=== PATIENT | female | born 1945 | race Caucasian/White ===

== ENCOUNTER 2018-06-15 09:07 | Emergency (ER) | payer MEDICARE, OTHER ==
[~2018-06-15] VITALS: Ht 167.6 cm; Wt 90.7 kg
[~2018-06-15 09:07] MED LIST: ALENDRONATE SOD70 MG PO; ASPIR 8181 MG PO; BACTRIM DS TAB1 EACH PO; CEFTIN500 MG PO; CELEBREX200 MG; CITALOPRAM HBR40 MG PO; CRANBERRY PO; DEXILANT60 MG PO; DITROPAN XL5 MG PO; KETOPROFEN50 MG PO; LIDOCAINE 5% PATCH TD; LISINOPRIL40 MG PO; MELOXICAM7.5 MG PO; MULTIVITAMINS1 EAC7 PO; NORCO 10MG-325MG1 EA PO; OMEGA 3 KRILL OIL PO; OMEPRAZOLE20 MG PO; OXYBUTYNIN CHLO15 MG PO; OXYBUTYNIN CHLOR5 MG PO; PANTOPRAZOLE SO40 MG; PRAVASTATIN SOD40 MG; PRAVASTATIN SOD40 MG PO; PYRIDIUM200 MG PO; RANITIDINE HCL150 MG PO; SILVADENE20 GM TP; SULFAMETHOXAZO1 EAC1 PO; TYLENOL WITH C1 EAC1 PO; TYLENOL WITH C1 EACH PO; TYLENOL325 MG PO; ULTRAM50 MG; ZESTRIL40 MG PO; [UNRECOGNIZED DRUG - OTHER] PO
--- OUTSIDE RECORDS SUMMARY | 2018-06-15 09:12 | XMS REPORT | Summary of Care ---
Author Organization Unknown Address Unknown Phone Unavailable Encounter HQ [facility]) [phone] Date(s): 02/12/14 - 02/12/14 [facility] Outpatient Imaging - [address] [address]- [place] Discharge Disposition: Home Physician Attendin -MARY TSAI Reason for Visit 627.2 - SYMPT FEM CLIMA Problem List No data available for this section Allergies, Adverse Reactions, Alerts No data available for this section Medications No data available for this section Medications Administered During Your Visit No data available for this section Immunizations No data available for this section
--- OUTSIDE RECORDS SUMMARY | 2018-06-15 09:12 | XMS REPORT | Continuity of Care Document ---
Author Author [facility] Interface Address Unknown Phone Unavailable Problems Problem Status Onset Date Classification Date Reported Comments Source UROSEPSIS Active 10/21/2016 [facility] ACUTE L IMPACTED [facility] HIP FX Active 04/02/2016 [facility] FALL Active 04/02/2016 [facility] L HIP FX Active 04/02/2016 [facility] 715.96/721.3 Active 02/02/2015 [facility] Otitis externa<sup>9</sup> Active 01/16/2015 Problem 10/27/2016 Data migrated from [employer] on 02/11/15. [facility] CHEST PAIN NOS Active 01/16/2015 Condition 01/20/[facility] OTITIS EXTERNA Active 01/16/2015 Condition 01/20/2015 [facility] Low back pain<sup>4</sup> Active 07/01/2014 Problem 10/27/2016 Data migrated from [employer] on 12/09/14. [facility] [place] BACK PAIN, LUMBAR Active 07/01/2014 Condition 01/20/2015 [facility] Mitral valve regurgitation<sup>6</sup> Active 02/13/2014 Problem 10/27/2016 Data migrated from [employer] on 12/09/14. [facility] [place] Osteoporosis<sup>8</sup> Active 02/13/2014 Problem 10/27/2016 Data migrated from [employer] on 12/09/14. [facility] [place] MITRAL REGURGITATION, MILD Active 02/13/2014 Condition 01/20/2015 [facility] OSTEOPOROSIS Active 02/13/2014 Condition 01/20/2015 [facility] Electrocardiogram abnormal<sup>1</sup> Active 02/05/2014 Problem 10/27/2016 Data migrated from [employer] on 12/09/14. [facility] [place] Gastroesophageal reflux disease<sup>2</sup> Active 02/05/2014 Problem 10/27/2016 Data migrated from [employer] on 12/09/14. [facility] [place] Hyperlipidemia<sup>3</sup> Active 02/05/2014 Problem 10/27/2016 Data migrated from [employer] on 12/09/14. [facility] [place] Menopause present<sup>5</sup> Active 02/05/2014 Problem 10/27/2016 Data migrated from [employer] on 12/09/14. [facility] [place] Osteoarthritis<sup>7</sup> Active 02/05/2014 Problem 10/27/2016 Data migrated from [employer] on 12/09/14. [facility] [place] Urge incontinence of urine<sup>9</sup> Active 02/05/2014 Problem 02/05/2015 Data migrated from [employer] on 12/09/14. [facility] Urge incontinence of urine<sup>10</sup> Active 02/05/2014 Problem 10/27/2016 Data migrated from [employer] on 12/09/14[facility] 02/05/2014 Condition 01/20/2015 [facility] HYPERLIPIDEMIA Active 02/05/2014 Condition 01/20/2015 [facility] GASTROESOPHAGEAL REFLUX DISEASE Active 02/05/2014 Condition 01/20/2015 [facility] OSTEOARTHRITIS Active 02/05/2014 Condition 01/20/2015 [facility] INCONTINENCE, URGE Active 02/05/2014 Condition 01/20/2015 [facility] ABNORMAL ELECTROCARDIOGRAM Active 02/05/2014 Condition 01/20/2015 [facility] MENOPAUSE Active 02/05/2014 Condition 01/20/2015 [facility] 338 - PAIN NEC Active 04/11/2013 [facility] [place] Final: Stiffness of unspecified joint, not elsewhere classified 06/20/2016 [facility] [place] Final: Difficulty in walking, not elsewhere classified 06/20/2016 [facility] [place] Arthritis Resolved Problem 10/27/2016 [facility] Hip fracture Active Problem 10/27/2016 [facility] Acid reflux Resolved Problem 10/27/2016 [facility]RISTNIE Waterman,[facility] Hiatal hernia Resolved Problem 10/27/2016 [facility] Final: Unspecified fracture of unspecified femur, initial encounter for closed fracture 04/09/2016 [facility] UNSP FRACTURE OF UNSP FEMUR, INIT ENCNTR Active [facility] OSTEOARTHROS NOS-L/LEG Active [facility] LUMBOSACRAL SPONDYLOSIS Active [facility] OTHER INJURY OF UNSPECIFIED BODY REGION Active [facility] HIP FRACTURE Active [facility] [place] SEPSIS, UNSPECIFIED ORGANISM Active [facility] PRESENCE OF LEFT ARTIFICIAL HIP JOINT Active [facility] [place] PAIN IN UNSPECIFIED HIP Active [facility] [place] MUSCLE WEAKNESS (GENERALIZED) Active [facility] [place] STIFFNESS OF UNSPECIFIED JOINT, NOT ELSE Active [facility] [place] DIFFICULTY IN WALKING, NOT ELSEWHERE CLA Active [facility] [place] Medications Medication Details Route Status Patient Instructions Ordering Provider Order Date Source Citalopram 40 mg, 4 tab, Route: PO, Drug form: TAB, Daily, Dosing Weight 88.003, kg, Start date: 10/24/16 13:00:00 CDT, Duration: 30 day, Stop date: 11/23/16 9:00:00 CDT Inactive 10/24/2016 [facility] calcitriol 0.5 mcg oral capsule 0.5 microgram=1 cap, PO, Daily, # 30 cap, 0 Refill(s) Active 10/24/2016 [facility] Cefuroxime 250 MG Oral Tablet [Ceftin] 250 mg=1 tab, PO, BID, X 10 day, # 20 tab, 0 Refill(s) Active 10/24/2016 [facility] metroNIDAZOLE 250 mg oral tablet 250 mg=1 tab, PO, ABXQ8H, X 7 day, # 21 tab, 0 Refill(s) Active 10/24/2016 [facility] Atropine Sulfate 0.025 MG / Diphenoxylate Hydrochloride 2.5 MG Oral Tablet [Lomotil] 1 tab, PO, QID, PRN Loose Stools, X 3 day, # 12 tab, 0 Refill(s) Active 10/24/2016 [facility] Flagyl 250 mg, 1 tab, Route: PO, Drug form: TAB, ABXQ8H, Dosing Weight 88.003, kg, Start date: 10/24/16 10:00:00 CDT, Duration: 30 day, Stop date: 11/23/16 2:00:00 CDTNotes: (Same as: Flagyl) Take with food/ avoid alcohol Inactive 10/24/2016 [facility] Atropine Sulfate 0.025 MG / Diphenoxylate Hydrochloride 2.5 MG Oral Tablet [Lomotil] 1 tab, Route: PO, Drug Form: TAB, Dosing Weight 88.003, kg, QID, PRN Loose Stools, Start date: 10/24/16 9:28:00 CDT, Duration: 30 day, Stop date: 11/23/16 9:27:00 CDTNotes: (Same As: Lomotil) MAX Adult dose=8 tabs/day Inactive 10/24/2016 [facility] Potassium Chloride 1.33 MEQ/ML Oral Solution 40 mEq, 30 mL, Route: PO, Drug form: LIQ, ONCE, Dosing Weight 88.003, kg, Start date: 10/23/16 14:40:00 CDT, Stop date: 10/23/16 14:40:00 CDTNotes: (Same as: Potassium Chloride) Inactive 10/23/2016 [facility] ibuprofen 200 mg oral tablet 200 mg, 1 tab, Route: PO, Drug form: TAB, Q6H, Dosing Weight 88.636, kg, PRN Other -See Comment, Start date: 10/22/16 16:29:00 CDT, Duration: 30 day, Stop date: 11/21/16 16:28:00 CDT, feverNotes: (Same as: Advil) Give with food. No Longer Active 10/22/2016 [facility] meropenem 500 mg, Route: IVPB, ABXQ6H, Dosing Weight 88.636, kg, CrCL=26 -49 ml/min, Extended infusion, infuse over 3 hours, Start date: 10/22/16 11:00:00 CDT, Duration: 30 day, Stop date: 11/21/16 7:00:00 CDTNotes: Same as Merrem MEDICATION WASTE Product Size: 500 mg Product Wasted: ___ mg No Longer Active 10/22/2016 [facility] pantoprazole 40 mg, 1 tab, Route: PO, Drug form: ECTAB, Daily, Dosing Weight 88.636, kg, Start date: 10/22/16 9:00:00 CDT, Duration: 30 day, Stop date: 11/20/16 9:00:00 CDTNotes: Tablet should not be chewed or cr ushed. (Same as: Protonix) No Longer Active 10/22/2016 [facility] Streptococcus pneumoniae serotype 1 capsular antigen diphtheria [id number] protein conjugate vaccine / Streptococcus pneumoniae serotype 14 capsular antigen diphtheria [id number] protein conjugate vaccine / Streptococcus pneumoniae serotype 18C capsular antigen d 0.5 mL, Route: IM, Drug Form: INJ, Daily, Start date: 10/22/16 8:19:00 CDT, Duration: 1 doses or times, Stop date: 10/22/16 8:19:00 CDTNotes: Lightly roll vial (DO NOT SHAKE) before administration. (Same as: Prevnar 13) Inactive 10/22/2016 [facility] Morphine 2 mg, 1 mL, Route: IVP, Drug form: INJ, ONCE, Dosing Weight 88.636, kg, Start date: 10/22/16 4:03:00 CDT, Stop date: 10/22/16 4:03:00 CDTNotes: (Same as:MORPhine Sulfate) Inactive 10/22/2016 [facility] Merrem 500 mg, Route: IVPB, Q12H, Dosing Weight 88.636, kg, CrCL >=50ml/min, Extended infusion, infuse over 3 hours, Start date: 10/21/16 21:00:00 CDT, Duration: 30 day, Stop date: 11/20/16 9:00:00 CDTNotes: Same as Merrem MEDICATION WASTE Product Size: 500 mg Product Wasted: ___ mg Inactive 10/22/2016 [facility] Acetaminophen 325 MG / Hydrocodone Bitartrate 5 MG Oral Tablet [[place] 5/325] 1 tab, Route: PO, Drug Form: TAB, Dosing Weight 88.636, kg, Q6H, PRN Pain Score 1-3, Start date: 10/21/16 19:54:00 CDT, Duration: 30 day, Stop date: 11/20/16 19:53:00 CDTNotes: (Same as: [place] 325/5) Do not exceed 4gm/day of acetaminophen. No Longer Active 10/22/2016 [facility] Docusate 100 mg, 1 cap, Route: PO, Drug form: CAP, BID, Dosing Weight 81.818, kg, Start date: 10/21/16 17:00:00 CDT, Duration: 30 day, Stop date: 11/20/16 9:00:00 CDTNotes: (Same as: Colace) (Do Not Crush) No Longer Active 10/21/2016 [facility] Ceftriaxone 1 gm, Route: IVPB, Drug form: PDR/INJ, [id number], Dosing Weight 81.818, kg, Start date: 10/21/16 16:00:00 CDT, Duration: 30 day, Stop date: 11/19/16 16:00:00 CDT Inactive 10/21/2016 [facility] Acetaminophen 650 mg, 2 tab, Route: PO, Drug form: TAB, Q4H, Dosing Weight 81.818, kg, PRN Pain 1-3/Temp > 100.4 F, Start date: 10/21/16 15:54:00 CDT, Duration: 30 day, Stop date: 11/20/16 15:53:00 CDTNotes: Do not exceed 4 gm/day. (Same as: Tylenol) No Longer Active 10/21/2016 [facility] Ondansetron 4 mg, 2 mL, Route: IVP, Drug form: INJ, Q6H, Dosing Weight 81.818, kg, PRN Nausea & Vomiting, Start date: 10/21/16 15:54:00 CDT, Duration: 30 day, Stop date: 11/20/16 15:53:00 CDTNotes: (Same as: Mary) MEDICATION WASTE Product Size: 4 mg Product Wasted: ___ mg No Longer Active 10/21/2016 [facility] Sodium Chloride 0.154 MEQ/ML Injectable Solution 1,000 mL, Rate: 75 ml/hr, Infuse over: 13.3 hr, Route: IV, Dosing Weight 81.818 kg, Total Volume: 1,000, Start date: 10/21/16 15:54:00 CDT, Duration: 30 day, Stop date: 11/20/16 15:53:00 CDT No Longer Active 10/21/2016 [facility] Saline Flush 0.9% 10 ml, Route: IVP, Drug Form: INJ, Dosing Weight 81.818, kg, PRN, PRN Line Flush, Start date: 10/21/16 15:54:00 CDT, Duration: 30 day, Stop date: 11/20/16 15:53:00 CDTNotes: (Same as: BD Posiflush) No Longer Active 10/21/2016 [facility] Physical Therapy See Instructions, MISC, ONCALL, Evaluate and Treat 2-3 times per week for 4-6 weeks, # 1 ea, 0 Refill(s) Active 04/15/2016 [facility] Acetaminophen 300 MG / Codeine Phosphate 30 MG Oral Tablet 1 tab, PO, Q4H, PRN Pain Score 7-10, X 3 day, # 18 tab, 0 Refill(s) Active 04/15/2016 [facility] Acetaminophen 325 MG Oral Capsule [Tylenol] =2 tab, PO, QID, PRN Pain Score 1-5, Do not take more than 3000 mg of combined Acetaminophen per day (which includes the Tylenol #3), # 100 tab, 0 Refill(s), Pharmacy: [facility]/pharmacy #[id number] Active 04/15/2016 [facility] Ergocalciferol [id number] UNT Oral Capsule 50,000 IntlUnit=1 cap, PO, qWeek, # 5 cap, 0 Refill(s), Pharmacy: [facility]/pharmacy #[id number] Active 04/15/2016 [facility] Cefuroxime 500 MG Oral Tablet 500 mg, 2 tab, Route: PO, Drug form: TAB, [id number], Dosing Weight 81.818, kg, Start date: 04/08/16 21:00:00 CDT, Duration: 7 day, Stop date: 04/15/16 9:00:00 CDTNotes: (Do Not Crush) With food. (Same As: Ceftin) No Longer Active 04/09/2016 [facility] Dulcolax Laxative 10 mg, 2 tab, Route: PO, Drug form: ECTAB, Daily, Dosing Weight 81.818, kg, PRN Constipation, Start date: 04/08/16 15:43:00 CDT, Duration: 30 day, Stop date: 05/08/16 15:42:00 CDTNotes: (Same As: Dulcolax, Correctol) (Do Not Crush) "Do Not Crush" No Longer Active 04/08/2016 [facility] cefTRIAXone + sodium chloride 0.9% INJ 100 mL 1 gm, Route: IV, [id number], Start date: 04/08/16 6:00:00 CDT, Duration: 30 day, Stop date: 05/07/16 6:00:00 CDTNotes: (Same As: Rocephin). Use with 100 mL NS and infuse over 30 min MEDICATION WASTE Product Size: 1000 mg Product Wasted: ___ mg Inactive 04/08/2016 [facility] Vitamin D2 50,000 IntlUnit, 1 cap, Route: PO, Drug form: CAP, qWeek, Dosing Weight 81.818, kg, Start date: 04/07/16 17:00:00 CDT, Duration: 5 doses or times, Stop date: 05/05/16 9:00:00 CDTNotes: (Same as: Thea min D) "Do Not Crush" No Longer Active 04/07/2016 [facility] Aspirin 81 mg, 1 tab, Route: PO, Drug form: ECTAB, Daily, Dosing Weight 81.818, kg, Start date: 04/07/16 12:00:00 CDT, Duration: 30 day, Stop date: 05/07/16 9:00:00 CDTNotes: Do not crush or chew. (Same As: Ecotrin) No Longer Active 04/07/2016 [facility] Tums 500 mg, 1 tab, Route: CHEW, Drug form: CHEWTAB, QID, PRN Indigestion, Start date: 04/07/16 11:35:00 CDT, Duration: 30 day, Stop date: 05/07/16 11:34:00 CDTNotes: (Same As: Tums) Calcium Carbonate 500 kr=952 mg elemental calcium Dose= mg calcium carbonate ( mg elemental calcium) No Longer Active 04/07/2016 [facility] Rolaids Reformulated Feb 2006 1 tab, Route: PO, Drug Form: TAB, Dosing Weight 81.818, kg, QID, PRN Indigestion, Start date: 04/07/16 11:29:00 CDT, Duration: 30 day, Stop date: 05/07/16 11:28:00 CDT Inactive 04/07/2016 [facility] Ditropan XL 15 mg, 3 tab, Route: PO, Drug form: ERTAB, Daily, Dosing Weight 81.818, kg, Start date: 04/07/16 9:00:00 CDT, Duration: 30 day, Stop date: 05/06/16 9:00:00 CDTNotes: (Same as: Ditropan XL) "Do Not C wang" No Longer Active 04/07/2016 [facility] CeleXA 40 mg, 4 tab, Route: PO, Drug form: TAB, Daily, Dosing Weight 81.818, kg, Start date: 04/07/16 9:00:00 CDT, Duration: 30 day, Stop date: 05/06/16 9:00:00 CDT No Longer Active 04/07/2016 [facility] Rocephin + sodium chloride 0.9% INJ 100 mL 1 gm, Route: IVPB, [id number], Dosing Weight 81.818, kg, Start date: 04/07/16 8:00:00 CDT, Duration: 30 day, Stop date: 05/06/16 8:00:00 CDTNotes: (Same As: Rocephin). Use with 100 mL NS and infuse over 30 min MEDICATION WASTE Product Size: 1000 mg Product Wasted: ___ mg Inactive 04/07/2016 [facility] Protonix 40 mg, 1 tab, Route: PO, Drug form: ECTAB, Before Breakfast, Start date: 04/07/16 7:30:00 CDT, Duration: 30 day, Stop date: 05/06/16 7:30:00 CDTNotes: Tablet should not be chewed or crushed. (Same as: Protonix) No Longer Active 04/07/2016 [facility] Lovenox 40 mg, 0.4 mL, Route: SUB-Q, Drug form: INJ, [id number], Dosing Weight 81.818, kg, Start date: 04/07/16 6:00:00 CDT, Duration: 30 day, Stop date: 05/06/16 6:00:00 CDTNotes: (Same as: Lovenox) No Longer Active 04/07/2016 [facility] remove patch 1 patch, Route: TOP, Bedtime, Drug form: ERFILM, Start date: 04/06/16 21:00:00 CDT, Duration: 30 day, Stop date: 05/05/16 21:00:00 CDTNotes: Remove patch 12 hours after application each day. No Longer Active 04/07/2016 [facility] docusate sodium 100 mg oral capsule 100 mg, 1 cap, Route: PO, Drug form: CAP, BID, Dosing Weight 81.818, kg, Start date: 04/06/16 17:00:00 CDT, Duration: 30 day, Stop date: 05/06/16 9:00:00 CDTNotes: (Same as: Colace) (Do Not Crush) No Longer Active 04/06/2016 [facility] lidocaine topical patch (5% film) 1 patch, Route: TOP, Daily, Drug form: FILM, PRN Pain Score 1-5, Start date: 04/06/16 13:56:00 CDT, Duration: 30 day, Stop date: 05/06/16 13:55:00 CDTNotes: Apply only once for up to 12 hours in a 24-hour period (12 hours on and 12 hours off). (Same as: Lidoderm) "Remove old patch before application of new patch" No Longer Active 04/06/2016 [facility] acetaminophen-codeine 300 mg-60 mg oral tablet 1 tab, Route: PO, Drug Form: TAB, Dosing Weight 81.818, kg, Q4H, PRN Pain Score 6-10, Start date: 04/06/16 13:56:00 CDT, Duration: 30 day, Stop date: 05/06/16 13:55:00 CDTNotes: Do not exceed 4gm/day of acetaminophen. (Same as: Tylenol with Codeine # 4) No Longer Active 04/06/2016 [facility] acetaminophen-codeine 300 mg-30 mg oral tablet 1 tab, Route: PO, Drug Form: TAB, Dosing Weight 81.818, kg, Q4H, PRN Pain Score 4-6, Start date: 04/06/16 13:53:00 CDT, Duration: 30 day, Stop date: 05/06/16 13:52:00 CDTNotes: Do not exceed 4gm/day of acetaminophen. (Same as: Tylenol with Codeine # 3) No Longer Active 04/06/2016 [facility] Trazodone 50 mg, 1 tab, Route: PO, Drug form: TAB, Bedtime, Dosing Weight 81.818, kg, PRN Insomnia, Start date: 04/06/16 12:58:00 CDT, Duration: 30 day, Stop date: 05/06/16 12:57:00 CDTNotes: (Same As: Jasminel) No Longer Active 04/06/2016 [facility] pantoprazole 40 mg oral enteric coated tablet 40 mg=1 tab, PO, Before Breakfast, 0 Refill(s) On Hold 04/06/2016 [facility] Enoxaparin 40 mg=0.4 mL, SUB-Q, Daily, 0 Refill(s) On Hold 04/06/2016 [facility] Docusate Sodium 100 MG Oral Capsule 100 mg=1 cap, PO, BID, 0 Refill(s) On Hold 04/06/2016 [facility] Acetaminophen 300 MG / Codeine Phosphate 30 MG Oral Tablet 1 tab, Route: PO, Drug Form: TAB, Dosing Weight 81.818, kg, Q4H, PRN Pain Score 4-6, Start date: 04/04/16 13:35:00 CDT, Duration: 30 day, Stop date: 05/04/16 13:34:00 CDTNotes: Do not exceed 4gm/day of acetaminophen. (Same as: Tylenol with Codeine # 3) No Longer Active 04/04/2016 [facility] Acetaminophen 300 MG / Codeine Phosphate 60 MG Oral Tablet [Tylenol with Codeine #4] 1 tab, Route: PO, Drug Form: TAB, Dosing Weight 81.818, kg, Q4H, PRN Pain Score 6-10, Start date: 04/04/16 13:35:00 CDT, Duration: 30 day, Stop date: 05/04/16 13:34:00 CDTNotes: Do not exceed 4gm/day of acetaminophen. (Same as: Tylenol with Codeine # 4) No Longer Active 04/04/2016 [facility] pneumococcal 13-valent vaccine 0.5 mL, Route: IM, Drug Form: INJ, Daily, Start date: 04/04/16 9:00:00 CDT, Duration: 1 doses or times, Stop date: 04/04/16 9:00:00 CDTNotes: Lightly roll vial (DO NOT SHAKE) before administration. (Same as: Prevnar 13) Inactive 04/04/2016 [facility] influenza virus vaccine, inactivated 0.5 mL, Route: IM, Drug Form: SUSP, Daily, Start date: 04/04/16 9:00:00 CDT, Duration: 1 doses or times, Stop date: 04/04/16 9:00:00 CDTNotes: (Same as: Fluzone Quadrivalent, Fluarix Quadrivalent) For 3 years of age and older (0.5 mL IM) Shake well before use Inactive 04/04/2016 [facility] Rocephin 1 gm, Route: IVPB, [id number], Dosing Weight 81.818, kg, Start date: 04/04/16 8:00:00 CDT, Duration: 30 day, Stop date: 05/03/16 8:00:00 CDTNotes: (Same As: Rocephin). Use with 100 mL NS and infuse over 30 min MEDICATION WASTE Product Size: 1000 mg Product Wasted: ___ mg No Longer Active 04/04/2016 [facility] Vancomycin 6.67 MG/ML Injectable Solution 1,000 mg, Route: IVPB, Q12H, Dosing Weight 81.818, kg, Time Critical Medication, Start date: 04/03/16 21:00:00 CDT, Duration: 2 doses or times, Stop date: 04/04/16 9:00:00 CDT, Pharmacy to adjust dose for renal functionNotes: TIME CRITICAL MEDICATION (Same As: Vancocin) Infusion rate 2001 mg: infuse over 2.5 hours MEDICATION WASTE Product Size: 1000 mg Product Wasted: ___ mg No Longer Active 04/04/2016 [facility] ceFAZolin (SCIP) 2 gm, 100 mL, Route: IVPB, Drug form: INJ, [id number], Dosing Weight 81.818, kg, Start date: 04/03/16 19:15:00 CDT, Duration: 3 doses or times, Stop date: 04/04/16 7:15:00 CDTNotes: Same as: Ancef No Longer Active 04/04/2016 [facility] Docusate 100 mg, 1 cap, Route: PO, Drug form: CAP, BID, Dosing Weight 81.818, kg, Start date: 04/03/16 17:00:00 CDT, Duration: 30 day, Stop date: 05/03/16 9:00:00 CDTNotes: (Same as: Colace) (Do Not Crush) No Longer Active 04/03/2016 [facility] Acetaminophen 325 MG / Hydrocodone Bitartrate 10 MG Oral Tablet [[place] 10/325] 2 tab, Route: PO, Drug Form: TAB, Dosing Weight 81.818, kg, QID, Start date: 04/03/16 17:00:00 CDT, Duration: 1 day, Stop date: 04/04/16 13:00:00 CDTNotes: Do not exceed 4gm/day of acetaminophen. (Same as: [place] 325/10) No Longer Active 04/03/2016 [facility] glycopyrrolate (ANES) Route: IV, Drug form: INJ, ONCE, Stop date: 04/03/16 16:00:00 CDT Inactive 04/03/2016 [facility] neostigmine (ANES) Route: IV, Drug form: INJ, ONCE, Stop date: 04/03/16 16:00:00 CDT Inactive 04/03/2016 [facility] Hydromorphone 0.3 mg, 0.3 mL, Route: IVP, Drug form: INJ, Q4H, Dosing Weight 81.818, kg, PRN Pain Score 7-10, Start date: 04/03/16 15:31:00 CDT, Duration: 30 day, Stop date: 05/03/16 15:30:00 CDT No Longer Active 04/03/2016 [facility] Acetaminophen 325 MG / Hydrocodone Bitartrate 10 MG Oral Tablet [[place] 10/325] 2 tab, Route: PO, Drug Form: TAB, Dosing Weight 81.818, kg, Q4H, PRN Pain Score 4-6, Start date: 04/03/16 15:31:00 CDT, Duration: 30 day, Stop date: 05/03/16 15:30:00 CDTNotes: Do not exceed 4gm/day of acetaminophen. (Same as: [place] 325/10) No Longer Active 04/03/2016 [facility] Ondansetron 4 mg, 2 mL, Route: IVP, Drug form: INJ, Q8H, Dosing Weight 81.818, kg, PRN Nausea & Vomiting, Start date: 04/03/16 15:31:00 CDT, Duration: 30 day, Stop date: 05/03/16 15:30:00 CDTNotes: (Same as: Zofran) MEDICATION WASTE Product Size: 4 mg Product Wasted: ___ mg No Longer Active 04/03/2016 [facility] sodium chloride 0.45% 1000 ml INJ 1,000 mL 1,000 mL, Rate: 75 ml/hr, Infuse over: 13.3 hr, Route: IV, Dosing Weight 81.818 kg, Total Volume: 1,000, Start date: 04/03/16 15:31:00 CDT, Duration: 30 day, Stop date: 05/03/16 15:30:00 CDT No Longer Active 04/03/2016 [facility] acetaminophen (ANES) Route: IV, Drug form: INJ, ONCE, Stop date: 04/03/16 15:01:00 CDT Inactive 04/03/2016 [facility] dexamethasone (ANES) Route: IV, Drug form: INJ, ONCE, Stop date: 04/03/16 14:56:00 CDT Inactive 04/03/2016 [facility] ondansetron (ANES) Route: IV, Drug form: INJ, ONCE, Stop date: 04/03/16 14:56:00 CDT Inactive 04/03/2016 [facility] ketOROLAC (ANES) IV, ONCE Inactive 04/03/2016 [facility] Cleocin Phosphate (ANES) Route: IV, Drug form: INJ, ONCE, Stop date: 04/03/16 14:51:00 CDT Inactive 04/03/2016 [facility] ceFAZolin (ANES) Route: IV, Drug form: INJ, ONCE, Stop date: 04/03/16 14:51:00 CDT Inactive 04/03/2016 [facility] rocuronium (ANES) Route: IV, Drug form: INJ, ONCE, Stop date: 04/03/16 14:46:00 CDT Inactive 04/03/2016 [facility] fentaNYL (ANES) Route: IV, Drug form: INJ, ONCE, Stop date: 04/03/16 14:46:00 CDT Inactive 04/03/2016 [facility] propofol (ANES) Route: IV, Drug form: INJ, ONCE, Stop date: 04/03/16 14:46:00 CDT Inactive 04/03/2016 [facility] lidocaine (ANES) Route: IV, Drug form: INJ, ONCE, Stop date: 04/03/16 14:46:00 CDT Inactive 04/03/2016 [facility] midazolam (ANES) Route: IV, Drug form: SOLN, ONCE, Stop date: 04/03/16 14:36:00 CDT Inactive 04/03/2016 [facility] ePHEDrine (ANES) Route: IV, Drug form: INJ, ONCE, Stop date: 04/03/16 14:16:00 CDT Inactive 04/03/2016 [facility] LR 1000 mL INJ (ANES) Route: IV, Total Volume: 1,000, Start date: 04/03/16 13:26:00 CDT, Stop date: 04/03/16 14:26:00 CDT Inactive 04/03/2016 [facility] Streptococcus pneumoniae serotype 1 capsular antigen diphtheria [id number] protein conjugate vaccine / Streptococcus pneumoniae serotype 14 capsular antigen diphtheria [id number] protein conjugate vaccine / Streptococcus pneumoniae serotype 18C capsular antigen d 0.5 mL, Route: IM, Drug Form: INJ, Daily, Start date: 04/03/16 9:00:00 CDT, Stop date: 04/03/16 12:00:00 CDTNotes: Lightly roll vial (DO NOT SHAKE) before administration. (Same as: Prevnar 13) Inactive 04/03/2016 [facility] influenza virus vaccine, inactivated 0.5 mL, Route: IM, Drug Form: SUSP, Daily, Start date: 04/03/16 9:00:00 CDT, Stop date: 04/03/16 12:00:00 CDTNotes: (Same as: Fluzone Quadrivalent, Fluarix Quadrivalent) For 3 years of age and older (0.5 mL IM) Shake well before use Inactive 04/03/2016 [facility] Omeprazole 40 mg, Route: PO, Drug form: DRC, Daily, Dosing Weight 81.818, kg, Start date: 04/03/16 9:00:00 CDT, Duration: 30 day, Stop date: 05/02/16 9:00:00 CDT No Longer Active 04/03/2016 [facility] oxybutynin 15 mg, 3 tab, Route: PO, Drug form: ERTAB, Daily, Dosing Weight 81.818, kg, Start date: 04/03/16 9:00:00 CDT, Duration: 30 day, Stop date: 05/02/16 9:00:00 CDTNotes: (Same as: Ditropan XL) "Do Not Crush" No Longer Active 04/03/2016 [facility] Citalopram 40 mg, 4 tab, Route: PO, Drug form: TAB, Daily, Dosing Weight 81.818, kg, Start date: 04/03/16 9:00:00 CDT, Duration: 30 day, Stop date: 05/02/16 9:00:00 CDT No Longer Active 04/03/2016 [facility] Sulfamethoxazole 800 MG / Trimethoprim 160 MG Oral Tablet 1 tab, PO, Daily, 0 Refill(s) On Hold 04/03/2016 [facility] Protonix 40 mg, 1 tab, Route: PO, Drug form: ECTAB, Before Breakfast, Start date: 04/03/16 7:30:00 CDT, Duration: 30 day, Stop date: 05/02/16 7:30:00 CDTNotes: Tablet should not be chewed or crushed. (Same as: Protonix) No Longer Active 04/03/2016 [facility] Enoxaparin 40 mg, 0.4 mL, Route: SUB-Q, Drug form: INJ, Daily, Dosing Weight 81.818, kg, Start date: 04/03/16 7:07:00 CDT, Duration: 30 day, Stop date: 05/03/16 6:00:00 CDTNotes: (Same as: Lovenox) No Longer Active 04/03/2016 [facility] remove patch Route: MISC, Bedtime, Drug form: ERFILM, Start date: 04/02/16 21:00:00 CDT, Duration: 30 day, Stop date: 05/01/16 21:00:00 CDTNotes: Remove patch 12 hours after application each day. No Longer Active 04/03/2016 [facility] Aspirin 81 mg, 1 tab, Route: PO, Drug form: ECTAB, Daily, Dosing Weight 81.818, kg, Start date: 04/02/16 20:30:00 CDT, Duration: 30 day, Stop date: 05/02/16 9:00:00 CDTNotes: Do not crush or chew. (Same As: Ecotrin) No Longer Active 04/03/2016 [facility] celecoxib 400 mg, 2 cap, Route: PO, Drug form: CAP, ONCALL, Dosing Weight 81.818, kg, (for CrCl > 90 mL/min), Start date: 04/02/16 20:00:00 CDT, Duration: 30 day, Stop date: 05/02/16 19:59:00 CDTNotes: NSAID. Please check indication. Not for seizure. (Same As: CeleBREX) Inactive 04/03/2016 [facility] Cefazolin 2 gm, 100 mL, Route: IVPB, Drug form: INJ, ONCALL, Dosing Weight 81.818, kg, (Patients weighing Notes: Same as: Ancef Inactive 04/03/2016 [facility] Lidocaine Hydrochloride 0.05 MG/MG Transdermal Patch [Lidoderm] 1 patch, Route: TOP, Daily, Drug form: FILM, PRN Pain Score 1-5, Start date: 04/02/16 19:48:00 CDT, Duration: 30 day, Stop date: 05/02/16 19:47:00 CDTNotes: Apply only once for up to 12 hours in a 24-hour period (12 hours on and 12 hours off). (Same as: Lidoderm) "Remove old patch before application of new patch" No Longer Active 04/03/2016 [facility] Acetaminophen 300 MG / Codeine Phosphate 60 MG Oral Tablet 1 tab, Route: PO, Drug Form: TAB, Dosing Weight 81.818, kg, Q4H, PRN Pain Score 7-10, Start date: 04/02/16 19:47:00 CDT, Duration: 30 day, Stop date: 05/02/16 19:46:00 CDTNotes: Do not exceed 4gm/day of acetaminophen. (Same as: Tylenol with Codeine # 4) No Longer Active 04/03/2016 [facility] Rocephin 1 gm, Route: IVPB, Drug form: PDR/INJ, [id number], Dosing Weight 81.818, kg, Priority: STAT, Start date: 04/02/16 19:42:00 CDT, Duration: 1 day, Stop date: 04/02/16 19:42:00 CDT Inactive 04/03/2016 [facility] MegaKrill 500 mg=, PO, Daily, "MegaRed", 0 Refill(s) On Hold 04/02/2016 [facility] Centrum Women's oral tablet 1 tab, PO, Daily, 0 Refill(s) On Hold 04/02/2016 [facility] Aspirin 81 mg, PO, Daily, 0 Refill(s) On Hold 04/02/2016 [facility] Sulfamethoxazole 40 MG/ML / Trimethoprim 8 MG/ML Oral Suspension PO, Daily, DOSE UNKNOWN, 0 Refill(s) No Longer Active 04/02/2016 [facility] Tylenol 650 mg, PO, 0 Refill(s) On Hold 04/02/2016 [facility] acetaminophen 325 mg oral tablet 650 mg, 2 tab, Route: PO, ONCE, Dosing Weight 81.818, kg, Start date: 04/02/16 15:57:00 CDT, Stop date: 04/02/16 15:57:00 CDT Inactive 04/02/2016 [facility] Sodium Chloride 0.154 MEQ/ML Injectable Solution 1,000 mL, Rate: 125 ml/hr, Infuse over: 8 hr, Route: IV, Dosing Weight 81.818 kg, Total Volume: 1,000, Start date: 04/02/16 15:28:00 CDT, Duration: 30 day, Stop date: 05/02/16 15:27:00 CDT No Longer Active 04/02/2016 [facility] Morphine 4 mg, 2 mL, Route: IVP, Drug form: INJ, Q4H, Dosing Weight 81.818, kg, PRN Pain Score 7-10, Start date: 04/02/16 15:28:00 CDT, Duration: 30 day, Stop date: 05/02/16 15:27:00 CDTNotes: (Same as:MORPhine Sulfate) No Longer Active 04/02/2016 [facility] Ondansetron 4 mg, 2 mL, Route: IVP, Drug form: INJ, Q6H, Dosing Weight 81.818, kg, PRN Nausea & Vomiting, Start date: 04/02/16 15:28:00 CDT, Duration: 30 day, Stop date: 05/02/16 15:27:00 CDTNotes: (Same as: Zofran) MEDICATION WASTE Product Size: 4 mg Product Wasted: ___ mg No Longer Active 04/02/2016 [facility] Saline Flush 0.9% 10 ml, Route: IVP, Drug Form: INJ, Dosing Weight 81.818, kg, PRN, PRN Line Flush, Start date: 04/02/16 15:28:00 CDT, Duration: 30 day, Stop date: 05/02/16 15:27:00 CDTNotes: (Same as: BD Posiflush) No Longer Active 04/02/2016 [facility] Lidocaine Hydrochloride 0.05 MG/MG Transdermal Patch [Lidoderm] 1 patch, TOP, Daily, PRN Pain Score 1-5, 0 Refill(s) On Hold 04/02/2016 [facility] Acetaminophen 300 MG / Codeine Phosphate 60 MG Oral Tablet 1 tab, PO, Q4H, PRN Pain Score 7-10, TAKE 1 TABLET BY MOUTH EVERY 4-6 HOUIRS NEEDED FOR SEVERE PAIN On Hold 04/02/2016 [facility] citalopram 40 mg oral tablet 40 mg=1 tab, PO, Daily, 0 Refill(s) On Hold 04/02/2016 [facility] omeprazole 40 mg oral delayed release capsule 40 mg=1 cap, PO, Daily, 0 Refill(s) On Hold 04/02/2016 [facility] oxybutynin 15 mg oral tablet, extended release 15 mg=1 tab, PO, Daily, 0 Refill(s) On Hold 04/02/2016 [facility] Alendronic acid 70 MG Oral Tablet 70 mg=1 tab, PO, Q7D, 0 Refill(s) On Hold 04/02/2016 [facility] Ceftriaxone 1 gm, Route: IVPB, Drug form: PDR/INJ, ONCE, Dosing Weight 81.818, kg, Priority: STAT, Start date: 04/02/16 14:56:00 CDT, Stop date: 04/02/16 14:56:00 CDT Inactive 04/02/2016 [facility] Morphine 4 mg, 2 mL, Route: IVP, Drug form: INJ, ONCE, Dosing Weight 87.27, kg, Start date: 04/02/16 13:32:00 CDT, Stop date: 04/02/16 13:32:00 CDTNotes: (Same as:MORPhine Sulfate) Inactive 04/02/2016 [facility] OMEPRAZOLE 20 MG CPDR one capsule daily Active [facility] FOSAMAX 70 MG TABS 1 tablet weekly with 8 oz water Active 01/16/[facility] CIPRODEX 0.3-0.1 % SUSP 4 drops into affected ear twice daily for 7 days Active 01/16/[facility] OXYBUTYNIN CHLORIDE ER 15 MG [id number] One po daily Active 07/01/2014 [facility] NITROFURANTOIN MACROCRYSTAL 100 MG CAPS 1 capsule po daily No Longer Active 07/01/2014 [facility] ASPIRIN 81 MG TBEC 2 po daily Active 07/01/2014 [facility] LANSOPRAZOLE 30 MG CPDR one capsule daily Active 07/01/2014 [facility] LIDODERM 5 % PTCH as directed Active 07/01/2014 [facility] MOBIC 7.5 MG/5ML SUSP one tablet daily for pain Active 07/01/2014 [facility] ACETAMINOPHEN-CODEINE #3 300-30 MG TABS one tablet every 8 hours as needed for pain Active 07/01/2014 [facility] TYLENOL EXTRA STRENGTH TABS 2 po daily Inactive 07/01/2014 [facility] ADVANCED AM/PM MISC 2 tablets AM/PM No Longer Active 07/01/2014 [facility] OXYBUTYNIN CHLORIDE ER 15 MG [id number] One po daily Active 07/01/2014 [facility] NITROFURANTOIN MACROCRYSTAL 100 MG CAPS 1 capsule po daily Active 07/01/2014 [facility] LIDODERM 5 % PTCH as directed Active 07/01/2014 [facility] ACETAMINOPHEN-CODEINE #3 300-30 MG TABS one tablet every 8 hours as needed for pain Active 07/01/2014 [facility] FOSAMAX 70 MG TAB 1 tablet weekly as directed Active 02/13/2014 [facility] FOSAMAX 70 MG TAB 1 tablet weekly as directed No Longer Active 02/13/2014 [facility] LISINOPRIL 5 MG TABS 1 tablet daily Active 02/05/2014 [facility] OXYBUTYNIN CHLORIDE ER 15 MG [id number] ONE TAB DAILY No Longer Active 02/05/2014 [facility] PRAVASTATIN SODIUM 40 MG TABS ONE TAB DAILY No Longer Active 02/05/2014 [facility] OMEPRAZOLE 20 MG TBEC ONE TAB DAILY No Longer Active 02/05/2014 [facility] ADULT ASPIRIN LOW STRENGTH 81 MG TBDP ONE TAB DAILY No Longer Active 02/05/2014 [facility] CRANBERRY PLUS VITAMIN C 4200-20-3 MG-MG-UNIT CAPS TWO CAPS ONCE A DAY Active 02/05/2014 [facility] EQ ARTHRITIS PAIN 650 MG CR-TABS TWO TABS ONCE A DAY No Longer Active 02/05/2014 [facility] HYDROCODONE-ACETAMINOPHEN 7.5-325 MG TABS 1 tablet daily as needed for severe pain Active 02/05/2014 [facility] ADVANCED AM/PM MISC 2 orally morning and evening as directed No Longer Active 02/05/2014 [facility] LISINOPRIL 5 MG TABS 1 tablet daily No Longer Active 02/05/2014 [facility] OXYBUTYNIN CHLORIDE ER 15 MG [id number] ONE TAB DAILY No Longer Active 02/05/2014 [facility] HYDROCODONE-ACETAMINOPHEN 7.5-325 MG TABS 1 tablet daily as needed for severe pain No Longer Active 02/05/2014 [facility] LISINOPRIL 5 MG TABS 1 tablet daily No Longer Active 02/05/2014 [facility] Allergies, Adverse Reactions, Alerts Substance Category Reaction Severity Reaction type Status Date Reported Comments Source Immunizations Immunization Date Given Site Status Last Updated Comments Source pneumococcal 13-valent vaccine 10/22/2016 Not Given [facility] influenza virus vaccine, inactivated 04/04/2016 Left Deltoid completed [facility] pneumococcal 13-valent vaccine 04/04/2016 Right Deltoid completed [facility] Results Order Name Results Value Reference Range Date Interpretation Comments Source ELECTROLYTES AGAP 12.3 meq/L 10.0 - 20.0 10/23/2016 [facility] ELECTROLYTES eGFR 96 mL/min/1.73m2 10/23/2016 Result Comment: The eGFR is calculated using the CKD-EPI formula. In most young, healthy individuals the eGFR will be >90 mL/min/1.73m2. The eGFR declines with age. An eGFR of 60-89 may be normal in some populations, particularly the elderly, for whom the CKD-EPI formula has not been extensively validated. Use of the eGFR is not recommended in the following populations: Individuals with unstable creatinine concentrations, including patients and those with serious co-morbid conditions. Patients with extremes in muscle mass or diet. The data above are obtained from the National Kidney Disease Education Program (NKDEP) which additionally recommends that when the eGFR is used in patients with extremes of body mass index for purposes of drug dosing, the eGFR should be multiplied by the estimated BMI. [facility] ELECTROLYTES Sodium Lvl 141 meq/L 135 - 145 10/23/2016 [facility] ELECTROLYTES Potassium Lvl 3.3 meq/L 3.5 - 5.1 10/23/2016 [facility] ELECTROLYTES Creatinine Lvl 0.55 mg/dL 0.50 - 1.40 10/23/2016 [facility] ELECTROLYTES Glucose Lvl 91 mg/dL 70 - 99 10/23/2016 [facility] ELECTROLYTES BUN 8 mg/dL 7 - 22 10/23/2016 [facility] ELECTROLYTES Calcium Lvl 8.1 mg/dL 8.5 - 10.5 10/23/2016 [facility] ELECTROLYTES CO2 25 meq/L 24 - 32 10/23/2016 [facility] ELECTROLYTES Chloride Lvl 107 meq/L 95 - 109 10/23/2016 [facility] HEMATOLOGY MPV 7.5 fL 7.4 - 10.4 10/23/2016 [facility] Platelet 130 K/CMM 133 - 450 10/23/2016 [facility] RDW 14.8 % 11.5 - 14.5 10/23/2016 [facility] MCH 29.2 pg 27.0 - 31.0 10/23/2016 [facility] Hct 35.3 % 36.0 - 48.0 10/23/2016 [facility] MCHC 33.5 g/dL 32.0 - 36.0 10/23/2016 [facility] WBC 5.8 K/CMM 3.7 - 10.4 10/23/2016 [facility] MCV 87.1 fL 80.0 - 98.0 10/23/2016 [facility] RBC 4.06 M/CMM 4.20 - 5.40 10/23/2016 [facility] Hgb 11.8 g/dL 12.0 - 16.0 10/23/2016 [facility] RBC 4.11 M/CMM 4.20 - 5.40 10/22/2016 [facility] WBC 9.3 K/CMM 3.7 - 10.4 10/22/2016 [facility] Hct 35.9 % 36.0 - 48.0 10/22/2016 [facility] Hgb 11.9 g/dL 12.0 - 16.0 10/22/2016 [facility] MCV 87.3 fL 80.0 - 98.0 10/22/2016 [facility] MCHC 33.3 g/dL 32.0 - 36.0 10/22/2016 [facility] MCH 29.0 pg 27.0 - 31.0 10/22/2016 [facility] MPV 7.4 fL 7.4 - 10.4 10/22/2016 [facility] RDW 14.6 % 11.5 - 14.5 10/22/2016 [facility] Platelet 170 K/CMM 133 - 450 10/22/2016 [facility] Retroperitoneal Complete US Retroperitoneal Complete US Patient Name: LUCRECIA QUEZADA : 1945; Age: 71 years y/o Female MR: [id number] Study: Retroperitoneal Complete US Clinical Indication: Urinary tract infection - evaluate mass and compare to CT and evaluate ureteral jets.; Comparison: CT abdomen 10/22/2016. TECHNIQUE: Multiple longitudinal and transverse real time sonographic images of the kidneys and urinary bladder are obtained. FINDINGS: KIDNEY: The right kidney measures 13 x 4.8 x 5.2cm. 1.7 cm simple cyst right renal upper pole. The left kidney measures 12.4 x 6.5 x 5 cm. 3 cm simple cyst left renal upper pole. No pelvocaliectasis, nephrolithiasis or solid renal mass lesion identified bilaterally. BLADDER: Bladder is sonographically unremarkable. Bilateral ureteral jets were demonstrated. IMPRESSION: 1. No hydronephrosis or urinary tract obstruction appreciated. 2. Bilateral renal cysts. No solid mass seen. SL: JOHN-ETELVINA 10/22/2016 - - Read by: Leobardo Brandon MD Dictated Date/time: 10/22/16 17:40 Electronically Signed by: Leobardo Brandon MD 10/22/16 17:44 FINAL REPORT [facility] Abdomen/Pelvis wo IV contrast CT Abdomen/Pelvis wo IV contrast CT Patient Name: LUCRECIA QUEZADA : 1945; Age: 71 years Female MR: [id number] Study: Abdomen/Pelvis wo IV contrast CT 10/21/2016 5:43 PM CDT CLINICAL INDICATION: Fever; Stone protocol. Left InterStim in place. - dlp: 1107.67; [facility] COMPARISON: None TECHNIQUE: Multidetector CT imaging of the abdomen and pelvis was performed from the diaphragm through the symphysis with multiplanar reformations WITHOUT IV contrast. Coronal and sagittal reconstructions were generated and reviewed. FINDINGS: Lower thorax: Trace bilateral pleural effusions and bibasilar atelectasis. Small hiatal hernia. Hepatobiliary: No focal hepatic lesion. No biliary ductal dilatation. Pancreas: No focal mass or ductal dilatation. Spleen: No splenomegaly. Adrenals: No nodules. Kidneys: Mild left hydronephrosis. Few nonobstructive calculi within the inferior left kidney. Mild left perinephric stranding. Exophytic 3.3 cm left renal cyst. Unremarkable right kidney. Pelvic organs: Very limited evaluation of the pelvis due to extensive streak artifact from the bilateral hip arthroplasties. Peritoneum/Retroperitoneum: Trace free pelvic fluid. Lymph nodes: No lymphadenopathy. Vessels: Unremarkable. GI: Sigmoid and descending colon diverticulosis. No significant bowel wall thickening or obstruction. Postoperative changes of the stomach. Bones and soft tissues: Degenerative changes of the spine. The bones are demineralized. Sacral stimulator device noted within the left flank. Bilateral hip arthroplasties. IMPRESSION: Mild left hydronephrosis. Very limited evaluation of the pelvis due to extensive streak artifact from the bilateral hip arthroplasties. This streak artifact completely obscures the ureterovesicular junction where a small stone may result in the hydronephrosis. Few nonobstructive calculi within the inferior left kidney. Sigmoid and descending colon diverticulosis. SL: [id number] 10/22/2016 - - Read by: Rosemarie Estrada MD Dictated Date/time: 10/22/16 18:32 Electronically Signed by: Rosemarie Estrada MD 10/22/16 18:40 FINAL REPORT [facility] URINE AND STOOL UA Urobilinogen <=1.0 mg/dL 0.1 - 1.0 10/22/2016 [facility] URINE AND STOOL UA Color Ltyellow 10/22/2016 [facility] URINE AND STOOL UA Glucose Negative mg/dL Negative mg/dL 10/22/2016 [facility] URINE AND STOOL UA Nitrite Negative (10/22/16 5:15 AM) Negative 10/22/2016 [facility] URINE AND STOOL UA Blood Small *ABN* (10/22/16 5:15 AM) Negative 10/22/2016 [facility] URINE AND STOOL UA Leuk Est Large *ABN* (10/22/16 5:15 AM) Negative 10/22/2016 [facility] URINE AND STOOL UA WBC 12 /HPF 0 - 5 10/22/2016 [facility] URINE AND STOOL UA Bacteria Occasional /HPF None Seen /HPF 10/22/2016 [facility] URINE AND STOOL UA Bili Negative *NA* (10/22/16 5:15 AM) Negative 10/22/2016 [facility] URINE AND STOOL UA Ketones Negative mg/dL Negative mg/dL 10/22/2016 [facility] URINE AND STOOL UA Sq Epi None Seen 10/22/2016 [facility] URINE AND STOOL UA RBC 1 /HPF 0 - 2 10/22/2016 [facility] URINE AND STOOL UA pH 7.0 5.0 - 8.0 10/22/2016 [facility] URINE AND STOOL UA Protein Negative mg/dL Negative mg/dL 10/22/2016 [facility] URINE AND STOOL UA Turbidity Clear (10/22/16 5:15 AM) Clear 10/22/2016 [facility] URINE AND STOOL UA Spec Grav 1.006 <=1.030 10/22/2016 [facility] CHEM PANEL Lactic Acid Lvl 1.0 mMol/L 0.5 - 2.2 10/22/2016 [facility] CHEM PANEL Phosphorus 3.4 mg/dL 2.5 - 4.5 10/21/2016 [facility] CHEM PANEL Magnesium Lvl 2.0 mg/dL 1.8 - 2.4 10/21/2016 [facility] ELECTROLYTES AGAP 12.0 meq/L 10.0 - 20.0 10/21/2016 [facility] ELECTROLYTES Globulin 3.8 g/dL 2.7 - 4.2 10/21/2016 [facility] ELECTROLYTES B/C Ratio 16 6 - 25 10/21/2016 [facility] ELECTROLYTES A/G Ratio 0.8 0.7 - 1.6 10/21/2016 [facility] ELECTROLYTES eGFR 67 mL/min/1.73m2 10/21/2016 Result Comment: The eGFR is calculated using the CKD-EPI formula. In most young, healthy individuals the eGFR will be >90 mL/min/1.73m2. The eGFR declines with age. An eGFR of 60-89 may be normal in some populations, particularly the elderly, for whom the CKD-EPI formula has not been extensively validated. Use of the eGFR is not recommended in the following populations: Individuals with unstable creatinine concentrations, including patients and those with serious co-morbid conditions. Patients with extremes in muscle mass or diet. The data above are obtained from the National Kidney Disease Education Program (NKDEP) which additionally recommends that when the eGFR is used in patients with extremes of body mass index for purposes of drug dosing, the eGFR should be multiplied by the estimated BMI. [facility] ELECTROLYTES Creatinine Lvl 0.88 mg/dL 0.50 - 1.40 10/21/2016 [facility] ELECTROLYTES Sodium Lvl 139 meq/L 135 - 145 10/21/2016 [facility] ELECTROLYTES Glucose Lvl 91 mg/dL 70 - 99 10/21/2016 [facility] ELECTROLYTES BUN 14 mg/dL 7 - 22 10/21/2016 [facility] ELECTROLYTES Potassium Lvl 4.0 meq/L 3.5 - 5.1 10/21/2016 [facility] ELECTROLYTES Chloride Lvl 103 meq/L 95 - 109 10/21/2016 [facility] ELECTROLYTES CO2 28 meq/L 24 - 32 10/21/2016 [facility] ELECTROLYTES Calcium Lvl 10.1 mg/dL 8.5 - 10.5 10/21/2016 [facility] ELECTROLYTES Total Protein 7.0 g/dL 6.4 - 8.4 10/21/2016 [facility] ELECTROLYTES Albumin Lvl 3.2 g/dL 3.5 - 5.0 10/21/2016 [facility] ELECTROLYTES ALT 12 unit/L 0 - 65 10/21/2016 [facility] ELECTROLYTES AST 13 unit/L 0 - 37 10/21/2016 [facility] ELECTROLYTES Alk Phos 64 unit/L 39 - 136 10/21/2016 [facility] ELECTROLYTES Bili Total 0.9 mg/dL 0.2 - 1.3 10/21/2016 [facility] HEMATOLOGY Monocytes # 1.0 K/CMM 0.0 - 0.8 10/21/2016 [facility] HEMATOLOGY Segs 84.2 % 45.0 - 75.0 10/21/2016 [facility] HEMATOLOGY Eosinophils 0.4 % 0.0 - 4.0 10/21/2016 [facility] HEMATOLOGY Basophils 0.5 % 0.0 - 1.0 10/21/2016 [facility] HEMATOLOGY Segs-Bands # 14.4 K/CMM 1.5 - 8.1 10/21/2016 [facility] HEMATOLOGY Lymphocytes # 1.5 K/CMM 1.0 - 5.5 10/21/2016 [facility] HEMATOLOGY Monocytes 6.1 % 2.0 - 12.0 10/21/2016 [facility] HEMATOLOGY Basophils # 0.1 K/CMM 0.0 - 0.2 10/21/2016 [facility] HEMATOLOGY Eosinophils # 0.1 K/CMM 0.0 - 0.5 10/21/2016 [facility] HEMATOLOGY Lymphocytes 8.8 % 20.0 - 40.0 10/21/2016 [facility] MPV 7.3 fL 7.4 - 10.4 10/21/2016 [facility] RBC 4.39 M/CMM 4.20 - 5.40 10/21/2016 [facility] WBC 17.1 K/CMM 3.7 - 10.4 10/21/2016 [facility] MCHC 33.5 g/dL 32.0 - 36.0 10/21/2016 [facility] Hgb 12.9 g/dL 12.0 - 16.0 10/21/2016 [facility] MCV 87.6 fL 80.0 - 98.0 10/21/2016 [facility] MCH 29.3 pg 27.0 - 31.0 10/21/2016 [facility] Platelet 226 K/CMM 133 - 450 10/21/2016 [facility] RDW 14.7 % 11.5 - 14.5 10/21/2016 [facility] Hct 38.5 % 36.0 - 48.0 10/21/2016 [facility] CHEM PANEL Vitamin D, 25-OH, Total 16 ng/mL 30 - 100 04/07/2016 [facility] CHEM PANEL eGFR 97 mL/min/1.73m2 04/07/2016 Result Comment: The eGFR is calculated using the CKD-EPI formula. In most young, healthy individuals the eGFR will be >90 mL/min/1.73m2. The eGFR declines with age. An eGFR of 60-89 may be normal in some populations, particularly the elderly, for whom the CKD-EPI formula has not been extensively validated. Use of the eGFR is not recommended in the following populations: Individuals with unstable creatinine concentrations, including patients and those with serious co-morbid conditions. Patients with extremes in muscle mass or diet. The data above are obtained from the National Kidney Disease Education Program (NKDEP) which additionally recommends that when the eGFR is used in patients with extremes of body mass index for purposes of drug dosing, the eGFR should be multiplied by the estimated BMI. [facility] CHEM PANEL Calcium Lvl 8.5 mg/dL 8.5 - 10.5 04/07/2016 [facility] CHEM PANEL Chloride Lvl 104 meq/L 95 - 109 04/07/2016 [facility] CHEM PANEL CO2 30 meq/L 24 - 32 04/07/2016 [facility] CHEM PANEL Sodium Lvl 139 meq/L 135 - 145 04/07/2016 [facility] CHEM PANEL Potassium Lvl 3.5 meq/L 3.5 - 5.1 04/07/2016 [facility] CHEM PANEL Creatinine Lvl 0.54 mg/dL 0.50 - 1.40 04/07/2016 [facility] CHEM PANEL BUN 5 mg/dL 7 - 22 04/07/2016 [facility] CHEM PANEL Glucose Lvl 101 mg/dL 70 - 99 04/07/2016 [facility] CHEM PANEL AGAP 8.5 meq/L 10.0 - 20.0 04/07/2016 [facility] CHEM PANEL Albumin Lvl 2.6 g/dL 3.5 - 5.0 04/07/2016 [facility] CHEM PANEL Phosphorus 4.1 mg/dL 2.5 - 4.5 04/07/2016 [facility] CHEM PANEL Magnesium Lvl 2.1 mg/dL 1.8 - 2.4 04/07/2016 [facility] HEMATOLOGY Monocytes # 0.7 K/CMM 0.0 - 0.8 04/07/2016 [facility] HEMATOLOGY Lymphocytes # 1.6 K/CMM 1.0 - 5.5 04/07/2016 [facility] HEMATOLOGY Segs-Bands # 4.0 K/CMM 1.5 - 8.1 04/07/2016 [facility] HEMATOLOGY Monocytes 10.0 % 2.0 - 12.0 04/07/2016 [facility] HEMATOLOGY Eosinophils 6.5 % 0.0 - 4.0 04/07/2016 [facility] HEMATOLOGY Basophils 0.6 % 0.0 - 1.0 04/07/2016 [facility] HEMATOLOGY Segs 58.5 % 45.0 - 75.0 04/07/2016 [facility] HEMATOLOGY Lymphocytes 24.4 % 20.0 - 40.0 04/07/2016 [facility] HEMATOLOGY Eosinophils # 0.4 K/CMM 0.0 - 0.5 04/07/2016 [facility] HEMATOLOGY PT 13.5 s 12.0 - 14.7 04/07/2016 [facility] HEMATOLOGY PTT 31.3 s 22.9 - 35.8 04/07/2016 [facility] HEMATOLOGY INR 1.01 0.85 - 1.17 04/07/2016 [facility] HEMATOLOGY MPV 7.1 fL 7.4 - 10.4 04/07/2016 [facility] HEMATOLOGY MCHC 33.9 g/dL 32.0 - 36.0 04/07/2016 [facility] HEMATOLOGY Platelet 244 K/CMM 133 - 450 04/07/2016 [facility] HEMATOLOGY RDW 13.8 % 11.5 - 14.5 04/07/2016 [facility] HEMATOLOGY Hct 30.1 % 36.0 - 48.0 04/07/2016 [facility] HEMATOLOGY Hgb 10.2 g/dL 12.0 - 16.0 04/07/2016 [facility] HEMATOLOGY MCH 30.3 pg 27.0 - 31.0 04/07/2016 [facility] HEMATOLOGY MCV 89.3 fL 80.0 - 98.0 04/07/2016 [facility] HEMATOLOGY RBC 3.37 M/CMM 4.20 - 5.40 04/07/2016 [facility] HEMATOLOGY WBC 6.7 K/CMM 3.7 - 10.4 04/07/2016 [facility] IMMUNOLOGY Prealbumin 11.1 mg/dL 18.0 - 45.0 04/07/2016 [facility] HEMATOLOGY Segs-Bands # 5.6 K/CMM 1.5 - 8.1 04/05/2016 [facility] HEMATOLOGY Basophils 0.6 % 0.0 - 1.0 04/05/2016 [facility] HEMATOLOGY Eosinophils 5.2 % 0.0 - 4.0 04/05/2016 [facility] HEMATOLOGY Eosinophils # 0.4 K/CMM 0.0 - 0.5 04/05/2016 [facility] HEMATOLOGY Lymphocytes # 1.3 K/CMM 1.0 - 5.5 04/05/2016 [facility] HEMATOLOGY Monocytes # 0.6 K/CMM 0.0 - 0.8 04/05/2016 [facility] HEMATOLOGY Segs 70.4 % 45.0 - 75.0 04/05/2016 [facility] HEMATOLOGY Monocytes 7.3 % 2.0 - 12.0 04/05/2016 [facility] HEMATOLOGY Lymphocytes 16.5 % 20.0 - 40.0 04/05/2016 [facility] HEMATOLOGY MCHC 33.5 g/dL 32.0 - 36.0 04/05/2016 [facility] HEMATOLOGY MCH 30.0 pg 27.0 - 31.0 04/05/2016 [facility] HEMATOLOGY RDW 13.6 % 11.5 - 14.5 04/05/2016 [facility] HEMATOLOGY MCV 89.5 fL 80.0 - 98.0 04/05/2016 [facility] HEMATOLOGY Hct 30.1 % 36.0 - 48.0 04/05/2016 [facility] HEMATOLOGY Hgb 10.1 g/dL 12.0 - 16.0 04/05/2016 [facility] HEMATOLOGY Platelet 172 K/CMM 133 - 450 04/05/2016 [facility] HEMATOLOGY MPV 7.6 fL 7.4 - 10.4 04/05/2016 [facility] HEMATOLOGY RBC 3.37 M/CMM 4.20 - 5.40 04/05/2016 [facility] HEMATOLOGY WBC 8.0 K/CMM 3.7 - 10.4 04/05/2016 [facility] CHEM PANEL BUN 6 mg/dL 7 - 22 04/04/2016 [facility] CHEM PANEL Glucose Lvl 116 mg/dL 70 - 99 04/04/2016 [facility] CHEM PANEL Sodium Lvl 136 meq/L 135 - 145 04/04/2016 [facility] CHEM PANEL Chloride Lvl 104 meq/L 95 - 109 04/04/2016 [facility] CHEM PANEL Creatinine Lvl 0.58 mg/dL 0.50 - 1.40 04/04/2016 [facility] CHEM PANEL Potassium Lvl 4.1 meq/L 3.5 - 5.1 04/04/2016 [facility] CHEM PANEL CO2 25 meq/L 24 - 32 04/04/2016 [facility] CHEM PANEL Calcium Lvl 7.9 mg/dL 8.5 - 10.5 04/04/2016 [facility] CHEM PANEL eGFR 94 mL/min/1.73m2 04/04/2016 Result Comment: The eGFR is calculated using the CKD-EPI formula. In most young, healthy individuals the eGFR will be >90 mL/min/1.73m2. The eGFR declines with age. An eGFR of 60-89 may be normal in some populations, particularly the elderly, for whom the CKD-EPI formula has not been extensively validated. Use of the eGFR is not recommended in the following populations: Individuals with unstable creatinine concentrations, including patients and those with serious co-morbid conditions. Patients with extremes in muscle mass or diet. The data above are obtained from the National Kidney Disease Education Program (NKDEP) which additionally recommends that when the eGFR is used in patients with extremes of body mass index for purposes of drug dosing, the eGFR should be multiplied by the estimated BMI. [facility] CHEM PANEL AGAP 11.1 meq/L 10.0 - 20.0 04/04/2016 [facility] HEMATOLOGY MCHC 34.0 g/dL 32.0 - 36.0 04/04/2016 [facility] HEMATOLOGY MPV 7.4 fL 7.4 - 10.4 04/04/2016 [facility] HEMATOLOGY Platelet 159 K/CMM 133 - 450 04/04/2016 [facility] HEMATOLOGY RDW 13.4 % 11.5 - 14.5 04/04/2016 [facility] MCH 30.4 pg 27.0 - 31.0 04/04/2016 [facility] HEMATOLOGY MCV 89.2 fL 80.0 - 98.0 04/04/2016 [facility] Hct 30.0 % 36.0 - 48.0 04/04/2016 [facility] Hgb 10.2 g/dL 12.0 - 16.0 04/04/2016 [facility] RBC 3.36 M/CMM 4.20 - 5.40 04/04/2016 [facility] HEMATOLOGY WBC 10.2 K/CMM 3.7 - 10.4 04/04/2016 [facility] HEMATOLOGY Segs 87.8 % 45.0 - 75.0 04/04/2016 [facility] HEMATOLOGY Monocytes # 0.5 K/CMM 0.0 - 0.8 04/04/2016 [facility] Lymphocytes # 0.7 K/CMM 1.0 - 5.5 04/04/2016 [facility] Monocytes 5.0 % 2.0 - 12.0 04/04/2016 [facility] Lymphocytes 6.8 % 20.0 - 40.0 04/04/2016 [facility] HEMATOLOGY Eosinophils 0.2 % 0.0 - 4.0 04/04/2016 [facility] HEMATOLOGY Basophils 0.2 % 0.0 - 1.0 04/04/2016 [facility] Segs-Bands # 8.9 K/CMM 1.5 - 8.1 04/04/2016 [facility] Pelvis AP DX Pelvis AP DX Pelvis AP DX CLINICAL HISTORY: Fracture FINDINGS/IMPRESSION: Single AP view of the pelvis is submitted for review. Postoperative changes related to left hip arthroplasty are evident. No gross evidence for te-[place] bone fractures. Solid state device with sacral lead is stable in position. SL: [id number] 04/03/2016 - - Read by: Kris Delgado MD Dictated Date/time: 04/03/16 16:18 Electronically Signed by: Kris Delgado MD 04/03/16 16:19 FINAL REPORT [facility] CHEM PANEL Calcium Lvl 8.4 mg/dL 8.5 - 10.5 04/03/2016 [facility] CHEM PANEL CO2 28 meq/L 24 - 32 04/03/2016 [facility] CHEM PANEL eGFR 89 mL/min/1.73m2 04/03/2016 Result Comment: The eGFR is calculated using the CKD-EPI formula. In most young, healthy individuals the eGFR will be >90 mL/min/1.73m2. The eGFR declines with age. An eGFR of 60-89 may be normal in some populations, particularly the elderly, for whom the CKD-EPI formula has not been extensively validated. Use of the eGFR is not recommended in the following populations: Individuals with unstable creatinine concentrations, including patients and those with serious co-morbid conditions. Patients with extremes in muscle mass or diet. The data above are obtained from the National Kidney Disease Education Program (NKDEP) which additionally recommends that when the eGFR is used in patients with extremes of body mass index for purposes of drug dosing, the eGFR should be multiplied by the estimated BMI. [facility] CHEM PANEL AGAP 11.2 meq/L 10.0 - 20.0 04/03/2016 [facility] CHEM PANEL Chloride Lvl 107 meq/L 95 - 109 04/03/2016 [facility] CHEM PANEL Creatinine Lvl 0.70 mg/dL 0.50 - 1.40 04/03/2016 [facility] CHEM PANEL Glucose Lvl 96 mg/dL 70 - 99 04/03/2016 [facility] CHEM PANEL Sodium Lvl 142 meq/L 135 - 145 04/03/2016 [facility] CHEM PANEL BUN 10 mg/dL 7 - 22 04/03/2016 [facility] CHEM PANEL Potassium Lvl 4.2 meq/L 3.5 - 5.1 04/03/2016 [facility] CHEM PANEL eGFR 91 mL/min/1.73m2 04/03/2016 Result Comment: The eGFR is calculated using the CKD-EPI formula. In most young, healthy individuals the eGFR will be >90 mL/min/1.73m2. The eGFR declines with age. An eGFR of 60-89 may be normal in some populations, particularly the elderly, for whom the CKD-EPI formula has not been extensively validated. Use of the eGFR is not recommended in the following populations: Individuals with unstable creatinine concentrations, including patients and those with serious co-morbid conditions. Patients with extremes in muscle mass or diet. The data above are obtained from the National Kidney Disease Education Program (NKDEP) which additionally recommends that when the eGFR is used in patients with extremes of body mass index for purposes of drug dosing, the eGFR should be multiplied by the estimated BMI. [facility] CHEM PANEL Creatinine Lvl 0.65 mg/dL 0.50 - 1.40 04/03/2016 [facility] HEMATOLOGY MPV 7.1 fL 7.4 - 10.4 04/03/2016 [facility] HEMATOLOGY Platelet 176 K/CMM 133 - 450 04/03/2016 [facility] HEMATOLOGY RBC 3.89 M/CMM 4.20 - 5.40 04/03/2016 [facility] HEMATOLOGY WBC 5.6 K/CMM 3.7 - 10.4 04/03/2016 [facility] HEMATOLOGY RDW 13.6 % 11.5 - 14.5 04/03/2016 [facility] MCH 29.9 pg 27.0 - 31.0 04/03/2016 [facility] MCHC 33.4 g/dL 32.0 - 36.0 04/03/2016 [facility] MCV 89.8 fL 80.0 - 98.0 04/03/2016 [facility] Hct 34.9 % 36.0 - 48.0 04/03/2016 [facility] Hgb 11.6 g/dL 12.0 - 16.0 04/03/2016 [facility] HEMATOLOGY Eosinophils # 0.3 K/CMM 0.0 - 0.5 04/03/2016 [facility] HEMATOLOGY Segs 64.4 % 45.0 - 75.0 04/03/2016 [facility] HEMATOLOGY Monocytes # 0.4 K/CMM 0.0 - 0.8 04/03/2016 [facility] Lymphocytes # 1.3 K/CMM 1.0 - 5.5 04/03/2016 [facility] Segs-Bands # 3.6 K/CMM 1.5 - 8.1 04/03/2016 [facility] HEMATOLOGY Basophils 0.5 % 0.0 - 1.0 04/03/2016 [facility] HEMATOLOGY Eosinophils 4.8 % 0.0 - 4.0 04/03/2016 [facility] HEMATOLOGY Monocytes 7.1 % 2.0 - 12.0 04/03/2016 [facility] HEMATOLOGY Lymphocytes 23.2 % 20.0 - 40.0 04/03/2016 [facility] HEMATOLOGY Platelet 173 K/CMM 133 - 450 04/03/2016 [facility] PTT 30.0 s 22.9 - 35.8 04/03/2016 [facility] HEMATOLOGY PT 13.9 s 12.0 - 14.7 04/03/2016 [facility] HEMATOLOGY INR 1.04 0.85 - 1.17 04/03/2016 [facility] URINE AND STOOL UA Sq Epi Occasional /LPF Few /LPF 04/02/2016 [facility] URINE AND STOOL UA WBC 100 /HPF 0 - 5 04/02/2016 [facility] URINE AND STOOL UA Bacteria Many /HPF None Seen /HPF 04/02/2016 [facility] URINE AND STOOL UA Bili Negative *NA* (04/02/16 3:30 PM) Negative 04/02/2016 [facility] URINE AND STOOL UA Blood Negative (04/02/16 3:30 PM) Negative 04/02/2016 [facility] URINE AND STOOL UA Nitrite Negative (04/02/16 3:30 PM) Negative 04/02/2016 [facility] URINE AND STOOL UA Leuk Est Large *ABN* (04/02/16 3:30 PM) Negative 04/02/2016 [facility] URINE AND STOOL UA Urobilinogen <=1.0 mg/dL 0.1 - 1.0 04/02/2016 [facility] URINE AND STOOL UA Protein Negative mg/dL Negative mg/dL 04/02/2016 [facility] URINE AND STOOL UA Glucose Negative mg/dL Negative mg/dL 04/02/2016 [facility] URINE AND STOOL UA Ketones Negative mg/dL Negative mg/dL 04/02/2016 [facility] URINE AND STOOL UA Color Yellow *NA* (04/02/16 3:30 PM) Yellow 04/02/2016 [facility] URINE AND STOOL UA Turbidity Clear (04/02/16 3:30 PM) Clear 04/02/2016 [facility] URINE AND STOOL UA Spec Grav 1.013 <=1.030 04/02/2016 [facility] URINE AND STOOL UA pH 7.0 5.0 - 8.0 04/02/2016 [facility] CARDIAC ENZYMES Troponin-I null 0.00 - 0.40 04/02/2016 [facility] ELECTROLYTES AGAP 12.7 meq/L 10.0 - 20.0 04/02/2016 [facility] ELECTROLYTES Glucose Lvl 114 mg/dL 70 - 99 04/02/2016 [facility] ELECTROLYTES BUN 9 mg/dL 7 - 22 04/02/2016 [facility] ELECTROLYTES Chloride Lvl 105 meq/L 95 - 109 04/02/2016 [facility] ELECTROLYTES Calcium Lvl 8.9 mg/dL 8.5 - 10.5 04/02/2016 [facility] ELECTROLYTES Potassium Lvl 3.7 meq/L 3.5 - 5.1 04/02/2016 [facility] ELECTROLYTES CO2 26 meq/L 24 - 32 04/02/2016 [facility] ELECTROLYTES Sodium Lvl 140 meq/L 135 - 145 04/02/2016 [facility] HEMATOLOGY INR 0.98 0.85 - 1.17 04/02/2016 [facility] HEMATOLOGY PTT 28.6 s 22.9 - 35.8 04/02/2016 [facility] HEMATOLOGY PT 13.3 s 12.0 - 14.7 04/02/2016 [facility] HEMATOLOGY Basophils # 0.1 K/CMM 0.0 - 0.2 04/02/2016 [facility] HEMATOLOGY Eosinophils # 0.2 K/CMM 0.0 - 0.5 04/02/2016 [facility] Chest 1view DX Chest 1view DX Clinical Indication:71 years Female with Pain Post Trauma Comparison: None FINDINGS: Lines: None. The single frontal chest radiograph shows normal lung volumes. No interstitial or airspace opacities. Incidental azygos lobe is noted. No pleural effusion. No pneumothorax. Cardiac silhouette is normal. Pulmonary vasculature is normal. The trachea is midline. No acute osseous abnormalities. Degenerative changes of the shoulders. Osseous demineralization. IMPRESSION: No chest radiographic evidence of acute cardiopulmonary disease. 04/02/2016 - - Read by: Rafael Melara MD Dictated Date/time: 04/02/16 15:33 Electronically Signed by: Rafael Melara MD 04/02/16 15:34 FINAL REPORT [facility] Hip 2/3 views uni DX Hip 2/3 views uni DX EXAM: Left Hip 2/3 views uni DX DATE: 04/02/2016 1:27 PM CDT INDICATION: Pain Post Trauma COMPARISON: None. IMPRESSION: Diffuse osteopenia. Acute impacted subcapital fracture of the left femoral neck. Left gluteal battery pack with sacral lead. SL: [id number] 04/02/2016 - - Read by: Arturo Rodriguez MD Dictated Date/time: 04/02/16 14:05 Electronically Signed by: Arturo Rodriguez MD 04/02/16 14:06 FINAL REPORT [facility] Pelvis AP DX Pelvis AP DX EXAM: Pelvis AP DX DATE: 04/02/2016 1:27 PM CDT INDICATION: Pain Post Trauma COMPARISON: None. IMPRESSION: Diffuse osteopenia. Acute impacted subcapital fracture of the left femoral neck. Pubic rami is grossly intact. New left gluteal battery pack with sacral lead. SL: [id number] 04/02/2016 - - Read by: Arturo Rodriguez MD Dictated Date/time: 04/02/16 14:04 Electronically Signed by: Arturo Rodriguez MD 04/02/16 14:05 FINAL REPORT [facility] Spine lumbar series DX Spine lumbar series DX HISTORY: Back pain. Lumbar spine 5 views. Comparison 04/12/2013. Advanced multilevel degenerative spondylosis with disc space narrowing and bulky osteophytes. Rotatory scoliosis of the lumbar spine convex to the right centered at L3. Prominent facet degenerative changes at L4-L5 and L5-S1 more prominent on the right. IMPRESSION: Advanced lumbar spondylosis. The appearance is similar to 04/12/2013. SL:13 02/02/2015 - - Read by: Leobardo Brandon MD Dictated Date/time: 02/02/15 15:34 Electronically Signed by: Leobardo Brandon MD 02/02/15 15:36 FINAL REPORT [facility] Knee 3 Views Bilateral DX Knee 3 Views Bilateral DX Examination: Bilateral knees, 6 views History: 715.96 Osteoarthrosis, Unspecified Whether Generalized or Localized, Involving Lower Leg Comparison: None. Findings: Right knee: Severe lateral femorotibial and patellofemoral compartment osteoarthrosis is seen with severe joint space narrowing and prominent marginal osteophyte formation. Mild medial femorotibial compartment osteoarthrosis is seen. Large joint effusion is noted. Bones are demineralized. Left knee: Moderate to severe tricompartmental osteoarthrosis is seen with joint space narrowing and marginal osseous spurring, most notably affecting the lateral femorotibial and patellofemoral compartments. Small joint effusion is seen. Bones are demineralized. IMPRESSION: 1. Severe lateral femorotibial and patellofemoral compartment osteoarthrosis of the right knee. 2. Moderate to severe tricompartmental osteoarthrosis of the left knee. SL: 16 02/02/2015 - - Read by: Zhang Jimenez MD Dictated Date/time: 02/02/15 15:26 Electronically Signed by: Zhang Jimenez MD 02/02/15 15:28 FINAL REPORT [facility] Chemistry HGBA1C 5.1 % - 5.6 01/20/2015 [facility] Chemistry CHOLESTEROL 199 mg/dl - 199 01/20/2015 [facility] Chemistry TRIGLYCERIDE 138 mg/dl - 149 01/20/2015 [facility] Chemistry HDL 68 mg/dl >=61 01/20/2015 [facility] Chemistry LDL 103 mg/dl - 99 01/20/2015 [facility] Chemistry SODIUM 145 MEQ/L mmol/L 135 - 145 01/20/2015 [facility] Chemistry POTASSIUM 4.7 MEQ/L mmol/L 3.5 - 5.1 01/20/2015 [facility] Chemistry CREATININE 0.6 mg/dL 0.5 - 1.4 01/20/2015 [facility] Chemistry BUN 9 mg/dL 7 - 22 01/20/2015 [facility] Chemistry BUN/CREAT 15 6 - 25 01/20/2015 [facility] Chemistry ALBUMIN 3.5 g/dL 3.5 - 5.0 01/20/2015 [facility] Chemistry CALCIUM 9.2 mg/dL 8.5 - 10.5 01/20/2015 [facility] Chemistry SGPT (ALT) 17 U/L 0 - 65 01/20/2015 [facility] Chemistry SGOT (AST) 14 U/L 0 - 37 01/20/2015 [facility] Chemistry ALK PHOS 66 U/L 39 - 136 01/20/2015 [facility] Chemistry T4, FREE 0.89 ng/dl 0.76 - 1.46 01/20/2015 [facility] Chemistry TSH 2.540 uIU/mL 0.360 - 3.740 01/20/2015 [facility] Hematology HGB 12.3 g/dL 12.0 - 16.0 01/20/2015 [facility] Hematology HCT 38.3 % 36.0 - 48.0 01/20/2015 [facility] Hematology PLATELETS 249 K/CMM /mm3 133 - 450 01/20/2015 [facility] Bone Density-Dual Energy Absorptionmetry Bone Density-Dual Energy Absorptionmetry - Bone Density-Dual Energy Absorptionmetry BONE DENSITY EVALUATION: 02/12/2014 CLINICAL DATA: Post menopausal. FINDINGS: Bone density evaluation was performed 02/12/2014 on the AP L1-L4 region of spine using [employer] Dual Energy X-Ray Absorptiometry. The BMD average for the exam is 1.264 g/cm2. The T-score is 0.70 and the Z-score is 1.50. These values indicate 117.0% for age-matched controls. This matches the World Health Organization's criteria for normal bone density and places the patient within normal limits of fracture risk. An additional bone density evaluation was performed 02/12/2014 on the right femur neck using [employer] Dual Energy X-Ray Absorptiometry. The BMD average for the exam is 0.682 g/cm2. The T-score is -2.60 and the Z-score is -1.50. These values indicate 76.0% for age-matched controls. This matches the World Health Organization's criteria for osteoporosis and places the patient at a high risk for fracture. An additional bone density evaluation was performed 02/12/2014 on the right hip using [employer] Energy X-Ray Absorptiometry. The BMD average for the exam is 0.730 g/cm2. The T-score is -2.20 and the Z-score is -1.50. These values indicate 80.0% for age-matched controls. This matches the World Health Organization's criteria for osteopenia and places the patient at a medium risk for fracture. An additional bone density evaluation was performed 02/12/2014 on the left femur neck using [employer] Energy X-Ray Absorptiometry. The BMD average for the exam is 0.732 g/cm2. The T-score is -2.20 and the Z-score is -1.20. These values indicate 82.0% for age-matched controls. This matches the World Health Organization's criteria for osteopenia and places the patient at a medium risk for fracture. An additional bone density evaluation was performed 02/12/2014 on the left hip using [employer] X-Ray Absorptiometry. The BMD average for the exam is 0.782 g/cm2. The T-score is -1.80 and the Z-score is -1.10. These values indicate 85.0% for age-matched controls. This matches the World Health Organization's criteria for osteopenia and places the patient at a medium risk for fracture. IMPRESSION: OSTEOPOROSIS Patient is at high risk for fracture. Dr. Raf walker/petra:02/12/2014 11:03:39 [employer]: Lianna Interiano [facility] 02/12/2014 - - Read by: Raf Urbina MD Dictated Date/time: 02/12/14 11:03 Electronically Signed by: Raf Urbina MD 02/12/14 11:03 FINAL REPORT [facility] Chemistry HGBA1C 4.9 % - 5.6 02/05/2014 [facility] CHOLESTEROL 209 mg/dl - 199 02/05/2014 [facility] TRIGLYCERIDE 147 mg/dl - 149 02/05/2014 [facility] HGBA1C 4.9 % - 5.6 02/05/2014 [facility] CHOLESTEROL 209 mg/dl - 199 02/05/2014 [facility] TRIGLYCERIDE 147 mg/dl - 149 02/05/2014 [facility] HDL 78 mg/dl >=61 02/05/2014 [facility] LDL 102 mg/dl - 99 02/05/2014 [facility] SODIUM 143 MEQ/L mmol/L 135 - 145 02/05/2014 [facility] POTASSIUM 4.5 MEQ/L mmol/L 3.5 - 5.1 02/05/2014 [facility] CREATININE 1.0 mg/dL 0.5 - 1.4 02/05/2014 [facility] BUN 9 mg/dL 7 - 22 02/05/2014 [facility] BUN/CREAT 9 6 - 25 02/05/2014 [facility] ALBUMIN 4.2 g/dL 3.5 - 5.0 02/05/2014 [facility] CALCIUM 9.6 mg/dL 8.5 - 10.5 02/05/2014 [facility] SGPT (ALT) 18 U/L 0 - 65 02/05/2014 [facility] Chemistry SGOT (AST) 17 U/L 0 - 37 02/05/2014 [facility] ALK PHOS 68 U/L 39 - 136 02/05/2014 [facility] TSH 2.370 uIU/mL 0.360 - 3.740 02/05/2014 [facility] Hematology HGB 12.5 g/dL 12.0 - 16.0 02/05/2014 [facility] Hematology HCT 37.8 % 36.0 - 48.0 02/05/2014 [facility] Hematology PLATELETS 264 K/CMM /mm3 133 - 450 02/05/2014 [facility] Urinalysis UA COLOR Light Yellow 02/05/2014 [facility] Urinalysis UA COLOR Light Yellow 02/05/2014 [facility] Spine Lumbar Comp w/Bend views Spine Lumbar Comp w/Bend views EXAMINATION: Lumbar spine series, including lateral flexion/extension views COMPARISON: June 29, 2010 DISCUSSION: Slight dextroscoliotic curvature of the lumbar spine noted. No fractures or dislocations are seen. The pedicles and transverse processes are intact. Extensive multilevel disc narrowing, osteophytes and facet hypertrophic changes. There is limited flexion and extension. IMPRESSION: Slight curvature of the lumbar spine with the convexity towards the right. Extensive multilevel degenerative changes. No acute osseous finding. 04/12/2013 - - Read by: Maxwell Longoria Dictated Date/time: 04/12/13 14:32 Electronically Signed by: Maxwell Longoria MD 04/12/13 14:33 FINAL REPORT [facility] Vital Signs Vital Sign Value Date Comments Source Temperature Oral (F) 98.0 F 10/24/2016 [facility] Systolic (mm Hg) 129 10/24/2016 [facility] Diastolic (mm Hg) 64 10/24/2016 [facility] Heart Rate 61 10/24/2016 [facility] Respitory Rate 18 10/24/2016 [facility] Temperature Oral (F) 98.0 F 10/24/2016 [facility] Respitory Rate 18 10/24/2016 [facility] Heart Rate 65 10/24/2016 [facility] Systolic (mm Hg) 117 10/24/2016 [facility] Diastolic (mm Hg) 69 10/24/2016 [facility] Temperature Oral (F) 98.8 F 10/24/2016 [facility] Systolic (mm Hg) 145 10/24/2016 [facility] Diastolic (mm Hg) 80 10/24/2016 [facility] Heart Rate 65 10/24/2016 [facility] Respitory Rate 18 10/24/2016 [facility] Weight 88.003 10/22/2016 [facility] Height 167.64 cm 10/21/2016 [facility] Weight 88.636 10/21/2016 [facility] BMI Calculated 31.54 10/21/2016 [facility] Temperature Oral (F) 97.8 F 04/15/2016 [facility] Heart Rate 71 04/15/2016 [facility] Diastolic (mm Hg) 74 04/15/2016 [facility] Respitory Rate 18 04/15/2016 [facility] Systolic (mm Hg) 124 04/15/2016 [facility] Systolic (mm Hg) 113 04/15/2016 [facility] Diastolic (mm Hg) 73 04/15/2016 [facility] Temperature Oral (F) 98.6 F 04/15/2016 [facility] Heart Rate 75 04/15/2016 [facility] Respitory Rate 16 04/15/2016 [facility] Systolic (mm Hg) 135 04/14/2016 [facility] Diastolic (mm Hg) 68 04/14/2016 [facility] Respitory Rate 16 04/14/2016 [facility] Temperature Oral (F) 98.1 F 04/14/2016 [facility] Heart Rate 71 04/14/2016 [facility] Height 167.64 cm 04/07/2016 [facility] Weight 81.818 04/07/2016 [facility] BMI Calculated 29.11 04/07/2016 [facility] Height 167.6 cm 04/06/2016 [facility] Weight 81.8 04/06/2016 [facility] BMI Calculated 29.12 04/06/2016 [facility] Systolic (mm Hg) 116 04/06/2016 [facility] Diastolic (mm Hg) 68 04/06/2016 [facility] Heart Rate 69 04/06/2016 [facility] Respitory Rate 16 04/06/2016 [facility] Temperature Oral (F) 98.9 F 04/06/2016 [facility] Respitory Rate 16 04/06/2016 [facility] Heart Rate 72 04/06/2016 [facility] Temperature Oral (F) 98.6 F 04/06/2016 [facility] Systolic (mm Hg) 117 04/06/2016 [facility] Diastolic (mm Hg) 72 04/06/2016 [facility] Heart Rate 77 04/06/2016 [facility] Temperature Oral (F) 98.7 F 04/06/2016 [facility] Systolic (mm Hg) 123 04/06/2016 [facility] Diastolic (mm Hg) 74 04/06/2016 [facility] Respitory Rate 18 04/06/2016 [facility] Height 167.64 cm 04/02/2016 [facility] Weight 81.818 04/02/2016 [facility] BMI Calculated 29.11 04/02/2016 [facility] Weight 81.818 04/02/2016 [facility] BMI Calculated 29.11 04/02/2016 [facility] Height 167.64 cm 04/02/2016 [facility] Height 67 [facility]/16/[facility] Weight 184 01/16/[facility] Temperature Oral (F) 97.6 F 01/16/2015 [facility] Heart Rate 61 01/16/2015 [facility] Systolic (mm Hg) 143 01/16/2015 [facility] Diastolic (mm Hg) 79 01/16/2015 [facility] Height 67 07/01/2014 [facility] Systolic (mm Hg) 127 07/01/2014 [facility] Diastolic (mm Hg) 58 07/01/2014 [facility] Heart Rate 70 07/01/2014 [facility] Temperature Oral (F) 97.7 F 07/01/2014 [facility] Weight 192 07/01/2014 [facility] Weight 196 02/13/2014 [facility] Temperature Oral (F) 97.8 F 02/13/2014 [facility] Heart Rate 63 02/13/2014 [facility] Systolic (mm Hg) 98 02/13/2014 [facility] Diastolic (mm Hg) 63 02/13/2014 [facility] Weight 195 02/05/2014 [facility] Height 67 02/05/2014 [facility] Temperature Oral (F) 97.8 F 02/05/2014 [facility] Heart Rate 66 02/05/2014 [facility] Systolic (mm Hg) 94 02/05/2014 [facility] Diastolic (mm Hg) 52 02/05/2014 [facility] Encounters Location Location Details Encounter Type Encounter Number Reason For Visit Attending Provider ADM Date DC Date Status Source OD [id number] 338 - PAIN NEC ABBY ALEXANDRE 04/12/2013 04/12/2013 Active [facility] Lab Report [id number] Mary Jones, CONVEYOR MAN 02/11/2014 02/11/2014 [facility] - Gene Outpt Diag Services [id number] MARY JONES 02/12/2014 02/13/2014 [facility] [place] Office Visit [id number] Mary Jones, CONVEYOR MAN 02/13/2014 02/13/2014 [facility] Office Visit [id number] Mary Jones, CONVEYOR MAN 07/01/2014 07/01/2014 [facility] [place] Office Visit [id number] Vanessa Huston MD 01/16/2015 01/16/2015 [facility] [place] Lab Report [id number] Vanessa Huston MD 01/20/2015 01/20/2015 [facility] Outpatient [id number] Kody Zachariahid 02/02/2015 02/03/2015 [facility] Inpatient [id number] Charity Pichardobharati 04/02/2016 04/06/2016 [facility]patient Rehab [id number] Raciel Green Jr 04/06/2016 04/15/2016 [facility] [place] OP Therapy Patients [id number] Raciel Green Jr 04/19/2016 05/19/2016 [facility] [place] OP Therapy Patients [id number] Akiko Galdamezes-Nikita 05/19/2016 06/18/2016 [facility] [place] OP Therapy Patients [id number] Akiko Galdamezes[place] 06/22/2016 07/09/2016 [facility] Inpatient [id number] 10/21/2016 10/24/2016 [facility] Procedures Procedure Code Date Perfomer Comments Source Hip replacement [id number] 03/25/2016 [facility] smoking/tobacco cessation, patient education and counseling 14 01/16/2015 [facility] smoking/tobacco cessation, patient education and counseling 14 07/01/2014 [facility] smoking/tobacco cessation, patient education and counseling 14 02/13/2014 [facility] bone density 4002.65 02/12/2014 Completed at [facility] smoking/tobacco cessation, patient education and counseling 14 02/05/2014 [facility] Appendectomy [id number] [facility] Gastric bypass [id number] [facility] Implantation of electronic stimulator into bladder [id number] [facility] [place] Appendectomy [id number] [facility] Gastric bypass [id number] [facility] Implantation of electronic stimulator into bladder [id number] [facility]
--- OUTSIDE RECORDS SUMMARY | 2018-06-15 09:12 | XMS REPORT | Summary of Care ---
Author Author [facility] Organization [facility] Address Unknown Phone Unavailable Encounter HQ Gerald(EDDI) [id number] Date(s): 04/02/16 - 04/06/16 [facility] [address] [place] [address]- Final: Unspecified fracture of unspecified femur, initial encounter for closed f racture Discharge Disposition: Acute Care Attending Physician: Charity Lee MD Admitting Physician: Charity Lee MD Vital Signs 1 2 3 Most recent to oldest [Reference Range]: 167.64 cm (04/02/16 5:26 PM) 167.64 cm (04/02/16 1:38 PM) Height 98.9 DegF (04/06/16 8:00 AM) 98.6 DegF (04/06/16 3:45 AM) 98.7 DegF (04/05/16 11:51 PM) Temperature Oral [96.4-99.1 DegF] 116/68 mmHg (04/06/16 8:00 AM) 117/72 mmHg (04/06/16 3:45 AM) 123/74 mmHg (04/05/16 11:51 PM) Blood Pressure [90-140/60-90 mmHg] 16 BRMIN (04/06/16 8:00 AM) 16 BRMIN (04/06/16 3:45 AM) 18 BRMIN (04/05/16 11:51 PM) Respiratory Rate [14-20 BRMIN] 69 bpm (04/06/16 8:00 AM) 72 bpm (04/06/16 3:45 AM) 77 bpm (04/05/16 11:51 PM) Peripheral Pulse Rate [60-100 bpm] 81.818 kg (04/02/16 5:26 PM) 81.818 kg (04/02/16 1:38 PM) Weight 29.11 m2 (04/02/16 5:26 PM) 29.11 m2 (04/02/16 1:38 PM) Body Mass Index Problem List Condition Effective Dates Status Health Status Informant Arthritis(Confirmed) Resolved Electrocardiogram 02/05/14 Active abnormal1 Hip Active fracture(Confirmed) Gastroesophageal 02/05/14 Active reflux disease2 Acid Resolved reflux(Confirmed) Hiatal Resolved hernia(Confirmed) Hyperlipidemia3 02/05/14 Active Low back pain4 07/01/14 Active Menopause present5 02/05/14 Active Mitral valve 02/13/14 Active regurgitation6 Osteoarthritis7 02/05/14 Active Osteoporosis8 02/13/14 Active Otitis externa9 01/16/15 Active Urge incontinence of 02/05/14 Active urine10 1Data migrated from [employer] on 12/09/14. 2Data migrated from [employer] on 12/09/14. 3Data migrated from [employer] on 12/09/14. 4Data migrated from [employer] on 12/09/14. 5Data migrated from [employer] on 12/09/14. 6Data migrated from [employer] on 12/09/14. 7Data migrated from [employer] on 12/09/14. 8Data migrated from [employer] on 12/09/14. 9Data migrated from [employer] on 02/11/15. 10Data migrated from [employer] on 12/09/14. Allergies, Adverse Reactions, Alerts Substance Reaction Severity Status NKDA1, 2 Active 1Data migrated from [employer] on 09/29/15. Originally documented as NKA. 2Data migrated from [employer] on 09/01/15. Originally documented as NKA. Medications acetaminophen (ANES) Route: IV, Drug form: INJ, ONCE, Stop date: 04/03/16 15:01:00 CDT Start Date: 04/03/16 Stop Date: 04/03/16 Status: Completed acetaminophen 325 mg oral tablet 650 mg, 2 tab, Route: PO, ONCE, Dosing Weight 81.818, kg, Start date: 04/02/16 1 5:57:00 CDT, Stop date: 04/02/16 15:57:00 CDT Start Date: 04/02/16 Stop Date: 04/02/16 Status: Completed acetaminophen-codeine 300 mg-30 mg oral tablet 1 tab, Route: PO, Drug Form: TAB, Dosing Weight 81.818, kg, Q4H, PRN Pain Score 4-6, Start date: 04/04/16 13:35:00 CDT, Duration: 30 day, Stop date: 05/04/16 13 :34:00 CDT Notes: Do not exceed 4gm/day of acetaminophen. (Same as: Tylenol with Codeine # 3) Start Date: 04/04/16 Stop Date: 04/06/16 Status: Discontinued acetaminophen-codeine 300 mg-60 mg oral tablet 1 tab, PO, Q4H, PRN Pain Score 7-10, TAKE 1 TABLET BY MOUTH EVERY 4-6 HOUIRS NEEDED FOR SEVERE PAIN Start Date: 04/02/16 Status: Suspended acetaminophen-codeine 300 mg-60 mg oral tablet 1 tab, Route: PO, Drug Form: TAB, Dosing Weight 81.818, kg, Q4H, PRN Pain Score 7-10, Start date: 04/02/16 19:47:00 CDT, Duration: 30 day, Stop date: 05/02/16 1 9:46:00 CDT Notes: Do not exceed 4gm/day of acetaminophen. (Same as: Tylenol with Codeine # 4) Start Date: 04/02/16 Stop Date: 04/03/16 Status: Discontinued alendronate 70 mg oral tablet 70 mg=1 tab, PO, Q7D, 0 Refill(s) Start Date: 04/02/16 Status: Suspended aspirin 81 mg, PO, Daily, 0 Refill(s) Start Date: 04/02/16 Status: Suspended aspirin 81 mg, 1 tab, Route: PO, Drug form: ECTAB, Daily, Dosing Weight 81.818, kg, Star t date: 04/02/16 20:30:00 CDT, Duration: 30 day, Stop date: 05/02/16 9:00:00 CDT Notes: Do not crush or chew.(Same As: Ecotrin) Start Date: 04/02/16 Stop Date: 04/03/16 Status: Discontinued ceFAZolin 2 gm, 100 mL, Route: IVPB, Drug form: INJ, ONCALL, Dosing Weight 81.818, kg, (Wilian cleveland weighing < 120 kg), Start date: 04/02/16 20:00:00 CDT, Duration: 30 day, Stop date: 05/02/16 19:59:00 CDT Notes: Same as: Ancef Start Date: 04/02/16 Stop Date: 04/02/16 Status: Completed ceFAZolin (ANES) Route: IV, Drug form: INJ, ONCE, Stop date: 04/03/16 14:51:00 CDT Start Date: 04/03/16 Stop Date: 04/03/16 Status: Completed ceFAZolin (SCIP) 2 gm, 100 mL, Route: IVPB, Drug form: INJ, ABXQ6H, Dosing Weight 81.818, kg, Sta rt date: 04/03/16 19:15:00 CDT, Duration: 3 doses or times, Stop date: 04/04/16 7:15:00 CDT Notes: Same as: Ancef Start Date: 04/03/16 Stop Date: 04/04/16 Status: Completed cefTRIAXone 1 gm, Route: IVPB, Drug form: PDR/INJ, ONCE, Dosing Weight 81.818, kg, Priority: STAT, Start date: 04/02/16 14:56:00 CDT, Stop date: 04/02/16 14:56:00 CDT Start Date: 04/02/16 Stop Date: 04/02/16 Status: Completed celecoxib 400 mg, 2 cap, Route: PO, Drug form: CAP, ONCALL, Dosing Weight 81.818, kg, (for CrCl > 90 mL/min), Start date: 04/02/16 20:00:00 CDT, Duration: 30 day, Stop date: 05/02/16 19:59:00 CDT Notes: NSAID. Please check indication. Not for seizure. (Same As: CeleBREX) Start Date: 04/02/16 Stop Date: 04/02/16 Status: Completed Centrum Women's oral tablet 1 tab, PO, Daily, 0 Refill(s) Start Date: 04/02/16 Status: Suspended citalopram 40 mg, 4 tab, Route: PO, Drug form: TAB, Daily, Dosing Weight 81.818, kg, Start date: 04/03/16 9:00:00 CDT, Duration: 30 day, Stop date: 05/02/16 9:00:00 CDT Start Date: 04/03/16 Stop Date: 04/06/16 Status: Discontinued citalopram 40 mg oral tablet 40 mg=1 tab, PO, Daily, 0 Refill(s) Start Date: 04/02/16 Status: Suspended Cleocin Phosphate (ANES) Route: IV, Drug form: INJ, ONCE, Stop date: 04/03/16 14:51:00 CDT Start Date: 04/03/16 Stop Date: 04/03/16 Status: Completed dexamethasone (ANES) Route: IV, Drug form: INJ, ONCE, Stop date: 04/03/16 14:56:00 CDT Start Date: 04/03/16 Stop Date: 04/03/16 Status: Completed docusate 100 mg, 1 cap, Route: PO, Drug form: CAP, BID, Dosing Weight 81.818, kg, Start d ate: 04/03/16 17:00:00 CDT, Duration: 30 day, Stop date: 05/03/16 9:00:00 CDT Notes: (Same as: Colace) (Do Not Crush) Start Date: 04/03/16 Stop Date: 04/06/16 Status: Discontinued docusate sodium 100 mg oral capsule 100 mg=1 cap, PO, BID, 0 Refill(s) Start Date: 04/06/16 Status: Suspended enoxaparin 40 mg=0.4 mL, SUB-Q, Daily, 0 Refill(s) Start Date: 04/06/16 Status: Suspended enoxaparin 40 mg, 0.4 mL, Route: SUB-Q, Drug form: INJ, Daily, Dosing Weight 81.818, kg, St art date: 04/03/16 7:07:00 CDT, Duration: 30 day, Stop date: 05/03/16 6:00:00 CD T Notes: (Same as: Lovenox) Start Date: 04/03/16 Stop Date: 04/06/16 Status: Discontinued ePHEDrine (ANES) Route: IV, Drug form: INJ, ONCE, Stop date: 04/03/16 14:16:00 CDT Start Date: 04/03/16 Stop Date: 04/03/16 Status: Completed fentaNYL (ANES) Route: IV, Drug form: INJ, ONCE, Stop date: 04/03/16 14:46:00 CDT Start Date: 04/03/16 Stop Date: 04/03/16 Status: Completed glycopyrrolate (ANES) Route: IV, Drug form: INJ, ONCE, Stop date: 04/03/16 16:00:00 CDT Start Date: 04/03/16 Stop Date: 04/03/16 Status: Completed hydromorphone 0.3 mg, 0.3 mL, Route: IVP, Drug form: INJ, Q4H, Dosing Weight 81.818, kg, PRN P ain Score 7-10, Start date: 04/03/16 15:31:00 CDT, Duration: 30 day, Stop date: 05/03/16 15:30:00 CDT Start Date: 04/03/16 Stop Date: 04/06/16 Status: Discontinued influenza virus vaccine, inactivated 0.5 mL, Route: IM, Drug Form: SUSP, Daily, Start date: 04/04/16 9:00:00 CDT, Dur ation: 1 doses or times, Stop date: 04/04/16 9:00:00 CDT Notes: (Same as: Fluzone Quadrivalent, Fluarix Quadrivalent)For 3 years of age a nd older (0.5 mL IM)Shake well before use Start Date: 04/04/16 Stop Date: 04/04/16 Status: Completed influenza virus vaccine, inactivated 0.5 mL, Route: IM, Drug Form: SUSP, Daily, Start date: 04/03/16 9:00:00 CDT, Sto p date: 04/03/16 12:00:00 CDT Notes: (Same as: Fluzone Quadrivalent, Fluarix Quadrivalent)For 3 years of age a nd older (0.5 mL IM)Shake well before use Start Date: 04/03/16 Stop Date: 04/03/16 Status: Deleted ketOROLAC (ANES) IV, ONCE Start Date: 04/03/16 Stop Date: 04/03/16 Status: Completed lidocaine (ANES) Route: IV, Drug form: INJ, ONCE, Stop date: 04/03/16 14:46:00 CDT Start Date: 04/03/16 Stop Date: 04/03/16 Status: Completed Lidoderm 5% topical film (patch) 1 patch, TOP, Daily, PRN Pain Score 1-5, 0 Refill(s) Start Date: 04/02/16 Status: Suspended Lidoderm 5% topical film (patch) 1 patch, Route: TOP, Daily, Drug form: FILM, PRN Pain Score 1-5, Start date: 19:48:00 CDT, Duration: 30 day, Stop date: 05/02/16 19:47:00 CDT Notes: Apply only once for up to 12 hours in [id number] period (12 hours on and 12 hours off).(Same as: Lidoderm)"Remove old patch before application of new patch" Start Date: 04/02/16 Stop Date: 04/06/16 Status: Discontinued LR 1000 mL INJ (ANES) Route: IV, Total Volume: 1,000, Start date: 04/03/16 13:26:00 CDT, Stop date: 14:26:00 CDT Start Date: 04/03/16 Stop Date: 04/03/16 Status: Completed MegaKrill 500 mg=, PO, Daily, "MegaRed", 0 Refill(s) Start Date: 04/02/16 Status: Suspended midazolam (ANES) Route: IV, Drug form: SOLN, ONCE, Stop date: 04/03/16 14:36:00 CDT Start Date: 04/03/16 Stop Date: 04/03/16 Status: Completed morphine Sulfate 4 mg, 2 mL, Route: IVP, Drug form: INJ, ONCE, Dosing Weight 87.27, kg, Start jessi e: 04/02/16 13:32:00 CDT, Stop date: 04/02/16 13:32:00 CDT Notes: (Same as:MORPhine Sulfate) Start Date: 04/02/16 Stop Date: 04/02/16 Status: Completed morphine Sulfate 4 mg, 2 mL, Route: IVP, Drug form: INJ, Q4H, Dosing Weight 81.818, kg, PRN Pain Score 7-10, Start date: 04/02/16 15:28:00 CDT, Duration: 30 day, Stop date: 04/10 10/23 15:27:00 CDT Notes: (Same as:MORPhine Sulfate) Start Date: 04/02/16 Stop Date: 04/03/16 Status: Discontinued neostigmine (ANES) Route: IV, Drug form: INJ, ONCE, Stop date: 04/03/16 16:00:00 CDT Start Date: 04/03/16 Stop Date: 04/03/16 Status: Completed Bush 10/325 oral tablet 2 tab, Route: PO, Drug Form: TAB, Dosing Weight 81.818, kg, QID, Start date: 17:00:00 CDT, Duration: 1 day, Stop date: 04/04/16 13:00:00 CDT Notes: Do not exceed 4gm/day of acetaminophen. (Same as: Bush 325/10) Start Date: 04/03/16 Stop Date: 04/04/16 Status: Completed Bush 10/325 oral tablet 2 tab, Route: PO, Drug Form: TAB, Dosing Weight 81.818, kg, Q4H, PRN Pain Score 4-6, Start date: 04/03/16 15:31:00 CDT, Duration: 30 day, Stop date: 05/03/16 15 :30:00 CDT Notes: Do not exceed 4gm/day of acetaminophen. (Same as: Bush 325/10) Start Date: 04/03/16 Stop Date: 04/04/16 Status: Discontinued omeprazole 40 mg, Route: PO, Drug form: DRC, Daily, Dosing Weight 81.818, kg, Start date: 0 04/03/16 9:00:00 CDT, Duration: 30 day, Stop date: 05/02/16 9:00:00 CDT Start Date: 04/03/16 Stop Date: 04/02/16 Status: Deleted omeprazole 40 mg oral delayed release capsule 40 mg=1 cap, PO, Daily, 0 Refill(s) Start Date: 04/02/16 Status: Suspended ondansetron 4 mg, 2 mL, Route: IVP, Drug form: INJ, Q8H, Dosing Weight 81.818, kg, PRN Nause a & Vomiting, Start date: 04/03/16 15:31:00 CDT, Duration: 30 day, Stop date: 05/03/16 15:30:00 CDT Notes: (Same as: Mary) MEDICATION WASTE Product Size: 4 mgProduct Was rebecca: ___ mg Start Date: 04/03/16 Stop Date: 04/06/16 Status: Discontinued ondansetron 4 mg, 2 mL, Route: IVP, Drug form: INJ, Q6H, Dosing Weight 81.818, kg, PRN Nause a & Vomiting, Start date: 04/02/16 15:28:00 CDT, Duration: 30 day, Stop date: 05/02/16 15:27:00 CDT Notes: (Same as: Mary) MEDICATION WASTE Product Size: 4 mgProduct Was rebecca: ___ mg Start Date: 04/02/16 Stop Date: 04/03/16 Status: Voided With Results ondansetron (ANES) Route: IV, Drug form: INJ, ONCE, Stop date: 04/03/16 14:56:00 CDT Start Date: 04/03/16 Stop Date: 04/03/16 Status: Completed oxybutynin 15 mg, 3 tab, Route: PO, Drug form: ERTAB, Daily, Dosing Weight 81.818, kg, Star t date: 04/03/16 9:00:00 CDT, Duration: 30 day, Stop date: 05/02/16 9:00:00 CDT Notes: (Same as: Ditropan XL) "Do Not Crush" Start Date: 04/03/16 Stop Date: 04/06/16 Status: Discontinued oxybutynin 15 mg oral tablet, extended release 15 mg=1 tab, PO, Daily, 0 Refill(s) Start Date: 04/02/16 Status: Suspended pantoprazole 40 mg oral enteric coated tablet 40 mg=1 tab, PO, Before Breakfast, 0 Refill(s) Start Date: 04/06/16 Status: Suspended pneumococcal 13-valent vaccine 0.5 mL, Route: IM, Drug Form: INJ, Daily, Start date: 04/03/16 9:00:00 CDT, Stop date: 04/03/16 12:00:00 CDT Notes: Lightly roll vial (DO NOT SHAKE) before administration. (Same as: Prevna r 13) Start Date: 04/03/16 Stop Date: 04/03/16 Status: Deleted pneumococcal 13-valent vaccine 0.5 mL, Route: IM, Drug Form: INJ, Daily, Start date: 04/04/16 9:00:00 CDT, Dura tion: 1 doses or times, Stop date: 04/04/16 9:00:00 CDT Notes: Lightly roll vial (DO NOT SHAKE) before administration. (Same as: Prevna r 13) Start Date: 04/04/16 Stop Date: 04/04/16 Status: Completed propofol (ANES) Route: IV, Drug form: INJ, ONCE, Stop date: 04/03/16 14:46:00 CDT Start Date: 04/03/16 Stop Date: 04/03/16 Status: Completed Protonix 40 mg, 1 tab, Route: PO, Drug form: ECTAB, Before Breakfast, Start date: 6 7:30:00 CDT, Duration: 30 day, Stop date: 05/02/16 7:30:00 CDT Notes: Tablet should not be chewed or crushed.(Same as: Protonix) Start Date: 04/03/16 Stop Date: 04/06/16 Status: Discontinued remove patch Route: MISC, Bedtime, Drug form: ERFILM, Start date: 04/02/16 21:00:00 CDT, Dura tion: 30 day, Stop date: 05/01/16 21:00:00 CDT Notes: Remove patch 12 hours after application each day. Start Date: 04/02/16 Stop Date: 04/06/16 Status: Discontinued Rocephin 1 gm, Route: IVPB, Drug form: PDR/INJ, [id number], Dosing Weight 81.818, kg, Priori ty: STAT, Start date: 04/02/16 19:42:00 CDT, Duration: 1 day, Stop date: 6 19:42:00 CDT Start Date: 04/02/16 Stop Date: 04/02/16 Status: Deleted Rocephin + sodium chloride 0.9% INJ 100 mL 1 gm, Route: IVPB, [id number], Dosing Weight 81.818, kg, Start date: 04/04/16 8:00: 00 CDT, Duration: 30 day, Stop date: 05/03/16 8:00:00 CDT Notes: (Same As: Rocephin).Use with 100 mL NS and infuse over 30 min MEDICA TION WASTE Product Size: 1000 mgProduct Wasted: ___ mg Start Date: 04/04/16 Stop Date: 04/06/16 Status: Discontinued rocuronium (ANES) Route: IV, Drug form: INJ, ONCE, Stop date: 04/03/16 14:46:00 CDT Start Date: 04/03/16 Stop Date: 04/03/16 Status: Completed Saline Flush 0.9% 10 ml, Route: IVP, Drug Form: INJ, Dosing Weight 81.818, kg, PRN, PRN Line Flush , Start date: 04/02/16 15:28:00 CDT, Duration: 30 day, Stop date: 05/02/16 15:27 :00 CDT Notes: (Same as: BD Posiflush) Start Date: 04/02/16 Stop Date: 04/06/16 Status: Discontinued sodium chloride 0.45% 1000 ml INJ 1,000 mL 1,000 mL, Rate: 75 ml/hr, Infuse over: 13.3 hr, Route: IV, Dosing Weight 81.818 kg, Total Volume: 1,000, Start date: 04/03/16 15:31:00 CDT, Duration: 30 day, St op date: 05/03/16 15:30:00 CDT Start Date: 04/03/16 Stop Date: 04/06/16 Status: Discontinued sodium chloride 0.9% 1000 ml INJ 1,000 mL 1,000 mL, Rate: 125 ml/hr, Infuse over: 8 hr, Route: IV, Dosing Weight 81.818 kg , Total Volume: 1,000, Start date: 04/02/16 15:28:00 CDT, Duration: 30 day, Stop date: 05/02/16 15:27:00 CDT Start Date: 04/02/16 Stop Date: 04/03/16 Status: Discontinued sulfamethoxazole-trimethoprim 200 mg-40 mg/5 mL oral suspension PO, Daily, DOSE UNKNOWN, 0 Refill(s) Start Date: 04/02/16 Stop Date: 04/03/16 Status: Discontinued sulfamethoxazole-trimethoprim DS 800 mg-160 mg oral tablet 1 tab, PO, Daily, 0 Refill(s) Start Date: 04/03/16 Status: Suspended Tylenol 650 mg, PO, 0 Refill(s) Start Date: 04/02/16 Status: Suspended Tylenol with Codeine #4 oral tablet 1 tab, Route: PO, Drug Form: TAB, Dosing Weight 81.818, kg, Q4H, PRN Pain Score 6-10, Start date: 04/04/16 13:35:00 CDT, Duration: 30 day, Stop date: 05/04/16 1 3:34:00 CDT Notes: Do not exceed 4gm/day of acetaminophen. (Same as: Tylenol with Codeine # 4) Start Date: 04/04/16 Stop Date: 04/06/16 Status: Discontinued vancomycin (SCIP) + sodium chloride 0.9% INJ 250 mL 1,000 mg, Route: IVPB, Q12H, Dosing Weight 81.818, kg, Time Critical Medication, Start date: 04/03/16 21:00:00 CDT, Duration: 2 doses or times, Stop date: 04/04 9:00:00 CDT, Pharmacy to adjust dose for renal function Notes: TIME CRITICAL MEDICATION(Same As: Vancocin)Infusion rate< 1000 mg: infuse over 1 [id number] - 1500 mg: infuse over 1.5 [id number] - 2000 mg: infuse over 2 hours> 2001 mg: infuse over 2.5 hours MEDICATION WASTE Product Size: 1000 mgProduct Wasted: ___ mg Start Date: 04/03/16 Stop Date: 04/04/16 Status: Completed Results ELECTROLYTES Most recent to 1 2 3 4 oldest [Reference Range]: Sodium Lvl [135-145 136 mEq/L 142 mEq/L 140 mEq/L mEq/L] (04/04/16 7:05 AM) (04/03/16 6:03 AM) (04/02/16 1:55 PM) Potassium Lvl 4.1 mEq/L 4.2 mEq/L 3.7 mEq/L [3.5-5.1 mEq/L] (04/04/16 7:05 AM) (04/03/16 6:03 AM) (04/02/16 1:55 PM) Chloride Lvl [95-109 104 mEq/L 107 mEq/L 105 mEq/L mEq/L] (04/04/16 7:05 AM) (04/03/16 6:03 AM) (04/02/16 1:55 PM) CO2 [24-32 mEq/L] 25 mEq/L 28 mEq/L 26 mEq/L (04/04/16 7:05 AM) (04/03/16 6:03 AM) (04/02/16 1:55 PM) AGAP [10.0-20.0 11.1 mEq/L 11.2 mEq/L 12.7 mEq/L mEq/L] (04/04/16 7:05 AM) (04/03/16 6:03 AM) (04/02/16 1:55 PM) CHEM PANEL Most recent to 1 2 3 4 oldest [Reference Range]: Creatinine Lvl 0.58 mg/dL 0.70 mg/dL 0.65 mg/dL [0.50-1.40 mg/dL] (04/04/16 7:05 AM) (04/03/16 6:03 AM) (04/03/16 6:03 AM) eGFR 94 mL/min/1.73m2 1 89 mL/min/1.73m2 2 91 mL/min/1.73m2 3 *NA* *NA* *NA* (04/04/16 7:05 AM) (04/03/16 6:03 AM) (04/03/16 6:03 AM) BUN [7-22 mg/dL] 6 mg/dL 10 mg/dL 9 mg/dL *LOW* (04/03/16 6:03 AM) (04/02/16 1:55 PM) (04/04/16 7:05 AM) Glucose Lvl [70-99 116 mg/dL 96 mg/dL 114 mg/dL mg/dL] *HI* (04/03/16 6:03 AM) *HI* (04/04/16 7:05 AM) (04/02/16 1:55 PM) Calcium Lvl 7.9 mg/dL 8.4 mg/dL 8.9 mg/dL [8.5-10.5 mg/dL] *LOW* *LOW* (04/02/16 1:55 PM) (04/04/16 7:05 AM) (04/03/16 6:03 AM) 1Result Comment: The eGFR is calculated using the [...] from the National Kid[employer] Disease Education Program ( NKDEP) which additionally recommends that when the eGFR is used in patients with extremes of body mass index for purposes of drug dosing, the eGFR should be mul tiplied by the estimated BMI. 2Result Comment: The eGFR is calculated using the [...] from the National Kid[employer] Disease Education Program ( NKDEP) which additionally recommends that when the eGFR is used in patients with extremes of body mass index for purposes of drug dosing, the eGFR should be mul tiplied by the estimated BMI. 3Result Comment: The eGFR is calculated using the [...] from the National Kid[employer] Disease Education Program ( NKDEP) which additionally recommends that when the eGFR is used in patients with extremes of body mass index for purposes of drug dosing, the eGFR should be mul tiplied by the estimated BMI. CARDIAC ENZYMES Most recent to 1 3 4 oldest [Reference Range]: Troponin-I <0.02 ng/mL [0.00-0.40 ng/mL] (04/02/16 1:55 PM) URINE AND STOOL Most recent to 1 3 4 oldest [Reference Range]: UA Turbidity [Clear] Clear (04/02/16 3:30 PM) UA Color [Yellow] Yellow *NA* (04/02/16 3:30 PM) UA pH [5.0-8.0] 7.0 (04/02/16 3:30 PM) UA Spec Grav 1.013 [<=1.030] (04/02/16 3:30 PM) UA Glucose [Negative Negative mg/dL mg/dL] *NA* (04/02/16 3:30 PM) UA Blood [Negative] Negative (04/02/16 3:30 PM) UA Ketones [Negative Negative mg/dL mg/dL] *NA* (04/02/16 3:30 PM) UA Protein [Negative Negative mg/dL mg/dL] (04/02/16 3:30 PM) UA Urobilinogen <=1.0 mg/dL [0.1-1.0 mg/dL] *NA* (04/02/16 3:30 PM) UA Bili [Negative] Negative *NA* (04/02/16 3:30 PM) UA Leuk Est Large [Negative] *ABN* (04/02/16 3:30 PM) UA Nitrite Negative [Negative] (04/02/16 3:30 PM) UA WBC [0-5 /HPF] 100 /HPF *HI* (04/02/16 3:30 PM) UA Bacteria [None Many /HPF Seen /HPF] *ABN* (04/02/16 3:30 PM) UA Sq Epi [Few /LPF] Occasional /LPF *NA* (04/02/16 3:30 PM) HEMATOLOGY Most recent to 1 2 3 4 oldest [Reference Range]: WBC [3.7-10.4 K/CMM] 8.0 K/CMM 10.2 K/CMM 5.6 K/CMM (04/05/16 6:07 AM) (04/04/16 7:05 AM) (04/03/16 6:03 AM) RBC [4.20-5.40 3.37 M/CMM 3.36 M/CMM 3.89 M/CMM M/CMM] *LOW* *LOW* *LOW* (04/05/16 6:07 AM) (04/04/16 7:05 AM) (04/03/16 6:03 AM) Hgb [12.0-16.0 g/dL] 10.1 g/dL 10.2 g/dL 11.6 g/dL *LOW* *LOW* *LOW* (04/05/16 6:07 AM) (04/04/16 7:05 AM) (04/03/16 6:03 AM) Hct [36.0-48.0 %] 30.1 % 30.0 % 34.9 % *LOW* *LOW* *LOW* (04/05/16 6:07 AM) (04/04/16 7:05 AM) (04/03/16 6:03 AM) MCV [80.0-98.0 fL] 89.5 fL 89.2 fL 89.8 fL (04/05/16 6:07 AM) (04/04/16 7:05 AM) (04/03/16 6:03 AM) MCH [27.0-31.0 pg] 30.0 pg 30.4 pg 29.9 pg (04/05/16 6:07 AM) (04/04/16 7:05 AM) (04/03/16 6:03 AM) MCHC [32.0-36.0 33.5 g/dL 34.0 g/dL 33.4 g/dL g/dL] (04/05/16 6:07 AM) (04/04/16 7:05 AM) (04/03/16 6:03 AM) RDW [11.5-14.5 %] 13.6 % 13.4 % 13.6 % (04/05/16 6:07 AM) (04/04/16 7:05 AM) (04/03/16 6:03 AM) Platelet [133-450 172 K/CMM 159 K/CMM 176 K/CMM 173 K/CMM K/CMM] (04/05/16 6:07 AM) (04/04/16 7:05 AM) (04/03/16 6:03 AM) (04/03/16 6:03 AM) MPV [7.4-10.4 fL] 7.6 fL 7.4 fL 7.1 fL (04/05/16 6:07 AM) (04/04/16 7:05 AM) *LOW* (04/03/16 6:03 AM) Segs [45.0-75.0 %] 70.4 % 87.8 % 64.4 % (04/05/16 6:07 AM) *HI* (04/03/16 6:03 AM) (04/04/16 7:05 AM) Lymphocytes 16.5 % 6.8 % 23.2 % [20.0-40.0 %] *LOW* *LOW* (04/03/16 6:03 AM) (04/05/16 6:07 AM) (04/04/16 7:05 AM) Monocytes [2.0-12.0 7.3 % 5.0 % 7.1 % %] (04/05/16 6:07 AM) (04/04/16 7:05 AM) (04/03/16 6:03 AM) Eosinophils [0.0-4.0 5.2 % 0.2 % 4.8 % %] *HI* (04/04/16 7:05 AM) *HI* (04/05/16 6:07 AM) (04/03/16 6:03 AM) Basophils [0.0-1.0 0.6 % 0.2 % 0.5 % %] (04/05/16 6:07 AM) (04/04/16 7:05 AM) (04/03/16 6:03 AM) Segs-Bands # 5.6 K/CMM 8.9 K/CMM 3.6 K/CMM [1.5-8.1 K/CMM] (04/05/16 6:07 AM) *HI* (04/03/16 6:03 AM) (04/04/16 7:05 AM) Lymphocytes # 1.3 K/CMM 0.7 K/CMM 1.3 K/CMM [1.0-5.5 K/CMM] (04/05/16 6:07 AM) *LOW* (04/03/16 6:03 AM) (04/04/16 7:05 AM) Monocytes # [0.0-0.8 0.6 K/CMM 0.5 K/CMM 0.4 K/CMM K/CMM] (04/05/16 6:07 AM) (04/04/16 7:05 AM) (04/03/16 6:03 AM) Eosinophils # 0.4 K/CMM 0.3 K/CMM 0.2 K/CMM [0.0-0.5 K/CMM] (04/05/16 6:07 AM) (04/03/16 6:03 AM) (04/02/16 1:55 PM) Basophils # [0.0-0.2 0.1 K/CMM K/CMM] (04/02/16 1:55 PM) PT [12.0-14.7 13.9 seconds 13.3 seconds seconds] (04/03/16 6:03 AM) (04/02/16 1:55 PM) INR [0.85-1.17] 1.04 0.98 (04/03/16 6:03 AM) (04/02/16 1:55 PM) PTT [22.9-35.8 30.0 seconds 28.6 seconds seconds] (04/03/16 6:03 AM) (04/02/16 1:55 PM) Immunizations Given and Recorded Vaccine Date Status Refusal Reason influenza virus vaccine, inactivated 04/04/16 Given pneumococcal 13-valent vaccine 04/04/16 Given Procedures Procedure Date Related Diagnosis Body Site Appendectomy Gastric bypass Implantation of electronic stimulator into bladder Social History Social History Type Response Smoking Status Never smoker; Ready to change: No; Concerns about tobacco use in household: No; Exposure to Tobacco Smoke None; Cigarette Smoking Last 365 Days No; Reg Smoking Cessation Counseling No Assessment and Plan Extracted from: Title: Clinical Document Author: Christopher Johnston NP, RN Date: 04/06/16 Progress Daily [facility] Completed: Mar, 07:21 by Christopher Johnston NP, RN RM: [address] - [address], [address] [id number], [id number] (: 1945) F Attending: Charity Lee MDPhone: Service: Internal Medicine Reason for Admission: ACUTE L IMPACTED [facility] H[employer] FX Working DRG: Ungroupable Code status: Full Code [Ordered]Current diet: Isolation: None Documented Allergies: NKDA SUBJECTIVE POD#3 Pt sitting in a chair eating breakfast; states pain is ok OBJECTIVE Labs (Last four charted values) WBC 8.0(APR 05)10.2(APR 04)5.6(APR 03)H 10.5(APR 02) Hgb L 10.1(APR 05)L 10.2(APR 04)L 11.6(APR 03)12.6(APR 02) Hct L 30.1(APR 05)L 30.0(APR 04)L 34.9(APR 03)38.4(APR 02) Plt 172(APR 05)159(APR 04)173(APR 03)176(APR 03) Na 136(APR 04)142(APR 03)140(APR 02) K 4.1(APR 04)4.2(APR 03)3.7(APR 02) CO2 25(APR 04)28(APR 03)26(APR 02) Cl 104(APR 04)107(APR 03)105(APR 02) Cr 0.58(APR 04)0.70(APR 03)0.65(APR 03)0.94(APR 02) BUN L 6(APR 04)10(APR 03)9(APR 02) Glucose Random H 116(APR 04)96(APR 03)H 114(APR 02) Ca L 7.9(APR 04)L 8.4(APR 03)8.9(APR 02) PT 13.9(APR 03)13.3(APR 02) INR 1.04(APR 03)0.98(APR 02) PTT 30.0(APR 03)28.6(APR 02) Troponin <0.02(APR 02) ASSESSMENT & EXAM Left Hip Provena clean, dry and intact; +DF, +PF, +EHL; 2+DP pulse PLAN & TREATMENT PT/OT ok to transfer to rehab when accepted DIAGNOSES & PROBLEMS s/p left MELISSA Ready for Discharge (Yes/No)? Quick still necessary (Yes/No): Line still necessary (Yes/No): (no lab data in past 24 hours) VitalsTmp(F)[id number] 04/06 03:[id number]--- 04/05 23:5198.099003/925001--- 04/05 20:[id number]--- 04/05 16:[id number]/[id number] 21% 04/05 11:59582.603846/361203 21% 24 Hr Tmax: 100.3F (37.94c) at 04/05 11:56Vital Signs are the last 5 in the past 48 hours. DateWt(kg)Wt(lb)Ht(cm)Ht(in)Method 04/02 (initial) 81.82 180.79432.64 66.00Measured I&ORecordInOutBal 4hr Tot 1690 0 1690 4hr Tot 450 [id number] Medications (14) Active Scheduled Meds (7): 04/04/16 cefTRIAXone + sodium chloride 0.9% INJ 100 mL (Rocephin + sodium chloride 0.9% INJ 100 mL) 1 gm IVPB [id number] 200 ml/hr 04/03/16 citalopram 40 mg PO Daily 04/03/16 docusate 100 mg PO BID 04/03/16 enoxaparin 40 mg SUB-Q Daily 04/03/16 oxybutynin 15 mg PO Daily 04/03/16 pantoprazole (Protonix) 40 mg PO Before Breakfast 04/02/16 remove patch MISC Bedtime Unscheduled Meds: None PRN Meds (6): 04/04/16 acetaminophen-codeine (Tylenol with Codeine #4 oral tablet) 1 tab PO Q4H 04/04/16 acetaminophen-codeine (acetaminophen-codeine 300 mg-30 mg oral tablet) 1 tab PO Q4H 04/03/16 hydromorphone 0.3 mg IVP Q4H 04/02/16 lidocaine topical (Lidoderm 5% topical film (patch)) 1 patch TOP Daily 04/03/16 ondansetron 4 mg IVP Q8H 04/02/16 sodium chloride (Saline Flush 0.9%) 10 ml IVP PRN One Time Meds: None Continuous Infusions (1): 04/03/16 sodium chloride 0.45% 1000 ml INJ 1,000 mL 1,000 mL 75 ml/hr Extracted from: Title: Clinical Document Author: Akiko Parrish MD Date: 04/03/16 OPERATIVE REPORT PATIENT NAME: Lucrecia Quezada DATE OF OPERATION/PROCEDURE: 04/03/2016 PREOPERATIVE DIAGNOSIS: Left femoral neck fracture. POSTOPERATIVE DIAGNOSIS: Left femoral neck fracture. Early Primary left hip osteoarthritis. PROCEDURE: 1. Left total hip arthroplasty. SURGEON: Dr. Akiko Parrsih. SIZE WORKER: Christopher Johnston NP. Please note that it was medically necessary to have a knowledgeable practice assistant present for the case. Christopher was present for the entire case and assisted with retracting and positioning the limb and protecting the sciatic nerve, dislocation and relocation of the hip, and attempts with implantation. Christopher was present for the entire case and also assisted with closure and dressing. ANESTHESIA: General. FLUIDS: 1500 cc. ESTIMATED BLOOD LOSS: 800 cc. DRAINS: None. COMPLICATIONS: None. CONDITION: To the recovery room in stable condition. INDICATIONS FOR PROCEDURE: The patient is a 71-year-old female with left femoral neck fracture. The patient understands all the risks and benefits of the procedure and wishes to proceed. The patient has multiple medical issues that could delay healing of the fracture and therefore, arthroplasty was decided upon. PROCEDURE IN DETAIL: The patient was brought to the operating room and transferred over to the hospital operating room table without any complications. The patient was given general anesthesia and successfully intubated. The patient was positioned in the lateral position with the lelft side up and all bony prominences well- padded, and had an axillary roll placed. The patient had REBECCA hose and SCDs on the right leg. The patient was given 2 grams Ancef and had the left leg prepped and draped in standard sterile fashion. A standard posterior approach was taken to the hip. Dissection down to the fascia shana was performed maintaining hemostasis with electrocautery. Fascia shana was then incised and the greater trochanteric bursa was excised. Immediately of note, the patient has a tear of her gluteal muscles off the trochanter area. The area had no muscles attached. The piriformis was identified, tagged and elevated off the posterior aspect of the greater trochanter, short external rotators and posterior capsule was identified and elevated off the greater trochanter. The hip was dislocated and the femoral neck fracture was visualized. The fractured femoral head was removed and the acetabulum was evaluated. It was noted to have a few areas of grade 3 chondromalacia. Due to the patient's age and state of her future acetabulum, it was decided to perform the total hip arthroplasty. At that point, a capsulotomy of the superior and anterior aspect was performed in order to mobilize the hip due to the retraction of the capsule. The hip was able to be mobilized anteriorly, slightly, and the acetabulum was now visualized. Once visualization of the acetabulum was obtained, the reaming began at a size 44 and proceeded up to a size 49. The 50 mm cup was trialed and had excellent fit and stability. At that point, the Main tritanium size 50 mm cup was placed with two 6.5 screws which had an excellent bite. The 0-degree liner was placed and the femur was prepared. Once visualization of the femur was obtained, a cookie cutter was used to remove the proximal aspect of the intramedullary area followed by the canal finder. Broaching began with a 0 and proceeded up to a size 8. Calcar reamer was used to ream down the excess bone and a size 8 with 132 degree neck and a -5/36 mm head was placed and the hip was reduced, had good length, extension and had good stability. At that point, the trials were removed and the wound was copiously irrigated with normal saline and bacitracin. The femoral neck was removed and it was mobilized out of the way. The liner was placed which was an 36/D 0-degree liner and a size 8 Accolade II femoral stem with 132 degree neck and a -5/36 ceramic head. The hip was reduced and had excellent length and stability. At that point, the wound was copiously irrigated with normal saline and bacitracin. The short external rotator piriformis and posterior capsule were all reattached to the posterior aspect of the greater trochanter through a bony bridge. One gram of transaminic acid was placed in the wound with periarticular injection placed around all tissues for pain relief. The fascia shana was closed with a #1 Vicryl, 0 Vicryl for the Roxanna Monocryl for the subcutaneous layer and martin for the skin. Provena dressing was applied. The patient was repositioned in the supine position. The patient was awoken from general anesthesia, successfully extubated and taken to recovery room in stable condition. All the needle, lap and sponge counts were correct at the end of the case. IMPLANTS: Tamworth Tritanium cup size 50 with two 6.5 mm screws. Main size 8 Accolade II 132 degree neck. Tamworth size -5/36 mm ceramic head. Main 0-degree X3 liner. Akiko Parrish MD
--- OUTSIDE RECORDS SUMMARY | 2018-06-15 09:12 | XMS REPORT | Summary of Care ---
Author Author [facility] Address Unknown Phone Unavailable Encounter HQ Gerald(EDDI) [id number] Date(s): 04/06/16 - 04/15/16 [facility] [address] [place] [phone] Discharge Disposition: Home or Self Care Attending Physician: Raciel Blankenship MD Admitting Physician: Raciel Blankenship MD Vital Signs 1 2 3 Most recent to oldest [Reference Range]: 167.64 cm (04/07/16 9:00 AM) 167.6 cm (04/06/16 12:59 PM) Height 97.8 DegF (04/15/16 8:10 AM) 98.6 DegF (04/14/16 7:13 PM) 98.1 DegF (04/14/16 3:22 PM) Temperature Oral [96.4-99.1 DegF] 113/73 mmHg (04/14/16 7:13 PM) 135/68 mmHg (04/14/16 3:22 PM) Blood Pressure [90-140/60-90 mmHg] 124 mmHg (04/15/16 8:10 AM) Systolic Blood Pressure [90-140 mmHg] 74 mmHg (04/15/16 8:10 AM) Diastolic Blood Pressure [60-90 mmHg] 18 BRMIN (04/15/16 8:10 AM) 16 BRMIN (04/14/16 7:13 PM) 16 BRMIN (04/14/16 3:22 PM) Respiratory Rate [14-20 BRMIN] 71 bpm (04/15/16 8:10 AM) 75 bpm (04/14/16 7:13 PM) 71 bpm (04/14/16 3:22 PM) Peripheral Pulse Rate [60-100 bpm] 81.818 kg (04/07/16 9:00 AM) 81.8 kg (04/06/16 12:59 PM) Weight 29.11 m2 (04/07/16 9:00 AM) 29.12 m2 (04/06/16 12:59 PM) Body Mass Index Problem List Condition [...] on 09/01/15. Originally documented as NKA. Medications acetaminophen-codeine 300 mg-30 mg oral tablet 1 tab, PO, Q4H, PRN Pain Score 7-10, X 3 day, # 18 tab, 0 Refill(s) Start Date: 04/15/16 Stop Date: 04/18/16 Status: Ordered acetaminophen-codeine 300 mg-30 mg oral tablet 1 tab, Route: PO, Drug Form: TAB, Dosing Weight 81.818, kg, Q4H, PRN Pain Score 4-6, Start date: 04/06/16 13:53:00 CDT, Duration: 30 day, Stop date: 05/06/16 13 :52:00 CDT Notes: Do not exceed 4gm/day of acetaminophen. (Same as: Tylenol with Codeine # 3) Start Date: 04/06/16 Stop Date: 04/15/16 Status: Discontinued acetaminophen-codeine 300 mg-60 mg oral tablet 1 tab, Route: PO, Drug Form: TAB, Dosing Weight 81.818, kg, Q4H, PRN Pain Score 6-10, Start date: 04/06/16 13:56:00 CDT, Duration: 30 day, Stop date: 05/06/16 1 3:55:00 CDT Notes: Do not exceed 4gm/day of acetaminophen. (Same as: Tylenol with Codeine # 4) Start Date: 04/06/16 Stop Date: 04/15/16 Status: Discontinued aspirin 81 mg, 1 tab, Route: PO, Drug form: ECTAB, Daily, Dosing Weight 81.818, kg, Star t date: 04/07/16 12:00:00 CDT, Duration: 30 day, Stop date: 05/07/16 9:00:00 CDT Notes: Do not crush or chew.(Same As: Ecotrin) Start Date: 04/07/16 Stop Date: 04/15/16 Status: Discontinued cefTRIAXone + sodium chloride 0.9% INJ 100 mL 1 gm, Route: IV, [id number], Start date: 04/08/16 6:00:00 CDT, Duration: 30 day, St op date: 05/07/16 6:00:00 CDT Notes: (Same As: Rocephin).Use with 100 mL NS and infuse over 30 min MEDICA TION WASTE Product Size: 1000 mgProduct Wasted: ___ mg Start Date: 04/08/16 Stop Date: 04/08/16 Status: Discontinued cefuroxime 500 mg, 2 tab, Route: PO, Drug form: TAB, [id number], Dosing Weight 81.818, kg, Sta rt date: 04/08/16 21:00:00 CDT, Duration: 7 day, Stop date: 04/15/16 9:00:00 CDT Notes: (Do Not Crush) With food. (Same As: Ceftin) Start Date: 04/08/16 Stop Date: 04/13/16 Status: Discontinued CeleXA 40 mg, 4 tab, Route: PO, Drug form: TAB, Daily, Dosing Weight 81.818, kg, Start date: 04/07/16 9:00:00 CDT, Duration: 30 day, Stop date: 05/06/16 9:00:00 CDT Start Date: 04/07/16 Stop Date: 04/15/16 Status: Discontinued Ditropan XL 15 mg, 3 tab, Route: PO, Drug form: ERTAB, Daily, Dosing Weight 81.818, kg, Star t date: 04/07/16 9:00:00 CDT, Duration: 30 day, Stop date: 05/06/16 9:00:00 CDT Notes: (Same as: Ditropan XL) "Do Not Crush" Start Date: 04/07/16 Stop Date: 04/15/16 Status: Discontinued docusate sodium 100 mg oral capsule 100 mg, 1 cap, Route: PO, Drug form: CAP, BID, Dosing Weight 81.818, kg, Start d ate: 04/06/16 17:00:00 CDT, Duration: 30 day, Stop date: 05/06/16 9:00:00 CDT Notes: (Same as: Colace) (Do Not Crush) Start Date: 04/06/16 Stop Date: 04/15/16 Status: Discontinued Dulcolax Laxative 10 mg, 2 tab, Route: PO, Drug form: ECTAB, Daily, Dosing Weight 81.818, kg, PRN Constipation, Start date: 04/08/16 15:43:00 CDT, Duration: 30 day, Stop date: 15:42:00 CDT Notes: (Same As: Dulcolax, Correctol) (Do Not Crush) "Do Not Crush" Start Date: 04/08/16 Stop Date: 04/15/16 Status: Discontinued ergocalciferol 50,000 intl units oral capsule 50,000 IntlUnit=1 cap, PO, qWeek, # 5 cap, 0 Refill(s), Pharmacy: [facility]/pharmacy # [id number] Start Date: 04/15/16 Stop Date: 05/15/16 Status: Ordered lidocaine topical patch (5% film) 1 patch, Route: TOP, Daily, Drug form: FILM, PRN Pain Score 1-5, Start date: 13:56:00 CDT, Duration: 30 day, Stop date: 05/06/16 13:55:00 CDT Notes: Apply only once for up to 12 hours in q78-xair period (12 hours on and 12 hours off).(Same as: Lidoderm)"Remove old patch before application of new patch" Start Date: 04/06/16 Stop Date: 04/15/16 Status: Discontinued Lovenox 40 mg, 0.4 mL, Route: SUB-Q, Drug form: INJ, [id number], Dosing Weight 81.818, kg, Start date: 04/07/16 6:00:00 CDT, Duration: 30 day, Stop date: 05/06/16 6:00:00 CDT Notes: (Same as: Lovenox) Start Date: 04/07/16 Stop Date: 04/15/16 Status: Discontinued Physical Therapy See Instructions, MISC, ONCALL, Evaluate and Treat 2-3 times per week for 4-6 we eks, # 1 ea, 0 Refill(s) Start Date: 04/15/16 Status: Ordered Protonix 40 mg, 1 tab, Route: PO, Drug form: ECTAB, Before Breakfast, Start date: 6 7:30:00 CDT, Duration: 30 day, Stop date: 05/06/16 7:30:00 CDT Notes: Tablet should not be chewed or crushed.(Same as: Protonix) Start Date: 04/07/16 Stop Date: 04/15/16 Status: Discontinued remove patch 1 patch, Route: TOP, Bedtime, Drug form: ERFILM, Start date: 04/06/16 21:00:00 C DT, Duration: 30 day, Stop date: 05/05/16 21:00:00 CDT Notes: Remove patch 12 hours after application each day. Start Date: 04/06/16 Stop Date: 04/15/16 Status: Discontinued Rocephin + sodium chloride 0.9% INJ 100 mL 1 gm, Route: IVPB, [id number], Dosing Weight 81.818, kg, Start date: 04/07/16 8:00: 00 CDT, Duration: 30 day, Stop date: 05/06/16 8:00:00 CDT Notes: (Same As: Rocephin).Use with 100 mL NS and infuse over 30 min MEDICA TION WASTE Product Size: 1000 mgProduct Wasted: ___ mg Start Date: 04/07/16 Stop Date: 04/07/16 Status: Discontinued Rolaids 1 tab, Route: PO, Drug Form: TAB, Dosing Weight 81.818, kg, QID, PRN Indigestion , Start date: 04/07/16 11:29:00 CDT, Duration: 30 day, Stop date: 05/07/16 11:28 :00 CDT Start Date: 04/07/16 Stop Date: 04/07/16 Status: Deleted trazodone 50 mg, 1 tab, Route: PO, Drug form: TAB, Bedtime, Dosing Weight 81.818, kg, PRN Insomnia, Start date: 04/06/16 12:58:00 CDT, Duration: 30 day, Stop date: 12:57:00 CDT Notes: (Same As: Giuseppe) Start Date: 04/06/16 Stop Date: 04/15/16 Status: Discontinued Tums 500 mg, 1 tab, Route: CHEW, Drug form: CHEWTAB, QID, PRN Indigestion, Start date : 04/07/16 11:35:00 CDT, Duration: 30 day, Stop date: 05/07/16 11:34:00 CDT Notes: (Same As: Tums)Calcium Carbonate 500 ah=669 mg elemental calcium Dose=_ mg calcium carbonate ( mg elemental calcium) Start Date: 04/07/16 Stop Date: 04/15/16 Status: Discontinued Tylenol 325 mg oral capsule =2 tab, PO, QID, PRN Pain Score 1-5, Do not take more than 3000 mg of combined A cetaminophen per day (which includes the Tylenol #3), # 100 tab, 0 Refill(s), Ph armacy: [facility]/pharmacy #[id number] Start Date: 04/15/16 Status: Ordered Vitamin D2 50,000 IntlUnit, 1 cap, Route: PO, Drug form: CAP, qWeek, Dosing Weight 81.818, kg, Start date: 04/07/16 17:00:00 CDT, Duration: 5 doses or times, Stop date: 9:00:00 CDT Notes: (Same as: Vitamin D) "Do Not Crush" Start Date: 04/07/16 Stop Date: 04/15/16 Status: Discontinued Results ELECTROLYTES Most recent to 1 oldest [Reference Range]: Sodium Lvl [135-145 139 mEq/L mEq/L] (04/07/16 5:54 AM) Potassium Lvl 3.5 mEq/L [3.5-5.1 mEq/L] (04/07/16 5:54 AM) Chloride Lvl [95-109 104 mEq/L mEq/L] (04/07/16 5:54 AM) CO2 [24-32 mEq/L] 30 mEq/L (04/07/16 5:54 AM) AGAP [10.0-20.0 8.5 mEq/L mEq/L] *LOW* (04/07/16 5:54 AM) CHEM PANEL Most recent to 1 oldest [Reference Range]: Creatinine Lvl 0.54 mg/dL [0.50-1.40 mg/dL] (04/07/16 5:54 AM) eGFR 97 mL/min/1.73m2 1 *NA* (04/07/16 5:54 AM) BUN [7-22 mg/dL] 5 mg/dL *LOW* (04/07/16 5:54 AM) Glucose Lvl [70-99 101 mg/dL mg/dL] *HI* (04/07/16 5:54 AM) Albumin Lvl [3.5-5.0 2.6 g/dL g/dL] *LOW* (04/07/16 5:54 AM) Calcium Lvl 8.5 mg/dL [8.5-10.5 mg/dL] (04/07/16 5:54 AM) Phosphorus [2.5-4.5 4.1 mg/dL mg/dL] (04/07/16 5:54 AM) Magnesium Lvl 2.1 mg/dL [1.8-2.4 mg/dL] (04/07/16 5:54 AM) Vitamin D, 25-OH, 16 ng/mL Total [30-100 ng/mL] *LOW* (04/07/16 5:54 AM) 1Result Comment: The eGFR is calculated [...] be mul tiplied by the estimated BMI. IMMUNOLOGY Most recent to 1 oldest [Reference Range]: Prealbumin 11.1 mg/dL [18.0-45.0 mg/dL] *LOW* (04/07/16 5:54 AM) HEMATOLOGY Most recent to 1 oldest [Reference Range]: WBC [3.7-10.4 K/CMM] 6.7 K/CMM (04/07/16 5:54 AM) RBC [4.20-5.40 3.37 M/CMM M/CMM] *LOW* (04/07/16 5:54 AM) Hgb [12.0-16.0 g/dL] 10.2 g/dL *LOW* (04/07/16 5:54 AM) Hct [36.0-48.0 %] 30.1 % *LOW* (04/07/16 5:54 AM) MCV [80.0-98.0 fL] 89.3 fL (04/07/16 5:54 AM) MCH [27.0-31.0 pg] 30.3 pg (04/07/16 5:54 AM) MCHC [32.0-36.0 33.9 g/dL g/dL] (04/07/16 5:54 AM) RDW [11.5-14.5 %] 13.8 % (04/07/16 5:54 AM) Platelet [133-450 244 K/CMM K/CMM] (04/07/16 5:54 AM) MPV [7.4-10.4 fL] 7.1 fL *LOW* (04/07/16 5:54 AM) Segs [45.0-75.0 %] 58.5 % (04/07/16 5:54 AM) Lymphocytes 24.4 % [20.0-40.0 %] (04/07/16 5:54 AM) Monocytes [2.0-12.0 10.0 % %] (04/07/16 5:54 AM) Eosinophils [0.0-4.0 6.5 % %] *HI* (04/07/16 5:54 AM) Basophils [0.0-1.0 0.6 % %] (04/07/16 5:54 AM) Segs-Bands # 4.0 K/CMM [1.5-8.1 K/CMM] (04/07/16 5:54 AM) Lymphocytes # 1.6 K/CMM [1.0-5.5 K/CMM] (04/07/16 5:54 AM) Monocytes # [0.0-0.8 0.7 K/CMM K/CMM] (04/07/16 5:54 AM) Eosinophils # 0.4 K/CMM [0.0-0.5 K/CMM] (04/07/16 5:54 AM) PT [12.0-14.7 13.5 seconds seconds] (04/07/16 5:54 AM) INR [0.85-1.17] 1.01 (04/07/16 5:54 AM) PTT [22.9-35.8 31.3 seconds seconds] (04/07/16 5:54 AM) Immunizations Given and Recorded Vaccine Date Status [...] Plan Extracted from: Title: Clinical Document Author: Raciel Blankenship MD Date: 04/14/16 PHYSICAL MEDICINE REHABILITATION FOLLOW UP CHIEF COMPLAINT AND IDENTIFICATION: A 71-year-old lady being seen for ongoing acute traumatic left femoral neck fracture status post left total hip arthroplasty. INTERVAL EVENTS AND SUBJECTIVE: All interval events reviewed. No new fevers, chills, nausea, vomiting, chest pain, palpitations, headaches, or dizziness. No other focal strength or sensation changes. Pain improving. Tolerating therapy well. Mood is good. Team meeting held and discussed with her. PHYSICAL EXAMINATION: Vitals and Temp: VitalsTmp(F)[id number] 04/14 07:[id number]--- 04/13 20:[id number]/921995--- 04/13 15:52----78274/[id number]--- 04/13 08:2998.675003/626165--- 04/12 20:[id number]/[id number]--- 24 Hr Tmax: 98.0F (36.67c) at 04/14 07:47Vital Signs are the last 5 in the past 48 hours. GENERAL: Heavy-set, seen in room mobilizing with [facility]. no apparent distress. PSYCH: Alert, pleasant, oriented, cooperative. HEENT: Pupils are round, reactive to light. Extraocular muscles intact. Moist mucous membranes. CARDIOVASCULAR: 2+ bilateral upper extremity pulses, regular rate and rhythm all extremities, warm, well-perfused. PULMONARY: Respirations unlabored without dyspnea at the paragraph level. ABDOMEN: Doughy, nontender, nondistended. : No Quick. SKIN: No new breakdown hip incision clean, dry and intact. NEUROMUSCULOSKELETAL: Cranial nerves II-XII are intact. Strength unbreakable in the bilateral upper extremities and right lower extremity. Left hip flexion 3/5, knee extension 4/5, ankle dorsiflexion, great toe extension 4/5 without hypertonicity or clonus. Labs (Last four charted values) WBC 6.7(APR 07) Hgb L 10.2(APR 07)10.2(APR 04) Hct L 30.1(APR 07) Plt 244(APR 07) Na 139(APR 07) K 3.5(APR 07) CO2 30(APR 07) Cl 104(APR 07) Cr 0.54(APR 07) BUN L 5(APR 07) Glucose Random H 101(APR 07) Mg 2.1(APR 07) Phos 4.1(APR 07) Ca 8.5(APR 07) PT 13.5(APR 07) INR 1.01(APR 07) PTT 31.3(APR 07) IMAGING DIAGNOSTIC STUDIES: No new imaging. ASSESSMENT AND PLAN: This is a 71-year-old lady with: 1. Acute traumatic left femoral neck fracture status post left total hip arthroplasty: Dr. Rivera was the operating surgeon. Weightbearing as tolerated. Hip precautions in place. Continue postoperative medical risk reduction. Continue the rehabilitation therapies as below. Continue Lovenox for DVT prophylaxis. 2. Acute postoperative left hip pain: Well controlled. Continue ice, positioning, range of motion, stretching. Continue Tylenol #3 for less severe pain and Tylenol #4 for more severe pain. Continue working on motile these. 3. Acute postoperative blood loss anemia. Hemoglobin and hematocrit is stable. Hemodynamically stable. Continue nutrition and fluid intake. 4. E. coli urinary tract infection: -Resolved. -Monitor of ABX. -continue urinary hygeine. 5. Rehabilitation for deficits in mobility, ADLs, IADLs, weakness, incoordination and imbalance secondary to the above issues: -All interval therapy notes reviewed. Weekly Interdisciplinary Team rounds done with multi-disciplinary involvement including PT, OT, METAL POLISHER, nutrition, nursing, social work, and rehab MD. I led the meeting. The patient continues to demonstrate measurable improvement, and continues to benefit from intensive inpatient rehabilitation. Pharmacy rounds held to discuss therapeutic appropriateness and duplication, appropriate dose, frequency, and route of administration, potential drug/drug and drug/food interactions, and adverse effects from medications with pharmacy services. Nursing: Continent of bowel and bladder. Walking in the hebert with supervision. METAL POLISHER: No acute needs. OT: Meeting all STG. Met 11/14 LTG with goals towards mod indep. Setup to supervision for LBD, min assist for shower transfer, goal to get to mod indep. PT: Mod indep in all domains. Walking 450 feet. Doing steps and stairs. Eqpt: FWW, 3 in 1 commode. F/U: O[facility]patient PT. Says she can't get there. If need Home health only will approve 2 sessions for home safety. SOFÍAOS: 04/15 to home with family.
--- OUTSIDE RECORDS SUMMARY | 2018-06-15 09:12 | XMS REPORT | Summary of Care ---
Author Author [facility] Organization [facility] Address Unknown Phone Unavailable Encounter HQ Estefanir_chandana(FIN) [id number] Date(s): 02/02/15 - 02/02/15 [facility] [address] [place] [address]- Discharge Disposition: Home Attending Physician: Gallo Emmanuel MD Admitting Physician: Gallo Emmanuel MD Vital Signs No data available for this section Problem List Condition Effective Dates Status Health Status Informant Electrocardiogram 02/05/14 Active abnormal1 Gastroesophageal 02/05/14 Active reflux disease2 Hyperlipidemia3 02/05/14 Active Low back pain4 07/01/14 Active Menopause present5 02/05/14 Active Mitral valve 02/13/14 Active regurgitation6 Osteoarthritis7 02/05/14 Active Osteoporosis8 02/13/14 Active Urge incontinence of 02/05/14 Active urine9 1Data migrated from [employer] on 12/09/14. 2Data migrated from [employer] on 12/09/14. 3Data migrated from [employer] on 12/09/14. 4Data migrated from [employer] on 12/09/14. 5Data migrated from [employer] on 12/09/14. 6Data migrated from [employer] on 12/09/14. 7Data migrated from [employer] on 12/09/14. 8Data migrated from [employer] on 12/09/14. 9Data migrated from [employer] on 12/09/14. Allergies, Adverse Reactions, Alerts No data available for this section Medications No data available for this section Results No data available for this section Immunizations No data available for this section Procedures No data available for this section Social History No data available for this section Assessment and Plan No data available for this section
--- OUTSIDE RECORDS SUMMARY | 2018-06-15 09:13 | XMS REPORT | Summary of Care ---
Author Author [facility] Address Unknown Phone Unavailable Encounter HQ Gerald(FIN) [id number] Date(s): 06/22/16 - 07/09/16 [facility] Discharge Disposition: Home or Self Care Attending Physician: Aikko Parrish MD Vital Signs No data available for [...] on 09/01/15. Originally documented as NKA. Medications No data available for this section Results No data available for this section Immunizations Given and Recorded Vaccine Date Status [...] Smoking Cessation Counseling No Assessment and Plan No data available for this section
--- OUTSIDE RECORDS SUMMARY | 2018-06-15 09:13 | XMS REPORT | Summary of Care ---
Author Author [facility] Address Unknown Phone Unavailable Encounter HQ Gerald(FIN) [phone] Date(s): 04/19/16 - 05/18/16 Formerly [facility], later [facility] Discharge Disposition: Home or Self Care Attending Physician: Raciel Blankenship MD Vital Signs No data available for [...]
--- OUTSIDE RECORDS SUMMARY | 2018-06-15 09:13 | XMS REPORT | Continuity of Care Document ---
Author Author [facility] Organization [facility] Address Unknown Phone Unavailable Care Team Providers Care Flight Purser Name Role Phone DAISY Jones Catherine PP Unavailable Insurance Providers Payer name Policy type / Coverage type Policy ID Covered alliance party ID Policy [id number] [employer] AETNA - TRS CARE (PPO) AETNA - TRS CARE (PPO) Encounters Encounter Performer Location Date Lab Report Hollie Jones APRN [facility] [place] Feb 11, 2014 Problems Problem Effective Dates Problem Status HYPERTENSION Feb 05, 2014 Active HYPERLIPIDEMIA Feb 05, 2014 Active GASTROESOPHAGEAL REFLUX DISEASE Feb 05, 2014 Active OSTEOARTHRITIS Feb 05, 2014 Active INCONTINENCE, URGE Feb 05, 2014 Active ABNORMAL ELECTROCARDIOGRAM Feb 05, 2014 Active MENOPAUSE Feb 05, 2014 Active Procedures Date Description Comments Feb 05, 2014 smoking status Former smoker Feb 05, 2014 smoking/tobacco cessation, patient education and counseling no Medications Medication Instructions Start Date Status LISINOPRIL 5 MG TABS 1 tablet daily Feb 05, 2014 Active OXYBUTYNIN CHLORIDE ER 15 MG [id number] ONE TAB DAILY Feb 05, 2014 Active PRAVASTATIN SODIUM 40 MG TABS ONE TAB DAILY Feb 05, 2014 Active OMEPRAZOLE 20 MG TBEC ONE TAB DAILY Feb 05, 2014 Active ADULT ASPIRIN LOW STRENGTH 81 MG TBDP ONE TAB DAILY Feb 05, 2014 Active CRANBERRY PLUS VITAMIN C 4200-20-3 MG-MG-UNIT CAPS TWO CAPS ONCE A DAY Feb 05, 2014 Active EQ ARTHRITIS PAIN 650 MG CR-TABS TWO TABS ONCE A DAY Feb 05, 2014 Active HYDROCODONE-ACETAMINOPHEN 7.5-325 MG TABS 1 tablet daily as needed for severe pain Feb 05, 2014 Active ADVANCED AM/PM MISC 2 orally morning and evening as directed Feb 05, 2014 Active Vital Signs Date Description Test Result Feb 05, 2014 weight E&M WEIGHT 195 lb Feb 05, 2014 height E&M HEIGHT 67 in Feb 05, 2014 temperature E&M TEMPERATURE 97.8 deg f Feb 05, 2014 pulse rate E&M PULSE RATE 66 /min Feb 05, 2014 blood pressure, systolic BP SYSTOLIC 94 mm Hg Feb 05, 2014 blood pressure, diastolic BP DIASTOLIC 52 mm Hg Results Date Description Test Name Value Reference Interpretation Status Feb 05, 2014 hemoglobin, blood HGB 12.5 g/dL 12.0-16.0 Feb 05, 2014 hematocrit, blood HCT 37.8 % 36.0-48.0 Feb 05, 2014 platelet count PLATELETS 264 K/CMM /mm3 133-450 Feb 05, 2014 urine color UA COLOR Light Yellow null Yellow Feb 05, 2014 hemoglobin A1C, blood, as % of total hemoglobin HGBA1C 4.9 % <=5.6 Feb 05, 2014 cholesterol, serum CHOLESTEROL 209 mg/dl <=199 High Feb 05, 2014 triglyceride, serum, fasting TRIGLYCERIDE 147 mg/dl <=149 Feb 05, 2014 HDL cholesterol, serum HDL 78 mg/dl >=61 Feb 05, 2014 LDL cholesterol, serum LDL 102 mg/dl <=99 High Feb 05, 2014 sodium, serum SODIUM 143 MEQ/L mmol/L 135-145 Feb 05, 2014 potassium, serum POTASSIUM 4.5 MEQ/L mmol/L 3.5-5.1 Feb 05, 2014 creatinine, serum CREATININE 1.0 mg/dL 0.5-1.4 Feb 05, 2014 urea nitrogen, blood BUN 9 mg/dL 7-22 Feb 05, 2014 urea nitrogen/creatinine ratio, serum BUN/CREAT 9 null 6-25 Feb 05, 2014 albumin, serum ALBUMIN 4.2 g/dL 3.5-5.0 Feb 05, 2014 calcium, serum CALCIUM 9.6 mg/dL 8.5-10.5 Feb 05, 2014 alanine aminotransferase (SGPT), serum SGPT (ALT) 18 U/L 0-65 Feb 05, 2014 aspartate aminotransferase (SGOT), serum SGOT (AST) 17 U/L 0-37 Feb 05, 2014 alkaline phosphatase, serum ALK PHOS 68 U/L 39-136 Feb 05, 2014 thyroid stimulating hormone, serum TSH 2.370 uIU/mL 0.360-3.740
--- OUTSIDE RECORDS SUMMARY | 2018-06-15 09:13 | XMS REPORT | Continuity of Care Document ---
Author Author [facility] Organization [facility] Address Unknown Phone Unavailable Care Team Providers Care Line Painting Machine Operator Name Role Phone MD Robel, Vanessa RUELAS Unavailable Insurance Providers Payer name Policy type / Coverage type Policy ID Covered alliance party ID Policy [place] [employer] AETNA - TRS CARE (PPO) AETNA - TRS CARE (PPO) Encounters Encounter Performer Location Date Lab Report Vanessa Huston MD [facility] Jan 20, 2015 Problems Problem Effective Dates Problem Status HYPERTENSION Feb 05, 2014 Inactive HYPERLIPIDEMIA Feb 05, 2014 Active GASTROESOPHAGEAL REFLUX DISEASE Feb 05, 2014 Active OSTEOARTHRITIS Feb 05, 2014 Active INCONTINENCE, URGE Feb 05, 2014 Active ABNORMAL ELECTROCARDIOGRAM Feb 05, 2014 Active MENOPAUSE Feb 05, 2014 Active MITRAL REGURGITATION, MILD Feb 13, 2014 Active OSTEOPOROSIS Feb 13, 2014 Active BACK PAIN, LUMBAR Jul 01, 2014 Active CHEST PAIN NOS Jan 16, 2015 Active OTITIS EXTERNA Jan 16, 2015 Active Procedures Date Description Comments Feb 05, 2014 smoking status Former smoker Feb 05, 2014 smoking/tobacco cessation, patient education and counseling no Feb 12, 2014 bone density Completed at [facility] Feb 13, 2014 smoking status Former smoker Feb 13, 2014 smoking/tobacco cessation, patient education and counseling no Jul 01, 2014 smoking status Former smoker Jul 01, 2014 smoking/tobacco cessation, patient education and counseling no Jan 16, 2015 smoking status Former smoker Jan 16, 2015 smoking/tobacco cessation, patient education and counseling no Medications Medication Instructions Start Date Status LISINOPRIL 5 MG TABS 1 tablet daily Feb 05, 2014 Inactive OXYBUTYNIN CHLORIDE ER 15 MG [id number] ONE TAB DAILY Feb 05, 2014 Inactive OMEPRAZOLE 20 MG TBEC ONE TAB DAILY Feb 05, 2014 Inactive ADULT ASPIRIN LOW STRENGTH 81 MG TBDP ONE TAB DAILY Feb 05, 2014 Inactive CRANBERRY PLUS VITAMIN C 4200-20-3 MG-MG-UNIT CAPS TWO CAPS ONCE A DAY Feb 05, 2014 Active EQ ARTHRITIS PAIN 650 MG CR-TABS TWO TABS ONCE A DAY Feb 05, 2014 Inactive HYDROCODONE-ACETAMINOPHEN 7.5-325 MG TABS 1 tablet daily as needed for severe pain Feb 05, 2014 Inactive ADVANCED AM/PM MISC 2 orally morning and evening as directed Feb 05, 2014 Inactive PRAVASTATIN SODIUM 40 MG TABS ONE TAB DAILY Feb 05, 2014 Inactive OXYBUTYNIN CHLORIDE ER 15 MG [id number] One po daily Jul 01, 2014 Active NITROFURANTOIN MACROCRYSTAL 100 MG CAPS 1 capsule po daily Jul 01, 2014 Inactive ASPIRIN 81 MG TBEC 2 po daily Jul 01, 2014 Active LANSOPRAZOLE 30 MG CPDR one capsule daily Jul 01, 2014 Active LIDODERM 5 % PTCH as directed Jul 01, 2014 Active MOBIC 7.5 MG/5ML SUSP one tablet daily for pain Jul 01, 2014 Active ACETAMINOPHEN-CODEINE #3 300-30 MG TABS one tablet every 8 hours as needed for pain Jul 01, 2014 Active TYLENOL EXTRA STRENGTH TABS 2 po daily Jul 01, 2014 Inactive FOSAMAX 70 MG TAB 1 tablet weekly as directed Feb 13, 2014 Inactive ADVANCED AM/PM MISC 2 tablets AM/PM Jul 01, 2014 Inactive OMEPRAZOLE 20 MG CPDR one capsule daily Jan 16, 2015 Active FOSAMAX 70 MG TABS 1 tablet weekly with 8 oz water Jan 16, 2015 Active CIPRODEX 0.3-0.1 % SUSP 4 drops into affected ear twice daily for 7 days Jan 16, 2015 Active Vital Signs Date Description Test Result Feb 05, 2014 weight E&M - 3141-9 WEIGHT 195 lb Feb 05, 2014 height E&M - 8302-2 HEIGHT 67 in Feb 05, 2014 temperature E&M TEMPERATURE 97.8 deg f Feb 05, 2014 pulse rate E&M - 8867-4 PULSE RATE 66 /min Feb 05, 2014 blood pressure, systolic - 8480-6 BP SYSTOLIC 94 mm Hg Feb 05, 2014 blood pressure, diastolic - 8462-4 BP DIASTOLIC 52 mm Hg Feb 13, 2014 weight E&M - 3141-9 WEIGHT 196 lb Feb 13, 2014 temperature E&M TEMPERATURE 97.8 deg f Feb 13, 2014 pulse rate E&M - 8867-4 PULSE RATE 63 /min Feb 13, 2014 blood pressure, systolic - 8480-6 BP SYSTOLIC 98 mm Hg Feb 13, 2014 blood pressure, diastolic - 8462-4 BP DIASTOLIC 63 mm Hg Jul 01, 2014 height E&M - 8302-2 HEIGHT 67 in Jul 01, 2014 blood pressure, systolic - 8480-6 BP SYSTOLIC 127 mm Hg Jul 01, 2014 blood pressure, diastolic - 8462-4 BP DIASTOLIC 58 mm Hg Jul 01, 2014 pulse rate E&M - 8867-4 PULSE RATE 70 /min Jul 01, 2014 temperature E&M TEMPERATURE 97.7 deg f Jul 01, 2014 weight E&M - 3141-9 WEIGHT 192 lb Jan 16, 2015 height E&M - 8302-2 HEIGHT 67 in Jan 16, 2015 weight E&M - 3141-9 WEIGHT 184 lb Jan 16, 2015 temperature E&M TEMPERATURE 97.6 deg f Jan 16, 2015 pulse rate E&M - 8867-4 PULSE RATE 61 /min Jan 16, 2015 blood pressure, systolic - 8480-6 BP SYSTOLIC 143 mm Hg Jan 16, 2015 blood pressure, diastolic - 8462-4 BP DIASTOLIC 79 mm Hg Results Date Description Test Name Value Reference Interpretation Status Feb 05, 2014 hemoglobin, blood HGB 12.5 g/dL 12.0-16.0 Feb 05, 2014 hematocrit, blood HCT 37.8 % 36.0-48.0 Feb 05, 2014 platelet count PLATELETS 264 K/CMM /mm3 133-450 Jan 20, 2015 hemoglobin, blood HGB 12.3 g/dL 12.0-16.0 Jan 20, 2015 hematocrit, blood HCT 38.3 % 36.0-48.0 Jan 20, 2015 platelet count PLATELETS 249 K/CMM /mm3 133-450 Feb 05, 2014 urine [...] 2014 urea nitrogen, blood BUN 9 mg/dL 7-Feb 05, 2014 urea nitrogen/creatinine ratio, serum BUN/CREAT [...] stimulating hormone, serum TSH 2.370 uIU/mL 0.360-3.740 Jan 20, 2015 hemoglobin A1C, blood, as % of total hemoglobin HGBA1C 5.1 % <=5.6 Jan 20, 2015 cholesterol, serum CHOLESTEROL 199 mg/dl <=199 Jan 20, 2015 triglyceride, serum, fasting TRIGLYCERIDE 138 mg/dl <=149 Jan 20, 2015 HDL cholesterol, serum HDL 68 mg/dl >=61 Jan 20, 2015 LDL cholesterol, serum LDL 103 mg/dl <=99 High Jan 20, 2015 sodium, serum SODIUM 145 MEQ/L mmol/L 135-145 Jan 20, 2015 potassium, serum POTASSIUM 4.7 MEQ/L mmol/L 3.5-5.1 Jan 20, 2015 creatinine, serum CREATININE 0.6 mg/dL 0.5-1.4 Jan 20, 2015 urea nitrogen, blood BUN 9 mg/dL 7-22 Jan 20, 2015 urea nitrogen/creatinine ratio, serum BUN/CREAT 15 null 6-25 Jan 20, 2015 albumin, serum ALBUMIN 3.5 g/dL 3.5-5.0 Jan 20, 2015 calcium, serum CALCIUM 9.2 mg/dL 8.5-10.5 Jan 20, 2015 alanine aminotransferase (SGPT), serum SGPT (ALT) 17 U/L 0-65 Jan 20, 2015 aspartate aminotransferase (SGOT), serum SGOT (AST) 14 U/L 0-37 Jan 20, 2015 alkaline phosphatase, serum ALK PHOS 66 U/L 39-136 Jan 20, 2015 thyroxine, serum, free T4, FREE 0.89 ng/dl 0.76-1.46 Jan 20, 2015 thyroid stimulating hormone, serum TSH 2.540 uIU/mL 0.360-3.740
--- OUTSIDE RECORDS SUMMARY | 2018-06-15 09:13 | XMS REPORT | Summary of Care ---
Author Author [facility] Organization [facility] Address Unknown Phone Unavailable Encounter HQ Gerald(FIN) [phone] Date(s): 10/21/16 - 10/24/16 [facility] [address] [place] [address]- Discharge Disposition: Home or Self Care Vital Signs 1 2 3 Most recent to oldest [Reference Range]: 167.64 cm (10/21/16 5:05 PM) Height 98.0 DegF (10/24/16 11:51 AM) 98.0 DegF (10/24/16 8:00 AM) 98.8 DegF (10/24/16 4:00 AM) Temperature Oral [96.4-99.1 DegF] 129/64 mmHg (10/24/16 11:51 AM) 117/69 mmHg (10/24/16 8:00 AM) 145/80 mmHg *HI* (10/24/16 4:00 AM) Blood Pressure [90-140/60-90 mmHg] 18 BRMIN (10/24/16 11:51 AM) 18 BRMIN (10/24/16 8:00 AM) 18 BRMIN (10/24/16 4:00 AM) Respiratory Rate [14-20 BRMIN] 61 bpm (10/24/16 11:51 AM) 65 bpm (10/24/16 8:00 AM) 65 bpm (10/24/16 4:00 AM) Peripheral Pulse Rate [60-100 bpm] 88.003 kg (10/22/16 12:15 PM) 88.636 kg (10/21/16 5:05 PM) Weight 31.54 m2 (10/21/16 5:05 PM) Body Mass Index Problem List Condition [...] 09/01/15. Originally documented as NKA. Medications acetaminophen 650 mg, 2 tab, Route: PO, Drug form: TAB, Q4H, Dosing Weight 81.818, kg, PRN Ana n 1-3/Temp > 100.4 F, Start date: 10/21/16 15:54:00 CDT, Duration: 30 day, Stop date: 11/20/16 15:53:00 CDT Notes: Do not exceed 4 gm/day. (Same as: Tylenol) Start Date: 10/21/16 Stop Date: 10/24/16 Status: Discontinued calcitriol 0.5 mcg oral capsule 0.5 microgram=1 cap, PO, Daily, # 30 cap, 0 Refill(s) Start Date: 10/24/16 Status: Ordered Ceftin 250 mg oral tablet 250 mg=1 tab, PO, BID, X 10 day, # 20 tab, 0 Refill(s) Start Date: 10/24/16 Stop Date: 11/03/16 Status: Ordered cefTRIAXone 1 gm, Route: IVPB, Drug form: PDR/INJ, [id number], Dosing Weight 81.818, kg, Start date: 10/21/16 16:00:00 CDT, Duration: 30 day, Stop date: 11/19/16 16:00:00 CDT Start Date: 10/21/16 Stop Date: 10/21/16 Status: Discontinued citalopram 40 mg, 4 tab, Route: PO, Drug form: TAB, Daily, Dosing Weight 88.003, kg, Start date: 10/24/16 13:00:00 CDT, Duration: 30 day, Stop date: 11/23/16 9:00:00 CDT Start Date: 10/24/16 Stop Date: 10/24/16 Status: Discontinued docusate 100 mg, 1 cap, Route: PO, Drug form: CAP, BID, Dosing Weight 81.818, kg, Start d ate: 10/21/16 17:00:00 CDT, Duration: 30 day, Stop date: 11/20/16 9:00:00 CDT Notes: (Same as: Colace) (Do Not Crush) Start Date: 10/21/16 Stop Date: 10/24/16 Status: Discontinued Flagyl 250 mg, 1 tab, Route: PO, Drug form: TAB, ABXQ8H, Dosing Weight 88.003, kg, Star t date: 10/24/16 10:00:00 CDT, Duration: 30 day, Stop date: 11/23/16 2:00:00 CDT Notes: (Same as: Flagyl) Take with food/ avoid alcohol Start Date: 10/24/16 Stop Date: 10/24/16 Status: Discontinued ibuprofen 200 mg oral tablet 200 mg, 1 tab, Route: PO, Drug form: TAB, Q6H, Dosing Weight 88.636, kg, PRN Oth er -See Comment, Start date: 10/22/16 16:29:00 CDT, Duration: 30 day, Stop date: 11/21/16 16:28:00 CDT, fever Notes: (Same as: Advil) Give with food. Start Date: 10/22/16 Stop Date: 10/24/16 Status: Discontinued Lomotil oral tablet 1 tab, Route: PO, Drug Form: TAB, Dosing Weight 88.003, kg, QID, PRN Loose Stool s, Start date: 10/24/16 9:28:00 CDT, Duration: 30 day, Stop date: 11/23/16 9:27: 00 CDT Notes: (Same As: Lomotil) MAX Adult dose=8 tabs/day Start Date: 10/24/16 Stop Date: 10/24/16 Status: Discontinued Lomotil oral tablet 1 tab, PO, QID, PRN Loose Stools, X 3 day, # 12 tab, 0 Refill(s) Start Date: 10/24/16 Stop Date: 10/27/16 Status: Ordered meropenem + sodium chloride 0.9% INJ 100 mL 500 mg, Route: IVPB, ABXQ6H, Dosing Weight 88.636, kg, CrCL=26 -49 ml/min, Exten ded infusion, infuse over 3 hours, Start date: 10/22/16 11:00:00 CDT, Duration: 30 day, Stop date: 11/21/16 7:00:00 CDT Notes: Same as Merrem MEDICATION WASTE Product Size: 500 mgProduct Wast ed: ___ mg Start Date: 10/22/16 Stop Date: 10/24/16 Status: Discontinued Merrem + sodium chloride 0.9% INJ 100 mL 500 mg, Route: IVPB, Q12H, Dosing Weight 88.636, kg, CrCL >=50ml/min, Extended infusion, infuse over 3 hours, Start date: 10/21/16 21:00:00 CDT, Duration: 30 day, Stop date: 11/20/16 9:00:00 CDT Notes: Same as Merrem MEDICATION WASTE Product Size: 500 mgProduct Wast ed: ___ mg Start Date: 10/21/16 Stop Date: 10/21/16 Status: Canceled metroNIDAZOLE 250 mg oral tablet 250 mg=1 tab, PO, ABXQ8H, X 7 day, # 21 tab, 0 Refill(s) Start Date: 10/24/16 Stop Date: 10/31/16 Status: Ordered morphine Sulfate 2 mg, 1 mL, Route: IVP, Drug form: INJ, ONCE, Dosing Weight 88.636, kg, Start da te: 10/22/16 4:03:00 CDT, Stop date: 10/22/16 4:03:00 CDT Notes: (Same as:MORPhine Sulfate) Start Date: 10/22/16 Stop Date: 10/22/16 Status: Completed [place] 5/325 oral tablet 1 tab, Route: PO, Drug Form: TAB, Dosing Weight 88.636, kg, Q6H, PRN Pain Score 1-3, Start date: 10/21/16 19:54:00 CDT, Duration: 30 day, Stop date: 11/20/16 19 :53:00 CDT Notes: (Same as: [place] 325/5) Do not exceed 4gm/day of acetaminophen. Start Date: 10/21/16 Stop Date: 10/24/16 Status: Discontinued ondansetron 4 mg, 2 mL, Route: IVP, Drug form: INJ, Q6H, Dosing Weight 81.818, kg, PRN Nause a & Vomiting, Start date: 10/21/16 15:54:00 CDT, Duration: 30 day, Stop date: 11/20/16 15:53:00 CDT Notes: (Same as: Mary) MEDICATION WASTE Product Size: 4 mgProduct Was guero: ___ mg Start Date: 10/21/16 Stop Date: 10/24/16 Status: Discontinued pantoprazole 40 mg, 1 tab, Route: PO, Drug form: ECTAB, Daily, Dosing Weight 88.636, kg, Star t date: 10/22/16 9:00:00 CDT, Duration: 30 day, Stop date: 11/20/16 9:00:00 CDT Notes: Tablet should not be chewed or crushed.(Same as: Protonix) Start Date: 10/22/16 Stop Date: 10/24/16 Status: Discontinued pneumococcal 13-valent vaccine 0.5 mL, Route: IM, Drug Form: INJ, Daily, Start date: 10/22/16 8:19:00 CDT, Dura tion: 1 doses or times, Stop date: 10/22/16 8:19:00 CDT Notes: Lightly roll vial (DO NOT SHAKE) before administration. (Same as: Prevna r 13) Start Date: 10/22/16 Stop Date: 10/22/16 Status: Completed potassium chloride 20 mEq/15 mL oral liquid 40 mEq, 30 mL, Route: PO, Drug form: LIQ, ONCE, Dosing Weight 88.003, kg, Start date: 10/23/16 14:40:00 CDT, Stop date: 10/23/16 14:40:00 CDT Notes: (Same as: Potassium Chloride) Start Date: 10/23/16 Stop Date: 10/23/16 Status: Completed Saline Flush 0.9% 10 ml, Route: IVP, Drug Form: INJ, Dosing Weight 81.818, kg, PRN, PRN Line Flush , Start date: 10/21/16 15:54:00 CDT, Duration: 30 day, Stop date: 11/20/16 15:53 :00 CDT Notes: (Same as: BD Posiflush) Start Date: 10/21/16 Stop Date: 10/24/16 Status: Discontinued sodium chloride 0.9% 1000 ml INJ 1,000 mL 1,000 mL, Rate: 75 ml/hr, Infuse over: 13.3 hr, Route: IV, Dosing Weight 81.818 kg, Total Volume: 1,000, Start date: 10/21/16 15:54:00 CDT, Duration: 30 day, St op date: 11/20/16 15:53:00 CDT Start Date: 10/21/16 Stop Date: 10/24/16 Status: Discontinued Results ELECTROLYTES 1 2 3 Most recent to oldest [Reference Range]: 141 mEq/L (10/23/16 6:57 AM) 139 mEq/L (10/21/16 4:35 PM) Sodium Lvl [135-145 mEq/L] 3.3 mEq/L *LOW* (10/23/16 6:57 AM) 4.0 mEq/L (10/21/16 4:35 PM) Potassium Lvl [3.5-5.1 mEq/L] 107 mEq/L (10/23/16 6:57 AM) 103 mEq/L (10/21/16 4:35 PM) Chloride Lvl [95-109 mEq/L] 25 mEq/L (10/23/16 6:57 AM) 28 mEq/L (10/21/16 4:35 PM) CO2 [24-32 mEq/L] 12.3 mEq/L (10/23/16 6:57 AM) 12.0 mEq/L (10/21/16 4:35 PM) AGAP [10.0-20.0 mEq/L] CHEM PANEL 1 2 3 Most recent to oldest [Reference Range]: 0.55 mg/dL (10/23/16 6:57 AM) 0.88 mg/dL (10/21/16 4:35 PM) Creatinine Lvl [0.50-1.40 mg/dL] 96 mL/min/1.73m2 1 *NA* (10/23/16 6:57 AM) 67 mL/min/1.73m2 2 *NA* (10/21/16 4:35 PM) eGFR 8 mg/dL (10/23/16 6:57 AM) 14 mg/dL (10/21/16 4:35 PM) BUN [7-22 mg/dL] 16 (10/21/16 4:35 PM) B/C Ratio [6-25] 91 mg/dL (10/23/16 6:57 AM) 91 mg/dL (10/21/16 4:35 PM) Glucose Lvl [70-99 mg/dL] 7.0 g/dL (10/21/16 4:35 PM) Total Protein [6.4-8.4 g/dL] 3.2 g/dL *LOW* (10/21/16 4:35 PM) Albumin Lvl [3.5-5.0 g/dL] 3.8 g/dL (10/21/16 4:35 PM) Globulin [2.7-4.2 g/dL] 0.8 (10/21/16 4:35 PM) A/G Ratio [0.7-1.6] 8.1 mg/dL *LOW* (10/23/16 6:57 AM) 10.1 mg/dL (10/21/16 4:35 PM) Calcium Lvl [8.5-10.5 mg/dL] 3.4 mg/dL (10/21/16 4:35 PM) Phosphorus [2.5-4.5 mg/dL] 2.0 mg/dL (10/21/16 4:35 PM) Magnesium Lvl [1.8-2.4 mg/dL] 12 unit/L (10/21/16 4:35 PM) ALT [0-65 unit/L] 13 unit/L (10/21/16 4:35 PM) AST [0-37 unit/L] 64 unit/L (10/21/16 4:35 PM) Alk Phos [39-136 unit/L] 0.9 mg/dL (10/21/16 4:35 PM) Bili Total [0.2-1.3 mg/dL] 1.0 mMol/L (10/21/16 7:03 PM) Lactic Acid Lvl [0.5-2.2 mMol/L] 1Result Comment: The eGFR is calculated using [...] be mul tiplied by the estimated BMI. URINE AND STOOL 1 2 3 Most recent to oldest [Reference Range]: Clear (10/22/16 5:15 AM) UA Turbidity [Clear] Ltyellow *NA* (10/22/16 5:15 AM) UA Color 7.0 (10/22/16 5:15 AM) UA pH [5.0-8.0] 1.006 (10/22/16 5:15 AM) UA Spec Grav [<=1.030] Negative mg/dL *NA* (10/22/16 5:15 AM) UA Glucose [Negative mg/dL] Small *ABN* (10/22/16 5:15 AM) UA Blood [Negative] Negative mg/dL *NA* (10/22/16 5:15 AM) UA Ketones [Negative mg/dL] Negative mg/dL (10/22/16 5:15 AM) UA Protein [Negative mg/dL] <=1.0 mg/dL *NA* (10/22/16 5:15 AM) UA Urobilinogen [0.1-1.0 mg/dL] Negative *NA* (10/22/16 5:15 AM) UA Bili [Negative] Large *ABN* (10/22/16 5:15 AM) UA Leuk Est [Negative] Negative (10/22/16 5:15 AM) UA Nitrite [Negative] 12 /HPF *HI* (10/22/16 5:15 AM) UA WBC [0-5 /HPF] 1 /HPF (10/22/16 5:15 AM) UA RBC [0-2 /HPF] Occasional /HPF *NA* (10/22/16 5:15 AM) UA Bacteria [None Seen /HPF] None Seen *NA* (10/22/16 5:15 AM) UA Sq Epi HEMATOLOGY 1 2 3 Most recent to oldest [Reference Range]: 5.8 K/CMM (10/23/16 6:57 AM) 9.3 K/CMM (10/22/16 3:02 PM) 17.1 K/CMM *HI* (10/21/16 4:35 PM) WBC [3.7-10.4 K/CMM] 4.06 M/CMM *LOW* (10/23/16 6:57 AM) 4.11 M/CMM *LOW* (10/22/16 3:02 PM) 4.39 M/CMM (10/21/16 4:35 PM) RBC [4.20-5.40 M/CMM] 11.8 g/dL *LOW* (10/23/16 6:57 AM) 11.9 g/dL *LOW* (10/22/16 3:02 PM) 12.9 g/dL (10/21/16 4:35 PM) Hgb [12.0-16.0 g/dL] 35.3 % *LOW* (10/23/16 6:57 AM) 35.9 % *LOW* (10/22/16 3:02 PM) 38.5 % (10/21/16 4:35 PM) Hct [36.0-48.0 %] 87.1 fL (10/23/16 6:57 AM) 87.3 fL (10/22/16 3:02 PM) 87.6 fL (10/21/16 4:35 PM) MCV [80.0-98.0 fL] 29.2 pg (10/23/16 6:57 AM) 29.0 pg (10/22/16 3:02 PM) 29.3 pg (10/21/16 4:35 PM) MCH [27.0-31.0 pg] 33.5 g/dL (10/23/16 6:57 AM) 33.3 g/dL (10/22/16 3:02 PM) 33.5 g/dL (10/21/16 4:35 PM) MCHC [32.0-36.0 g/dL] 14.8 % *HI* (10/23/16 6:57 AM) 14.6 % *HI* (10/22/16 3:02 PM) 14.7 % *HI* (10/21/16 4:35 PM) RDW [11.5-14.5 %] 130 K/CMM *LOW* (10/23/16 6:57 AM) 170 K/CMM (10/22/16 3:02 PM) 226 K/CMM (10/21/16 4:35 PM) Platelet [133-450 K/CMM] 7.5 fL (10/23/16 6:57 AM) 7.4 fL (10/22/16 3:02 PM) 7.3 fL *LOW* (10/21/16 4:35 PM) MPV [7.4-10.4 fL] 84.2 % *HI* (10/21/16 4:35 PM) Segs [45.0-75.0 %] 8.8 % *LOW* (10/21/16 4:35 PM) Lymphocytes [20.0-40.0 %] 6.1 % (10/21/16 4:35 PM) Monocytes [2.0-12.0 %] 0.4 % (10/21/16 4:35 PM) Eosinophils [0.0-4.0 %] 0.5 % (10/21/16 4:35 PM) Basophils [0.0-1.0 %] 14.4 K/CMM *HI* (10/21/16 4:35 PM) Segs-Bands # [1.5-8.1 K/CMM] 1.5 K/CMM (10/21/16 4:35 PM) Lymphocytes # [1.0-5.5 K/CMM] 1.0 K/CMM *HI* (10/21/16 4:35 PM) Monocytes # [0.0-0.8 K/CMM] 0.1 K/CMM (10/21/16 4:35 PM) Eosinophils # [0.0-0.5 K/CMM] 0.1 K/CMM (10/21/16 4:35 PM) Basophils # [0.0-0.2 K/CMM] Immunizations Given and Recorded Vaccine Date Status Refusal Reason influenza virus vaccine, inactivated 04/04/16 Given pneumococcal 13-valent vaccine 04/04/16 Given Not Given Vaccine Date Status Refusal Reason pneumococcal 13-valent vaccine 10/22/16 Not Given Patient Refuses Procedures Procedure Date Related Diagnosis Body Site Hip replacement 03/25/16 Appendectomy Gastric bypass Implantation of electronic stimulator into bladder Social History Social History Type Response Smoking Status Never smoker; Ready to change: No; Concerns about tobacco use in household: No; Exposure to Tobacco Smoke None; Cigarette Smoking Last 365 Days No; Reg Smoking Cessation Counseling No Assessment and Plan Extracted from: Title: Clinical Document Author: Amanda Esposito MD Date: 10/24/16 Progress Note - Daily [facility] Completed: Monday, OCT 24, 2016, 14:48 by Amanda Esposito MD RM: 159 - 1P, SE [id number], [id number] (: 1945) F Attending: Rissa [place]: Service: Internal Medicine Reason for Admission: UROSEPSIS Working DRG: Septicemia or severe sepsis w/o MV 96+ hours w/o [facility] Code status: None Specified=FULL CODECurrent diet: Isolation: None Documented Allergies: NKDA SUBJECTIVE g/u f/u note OBJECTIVE sepsis uti urge incontinence lt renal stone renal cysts miled hydro (no lab data in past 24 hours) Quick still necessary (Yes/No): Line still necessary (Yes/No): VitalsTmp(F)[id number] 10/24 11:5198.023877/845588--- 10/24 08:0098.994595/497414--- 10/24 04:0098.134304/132897--- 10/24 00:0098.434851/344062--- 10/23 20:0098.362575/767886--- 24 Hr Tmax: 99.7F (37.61c) at 10/23 16:08Vital Signs are the last 5 in the past 48 hours. DateWt(kg)Wt(lb)Ht(cm)Ht(in)Method 10/22 88.00 193.61Measured 10/21 (initial) 88.64 195.81020.64 66.00Estimated I&ORecordInOutBal 4hr Tot [phone] 0 [phone] 1624hr Tot [phone] Medications (1) Active Scheduled Meds: None Unscheduled Meds: None PRN Meds: None One Time Meds (1): 10/23/16 (Completed) potassium chloride (potassium chloride 20 mEq/15 mL oral liquid) 40 mEq PO ONCE Continuous Infusions: None ASSESSMENT & EXAM Hematuria- cleared FEVER- RESOLVED UTI RENAL CYSTS NENHROLITHIASIS HYDRO- MILED PLAN & TREATMENT WILL FOLLOW OUTPATIENT ANTIBIOTIC PER CULTURE DIAGNOSES & PROBLEMS Ready for Discharge (Yes/No)? TEACHING ATTESTATION Extracted from: Title: General Admission H&P * Author: Rissa Mendes MD Date: 10/21/16 Impression and Plan Acute Metabolic Encephalopathy Severe Sepsis 2/2 to UTI Hx of Gastric Bypass PLAN Admit to general medical floor Start abx CT scan abd and pelvis to rule out abscess versus pyelonephritis Follow cultures from outlying ER facility if cultures here are negative Blood cultures and lactic acid obtained DVT prophylaxis per protocol Disposition aiming to discharge within the next 2-3 midnights hopefully home
--- OUTSIDE RECORDS SUMMARY | 2018-06-15 09:13 | XMS REPORT | Summary of Care ---
Author Author [facility] Address Unknown Phone Unavailable Encounter HQ Gerald(FIN) [phone] Date(s): 05/19/16 - 06/17/16 [facility] Final: Stiffness of unspecified joint, not elsewhere classified Final: Difficulty in walking, not elsewhere classified Discharge Disposition: Home or Self Care Attending Physician: Akiko Parrish MD Vital Signs No data available [...] Originally documented as NKA. 2Data migrated from [employer] on 09/01/15. Originally documented as NKA. Medications [...]
--- OUTSIDE RECORDS SUMMARY | 2018-06-15 09:13 | XMS REPORT | Continuity of Care Document ---
Author Author [facility] Organization [facility] Address Unknown Phone Unavailable Care Team Providers Care As[employer] Roofer Name Role Phone DAISY Jones Catherine PP Unavailable Insurance Providers Payer name Policy type / Coverage type Policy ID Covered republican ID Policy [place] [employer] AETNA - TRS CARE (PPO) AETNA - TRS CARE (PPO) Encounters Encounter Performer Location Date Office Visit Hollie Jones APRN [facility] Jul 01, 2014 Problems Problem Effective Dates Problem Status [...] BACK PAIN, LUMBAR Jul 01, 2014 Active Procedures Date Description Comments Feb 05, 2014 smoking status Former smoker Feb 05, 2014 smoking/tobacco cessation, patient education and counseling no Feb 12, 2014 bone density Completed at [facility] Feb 13, 2014 smoking status Former smoker Feb 13, 2014 smoking/tobacco cessation, patient education and counseling no Jul 01, 2014 smoking status Former smoker Jul 01, 2014 smoking/tobacco cessation, patient education and counseling no Medications Medication Instructions Start Date Status LISINOPRIL 5 MG TABS 1 tablet daily Feb 05, 2014 Inactive OXYBUTYNIN CHLORIDE ER 15 MG [id number] ONE TAB DAILY Feb 05, 2014 Inactive [...] 2014 Inactive OXYBUTYNIN CHLORIDE ER 15 MG [id number] One po daily Jul 01, 2014 Active NITROFURANTOIN MACROCRYSTAL 100 MG CAPS 1 capsule po daily Jul 01, 2014 Active ASPIRIN 81 MG TBEC 2 po daily Jul 01, 2014 Active LANSOPRAZOLE 30 MG CPDR one capsule daily Jul 01, 2014 Active LIDODERM 5 % PTCH as directed Jul 01, 2014 Active FOSAMAX 70 MG TAB 1 tablet weekly as directed Feb 13, 2014 Active MOBIC 7.5 MG/5ML SUSP one tablet daily for pain Jul 01, 2014 Active ACETAMINOPHEN-CODEINE #3 300-30 MG TABS one tablet every 8 hours as needed for pain Jul 01, 2014 Active ADVANCED AM/PM MISC 2 tablets AM/PM Jul 01, 2014 Active TYLENOL EXTRA STRENGTH TABS 2 po daily Jul 01, 2014 Inactive Vital Signs Date Description Test Result Feb [...] weight E&M - 3141-9 WEIGHT 192 lb Results Date Description Test Name Value Reference [...]
--- OUTSIDE RECORDS SUMMARY | 2018-06-15 09:13 | XMS REPORT | Continuity of Care Document ---
Author Author [facility] Organization [facility] Address Unknown Phone Unavailable Care Team Providers Care Aircraft Maintenance Instructor Name Role Phone MD Robel, Vanessa RUELAS Unavailable Insurance Providers Payer name Policy type / Coverage type Policy ID Covered constitution party ID Policy [place] AETNA - TRS CARE (PPO) AETNA - TRS CARE (PPO) Encounters Encounter Performer Location Date Office Visit Vanessa Huston MD [facility] Jan 16, 2015 Problems Problem Effective Dates Problem Status [...] Feb 12, 2014 bone density Completed at [facility] Feb 13, 2014 smoking status Former [...] 2014 Inactive OXYBUTYNIN CHLORIDE ER 15 MG [id number] ONE TAB DAILY Feb 05, 2014 Inactive [...] 2014 Inactive OXYBUTYNIN CHLORIDE ER 15 MG [id number] One po daily Jul 01, 2014 Active [...]
--- OUTSIDE RECORDS SUMMARY | 2018-06-15 09:13 | XMS REPORT | Continuity of Care Document ---
Author Author [facility] Organization [facility] Address Unknown Phone Unavailable Care Team Providers Care Manager Environmental Health And Safety Name Role Phone DAISY Jones Catherine PP Unavailable Insurance Providers Payer name Policy type / Coverage type Policy ID Covered libertarian ID Policy [place] AETNA - TRS CARE (PPO) AETNA - TRS CARE (PPO) Encounters Encounter Performer Location Date Office Visit Hollie Jones APRN [facility] Feb 13, 2014 Problems Problem Effective Dates Problem Status HYPERTENSION Feb 05, 2014 Active HYPERLIPIDEMIA Feb 05, 2014 Active GASTROESOPHAGEAL REFLUX DISEASE Feb 05, 2014 Active OSTEOARTHRITIS Feb 05, 2014 Active INCONTINENCE, URGE Feb 05, 2014 Active ABNORMAL ELECTROCARDIOGRAM Feb 05, 2014 Active MENOPAUSE Feb 05, 2014 Active MITRAL REGURGITATION, MILD Feb 13, 2014 Active OSTEOPOROSIS Feb 13, 2014 Active Procedures Date Description Comments Feb 05, 2014 smoking status Former smoker Feb 05, 2014 smoking/tobacco cessation, patient education and counseling no Feb 12, 2014 bone density Completed at [facility] Feb 13, 2014 smoking status Former smoker Feb 13, 2014 smoking/tobacco cessation, patient education and counseling no Medications Medication Instructions Start Date Status LISINOPRIL 5 MG TABS 1 tablet daily Feb 05, 2014 Active OXYBUTYNIN CHLORIDE ER 15 MG [id number] ONE TAB DAILY Feb 05, 2014 Active [...] evening as directed Feb 05, 2014 Active FOSAMAX 70 MG TAB 1 tablet weekly as directed Feb 13, 2014 Active Vital Signs Date Description Test [...] pressure, diastolic BP DIASTOLIC 52 mm Hg Feb 13, 2014 weight E&M WEIGHT 196 lb Feb 13, 2014 temperature E&M TEMPERATURE 97.8 deg f Feb 13, 2014 pulse rate E&M PULSE RATE 63 /min Feb 13, 2014 blood pressure, systolic BP SYSTOLIC 98 mm Hg Feb 13, 2014 blood pressure, diastolic BP DIASTOLIC 63 mm Hg Results Date Description Test Name [...]
[2018-06-15] MEDS ORDERED: DEXAMETHASONE SOD PHOS 10 MG/1 ML VIAL IM ONE (09:45)
[2018-06-15] MEDS ORDERED: KETOROLAC TROMETHAMINE 60 MG/2 ML VIAL IM ONE (09:45)
--- NOTE | 2018-06-15 11:23 | Diagnostic Imaging Report ---
Exam: Hips bilateral 4 views with AP radiograph of the pelvis, sacrum radiographs 2 views, lumbar spine radiographs 3 views History: Fall, pain Comparison: <None.> Findings: Pelvis and bilateral hips: Status post bilateral total hip arthroplasties with intact hardware in unremarkable alignment. No evidence of periprosthetic lucency. No evidence of displaced fracture. Stimulator device is seen with lead overlying the sacrum. Sacrum: Bowel gas partially obscures visualization of the sacrum. No evidence of displaced sacral fracture. Mild degenerative changes of the bilateral sacroiliac joints and pubic symphysis. Lumbar spine: Dextroconvex scoliosis of the lumbar spine. Vertebral body heights are preserved. Severe degenerative disc changes of the lumbar spine. Severe facet degenerative changes, most pronounced at L5-S1. Surgical clips project over the upper abdomen. Impression: No evidence of acute fracture in the lumbar spine, pelvis, and sacrum. Status post bilateral total hip arthroplasties with intact hardware and unremarkable alignment. Severe degenerative disc and facet degenerative changes of the lumbar spine. Signed by: Dr. Aida Nieto MD on 06/15/2018 11:20 AM
[2018-06-15 11:55] VITALS: BP 139/62
== END 2018-06-15 12:10 | disposition home or self-care (01) ==
LOC: ER 09:07
DX: M54.5 Low back pain (principal); M47.897 Other spondylosis, lumbosacral region; M46.1 Sacroiliitis, not elsewhere classified; M41.9 Scoliosis, unspecified; M25.552 Pain in left hip; M25.551 Pain in right hip; W01.0XXA Fall on same level from slipping, tripping and stumbling without subsequent striking against object, initial encounter; Y92.009 Unspecified place in unspecified non-institutional (private) residence as the place of occurrence of the external cause; I10 Essential (primary) hypertension; E78.5 Hyperlipidemia, unspecified; Z96.643 Presence of artificial hip joint, bilateral; Z79.82 Long term (current) use of aspirin
CPT/HCPCS: 72100; 72220; 73522; 99283; J1100; J1885

== ENCOUNTER 2018-06-18 19:53 | Emergency (ER) | payer MEDICARE, OTHER ==
[~2018-06-18] VITALS: Ht 167.6 cm; Wt 90.7 kg
--- OUTSIDE RECORDS SUMMARY | 2018-06-18 19:58 | XMS REPORT | Continuity of Care Document ---
Author Author [facility] Interface Address Unknown Phone Unavailable Problems Problem Status Onset Date Classification Date Reported Comments Source UROSEPSIS Active 10/21/2016 [facility] ACUTE L [facility] HIP FX Active 04/02/2016 [facility] FALL Active 04/02/2016 [facility] L HIP FX Active 04/02/2016 [facility] Lip abscess Active 02/16/2015 Problem 06/15/2018 [facility] 715.96/721.3 Active 02/02/2015 [facility] Otitis externa<sup>9</sup> Active 01/16/2015 Problem 10/27/2016 Data migrated from [employer] on 02/11/15. [facility] CHEST PAIN NOS Active 01/16/2015 Condition 01/20/[facility] OTITIS EXTERNA Active 01/16/2015 Condition 01/20/2015 [facility] Low back pain<sup>4</sup> Active 07/01/2014 Problem 10/27/2016 Data migrated from [employer] on 12/09/14. [facility]IN, LUMBAR Active 07/01/2014 Condition 01/20/2015 [facility] Mitral valve regurgitation<sup>6</sup> Active 02/13/2014 Problem 10/27/2016 Data migrated from [employer] on 12/09/14. [facility] Osteoporosis<sup>8</sup> Active 02/13/2014 Problem 10/27/2016 Data migrated from [employer] on 12/09/14. [facility] MITRAL REGURGITATION, MILD Active 02/13/2014 Condition 01/20/2015 [facility] OSTEOPOROSIS Active 02/13/2014 Condition 01/20/2015 [facility] Electrocardiogram abnormal<sup>1</sup> Active 02/05/2014 Problem 10/27/2016 Data migrated from [employer] on 12/09/14. [facility] Gastroesophageal reflux disease<sup>2</sup> Active 02/05/2014 Problem 10/27/2016 Data migrated from [employer] on 12/09/14. [facility] Hyperlipidemia<sup>3</sup> Active 02/05/2014 Problem 10/27/2016 Data migrated from [employer] on 12/09/14. [facility] Menopause present<sup>5</sup> Active 02/05/2014 Problem 10/27/2016 Data migrated from [employer] on 12/09/14. [facility] Osteoarthritis<sup>7</sup> Active 02/05/2014 Problem 10/27/2016 Data migrated from [employer] on 12/09/14. [facility] Urge incontinence of urine<sup>9</sup> Active 02/05/2014 Problem 02/05/2015 Data migrated from [employer] on 12/09/14. [facility] Urge incontinence of urine<sup>10</sup> Active 02/05/2014 Problem 10/27/2016 Data migrated from [employer] on 12/09/14. [facility] HYP[facility]ION Inactive 02/05/2014 Condition 01/20/2015 [facility] HYPERLIPIDEMIA Active 02/05/2014 Condition 01/20/2015 [facility] GASTROESOPHAGEAL REFLUX DISEASE Active 02/05/2014 Condition 01/20/2015 [facility] OSTEOARTHRITIS Active 02/05/2014 Condition 01/20/2015 [facility] INCONTINENCE, URGE Active 02/05/2014 Condition 01/20/2015 [facility] ABNORMAL ELECTROCARDIOGRAM Active 02/05/2014 Condition 01/20/2015 [facility] MENOPAUSE Active 02/05/2014 Condition 01/20/2015 [facility] 338 - PAIN NEC Active 04/11/2013 [facility] Final: Stiffness of unspecified joint, not elsewhere classified 06/20/2016 [facility] Final: Difficulty in walking, not elsewhere classified 06/20/2016 [facility] Arthritis Resolved Problem 10/27/2016 [facility] Hip fracture Active Problem 10/27/2016 [facility] Acid reflux Resolved Problem 10/27/2016 [facility] Hiatal hernia Resolved Problem 10/27/2016 [facility] Final: Unspecified fracture of unspecified femur, initial encounter for closed fracture 04/09/2016 [facility] Hip fracture, right Active Problem 06/15/2018 [facility] UNSP FRACTURE OF UNSP FEMUR, INIT ENCNTR Active [facility] OSTEOARTHROS NOS-L/LEG Active [facility] LUMBOSACRAL SPONDYLOSIS Active [facility] OTHER INJURY OF UNSPECIFIED BODY REGION Active [facility] HIP FRACTURE Active [facility] SEPSIS, UNSPECIFIED ORGANISM Active [facility] PRESENCE OF LEFT ARTIFICIAL HIP JOINT Active [facility] PAIN IN UNSPECIFIED HIP Active [facility] MUSCLE WEAKNESS (GENERALIZED) Active [facility] STIFFNESS OF UNSPECIFIED JOINT, NOT ELSE Active [facility] DIFFICULTY IN WALKING, NOT ELSEWHERE CLA Active [facility] Medications Medication Details Route Status Patient Instructions Ordering Provider Order Date Source Sulfamethoxazole/Trimethoprim (Bactrim Ds Tablet) 1 Each Tablet, 1 Tab Oral Daily Active 06/24/2017 [facility] Acetaminophen (Tylenol*) 325 Mg Tablet, 650 Mg Oral As Needed Active 11/29/2016 [facility] Ranitidine Hcl 150 Mg Tablet, 150 Mg Oral Daily Active 11/29/2016 [facility] Silver Sulfadiazine (Silvadene) 20 Gm Cream..g., 1 % Topical Three Times A Day Active 11/29/2016 [facility] Citalopram 40 mg, 4 tab, Route: PO, Drug form: TAB, Daily, Dosing Weight 88.003, kg, Start date: 10/24/16 13:00:00 CDT, Duration: 30 day, Stop date: 11/23/16 9:00:00 CDT Inactive 10/24/2016 [facility] calcitriol 0.5 mcg oral capsule 0.5 microgram=1 cap, PO, Daily, # 30 cap, 0 Refill(s) Active 10/24/2016 [facility] Cefuroxime 250 MG Oral Tablet [Ceftin] 250 mg=1 tab, PO, BID, X 10 day, # 20 tab, 0 Refill(s) Active 10/24/2016 [facility] metroNIDAZOLE 250 mg oral tablet 250 mg=1 tab, PO, ABXQ8H, X 7 day, # 21 tab, 0 Refill(s) Active 10/24/2016 [facility] Atropine Sulfate 0.025 MG / Diphenoxylate Hydrochloride 2.5 MG Oral Tablet [Lomotil] 1 tab, PO, QID, PRN Loose Stools, X 3 day, # 12 tab, 0 Refill(s) Active 10/24/2016 [facility] Flagyl 250 mg, 1 tab, Route: PO, Drug form: TAB, ABXQ8H, Dosing Weight 88.003, kg, Start date: 10/24/16 10:00:00 CDT, Duration: 30 day, Stop date: 11/23/16 2:00:00 CDTNotes: (Same as: Flagyl) Take with food/ avoid alcohol Inactive 10/24/2016 [facility] Atropine Sulfate 0.025 MG / Diphenoxylate Hydrochloride 2.5 MG Oral Tablet [Lomotil] 1 tab, Route: PO, Drug Form: TAB, Dosing Weight 88.003, kg, QID, PRN Loose Stools, Start date: 10/24/16 9:28:00 CDT, Duration: 30 day, Stop date: 11/23/16 9:27:00 CDTNotes: (Same As: Lomotil) MAX Adult dose=8 tabs/day Inactive 10/24/2016 [facility] Potassium Chloride 1.33 MEQ/ML Oral Solution 40 mEq, 30 mL, Route: PO, Drug form: LIQ, ONCE, Dosing Weight 88.003, kg, Start date: 10/23/16 14:40:00 CDT, Stop date: 10/23/16 14:40:00 CDTNotes: (Same as: Potassium Chloride) Inactive 10/23/2016 [facility] ibuprofen 200 mg oral tablet 200 mg, 1 tab, Route: PO, Drug form: TAB, Q6H, Dosing Weight 88.636, kg, PRN Other -See Comment, Start date: 10/22/16 16:29:00 CDT, Duration: 30 day, Stop date: 11/21/16 16:28:00 CDT, feverNotes: (Same as: Advil) Give with food. No Longer Active 10/22/2016 [facility] meropenem 500 mg, Route: IVPB, ABXQ6H, Dosing Weight 88.636, kg, CrCL=26 -49 ml/min, Extended infusion, infuse over 3 hours, Start date: 10/22/16 11:00:00 CDT, Duration: 30 day, Stop date: 11/21/16 7:00:00 CDTNotes: Same as Merrem MEDICATION WASTE Product Size: 500 mg Product Wasted: ___ mg No Longer Active 10/22/2016 [facility] pantoprazole 40 mg, 1 tab, Route: PO, Drug form: ECTAB, Daily, Dosing Weight 88.636, kg, Start date: 10/22/16 9:00:00 CDT, Duration: 30 day, Stop date: 11/20/16 9:00:00 CDTNotes: Tablet should not be chewed or cr ushed. (Same as: Protonix) No Longer Active 10/22/2016 [facility] Streptococcus pneumoniae serotype 1 capsular antigen diphtheria [id number] protein conjugate vaccine / Streptococcus pneumoniae serotype 14 capsular antigen diphtheria [id number] protein conjugate vaccine / Streptococcus pneumoniae serotype 18C capsular antigen d 0.5 mL, Route: IM, Drug Form: INJ, Daily, Start date: 10/22/16 8:19:00 CDT, Duration: 1 doses or times, Stop date: 10/22/16 8:19:00 CDTNotes: Lightly roll vial (DO NOT SHAKE) before administration. (Same as: Prevnar 13) Inactive 10/22/2016 [facility] Morphine 2 mg, 1 mL, Route: IVP, Drug form: INJ, ONCE, Dosing Weight 88.636, kg, Start date: 10/22/16 4:03:00 CDT, Stop date: 10/22/16 4:03:00 CDTNotes: (Same as:MORPhine Sulfate) Inactive 10/22/2016 [facility] Merrem 500 mg, Route: IVPB, Q12H, Dosing Weight 88.636, kg, CrCL >=50ml/min, Extended infusion, infuse over 3 hours, Start date: 10/21/16 21:00:00 CDT, Duration: 30 day, Stop date: 11/20/16 9:00:00 CDTNotes: Same as Merrem MEDICATION WASTE Product Size: 500 mg Product Wasted: ___ mg Inactive 10/22/2016 [facility] Acetaminophen 325 MG / Hydrocodone Bitartrate 5 MG Oral Tablet [[place] 5/325] 1 tab, Route: PO, Drug Form: TAB, Dosing Weight 88.636, kg, Q6H, PRN Pain Score 1-3, Start date: 10/21/16 19:54:00 CDT, Duration: 30 day, Stop date: 11/20/16 19:53:00 CDTNotes: (Same as: [place] 325/5) Do not exceed 4gm/day of acetaminophen. No Longer Active 10/22/2016 [facility] Docusate 100 mg, 1 cap, Route: PO, Drug form: CAP, BID, Dosing Weight 81.818, kg, Start date: 10/21/16 17:00:00 CDT, Duration: 30 day, Stop date: 11/20/16 9:00:00 CDTNotes: (Same as: Colace) (Do Not Crush) No Longer Active 10/21/2016 [facility] Ceftriaxone 1 gm, Route: IVPB, Drug form: PDR/INJ, [id number], Dosing Weight 81.818, kg, Start date: 10/21/16 16:00:00 CDT, Duration: 30 day, Stop date: 11/19/16 16:00:00 CDT Inactive 10/21/2016 [facility] Acetaminophen 650 mg, 2 tab, Route: PO, Drug form: TAB, Q4H, Dosing Weight 81.818, kg, PRN Pain 1-3/Temp > 100.4 F, Start date: 10/21/16 15:54:00 CDT, Duration: 30 day, Stop date: 11/20/16 15:53:00 CDTNotes: Do not exceed 4 gm/day. (Same as: Tylenol) No Longer Active 10/21/2016 [facility] Ondansetron 4 mg, 2 mL, Route: IVP, Drug form: INJ, Q6H, Dosing Weight 81.818, kg, PRN Nausea & Vomiting, Start date: 10/21/16 15:54:00 CDT, Duration: 30 day, Stop date: 11/20/16 15:53:00 CDTNotes: (Same as: Zofran) MEDICATION WASTE Product Size: 4 mg Product Wasted: ___ mg No Longer Active 10/21/2016 [facility] Sodium Chloride 0.154 MEQ/ML Injectable Solution 1,000 mL, Rate: 75 ml/hr, Infuse over: 13.3 hr, Route: IV, Dosing Weight 81.818 kg, Total Volume: 1,000, Start date: 10/21/16 15:54:00 CDT, Duration: 30 day, Stop date: 11/20/16 15:53:00 CDT No Longer Active 10/21/2016 [facility] Saline Flush 0.9% 10 ml, Route: IVP, Drug Form: INJ, Dosing Weight 81.818, kg, PRN, PRN Line Flush, Start date: 10/21/16 15:54:00 CDT, Duration: 30 day, Stop date: 11/20/16 15:53:00 CDTNotes: (Same as: BD Posiflush) No Longer Active 10/21/2016 [facility] Acetaminophen With Codeine (Tylenol With Codeine #3 Tablet) 1 Each Tablet, 300 Mg Oral As Needed Active 06/23/2016 [facility] Meloxicam 7.5 Mg Tablet, 7.5 Mg Oral Daily Active 05/27/2016 [facility] Omeprazole 20 Mg Capsule.dr, 20 Mg Oral Daily Active 05/26/2016 [facility] Physical Therapy See Instructions, MISC, ONCALL, Evaluate and Treat 2-3 times per week for 4-6 weeks, # 1 ea, 0 Refill(s) Active 04/15/2016 [facility] Acetaminophen 300 MG / Codeine Phosphate 30 MG Oral Tablet 1 tab, PO, Q4H, PRN Pain Score 7-10, X 3 day, # 18 tab, 0 Refill(s) Active 04/15/2016 [facility] Acetaminophen 325 MG Oral Capsule [Tylenol] =2 tab, PO, QID, PRN Pain Score 1-5, Do not take more than 3000 mg of combined Acetaminophen per day (which includes the Tylenol #3), # 100 tab, 0 Refill(s), Pharmacy: [facility]/pharmacy #[id number] Active 04/15/2016 [facility] Ergocalciferol 62198 UNT Oral Capsule 50,000 IntlUnit=1 cap, PO, qWeek, # 5 cap, 0 Refill(s), Pharmacy: [facility]/pharmacy #[id number] Active 04/15/2016 [facility] Cefuroxime 500 MG Oral Tablet 500 mg, 2 tab, Route: PO, Drug form: TAB, [id number], Dosing Weight 81.818, kg, Start date: 04/08/16 21:00:00 CDT, Duration: 7 day, Stop date: 04/15/16 9:00:00 CDTNotes: (Do Not Crush) With food. (Same As: Ceftin) No Longer Active 04/09/2016 [facility] Dulcolax Laxative 10 mg, 2 tab, Route: PO, Drug form: ECTAB, Daily, Dosing Weight 81.818, kg, PRN Constipation, Start date: 04/08/16 15:43:00 CDT, Duration: 30 day, Stop date: 05/08/16 15:42:00 CDTNotes: (Same As: Dulcolax, Correctol) (Do Not Crush) "Do Not Crush" No Longer Active 04/08/2016 [facility] cefTRIAXone + sodium chloride 0.9% INJ 100 mL 1 gm, Route: IV, [id number], Start date: 04/08/16 6:00:00 CDT, Duration: 30 day, Stop date: 05/07/16 6:00:00 CDTNotes: (Same As: Rocephin). Use with 100 mL NS and infuse over 30 min MEDICATION WASTE Product Size: 1000 mg Product Wasted: ___ mg Inactive 04/08/2016 [facility] Vitamin D2 50,000 IntlUnit, 1 cap, Route: PO, Drug form: CAP, qWeek, Dosing Weight 81.818, kg, Start date: 04/07/16 17:00:00 CDT, Duration: 5 doses or times, Stop date: 05/05/16 9:00:00 CDTNotes: (Same as: Thea min D) "Do Not Crush" No Longer Active 04/07/2016 [facility] Aspirin 81 mg, 1 tab, Route: PO, Drug form: ECTAB, Daily, Dosing Weight 81.818, kg, Start date: 04/07/16 12:00:00 CDT, Duration: 30 day, Stop date: 05/07/16 9:00:00 CDTNotes: Do not crush or chew. (Same As: Ecotrin) No Longer Active 04/07/2016 [facility] Tums 500 mg, 1 tab, Route: CHEW, Drug form: CHEWTAB, QID, PRN Indigestion, Start date: 04/07/16 11:35:00 CDT, Duration: 30 day, Stop date: 05/07/16 11:34:00 CDTNotes: (Same As: Tums) Calcium Carbonate 500 bu=684 mg elemental calcium Dose= mg calcium carbonate ( mg elemental calcium) No Longer Active 04/07/2016 [facility] Rolaids Reformulated Feb 2006 1 tab, Route: PO, Drug Form: TAB, Dosing Weight 81.818, kg, QID, PRN Indigestion, Start date: 04/07/16 11:29:00 CDT, Duration: 30 day, Stop date: 05/07/16 11:28:00 CDT Inactive 04/07/2016 [facility] Ditropan XL 15 mg, 3 tab, Route: PO, Drug form: ERTAB, Daily, Dosing Weight 81.818, kg, Start date: 04/07/16 9:00:00 CDT, Duration: 30 day, Stop date: 05/06/16 9:00:00 CDTNotes: (Same as: Ditropan XL) "Do Not C wang" No Longer Active 04/07/2016 [facility] CeleXA 40 mg, 4 tab, Route: PO, Drug form: TAB, Daily, Dosing Weight 81.818, kg, Start date: 04/07/16 9:00:00 CDT, Duration: 30 day, Stop date: 05/06/16 9:00:00 CDT No Longer Active 04/07/2016 [facility] Rocephin + sodium chloride 0.9% INJ 100 mL 1 gm, Route: IVPB, [id number], Dosing Weight 81.818, kg, Start date: 04/07/16 8:00:00 CDT, Duration: 30 day, Stop date: 05/06/16 8:00:00 CDTNotes: (Same As: Rocephin). Use with 100 mL NS and infuse over 30 min MEDICATION WASTE Product Size: 1000 mg Product Wasted: ___ mg Inactive 04/07/2016 [facility] Protonix 40 mg, 1 tab, Route: PO, Drug form: ECTAB, Before Breakfast, Start date: 04/07/16 7:30:00 CDT, Duration: 30 day, Stop date: 05/06/16 7:30:00 CDTNotes: Tablet should not be chewed or crushed. (Same as: Protonix) No Longer Active 04/07/2016 [facility] Lovenox 40 mg, 0.4 mL, Route: SUB-Q, Drug form: INJ, [id number], Dosing Weight 81.818, kg, Start date: 04/07/16 6:00:00 CDT, Duration: 30 day, Stop date: 05/06/16 6:00:00 CDTNotes: (Same as: Lovenox) No Longer Active 04/07/2016 [facility] remove patch 1 patch, Route: TOP, Bedtime, Drug form: ERFILM, Start date: 04/06/16 21:00:00 CDT, Duration: 30 day, Stop date: 05/05/16 21:00:00 CDTNotes: Remove patch 12 hours after application each day. No Longer Active 04/07/2016 [facility] docusate sodium 100 mg oral capsule 100 mg, 1 cap, Route: PO, Drug form: CAP, BID, Dosing Weight 81.818, kg, Start date: 04/06/16 17:00:00 CDT, Duration: 30 day, Stop date: 05/06/16 9:00:00 CDTNotes: (Same as: Colace) (Do Not Crush) No Longer Active 04/06/2016 [facility] lidocaine topical patch (5% film) 1 patch, [...] of new patch" No Longer Active 04/06/2016 [facility] acetaminophen-codeine 300 mg-60 mg oral tablet 1 tab, Route: PO, Drug Form: TAB, Dosing Weight 81.818, kg, Q4H, PRN Pain Score 6-10, Start date: 04/06/16 13:56:00 CDT, Duration: 30 day, Stop date: 05/06/16 13:55:00 CDTNotes: Do not exceed 4gm/day of acetaminophen. (Same as: Tylenol with Codeine # 4) No Longer Active 04/06/2016 [facility] acetaminophen-codeine 300 mg-30 mg oral tablet 1 tab, Route: PO, Drug Form: TAB, Dosing Weight 81.818, kg, Q4H, PRN Pain Score 4-6, Start date: 04/06/16 13:53:00 CDT, Duration: 30 day, Stop date: 05/06/16 13:52:00 CDTNotes: Do not exceed 4gm/day of acetaminophen. (Same as: Tylenol with Codeine # 3) No Longer Active 04/06/2016 [facility] Trazodone 50 mg, 1 tab, Route: PO, Drug form: TAB, Bedtime, Dosing Weight 81.818, kg, PRN Insomnia, Start date: 04/06/16 12:58:00 CDT, Duration: 30 day, Stop date: 05/06/16 12:57:00 CDTNotes: (Same As: Giuseppe) No Longer Active 04/06/2016 [facility] pantoprazole 40 mg oral enteric coated tablet 40 mg=1 tab, PO, Before Breakfast, 0 Refill(s) On Hold 04/06/2016 [facility] Enoxaparin 40 mg=0.4 mL, SUB-Q, Daily, 0 Refill(s) On Hold 04/06/2016 [facility] Docusate Sodium 100 MG Oral Capsule 100 mg=1 cap, PO, BID, 0 Refill(s) On Hold 04/06/2016 [facility] Acetaminophen 300 MG / Codeine Phosphate 30 MG Oral Tablet 1 tab, Route: PO, Drug Form: TAB, Dosing Weight 81.818, kg, Q4H, PRN Pain Score 4-6, Start date: 04/04/16 13:35:00 CDT, Duration: 30 day, Stop date: 05/04/16 13:34:00 CDTNotes: Do not exceed 4gm/day of acetaminophen. (Same as: Tylenol with Codeine # 3) No Longer Active 04/04/2016 [facility] Acetaminophen 300 MG / Codeine Phosphate 60 MG Oral Tablet [Tylenol with Codeine #4] 1 tab, Route: PO, Drug Form: TAB, Dosing Weight 81.818, kg, Q4H, PRN Pain Score 6-10, Start date: 04/04/16 13:35:00 CDT, Duration: 30 day, Stop date: 05/04/16 13:34:00 CDTNotes: Do not exceed 4gm/day of acetaminophen. (Same as: Tylenol with Codeine # 4) No Longer Active 04/04/2016 [facility] pneumococcal 13-valent vaccine 0.5 mL, Route: IM, Drug Form: INJ, Daily, Start date: 04/04/16 9:00:00 CDT, Duration: 1 doses or times, Stop date: 04/04/16 9:00:00 CDTNotes: Lightly roll vial (DO NOT SHAKE) before administration. (Same as: Prevnar 13) Inactive 04/04/2016 [facility] influenza virus vaccine, inactivated 0.5 mL, Route: IM, Drug Form: SUSP, Daily, Start date: 04/04/16 9:00:00 CDT, Duration: 1 doses or times, Stop date: 04/04/16 9:00:00 CDTNotes: (Same as: Fluzone Quadrivalent, Fluarix Quadrivalent) For 3 years of age and older (0.5 mL IM) Shake well before use Inactive 04/04/2016 [facility] Rocephin 1 gm, Route: IVPB, [id number], Dosing Weight 81.818, kg, Start date: 04/04/16 8:00:00 CDT, Duration: 30 day, Stop date: 05/03/16 8:00:00 CDTNotes: (Same As: Rocephin). Use with 100 mL NS and infuse over 30 min MEDICATION WASTE Product Size: 1000 mg Product Wasted: ___ mg No Longer Active 04/04/2016 [facility] Vancomycin 6.67 MG/ML Injectable Solution 1,000 mg, [...] Wasted: ___ mg No Longer Active 04/04/2016 [facility] ceFAZolin (SCIP) 2 gm, 100 mL, Route: IVPB, Drug form: INJ, [id number], Dosing Weight 81.818, kg, Start date: 04/03/16 19:15:00 CDT, Duration: 3 doses or times, Stop date: 04/04/16 7:15:00 CDTNotes: Same as: Ancef No Longer Active 04/04/2016 [facility] Docusate 100 mg, 1 cap, Route: PO, Drug form: CAP, BID, Dosing Weight 81.818, kg, Start date: 04/03/16 17:00:00 CDT, Duration: 30 day, Stop date: 05/03/16 9:00:00 CDTNotes: (Same as: Colace) (Do Not Crush) No Longer Active 04/03/2016 [facility] Acetaminophen 325 MG / Hydrocodone Bitartrate 10 MG Oral Tablet [[place] 10/325] 2 tab, Route: PO, Drug Form: TAB, Dosing Weight 81.818, kg, QID, Start date: 04/03/16 17:00:00 CDT, Duration: 1 day, Stop date: 04/04/16 13:00:00 CDTNotes: Do not exceed 4gm/day of acetaminophen. (Same as: [place] 325/10) No Longer Active 04/03/2016 [facility] glycopyrrolate (ANES) Route: IV, Drug form: INJ, ONCE, Stop date: 04/03/16 16:00:00 CDT Inactive 04/03/2016 [facility] neostigmine (ANES) Route: IV, Drug form: INJ, ONCE, Stop date: 04/03/16 16:00:00 CDT Inactive 04/03/2016 [facility] Hydromorphone 0.3 mg, 0.3 mL, Route: IVP, Drug form: INJ, Q4H, Dosing Weight 81.818, kg, PRN Pain Score 7-10, Start date: 04/03/16 15:31:00 CDT, Duration: 30 day, Stop date: 05/03/16 15:30:00 CDT No Longer Active 04/03/2016 [facility] Acetaminophen 325 MG / Hydrocodone Bitartrate 10 MG Oral Tablet [[place] 10/325] 2 tab, Route: PO, Drug Form: TAB, Dosing Weight 81.818, kg, Q4H, PRN Pain Score 4-6, Start date: 04/03/16 15:31:00 CDT, Duration: 30 day, Stop date: 05/03/16 15:30:00 CDTNotes: Do not exceed 4gm/day of acetaminophen. (Same as: [place] 325/10) No Longer Active 04/03/2016 [facility] Ondansetron 4 mg, 2 mL, Route: IVP, Drug form: INJ, Q8H, Dosing Weight 81.818, kg, PRN Nausea & Vomiting, Start date: 04/03/16 15:31:00 CDT, Duration: 30 day, Stop date: 05/03/16 15:30:00 CDTNotes: (Same as: Mary) MEDICATION WASTE Product Size: 4 mg Product Wasted: ___ mg No Longer Active 04/03/2016 [facility] sodium chloride 0.45% 1000 ml INJ 1,000 mL 1,000 mL, Rate: 75 ml/hr, Infuse over: 13.3 hr, Route: IV, Dosing Weight 81.818 kg, Total Volume: 1,000, Start date: 04/03/16 15:31:00 CDT, Duration: 30 day, Stop date: 05/03/16 15:30:00 CDT No Longer Active 04/03/2016 [facility] acetaminophen (ANES) Route: IV, Drug form: INJ, ONCE, Stop date: 04/03/16 15:01:00 CDT Inactive 04/03/2016 [facility] dexamethasone (ANES) Route: IV, Drug form: INJ, ONCE, Stop date: 04/03/16 14:56:00 CDT Inactive 04/03/2016 [facility] ondansetron (ANES) Route: IV, Drug form: INJ, ONCE, Stop date: 04/03/16 14:56:00 CDT Inactive 04/03/2016 [facility] ketOROLAC (ANES) IV, ONCE Inactive 04/03/2016 [facility] Cleocin Phosphate (ANES) Route: IV, Drug form: INJ, ONCE, Stop date: 04/03/16 14:51:00 CDT Inactive 04/03/2016 [facility] ceFAZolin (ANES) Route: IV, Drug form: INJ, ONCE, Stop date: 04/03/16 14:51:00 CDT Inactive 04/03/2016 [facility] rocuronium (ANES) Route: IV, Drug form: INJ, ONCE, Stop date: 04/03/16 14:46:00 CDT Inactive 04/03/2016 [facility] fentaNYL (ANES) Route: IV, Drug form: INJ, ONCE, Stop date: 04/03/16 14:46:00 CDT Inactive 04/03/2016 [facility] propofol (ANES) Route: IV, Drug form: INJ, ONCE, Stop date: 04/03/16 14:46:00 CDT Inactive 04/03/2016 [facility] lidocaine (ANES) Route: IV, Drug form: INJ, ONCE, Stop date: 04/03/16 14:46:00 CDT Inactive 04/03/2016 [facility] midazolam (ANES) Route: IV, Drug form: SOLN, ONCE, Stop date: 04/03/16 14:36:00 CDT Inactive 04/03/2016 [facility] ePHEDrine (ANES) Route: IV, Drug form: INJ, ONCE, Stop date: 04/03/16 14:16:00 CDT Inactive 04/03/2016 [facility] LR 1000 mL INJ (ANES) Route: IV, Total Volume: 1,000, Start date: 04/03/16 13:26:00 CDT, Stop date: 04/03/16 14:26:00 CDT Inactive 04/03/2016 [facility] Streptococcus pneumoniae serotype 1 capsular antigen diphtheria [id number] protein conjugate vaccine / Streptococcus pneumoniae serotype 14 capsular antigen diphtheria [id number] protein conjugate vaccine / Streptococcus pneumoniae serotype 18C capsular antigen d 0.5 mL, Route: IM, Drug Form: INJ, Daily, Start date: 04/03/16 9:00:00 CDT, Stop date: 04/03/16 12:00:00 CDTNotes: Lightly roll vial (DO NOT SHAKE) before administration. (Same as: Prevnar 13) Inactive 04/03/2016 [facility] influenza virus vaccine, inactivated 0.5 mL, Route: IM, Drug Form: SUSP, Daily, Start date: 04/03/16 9:00:00 CDT, Stop date: 04/03/16 12:00:00 CDTNotes: (Same as: Fluzone Quadrivalent, Fluarix Quadrivalent) For 3 years of age and older (0.5 mL IM) Shake well before use Inactive 04/03/2016 [facility] Omeprazole 40 mg, Route: PO, Drug form: DRC, Daily, Dosing Weight 81.818, kg, Start date: 04/03/16 9:00:00 CDT, Duration: 30 day, Stop date: 05/02/16 9:00:00 CDT No Longer Active 04/03/2016 [facility] oxybutynin 15 mg, 3 tab, Route: PO, Drug form: ERTAB, Daily, Dosing Weight 81.818, kg, Start date: 04/03/16 9:00:00 CDT, Duration: 30 day, Stop date: 05/02/16 9:00:00 CDTNotes: (Same as: Ditropan XL) "Do Not Crush" No Longer Active 04/03/2016 [facility] Citalopram 40 mg, 4 tab, Route: PO, Drug form: TAB, Daily, Dosing Weight 81.818, kg, Start date: 04/03/16 9:00:00 CDT, Duration: 30 day, Stop date: 05/02/16 9:00:00 CDT No Longer Active 04/03/2016 [facility] Sulfamethoxazole 800 MG / Trimethoprim 160 MG Oral Tablet 1 tab, PO, Daily, 0 Refill(s) On Hold 04/03/2016 [facility] Protonix 40 mg, 1 tab, Route: PO, Drug form: ECTAB, Before Breakfast, Start date: 04/03/16 7:30:00 CDT, Duration: 30 day, Stop date: 05/02/16 7:30:00 CDTNotes: Tablet should not be chewed or crushed. (Same as: Protonix) No Longer Active 04/03/2016 [facility] Enoxaparin 40 mg, 0.4 mL, Route: SUB-Q, Drug form: INJ, Daily, Dosing Weight 81.818, kg, Start date: 04/03/16 7:07:00 CDT, Duration: 30 day, Stop date: 05/03/16 6:00:00 CDTNotes: (Same as: Lovenox) No Longer Active 04/03/2016 [facility] remove patch Route: MISC, Bedtime, Drug form: ERFILM, Start date: 04/02/16 21:00:00 CDT, Duration: 30 day, Stop date: 05/01/16 21:00:00 CDTNotes: Remove patch 12 hours after application each day. No Longer Active 04/03/2016 [facility] Aspirin 81 mg, 1 tab, Route: PO, Drug form: ECTAB, Daily, Dosing Weight 81.818, kg, Start date: 04/02/16 20:30:00 CDT, Duration: 30 day, Stop date: 05/02/16 9:00:00 CDTNotes: Do not crush or chew. (Same As: Ecotrin) No Longer Active 04/03/2016 [facility] celecoxib 400 mg, 2 cap, Route: PO, Drug form: CAP, ONCALL, Dosing Weight 81.818, kg, (for CrCl > 90 mL/min), Start date: 04/02/16 20:00:00 CDT, Duration: 30 day, Stop date: 05/02/16 19:59:00 CDTNotes: NSAID. Please check indication. Not for seizure. (Same As: CeleBREX) Inactive 04/03/2016 [facility] Cefazolin 2 gm, 100 mL, Route: IVPB, Drug form: INJ, ONCALL, Dosing Weight 81.818, kg, (Patients weighing Notes: Same as: Ancef Inactive 04/03/2016 [facility] Lidocaine Hydrochloride 0.05 MG/MG Transdermal Patch [Lidoderm] [...] of new patch" No Longer Active 04/03/2016 [facility] Acetaminophen 300 MG / Codeine Phosphate 60 MG Oral Tablet 1 tab, Route: PO, Drug Form: TAB, Dosing Weight 81.818, kg, Q4H, PRN Pain Score 7-10, Start date: 04/02/16 19:47:00 CDT, Duration: 30 day, Stop date: 05/02/16 19:46:00 CDTNotes: Do not exceed 4gm/day of acetaminophen. (Same as: Tylenol with Codeine # 4) No Longer Active 04/03/2016 [facility] Rocephin 1 gm, Route: IVPB, Drug form: PDR/INJ, [id number], Dosing Weight 81.818, kg, Priority: STAT, Start date: 04/02/16 19:42:00 CDT, Duration: 1 day, Stop date: 04/02/16 19:42:00 CDT Inactive 04/03/2016 [facility] MegaKrill 500 mg=, PO, Daily, "MegaRed", 0 Refill(s) On Hold 04/02/2016 [facility] Centrum Women's oral tablet 1 tab, PO, Daily, 0 Refill(s) On Hold 04/02/2016 [facility] Aspirin 81 mg, PO, Daily, 0 Refill(s) On Hold 04/02/2016 [facility] Sulfamethoxazole 40 MG/ML / Trimethoprim 8 MG/ML Oral Suspension PO, Daily, DOSE UNKNOWN, 0 Refill(s) No Longer Active 04/02/2016 [facility] Tylenol 650 mg, PO, 0 Refill(s) On Hold 04/02/2016 [facility] acetaminophen 325 mg oral tablet 650 mg, 2 tab, Route: PO, ONCE, Dosing Weight 81.818, kg, Start date: 04/02/16 15:57:00 CDT, Stop date: 04/02/16 15:57:00 CDT Inactive 04/02/2016 [facility] Sodium Chloride 0.154 MEQ/ML Injectable Solution 1,000 mL, Rate: 125 ml/hr, Infuse over: 8 hr, Route: IV, Dosing Weight 81.818 kg, Total Volume: 1,000, Start date: 04/02/16 15:28:00 CDT, Duration: 30 day, Stop date: 05/02/16 15:27:00 CDT No Longer Active 04/02/2016 [facility] Morphine 4 mg, 2 mL, Route: IVP, Drug form: INJ, Q4H, Dosing Weight 81.818, kg, PRN Pain Score 7-10, Start date: 04/02/16 15:28:00 CDT, Duration: 30 day, Stop date: 05/02/16 15:27:00 CDTNotes: (Same as:MORPhine Sulfate) No Longer Active 04/02/2016 [facility] Ondansetron 4 mg, 2 mL, Route: IVP, Drug form: INJ, Q6H, Dosing Weight 81.818, kg, PRN Nausea & Vomiting, Start date: 04/02/16 15:28:00 CDT, Duration: 30 day, Stop date: 05/02/16 15:27:00 CDTNotes: (Same as: Mary) MEDICATION WASTE Product Size: 4 mg Product Wasted: ___ mg No Longer Active 04/02/2016 [facility] Saline Flush 0.9% 10 ml, Route: IVP, Drug Form: INJ, Dosing Weight 81.818, kg, PRN, PRN Line Flush, Start date: 04/02/16 15:28:00 CDT, Duration: 30 day, Stop date: 05/02/16 15:27:00 CDTNotes: (Same as: BD Posiflush) No Longer Active 04/02/2016 [facility] Lidocaine Hydrochloride 0.05 MG/MG Transdermal Patch [Lidoderm] 1 patch, TOP, Daily, PRN Pain Score 1-5, 0 Refill(s) On Hold 04/02/2016 [facility] Acetaminophen 300 MG / Codeine Phosphate 60 MG Oral Tablet 1 tab, PO, Q4H, PRN Pain Score 7-10, TAKE 1 TABLET BY MOUTH EVERY 4-6 HOUIRS NEEDED FOR SEVERE PAIN On Hold 04/02/2016 [facility] citalopram 40 mg oral tablet 40 mg=1 tab, PO, Daily, 0 Refill(s) On Hold 04/02/2016 [facility] omeprazole 40 mg oral delayed release capsule 40 mg=1 cap, PO, Daily, 0 Refill(s) On Hold 04/02/2016 [facility] oxybutynin 15 mg oral tablet, extended release 15 mg=1 tab, PO, Daily, 0 Refill(s) On Hold 04/02/2016 [facility] Alendronic acid 70 MG Oral Tablet 70 mg=1 tab, PO, Q7D, 0 Refill(s) On Hold 04/02/2016 [facility] Ceftriaxone 1 gm, Route: IVPB, Drug form: PDR/INJ, ONCE, Dosing Weight 81.818, kg, Priority: STAT, Start date: 04/02/16 14:56:00 CDT, Stop date: 04/02/16 14:56:00 CDT Inactive 04/02/2016 [facility] Morphine 4 mg, 2 mL, Route: IVP, Drug form: INJ, ONCE, Dosing Weight 87.27, kg, Start date: 04/02/16 13:32:00 CDT, Stop date: 04/02/16 13:32:00 CDTNotes: (Same as:MORPhine Sulfate) Inactive 04/02/2016 [facility] Ketoprofen 50 Mg Capsule, 50 Mg Oral Twice A Day Active 04/28/2015 [facility] Omeprazole 20 Mg Capsule.dr, 20 Mg Oral Daily Active 04/28/2015 [facility] Oxybutynin Chloride (Oxybutynin Chloride Er) 15 Mg Tab.er.24, 15 Mg Oral Daily Active 04/28/2015 [facility] Pravastatin Sodium 40 Mg Tablet, 40 Mg Oral Daily Active 04/28/2015 [facility] OMEPRAZOLE 20 MG CPDR one capsule daily Active 01/16/2015 [facility] FOSAMAX 70 MG TABS 1 tablet weekly with 8 oz water Active 01/16/2015 [facility] CIPRODEX 0.3-0.1 % SUSP 4 drops into affected ear twice daily for 7 days Active 01/16/2015 [facility] OXYBUTYNIN CHLORIDE ER 15 MG [id number] One po daily Active 07/01/[facility] NITROFURANTOIN MACROCRYSTAL 100 MG CAPS 1 capsule po daily No Longer Active 07/01/2014 [facility] ASPIRIN 81 MG TBEC 2 po daily Active 07/01/2014 [facility] LANSOPRAZOLE 30 MG CPDR one [...] [facility] OXYBUTYNIN CHLORIDE ER 15 MG [id number] One po daily Active 07/01/2014 [facility] [...] [facility] OXYBUTYNIN CHLORIDE ER 15 MG [id number] ONE TAB DAILY No Longer Active 02/05/2014 [facility] PRAVASTATIN SODIUM 40 MG TABS ONE TAB DAILY No Longer Active 02/05/2014 [facility] OMEPRAZOLE 20 MG TBEC ONE TAB DAILY No Longer Active 02/05/2014 [facility] ADULT ASPIRIN LOW STRENGTH 81 MG TBDP ONE TAB DAILY No Longer Active 02/05/2014 [facility] CRANBERRY PLUS VITAMIN C 4200-20-3 MG-MG-UNIT CAPS TWO CAPS ONCE A DAY Active 02/05/2014 [facility] EQ ARTHRITIS PAIN 650 MG CR-TABS TWO TABS ONCE A DAY No Longer Active 02/05/2014 [facility] HYDROCODONE-ACETAMINOPHEN 7.5-325 MG TABS 1 tablet daily as needed for severe pain Active 02/05/2014 [facility] ADVANCED AM/PM MISC 2 orally morning and evening as directed No Longer Active 02/05/2014 [facility] LISINOPRIL 5 MG TABS 1 tablet daily No Longer Active 02/05/2014 [facility] OXYBUTYNIN CHLORIDE ER 15 MG [id number] ONE TAB DAILY No Longer Active 02/05/2014 [facility] HYDROCODONE-ACETAMINOPHEN 7.5-325 MG TABS 1 tablet daily as needed for severe pain No Longer Active 02/05/2014 [facility] LISINOPRIL 5 MG TABS 1 tablet daily No Longer Active 02/05/2014 [facility] Lisinopril 40 Mg Tablet, 40 Mg Oral Daily Active 11/01/2013 [facility] Oxybutynin Chloride 5 Mg Tablet, 5 Mg Oral Daily Active 06/16/2012 [facility] Acetaminophen With Codeine (Tylenol With Codeine #4 Tablet) 1 Each Tablet Every 6 Hours as needed for Pain Active [facility] Alendronate Sodium 70 Mg Tablet Weekly [facility] Aspirin (Aspir 81) 81 Mg Tablet. Daily Active [facility] Citalopram Hydrobromide (Citalopram Hbr) 40 Mg Tablet Daily Active [facility] Cranberry Daily [facility] Dexlansoprazole (Dexilant) 60 Mg Cap. Daily Active THERAPEUTIC INTERCHANGE WITH PROTONIX PER [facility] Lidocaine 5% Patch As Needed [facility] Multivitamin (Multivitamins) [address] Capsule Daily [facility] [place] [address] [facility] Oxybutynin Chloride (Oxybutynin Chloride Er) [address]er.[address] [facility] Allergies, Adverse Reactions, Alerts Substance Category Reaction Severity Reaction type Status Date Reported Comments Source No Known Drug Allergies Mild Allergy to Substance Active 05/26/2016 [facility] Immunizations Immunization Date Given Site Status Last Updated Comments Source pneumococcal 13-valent vaccine 10/22/2016 Not Given [facility] influenza virus vaccine, inactivated 04/04/2016 Left Deltoid completed [facility] pneumococcal 13-valent vaccine 04/04/2016 Right Deltoid completed [facility] Results Order Name Results Value Reference Range Date Interpretation Comments Source ELECTROLYTES AGAP 12.3 meq/L 10.0 - 20.0 10/23/2016 [facility] ELECTROLYTES eGFR 96 mL/min/1.73m2 10/23/2016 Result Comment: [...] should be multiplied by the estimated BMI. [facility] ELECTROLYTES Sodium Lvl 141 meq/L 135 - 145 10/23/2016 [facility] ELECTROLYTES Potassium Lvl 3.3 meq/L 3.5 - 5.1 10/23/2016 [facility] ELECTROLYTES Creatinine Lvl 0.55 mg/dL 0.50 - 1.40 10/23/2016 [facility] ELECTROLYTES Glucose Lvl 91 mg/dL 70 - 99 10/23/2016 [facility] ELECTROLYTES BUN 8 mg/dL 7 - 22 10/23/2016 [facility] ELECTROLYTES Calcium Lvl 8.1 mg/dL 8.5 - 10.5 10/23/2016 [facility] ELECTROLYTES CO2 25 meq/L 24 - 32 10/23/2016 [facility] ELECTROLYTES Chloride Lvl 107 meq/L 95 - 109 10/23/2016 [facility] MPV 7.5 fL 7.4 - 10.4 10/23/2016 [facility] Platelet 130 K/CMM 133 - 450 10/23/2016 [facility] RDW 14.8 % 11.5 - 14.5 10/23/2016 [facility] MCH 29.2 pg 27.0 - 31.0 10/23/2016 [facility] Hct 35.3 % 36.0 - 48.0 10/23/2016 [facility] MCHC 33.5 g/dL 32.0 - 36.0 10/23/2016 [facility] WBC 5.8 K/CMM 3.7 - 10.4 10/23/2016 [facility] MCV 87.1 fL 80.0 - 98.0 10/23/2016 [facility] RBC 4.06 M/CMM 4.20 - 5.40 10/23/2016 [facility] Hgb 11.8 g/dL 12.0 - 16.0 10/23/2016 [facility] RBC 4.11 M/CMM 4.20 - 5.40 10/22/2016 [facility] WBC 9.3 K/CMM 3.7 - 10.4 10/22/2016 [facility] Hct 35.9 % 36.0 - 48.0 10/22/2016 [facility] Hgb 11.9 g/dL 12.0 - 16.0 10/22/2016 [facility] MCV 87.3 fL 80.0 - 98.0 10/22/2016 [facility] MCHC 33.3 g/dL 32.0 - 36.0 10/22/2016 [facility] MCH 29.0 pg 27.0 - 31.0 10/22/2016 [facility] MPV 7.4 fL 7.4 - 10.4 10/22/2016 [facility] RDW 14.6 % 11.5 - 14.5 10/22/2016 [facility] Platelet 170 K/CMM 133 - 450 10/22/2016 [facility] Retroperitoneal Complete US Retroperitoneal Complete US Patient Name: LUCRECIA QUEZADA : 1945; Age: 71 years y/o Female MR: [id number] Study: Retroperitoneal Complete US Clinical Indication: Urinary [...] renal cysts. No solid mass seen. SL: [id number] 10/22/2016 - - Read by: Leobardo Brandon MD Dictated Date/time: 10/22/16 17:40 Electronically Signed by: Leobardo Brandon MD 10/22/16 17:44 FINAL REPORT [facility] Abdomen/Pelvis wo IV contrast CT Abdomen/Pelvis wo IV contrast CT Patient Name: LUCRECIA QUEZADA : 1945; Age: 71 years Female MR: [id number] Study: Abdomen/Pelvis wo IV contrast CT 10/21/2016 [...] kidney. Sigmoid and descending colon diverticulosis. SL: [id number] 10/22/2016 - - Read by: Rosemarie Estrada MD Dictated Date/time: 10/22/16 18:32 Electronically Signed by: Rosemarie Estrada MD 10/22/16 18:40 FINAL REPORT [facility] URINE AND STOOL UA Urobilinogen <=1.0 mg/dL 0.1 - 1.0 10/22/2016 [facility] URINE AND STOOL UA Color Ltyellow 10/22/2016 [facility] URINE AND STOOL UA Glucose Negative mg/dL Negative mg/dL 10/22/2016 [facility] URINE AND STOOL UA Nitrite Negative (10/22/16 5:15 AM) Negative 10/22/2016 [facility] URINE AND STOOL UA Blood Small *ABN* (10/22/16 5:15 AM) Negative 10/22/2016 [facility] URINE AND STOOL UA Leuk Est Large *ABN* (10/22/16 5:15 AM) Negative 10/22/2016 [facility] URINE AND STOOL UA WBC 12 /HPF 0 - 5 10/22/2016 [facility] URINE AND STOOL UA Bacteria Occasional /HPF None Seen /HPF 10/22/2016 [facility] URINE AND STOOL UA Bili Negative *NA* (10/22/16 5:15 AM) Negative 10/22/2016 [facility] URINE AND STOOL UA Ketones Negative mg/dL Negative mg/dL 10/22/2016 [facility] URINE AND STOOL UA Sq Epi None Seen 10/22/2016 [facility] URINE AND STOOL UA RBC 1 /HPF 0 - 2 10/22/2016 [facility] URINE AND STOOL UA pH 7.0 5.0 - 8.0 10/22/2016 [facility] URINE AND STOOL UA Protein Negative mg/dL Negative mg/dL 10/22/2016 [facility] URINE AND STOOL UA Turbidity Clear (10/22/16 5:15 AM) Clear 10/22/2016 [facility] URINE AND STOOL UA Spec Grav 1.006 <=1.030 10/22/2016 [facility] CHEM PANEL Lactic Acid Lvl 1.0 mMol/L 0.5 - 2.2 10/22/2016 [facility] CHEM PANEL Phosphorus 3.4 mg/dL 2.5 - 4.5 10/21/2016 [facility] CHEM PANEL Magnesium Lvl 2.0 mg/dL 1.8 - 2.4 10/21/2016 [facility] ELECTROLYTES AGAP 12.0 meq/L 10.0 - 20.0 10/21/2016 [facility] ELECTROLYTES Globulin 3.8 g/dL 2.7 - 4.2 10/21/2016 [facility] ELECTROLYTES B/C Ratio 16 6 - 25 10/21/2016 [facility] ELECTROLYTES A/G Ratio 0.8 0.7 - 1.6 10/21/2016 [facility] ELECTROLYTES eGFR 67 mL/min/1.73m2 10/21/2016 Result Comment: [...] should be multiplied by the estimated BMI. [facility] ELECTROLYTES Creatinine Lvl 0.88 mg/dL 0.50 - 1.40 10/21/2016 [facility] ELECTROLYTES Sodium Lvl 139 meq/L 135 - 145 10/21/2016 [facility] ELECTROLYTES Glucose Lvl 91 mg/dL 70 - 99 10/21/2016 [facility] ELECTROLYTES BUN 14 mg/dL 7 - 22 10/21/2016 [facility] ELECTROLYTES Potassium Lvl 4.0 meq/L 3.5 - 5.1 10/21/2016 [facility] ELECTROLYTES Chloride Lvl 103 meq/L 95 - 109 10/21/2016 [facility] ELECTROLYTES CO2 28 meq/L 24 - 32 10/21/2016 [facility] ELECTROLYTES Calcium Lvl 10.1 mg/dL 8.5 - 10.5 10/21/2016 [facility] ELECTROLYTES Total Protein 7.0 g/dL 6.4 - 8.4 10/21/2016 [facility] ELECTROLYTES Albumin Lvl 3.2 g/dL 3.5 - 5.0 10/21/2016 [facility] ELECTROLYTES ALT 12 unit/L 0 - 65 10/21/2016 [facility] ELECTROLYTES AST 13 unit/L 0 - 37 10/21/2016 [facility] ELECTROLYTES Alk Phos 64 unit/L 39 - 136 10/21/2016 [facility] ELECTROLYTES Bili Total 0.9 mg/dL 0.2 - 1.3 10/21/2016 [facility] HEMATOLOGY Monocytes # 1.0 K/CMM 0.0 - 0.8 10/21/2016 [facility] HEMATOLOGY Segs 84.2 % 45.0 - 75.0 10/21/2016 [facility] HEMATOLOGY Eosinophils 0.4 % 0.0 - 4.0 10/21/2016 [facility] Basophils 0.5 % 0.0 - 1.0 10/21/2016 [facility] Segs-Bands # 14.4 K/CMM 1.5 - 8.1 10/21/2016 [facility] Lymphocytes # 1.5 K/CMM 1.0 - 5.5 10/21/2016 [facility] Monocytes 6.1 % 2.0 - 12.0 10/21/2016 [facility] Basophils # 0.1 K/CMM 0.0 - 0.2 10/21/2016 [facility] Eosinophils # 0.1 K/CMM 0.0 - 0.5 10/21/2016 [facility] Lymphocytes 8.8 % 20.0 - 40.0 10/21/2016 [facility] MPV 7.3 fL 7.4 - 10.4 10/21/2016 [facility] RBC 4.39 M/CMM 4.20 - 5.40 10/21/2016 [facility] WBC 17.1 K/CMM 3.7 - 10.4 10/21/2016 [facility] MCHC 33.5 g/dL 32.0 - 36.0 10/21/2016 [facility] Hgb 12.9 g/dL 12.0 - 16.0 10/21/2016 [facility] MCV 87.6 fL 80.0 - 98.0 10/21/2016 [facility] MCH 29.3 pg 27.0 - 31.0 10/21/2016 [facility] Platelet 226 K/CMM 133 - 450 10/21/2016 [facility] RDW 14.7 % 11.5 - 14.5 10/21/2016 [facility] Hct 38.5 % 36.0 - 48.0 10/21/2016 [facility] CHEM PANEL Vitamin D, 25-OH, Total 16 ng/mL 30 - 100 04/07/2016 [facility] CHEM PANEL eGFR 97 mL/min/1.73m2 04/07/2016 Result [...] should be multiplied by the estimated BMI. [facility] CHEM PANEL Calcium Lvl 8.5 mg/dL 8.5 - 10.5 04/07/2016 [facility] CHEM PANEL Chloride Lvl 104 meq/L 95 - 109 04/07/2016 [facility] CHEM PANEL CO2 30 meq/L 24 - 32 04/07/2016 [facility] CHEM PANEL Sodium Lvl 139 meq/L 135 - 145 04/07/2016 [facility] CHEM PANEL Potassium Lvl 3.5 meq/L 3.5 - 5.1 04/07/2016 [facility] CHEM PANEL Creatinine Lvl 0.54 mg/dL 0.50 - 1.40 04/07/2016 [facility] CHEM PANEL BUN 5 mg/dL 7 - 22 04/07/2016 [facility] CHEM PANEL Glucose Lvl 101 mg/dL 70 - 99 04/07/2016 [facility] CHEM PANEL AGAP 8.5 meq/L 10.0 - 20.0 04/07/2016 [facility] CHEM PANEL Albumin Lvl 2.6 g/dL 3.5 - 5.0 04/07/2016 [facility] CHEM PANEL Phosphorus 4.1 mg/dL 2.5 - 4.5 04/07/2016 [facility] CHEM PANEL Magnesium Lvl 2.1 mg/dL 1.8 - 2.4 04/07/2016 [facility] HEMATOLOGY Monocytes # 0.7 K/CMM 0.0 - 0.8 04/07/2016 [facility] HEMATOLOGY Lymphocytes # 1.6 K/CMM 1.0 - 5.5 04/07/2016 [facility] HEMATOLOGY Segs-Bands # 4.0 K/CMM 1.5 - 8.1 04/07/2016 [facility] HEMATOLOGY Monocytes 10.0 % 2.0 - 12.0 04/07/2016 [facility] HEMATOLOGY Eosinophils 6.5 % 0.0 - 4.0 04/07/2016 [facility]EMATOLOGY Basophils 0.6 % 0.0 - 1.0 04/07/2016 [facility] HEMATOLOGY Segs 58.5 % 45.0 - 75.0 04/07/2016 [facility] HEMATOLOGY Lymphocytes 24.4 % 20.0 - 40.0 04/07/2016 [facility] HEMATOLOGY Eosinophils # 0.4 K/CMM 0.0 - 0.5 04/07/2016 [facility] HEMATOLOGY PT 13.5 s 12.0 - 14.7 04/07/2016 [facility] HEMATOLOGY PTT 31.3 s 22.9 - 35.8 04/07/2016 [facility] HEMATOLOGY INR 1.01 0.85 - 1.17 04/07/2016 [facility] HEMATOLOGY MPV 7.1 fL 7.4 - 10.4 04/07/2016 [facility] HEMATOLOGY MCHC 33.9 g/dL 32.0 - 36.0 04/07/2016 [facility] HEMATOLOGY Platelet 244 K/CMM 133 - 450 04/07/2016 [facility] HEMATOLOGY RDW 13.8 % 11.5 - 14.5 04/07/2016 [facility] HEMATOLOGY Hct 30.1 % 36.0 - 48.0 04/07/2016 [facility] HEMATOLOGY Hgb 10.2 g/dL 12.0 - 16.0 04/07/2016 [facility] HEMATOLOGY MCH 30.3 pg 27.0 - 31.0 04/07/2016 [facility] HEMATOLOGY MCV 89.3 fL 80.0 - 98.0 04/07/2016 [facility] HEMATOLOGY RBC 3.37 M/CMM 4.20 - 5.40 04/07/2016 [facility] HEMATOLOGY WBC 6.7 K/CMM 3.7 - 10.4 04/07/2016 [facility] IMMUNOLOGY Prealbumin 11.1 mg/dL 18.0 - 45.0 04/07/2016 [facility] HEMATOLOGY Segs-Bands # 5.6 K/CMM 1.5 - 8.1 04/05/2016 [facility] HEMATOLOGY Basophils 0.6 % 0.0 - 1.0 04/05/2016 [facility] HEMATOLOGY Eosinophils 5.2 % 0.0 - 4.0 04/05/2016 [facility] HEMATOLOGY Eosinophils # 0.4 K/CMM 0.0 - 0.5 04/05/2016 [facility] HEMATOLOGY Lymphocytes # 1.3 K/CMM 1.0 - 5.5 04/05/2016 [facility] HEMATOLOGY Monocytes # 0.6 K/CMM 0.0 - 0.8 04/05/2016 [facility] HEMATOLOGY Segs 70.4 % 45.0 - 75.0 04/05/2016 [facility] HEMATOLOGY Monocytes 7.3 % 2.0 - 12.0 04/05/2016 [facility] HEMATOLOGY Lymphocytes 16.5 % 20.0 - 40.0 04/05/2016 [facility] HEMATOLOGY MCHC 33.5 g/dL 32.0 - 36.0 04/05/2016 [facility] HEMATOLOGY MCH 30.0 pg 27.0 - 31.0 04/05/2016 [facility] HEMATOLOGY RDW 13.6 % 11.5 - 14.5 04/05/2016 [facility] HEMATOLOGY MCV 89.5 fL 80.0 - 98.0 04/05/2016 [facility] HEMATOLOGY Hct 30.1 % 36.0 - 48.0 04/05/2016 [facility] HEMATOLOGY Hgb 10.1 g/dL 12.0 - 16.0 04/05/2016 [facility] HEMATOLOGY Platelet 172 K/CMM 133 - 450 04/05/2016 [facility] HEMATOLOGY MPV 7.6 fL 7.4 - 10.4 04/05/2016 [facility] HEMATOLOGY RBC 3.37 M/CMM 4.20 - 5.40 04/05/2016 [facility] HEMATOLOGY WBC 8.0 K/CMM 3.7 - 10.4 04/05/2016 [facility] CHEM PANEL BUN 6 mg/dL 7 - 22 04/04/2016 [facility] CHEM PANEL Glucose Lvl 116 mg/dL 70 - 99 04/04/2016 [facility] CHEM PANEL Sodium Lvl 136 meq/L 135 - 145 04/04/2016 [facility] CHEM PANEL Chloride Lvl 104 meq/L 95 - 109 04/04/2016 [facility] CHEM PANEL Creatinine Lvl 0.58 mg/dL 0.50 - 1.40 04/04/2016 [facility] CHEM PANEL Potassium Lvl 4.1 meq/L 3.5 - 5.1 04/04/2016 [facility] CHEM PANEL CO2 25 meq/L 24 - 32 04/04/2016 [facility] CHEM PANEL Calcium Lvl 7.9 mg/dL 8.5 - 10.5 04/04/2016 [facility] CHEM PANEL eGFR 94 mL/min/1.73m2 04/04/2016 Result [...] should be multiplied by the estimated BMI. [facility] CHEM PANEL AGAP 11.1 meq/L 10.0 - 20.0 04/04/2016 [facility] HEMATOLOGY MCHC 34.0 g/dL 32.0 - 36.0 04/04/2016 [facility] MPV 7.4 fL 7.4 - 10.4 04/04/2016 [facility] Platelet 159 K/CMM 133 - 450 04/04/2016 [facility] RDW 13.4 % 11.5 - 14.5 04/04/2016 [facility] MCH 30.4 pg 27.0 - 31.0 04/04/2016 [facility] MCV 89.2 fL 80.0 - 98.0 04/04/2016 [facility] Hct 30.0 % 36.0 - 48.0 04/04/2016 [facility] Hgb 10.2 g/dL 12.0 - 16.0 04/04/2016 [facility] RBC 3.36 M/CMM 4.20 - 5.40 04/04/2016 [facility] WBC 10.2 K/CMM 3.7 - 10.4 04/04/2016 [facility] Segs 87.8 % 45.0 - 75.0 04/04/2016 [facility] Monocytes # 0.5 K/CMM 0.0 - 0.8 04/04/2016 [facility] Lymphocytes # 0.7 K/CMM 1.0 - 5.5 04/04/2016 [facility] Monocytes 5.0 % 2.0 - 12.0 04/04/2016 [facility] Lymphocytes 6.8 % 20.0 - 40.0 04/04/2016 [facility] Eosinophils 0.2 % 0.0 - 4.0 04/04/2016 [facility] HEMATOLOGY Basophils 0.2 % 0.0 - 1.0 04/04/2016 [facility] HEMATOLOGY Segs-Bands # 8.9 K/CMM 1.5 - 8.1 04/04/2016 [facility] Pelvis AP DX Pelvis AP DX Pelvis AP DX CLINICAL HISTORY: Fracture FINDINGS/IMPRESSION: Single AP view of the pelvis is submitted for review. Postoperative changes related to left hip arthroplasty are evident. No gross evidence for [place] bone fractures. Solid state device with sacral lead is stable in position. SL: [id number] 04/03/2016 - - Read by: Kris Delgado MD Dictated Date/time: 04/03/16 16:18 Electronically Signed by: Kris Delgado MD 04/03/16 16:19 FINAL REPORT [facility] CHEM PANEL Calcium Lvl 8.4 mg/dL 8.5 - 10.5 04/03/2016 [facility] CHEM PANEL CO2 28 meq/L 24 - 32 04/03/2016 [facility] CHEM PANEL eGFR 89 mL/min/1.73m2 04/03/2016 Result [...] should be multiplied by the estimated BMI. [facility] CHEM PANEL AGAP 11.2 meq/L 10.0 - 20.0 04/03/2016 [facility] CHEM PANEL Chloride Lvl 107 meq/L 95 - 109 04/03/2016 [facility] CHEM PANEL Creatinine Lvl 0.70 mg/dL 0.50 - 1.40 04/03/2016 [facility] CHEM PANEL Glucose Lvl 96 mg/dL 70 - 99 04/03/2016 [facility] CHEM PANEL Sodium Lvl 142 meq/L 135 - 145 04/03/2016 [facility] CHEM PANEL BUN 10 mg/dL 7 - 22 04/03/2016 [facility] CHEM PANEL Potassium Lvl 4.2 meq/L 3.5 - 5.1 04/03/2016 [facility] CHEM PANEL eGFR 91 mL/min/1.73m2 04/03/2016 Result [...] should be multiplied by the estimated BMI. [facility] [facility] PANEL Creatinine Lvl 0.65 mg/dL 0.50 - 1.40 04/03/2016 [facility] MPV 7.1 fL 7.4 - 10.4 04/03/2016 [facility] Platelet 176 K/CMM 133 - 450 04/03/2016 [facility] RBC 3.89 M/CMM 4.20 - 5.40 04/03/2016 [facility] WBC 5.6 K/CMM 3.7 - 10.4 04/03/2016 [facility] RDW 13.6 % 11.5 - 14.5 04/03/2016 [facility] MCH 29.9 pg 27.0 - 31.0 04/03/2016 [facility] MCHC 33.4 g/dL 32.0 - 36.0 04/03/2016 [facility] MCV 89.8 fL 80.0 - 98.0 04/03/2016 [facility] Hct 34.9 % 36.0 - 48.0 04/03/2016 [facility] Hgb 11.6 g/dL 12.0 - 16.0 04/03/2016 [facility] Eosinophils # 0.3 K/CMM 0.0 - 0.5 04/03/2016 [facility] Segs 64.4 % 45.0 - 75.0 04/03/2016 [facility] HEMATOLOGY Monocytes # 0.4 K/CMM 0.0 - 0.8 04/03/2016 [facility] HEMATOLOGY Lymphocytes # 1.3 K/CMM 1.0 - 5.5 04/03/2016 [facility] HEMATOLOGY Segs-Bands # 3.6 K/CMM 1.5 - 8.1 04/03/2016 [facility] HEMATOLOGY Basophils 0.5 % 0.0 - 1.0 04/03/2016 [facility] HEMATOLOGY Eosinophils 4.8 % 0.0 - 4.0 04/03/2016 [facility] HEMATOLOGY Monocytes 7.1 % 2.0 - 12.0 04/03/2016 [facility] HEMATOLOGY Lymphocytes 23.2 % 20.0 - 40.0 04/03/2016 [facility] HEMATOLOGY Platelet 173 K/CMM 133 - 450 04/03/2016 [facility] HEMATOLOGY PTT 30.0 s 22.9 - 35.8 04/03/2016 [facility] HEMATOLOGY PT 13.9 s 12.0 - 14.7 04/03/2016 [facility] HEMATOLOGY INR 1.04 0.85 - 1.17 04/03/2016 [facility] URINE AND STOOL UA Sq Epi Occasional /LPF Few /LPF 04/02/2016 [facility] URINE AND STOOL UA WBC 100 /HPF 0 - 5 04/02/2016 [facility] URINE AND STOOL UA Bacteria Many /HPF None Seen /HPF 04/02/2016 [facility] URINE AND STOOL UA Bili Negative *NA* (04/02/16 3:30 PM) Negative 04/02/2016 [facility] URINE AND STOOL UA Blood Negative (04/02/16 3:30 PM) Negative 04/02/2016 [facility] URINE AND STOOL UA Nitrite Negative (04/02/16 3:30 PM) Negative 04/02/2016 [facility] URINE AND STOOL UA Leuk Est Large *ABN* (04/02/16 3:30 PM) Negative 04/02/2016 [facility] URINE AND STOOL UA Urobilinogen <=1.0 mg/dL 0.1 - 1.0 04/02/2016 [facility] URINE AND STOOL UA Protein Negative mg/dL Negative mg/dL 04/02/2016 [facility] URINE AND STOOL UA Glucose Negative mg/dL Negative mg/dL 04/02/2016 [facility] URINE AND STOOL UA Ketones Negative mg/dL Negative mg/dL 04/02/2016 [facility] URINE AND STOOL UA Color Yellow *NA* (04/02/16 3:30 PM) Yellow 04/02/2016 [facility] URINE AND STOOL UA Turbidity Clear (04/02/16 3:30 PM) Clear 04/02/2016 [facility] URINE AND STOOL UA Spec Grav 1.013 <=1.030 04/02/2016 [facility] URINE AND STOOL UA pH 7.0 5.0 - 8.0 04/02/2016 [facility] CARDIAC ENZYMES Troponin-I null 0.00 - 0.40 04/02/2016 [facility] ELECTROLYTES AGAP 12.7 meq/L 10.0 - 20.0 04/02/2016 [facility] ELECTROLYTES Glucose Lvl 114 mg/dL 70 - 99 04/02/2016 [facility] ELECTROLYTES BUN 9 mg/dL 7 - 22 04/02/2016 [facility] ELECTROLYTES Chloride Lvl 105 meq/L 95 - 109 04/02/2016 [facility] ELECTROLYTES Calcium Lvl 8.9 mg/dL 8.5 - 10.5 04/02/2016 [facility] ELECTROLYTES Potassium Lvl 3.7 meq/L 3.5 - 5.1 04/02/2016 [facility] ELECTROLYTES CO2 26 meq/L 24 - 32 04/02/2016 [facility] ELECTROLYTES Sodium Lvl 140 meq/L 135 - 145 04/02/2016 [facility] HEMATOLOGY INR 0.98 0.85 - 1.17 04/02/2016 [facility] HEMATOLOGY PTT 28.6 s 22.9 - 35.8 04/02/2016 [facility] HEMATOLOGY PT 13.3 s 12.0 - 14.7 04/02/2016 [facility] HEMATOLOGY Basophils # 0.1 K/CMM 0.0 - 0.2 04/02/2016 [facility] HEMATOLOGY Eosinophils # 0.2 K/CMM 0.0 - 0.5 04/02/2016 [facility] Chest 1view DX Chest 1view DX Clinical [...] Rafael Melara MD 04/02/16 15:34 FINAL REPORT [facility] Hip 2/3 views uni DX Hip 2/3 views uni DX EXAM: Left Hip 2/3 views uni DX DATE: 04/02/2016 1:27 PM CDT INDICATION: Pain Post Trauma COMPARISON: None. IMPRESSION: Diffuse osteopenia. Acute impacted subcapital fracture of the left femoral neck. Left gluteal battery pack with sacral lead. SL: [id number] 04/02/2016 - - Read by: Arturo Rodriguez MD Dictated Date/time: 04/02/16 14:05 Electronically Signed by: Arturo Rodriguez MD 04/02/16 14:06 FINAL REPORT [facility] Pelvis AP DX Pelvis AP DX EXAM: Pelvis AP DX DATE: 04/02/2016 1:27 PM CDT INDICATION: Pain Post Trauma COMPARISON: None. IMPRESSION: Diffuse osteopenia. Acute impacted subcapital fracture of the left femoral neck. Pubic rami is grossly intact. New left gluteal battery pack with sacral lead. SL: [id number] 04/02/2016 - - Read by: Arturo Rodriguez MD Dictated Date/time: 04/02/16 14:04 Electronically Signed by: Arturo Rodriguez MD 04/02/16 14:05 FINAL REPORT [facility] Spine lumbar series DX Spine lumbar series [...] Leobardo Brandon MD 02/02/15 15:36 FINAL REPORT [facility] Knee 3 Views Bilateral DX Knee 3 [...] Zhang Jimenez MD 02/02/15 15:28 FINAL REPORT [facility] Chemistry HGBA1C 5.1 % - 5.6 01/20/2015 [facility] CHOLESTEROL 199 mg/dl - 199 01/20/2015 [facility] Chemistry TRIGLYCERIDE 138 mg/dl - 149 01/20/2015 [facility] Chemistry HDL 68 mg/dl >=61 01/20/2015 [facility] Chemistry LDL 103 mg/dl - 99 01/20/2015 [facility] Chemistry SODIUM 145 MEQ/L mmol/L 135 - 145 01/20/2015 [facility] Chemistry POTASSIUM 4.7 MEQ/L mmol/L 3.5 - 5.1 01/20/2015 [facility] Chemistry CREATININE 0.6 mg/dL 0.5 - 1.4 01/20/2015 [facility] Chemistry BUN 9 mg/dL 7 - 22 01/20/2015 [facility] Chemistry BUN/CREAT 15 6 - 25 01/20/2015 [facility] Chemistry ALBUMIN 3.5 g/dL 3.5 - 5.0 01/20/2015 [facility] Chemistry CALCIUM 9.2 mg/dL 8.5 - 10.5 01/20/2015 [facility] Chemistry SGPT (ALT) 17 U/L 0 - 65 01/20/2015 [facility] Chemistry SGOT (AST) 14 U/L 0 - 37 01/20/2015 [facility] Chemistry ALK PHOS 66 U/L 39 - 136 01/20/2015 [facility] Chemistry T4, FREE 0.89 ng/dl 0.76 - 1.46 01/20/2015 [facility] Chemistry TSH 2.540 uIU/mL 0.360 - 3.740 01/20/2015 [facility] Hematology HGB 12.3 g/dL 12.0 - 16.0 01/20/2015 [facility] Hematology HCT 38.3 % 36.0 - 48.0 01/20/2015 [facility] Hematology PLATELETS 249 K/CMM /mm3 133 - 450 01/20/2015 [facility] Bone Density-Dual Energy Absorptionmetry Bone Density-Dual Energy Absorptionmetry - Bone Density-Dual Energy Absorptionmetry BONE DENSITY EVALUATION: 02/12/2014 CLINICAL DATA: Post menopausal. FINDINGS: Bone density evaluation was performed 02/12/2014 on the AP L1-L4 region of spine using Lunar Dual Energy X-Ray Absorptiometry. The [...] at high risk for fracture. Dr. Raf Urbina M.D. [facility]:02/12/2014 11:03:39 [employer]: Lianna Interiano [facility] 02/12/2014 - - Read by: Raf Urbina MD Dictated Date/time: 02/12/14 11:03 Electronically Signed by: Raf Urbina MD 02/12/14 11:03 FINAL REPORT [facility] Chemistry HGBA1C 4.9 % - 5.6 02/05/2014 [...] Chemistry BUN/CREAT 9 6 - 25 02/05/2014 [facility] Chemistry ALBUMIN 4.2 g/dL 3.5 - 5.0 02/05/2014 [facility] Chemistry CALCIUM 9.6 mg/dL 8.5 - 10.5 02/05/2014 [facility] Chemistry SGPT (ALT) 18 U/L 0 - 65 02/05/2014 [facility] Chemistry SGOT (AST) 17 U/L 0 - 37 02/05/2014 [facility] Chemistry ALK PHOS 68 U/L 39 - 136 02/05/2014 [facility] Chemistry TSH 2.370 uIU/mL 0.360 - 3.740 02/05/2014 [facility] Hematology HGB 12.5 g/dL 12.0 - 16.0 02/05/2014 [facility] Hematology HCT 37.8 % 36.0 - 48.0 02/05/2014 [facility] Hematology PLATELETS 264 K/CMM /mm3 133 - 450 02/05/2014 [facility] Urinalysis UA COLOR Light Yellow 02/05/2014 [facility] Urinalysis UA COLOR Light Yellow 02/05/2014 [facility] Spine Lumbar Comp w/Bend views Spine Lumbar [...] Source Temperature Oral (F) 98.0 F 10/24/2016 [facility] Systolic (mm Hg) 129 10/24/2016 [facility] Diastolic (mm Hg) 64 10/24/2016 [facility] Heart Rate 61 10/24/2016 [facility] Respitory Rate 18 10/24/2016 [facility] Temperature Oral (F) 98.0 F 10/24/2016 [facility] Respitory Rate 18 10/24/2016 [facility] Heart Rate 65 10/24/2016 [facility] Systolic (mm Hg) 117 10/24/2016 [facility] Diastolic (mm Hg) 69 10/24/2016 [facility] Temperature Oral (F) 98.8 F 10/24/2016 [facility] Systolic (mm Hg) 145 10/24/2016 [facility] Diastolic (mm Hg) 80 10/24/2016 [facility] Heart Rate 65 10/24/2016 [facility] Respitory Rate 18 10/24/2016 [facility] Weight 88.003 10/22/2016 [facility] Height 167.64 cm 10/21/2016 [facility] Weight 88.636 10/21/2016 [facility] BMI Calculated 31.54 10/21/2016 [facility] Temperature Oral (F) 97.8 F 04/15/2016 [facility] Heart Rate 71 04/15/2016 [facility] Diastolic (mm Hg) 74 04/15/2016 [facility] Respitory Rate 18 04/15/2016 [facility] Systolic (mm Hg) 124 04/15/2016 [facility] Systolic (mm Hg) 113 04/15/2016 [facility] Diastolic (mm Hg) 73 04/15/2016 [facility] Temperature Oral (F) 98.6 F 04/15/2016 [facility] Heart Rate 75 04/15/2016 [facility] Respitory Rate 16 04/15/2016 [facility] Systolic (mm Hg) 135 04/14/2016 [facility] Diastolic (mm Hg) 68 04/14/2016 [facility] Respitory Rate 16 04/14/2016 [facility] Temperature Oral (F) 98.1 F 04/14/2016 [facility] Heart Rate 71 04/14/2016 [facility] Height 167.64 cm 04/07/2016 [facility] Weight 81.818 04/07/2016 [facility] BMI Calculated 29.11 04/07/2016 [facility] Height 167.6 cm 04/06/2016 [facility] Weight 81.8 04/06/2016 [facility] BMI Calculated 29.12 04/06/2016 [facility] Systolic (mm Hg) 116 04/06/2016 [facility] Diastolic (mm Hg) 68 04/06/2016 [facility] Heart Rate 69 04/06/2016 [facility] Respitory Rate 16 04/06/2016 [facility] Temperature Oral (F) 98.9 F 04/06/2016 [facility] Respitory Rate 16 04/06/2016 [facility] Heart Rate 72 04/06/2016 [facility] Temperature Oral (F) 98.6 F 04/06/2016 [facility] Systolic (mm Hg) 117 04/06/2016 [facility] Diastolic (mm Hg) 72 04/06/2016 [facility] Heart Rate 77 04/06/2016 [facility] Temperature Oral (F) 98.7 F 04/06/2016 [facility] Systolic (mm Hg) 123 04/06/2016 [facility] Diastolic (mm Hg) 74 04/06/2016 [facility] Respitory Rate 18 04/06/2016 [facility] Height 167.64 cm 04/02/2016 [facility] Weight 81.818 04/02/2016 [facility] BMI Calculated 29.11 04/02/2016 [facility] Weight 81.818 04/02/2016 [facility] BMI Calculated 29.11 04/02/2016 [facility] Height 167.64 cm 04/02/2016 [facility] Height 67 01/16/2015 [facility] Weight 184 [...] ADM Date DC Date Status Source OD [id number] 338 - PAIN NEC ABBY ALEXANDRE 04/12/2013 04/12/2013 Active [facility] Lab Report [id number] Mary Jones, SPLITTER TENDER 02/11/2014 02/11/2014 [facility] Out[facility] Diag Services [id number] MARY MCKAYS 02/12/2014 02/13/2014 [facility] [place] Office Visit [id number] Mary Jones, SPLITTER TENDER 02/13/2014 02/13/2014 [facility] Office Visit [id number] Mary Jones, SPLITTER TENDER 07/01/2014 07/01/2014 [facility] [place] Office Visit [id number] Vanessa Huston MD 01/16/2015 01/16/2015 [facility] Lab Report [id number] Vanessa Huston MD 01/20/2015 01/20/2015 [id number] [facility] 02[facility]2015 [facility] Inpatient [id number] Charity Lee 04/02/2016 04/06/2016 [facility] [id number] Raciel Green Jr 04/06/2016 04/15/2016 [facility] OP Therapy Patients [id number] Raciel Green Jr 04/19/2016 05/19/2016 [facility] Patients [id number] Akiko Parrish 05/19/2016 06/18/2016 [facility] OP Therapy Patients [id number] Akkio Parrish 06/22/2016 07/09/2016 [facility] Inpatient [id number] 10/21/2016 10/24/2016 [facility] Departed Emergency Room [id number] ALVIN ALTMAN MD 06/15/2018 06/15/2018 [facility] Procedures Procedure Code Date Perfomer Comments Source Hip replacement [id number] 03/25/2016 [facility] smoking/tobacco cessation, patient education and counseling 14 01/16/2015 [facility] smoking/tobacco cessation, patient education and counseling 14 07/01/2014 [facility] smoking/tobacco cessation, patient education and counseling 14 02/13/2014 [facility] bone density 4002.65 02/12/2014 Completed at [facility] smoking/tobacco cessation, patient education and counseling 02/05/2014 [facility] Appendectomy [id number] [facility] Gastric bypass [id number] [facility] Implantation of electronic stimulator into bladder [id number] [facility] Appendectomy [id number] [facility] Gastric bypass [id number] [facility] Implantation of electronic stimulator into bladder [id number] [facility]
--- OUTSIDE RECORDS SUMMARY | 2018-06-18 19:59 | XMS REPORT ---
Author Author [facility] Address Unknown Phone Unavailable Care Team Providers Care Medical Record Librarian Name Role Phone Monica ALTMAN Unavailable Unavailable Problems This patient has no known problems. Allergies, Adverse Reactions, Alerts This patient has no known allergies or adverse reactions. Medications This patient has no known medications. Results Test Description Test Time Test Comments Text Results Atomic Results Result Comments SP LUMBAR AP LATERAL 2-3VWS 2018-06-15 11:11:00 [place] [address] Patient Name: LUCRECIA QUEZADA MR #: [id number] : 1945 Age/Sex: 73/F Req #: [id number] Adm Physician: Ordered by: ALVIN ALTMAN MD Report #: [id number] Location: ER Room/Bed: Procedure: [id number] DX/SP LUMBAR AP LATERAL 2-3VWS Exam Date: 06/15/18 Exam Time: 1015 REPORT STATUS: Signed Exam: Hips bilateral 4 views with AP radiograph of the pelvis, sacrum radiographs 2 views, lumbar spine radiographs 3 views History: Fall, pain Comparison: <None.> Findings: Pelvis and bilateral hips: Status post bilateral total hip arthroplasties with intact hardware in unremarkable alignment. No evidence of periprosthetic lucency. No evidence of displaced fracture. Stimulator device is seen with lead overlying the sacrum. Sacrum: Bowel gas partially obscures visualization of the sacrum. No evidence of displaced sacral fracture. Mild degenerative changes of the bilateral sacroiliac joints and pubic symphysis. Lumbar spine: Dextroconvex scoliosis of the lumbar spine. Vertebral body heights are preserved. Severe degenerative disc changes of the lumbar spine. Severe facet degenerative changes, most pronounced at L5-S1. Surgical clips project over the upper abdomen. Impression: No evidence of acute fracture in the lumbar spine, pelvis, and sacrum. Status post bilateral total hip arthroplasties with intact hardware and unremarkable alignment. Severe degenerative disc and facet degenerative changes of the lumbar spine. Signed by: Dr. Joann Saavedra MD on 06/15/2018 11:20 AM Dictated By: JOANN SAAVEDRA MD 19 Transcribed By: LISA on 06/15/18 112 COPY TO: ALVIN ALTMAN MD SACRUM COCCYX 2018-06-15 11:11:00 [place] [address] Patient Name: LUCRECIA QUEZADA MR #: [id number] : 1945 Age/Sex: 73/F Req #: [id number] Adm Physician: Ordered by: ALVIN ALTMAN MD Report #: [id number] Location: ER Room/Bed: Procedure: [id number] DX/SACRUM COCCYX Exam Date: 06/15/18 Exam Time: 1015 REPORT STATUS: Signed Exam: Hips bilateral 4 views with AP radiograph of the pelvis, sacrum radiographs 2 views, lumbar spine radiographs 3 views History: Fall, pain Comparison: <None.> Findings: Pelvis and bilateral hips: Status post bilateral total hip arthroplasties with intact hardware in unremarkable alignment. No evidence of periprosthetic lucency. No evidence of displaced fracture. Stimulator device is seen with lead overlying the sacrum. Sacrum: Bowel gas partially obscures visualization of the sacrum. No evidence of displaced sacral fracture. Mild degenerative changes of the bilateral sacroiliac joints and pubic symphysis. Lumbar spine: Dextroconvex scoliosis of the lumbar spine. Vertebral body heights are preserved. Severe degenerative disc changes of the lumbar spine. Severe facet degenerative changes, most pronounced at L5-S1. Surgical clips project over the upper abdomen. Impression: No evidence of acute fracture in the lumbar spine, pelvis, and sacrum. Status post bilateral total hip arthroplasties with intact hardware and unremarkable alignment. Severe degenerative disc and facet degenerative changes of the lumbar spine. Signed by: Dr. Joann Saavedra MD on 06/15/2018 11:20 AM Dictated By: JOANN SAAVEDRA MD 112 Transcribed By: LISA on 06/15/18 1120 COPY TO: ALVIN ALTMAN MD HIPS BILAT 3-4VWS (+/- PELVIS) 2018-06-15 11:11:00 [place] [address] Patient Name: LUCRECIA QUEZADA MR #: [id number] : 1945 Age/Sex: 73/F Req #: [id number] Adm Physician: Ordered by: ALVIN ALTMAN MD Report #: [id number] Location: ER Room/Bed: Procedure: [id number] DX/HIPS BILAT 3-4VWS (+/- PELVIS) Exam Date: Exam Time: REPORT STATUS: Signed Exam: Hips bilateral 4 views with AP radiograph of the pelvis, sacrum radiographs 2 views, lumbar spine radiographs 3 views History: Fall, pain Comparison: <None.> Findings: Pelvis and bilateral hips: Status post bilateral total hip arthroplasties with intact hardware in unremarkable alignment. No evidence of periprosthetic lucency. No evidence of displaced fracture. Stimulator device is seen with lead overlying the sacrum. Sacrum: Bowel gas partially obscures visualization of the sacrum. No evidence of displaced sacral fracture. Mild degenerative changes of the bilateral sacroiliac joints and pubic symphysis. Lumbar spine: Dextroconvex scoliosis of the lumbar spine. Vertebral body heights are preserved. Severe degenerative disc changes of the lumbar spine. Severe facet degenerative changes, most pronounced at L5-S1. Surgical clips project over the upper abdomen. Impression: No evidence of acute fracture in the lumbar spine, pelvis, and sacrum. Status post bilateral total hip arthroplasties with intact hardware and unremarkable alignment. Severe degenerative disc and facet degenerative changes of the lumbar spine. Signed by: Dr. Joann Saavedra MD on 06/15/2018 11:20 AM Dictated By: JOANN SAAVEDRA MD 1120 Transcribed By: LISA on 06/15/18 1120 COPY TO: ALVIN ALTMAN MD
[2018-06-18] MEDS ORDERED: KETOROLAC TROMETHAMINE 60 MG/2 ML VIAL IM NR (21:15)
[2018-06-18] MEDS ORDERED: HYDROMORPHONE 2MG/ML 2 MG/ML ML IM NR (21:15)
[2018-06-18] MEDS ORDERED: KETOROLAC TROMETHAMINE 60 MG/2 ML VIAL ONE (21:16)
[2018-06-18 21:23] VITALS: BP 137/84
== END 2018-06-18 22:21 | disposition home or self-care (01) ==
LOC: ER 19:53
DX: M54.5 Low back pain (principal); W18.39XA Other fall on same level, initial encounter; E78.5 Hyperlipidemia, unspecified; F32.9 Major depressive disorder, single episode, unspecified
CPT/HCPCS: 96372; 99282; J1170; J1885

== ENCOUNTER 2018-06-19 16:39 | Inpatient (IN) | payer MEDICARE ==
[~2018-06-19] VITALS: Ht 167.6 cm; Wt 88.2 kg
--- OUTSIDE RECORDS SUMMARY | 2018-06-19 16:46 | XMS REPORT | Continuity of Care Document ---
Author Author [facility] Interface Address Unknown Phone Unavailable Problems Problem Status Onset Date Classification Date Reported Comments Source UROSEPSIS Active 10/21/2016 [facility] ACUTE L IMPACTED [facility] HIP FX Active 04/02/2016 [facility] FALL Active 04/02/2016 [facility] L HIP FX Active 04/02/2016 [facility] Lip abscess Active 02/16/2015 Problem 06/19/2018 [facility] 715.96/721.3 Active 02/02/2015 [facility] Otitis externa<sup>9</sup> Active 01/16/2015 Problem 10/27/2016 Data migrated from [employer] on 02/11/15. [facility] CHEST PAIN NOS Active 01/16/2015 Condition 01/20/2015 [facility] OTITIS EXTERNA Active 01/16/2015 Condition 01/20/2015 [facility] Low back pain<sup>4</sup> Active 07/01/2014 Problem 10/27/2016 Data migrated from [employer] on 12/09/14. [facility] BACK PAIN, LUMBAR Active 07/01/2014 Condition 01/20/2015 [facility] Mitral valve regurgitation<sup>6</sup> Active 02/13/2014 Problem 10/27/2016 Data migrated from [employer] on 12/09/14. [facility] Osteoporosis<sup>8</sup> Active 02/13/2014 Problem 10/27/2016 Data migrated from [employer] on 12/09/14. [facility] MITRAL REGURGITATION, MILD Active 02/13/2014 Condition 01/20/2015 [facility] OSTEOPOROSIS Active 02/13/2014 Condition 01/20/2015 [facility] Electrocardiogram abnormal<sup>1</sup> Active 02/05/2014 Problem 10/27/2016 Data migrated from [employer] on 12/09/14. [facility] Gastroesophageal reflux disease<sup>2</sup> Active 02/05/2014 Problem 10/27/2016 Data migrated from [employer] on 12/09/14. [facility] Hyperlipidemia<sup>3</sup> Active 02/05/2014 Problem 10/27/2016 Data migrated from [employer] on 12/09/14. [facility] Menopause present<sup>5</sup> Active 02/05/2014 Problem 10/27/2016 Data migrated from [employer] on 12/09/14. [facility] Osteoarthritis<sup>7</sup> Active 02/05/2014 Problem 10/27/2016 Data migrated from [employer] on 12/09/14. [facility] Urge incontinence of urine<sup>9</sup> Active 02/05/2014 Problem 02/05/2015 Data migrated from [employer] on 12/09/14. [facility] Urge incontinence of urine<sup>10</sup> Active 02/05/2014 Problem 10/27/2016 Data migrated from [employer] on 12/09/14. [facility] HYPERTENSION Inactive 02/05/2014 Condition 01/20/2015 [facility] HYPERLIPIDEMIA Active 02/05/2014 Condition 01/20/2015 [facility] GASTROESOPHAGEAL REFLUX DISEASE Active 02/05/2014 Condition 01/20/2015 [facility] OSTEOARTHRITIS Active 02/05/2014 Condition 01/20/2015 [facility] INCONTINENCE, URGE Active 02/05/2014 Condition 01/20/2015 [facility] ABNORMAL ELECTROCARDIOGRAM Active 02/05/2014 Condition 01/20/2015 [facility] MENOPAUSE Active 02/05/2014 Condition 01/20/2015 [facility] 338 - PAIN NEC Active 04/11/2013 [facility] [place] Final: Stiffness of unspecified joint, not elsewhere classified 06/20/2016 [facility] [place] Final: Difficulty in walking, not elsewhere classified 06/20/2016 [facility] Arthritis Resolved Problem 10/27/2016 [facility] Hip fracture Active Problem 10/27/2016 [facility] Acid reflux Resolved Problem 10/27/2016 [facility] Hiatal hernia Resolved Problem 10/27/2016 [facility] Final: Unspecified fracture of unspecified femur, initial encounter for closed fracture 04/09/2016 [facility] Hip fracture, right Active Problem 06/19/2018 [facility] UNSP FRACTURE OF UNSP FEMUR, INIT ENCNTR Active [facility] OSTEOARTHROS NOS-L/LEG Active [facility] LUMBOSACRAL SPONDYLOSIS Active [facility] OTHER INJURY OF UNSPECIFIED BODY REGION Active [facility] HIP FRACTURE Active [facility] SEPSIS, UNSPECIFIED ORGANISM Active [facility] PRESENCE OF LEFT ARTIFICIAL HIP JOINT Active [facility] PAIN IN UNSPECIFIED HIP Active [facility] MUSCLE WEAKNESS (GENERALIZED) Active [facility] STIFFNESS OF UNSPECIFIED JOINT, NOT ELSE Active [facility] DIFFICULTY IN WALKING, NOT ELSEWHERE CLA Active [facility] Medications Medication Details Route Status Patient Instructions Ordering Provider Order Date Source Sulfamethoxazole/Trimethoprim (Bactrim Ds Tablet) 1 Each Tablet, 1 Tab Oral Daily Active 06/24/2017 [facility] Acetaminophen (Tylenol*) 325 Mg Tablet, 650 Mg Oral As Needed Active 11/29/2016 [facility] Ranitidine Hcl 150 Mg Tablet, 150 Mg Oral Daily Active 11/29/2016 [facility] Silver Sulfadiazine (Silvadene) 20 Gm Cream..g., 1 % Topical Three Times A Day Active 11/29/2016 [facility] Citalopram 40 mg, 4 tab, Route: PO, Drug form: TAB, Daily, Dosing Weight 88.003, kg, Start date: 10/24/16 13:00:00 CDT, Duration: 30 day, Stop date: 11/23/16 9:00:00 CDT Inactive 10/24/2016 [facility] calcitriol 0.5 mcg oral capsule 0.5 microgram=1 cap, PO, Daily, # 30 cap, 0 Refill(s) Active 10/24/2016 [facility] Cefuroxime 250 MG Oral Tablet [Ceftin] 250 mg=1 tab, PO, BID, X 10 day, # 20 tab, 0 Refill(s) Active 10/24/2016 [facility] metroNIDAZOLE 250 mg oral tablet 250 mg=1 tab, PO, ABXQ8H, X 7 day, # 21 tab, 0 Refill(s) Active 10/24/2016 [facility] Atropine Sulfate 0.025 MG / Diphenoxylate Hydrochloride 2.5 MG Oral Tablet [Lomotil] 1 tab, PO, QID, PRN Loose Stools, X 3 day, # 12 tab, 0 Refill(s) Active 10/24/2016 [facility] Flagyl 250 mg, 1 tab, Route: PO, Drug form: TAB, ABXQ8H, Dosing Weight 88.003, kg, Start date: 10/24/16 10:00:00 CDT, Duration: 30 day, Stop date: 11/23/16 2:00:00 CDTNotes: (Same as: Flagyl) Take with food/ avoid alcohol Inactive 10/24/2016 [facility] Atropine Sulfate 0.025 MG / Diphenoxylate Hydrochloride 2.5 MG Oral Tablet [Lomotil] 1 tab, Route: PO, Drug Form: TAB, Dosing Weight 88.003, kg, QID, PRN Loose Stools, Start date: 10/24/16 9:28:00 CDT, Duration: 30 day, Stop date: 11/23/16 9:27:00 CDTNotes: (Same As: Lomotil) MAX Adult dose=8 tabs/day Inactive 10/24/2016 [facility] Potassium Chloride 1.33 MEQ/ML Oral Solution 40 mEq, 30 mL, Route: PO, Drug form: LIQ, ONCE, Dosing Weight 88.003, kg, Start date: 10/23/16 14:40:00 CDT, Stop date: 10/23/16 14:40:00 CDTNotes: (Same as: Potassium Chloride) Inactive 10/23/2016 [facility] ibuprofen 200 mg oral tablet 200 mg, 1 tab, Route: PO, Drug form: TAB, Q6H, Dosing Weight 88.636, kg, PRN Other -See Comment, Start date: 10/22/16 16:29:00 CDT, Duration: 30 day, Stop date: 11/21/16 16:28:00 CDT, feverNotes: (Same as: Advil) Give with food. No Longer Active 10/22/2016 [facility] meropenem 500 mg, Route: IVPB, ABXQ6H, Dosing Weight 88.636, kg, CrCL=26 -49 ml/min, Extended infusion, infuse over 3 hours, Start date: 10/22/16 11:00:00 CDT, Duration: 30 day, Stop date: 11/21/16 7:00:00 CDTNotes: Same as Merrem MEDICATION WASTE Product Size: 500 mg Product Wasted: ___ mg No Longer Active 10/22/2016 [facility] pantoprazole 40 mg, 1 tab, Route: PO, Drug form: ECTAB, Daily, Dosing Weight 88.636, kg, Start date: 10/22/16 9:00:00 CDT, Duration: 30 day, Stop date: 11/20/16 9:00:00 CDTNotes: Tablet should not be chewed or cr ushed. (Same as: Protonix) No Longer Active 10/22/2016 [facility] Streptococcus pneumoniae serotype 1 capsular antigen diphtheria [id number] protein conjugate vaccine / Streptococcus pneumoniae serotype 14 capsular antigen diphtheria [id number] protein conjugate vaccine / Streptococcus pneumoniae serotype 18C capsular antigen d 0.5 mL, Route: IM, Drug Form: INJ, Daily, Start date: 10/22/16 8:19:00 CDT, Duration: 1 doses or times, Stop date: 10/22/16 8:19:00 CDTNotes: Lightly roll vial (DO NOT SHAKE) before administration. (Same as: Prevnar 13) Inactive 10/22/2016 [facility] Morphine 2 mg, 1 mL, Route: IVP, Drug form: INJ, ONCE, Dosing Weight 88.636, kg, Start date: 10/22/16 4:03:00 CDT, Stop date: 10/22/16 4:03:00 CDTNotes: (Same as:MORPhine Sulfate) Inactive 10/22/2016 [facility] Merrem 500 mg, Route: IVPB, Q12H, Dosing Weight 88.636, kg, CrCL >=50ml/min, Extended infusion, infuse over 3 hours, Start date: 10/21/16 21:00:00 CDT, Duration: 30 day, Stop date: 11/20/16 9:00:00 CDTNotes: Same as Merrem MEDICATION WASTE Product Size: 500 mg Product Wasted: ___ mg Inactive 10/22/2016 [facility] Acetaminophen 325 MG / Hydrocodone Bitartrate 5 MG Oral Tablet [[place] 5/325] 1 tab, Route: PO, Drug Form: TAB, Dosing Weight 88.636, kg, Q6H, PRN Pain Score 1-3, Start date: 10/21/16 19:54:00 CDT, Duration: 30 day, Stop date: 11/20/16 19:53:00 CDTNotes: (Same as: [place] 325/5) Do not exceed 4gm/day of acetaminophen. No Longer Active 10/22/2016 [facility] Docusate 100 mg, 1 cap, Route: PO, Drug form: CAP, BID, Dosing Weight 81.818, kg, Start date: 10/21/16 17:00:00 CDT, Duration: 30 day, Stop date: 11/20/16 9:00:00 CDTNotes: (Same as: Colace) (Do Not Crush) No Longer Active 10/21/2016 [facility] Ceftriaxone 1 gm, Route: IVPB, Drug form: PDR/INJ, [id number], Dosing Weight 81.818, kg, Start date: 10/21/16 16:00:00 CDT, Duration: 30 day, Stop date: 11/19/16 16:00:00 CDT Inactive 10/21/2016 [facility] Acetaminophen 650 mg, 2 tab, Route: PO, Drug form: TAB, Q4H, Dosing Weight 81.818, kg, PRN Pain 1-3/Temp > 100.4 F, Start date: 10/21/16 15:54:00 CDT, Duration: 30 day, Stop date: 11/20/16 15:53:00 CDTNotes: Do not exceed 4 gm/day. (Same as: Tylenol) No Longer Active 10/21/2016 [facility] Ondansetron 4 mg, 2 mL, Route: IVP, Drug form: INJ, Q6H, Dosing Weight 81.818, kg, PRN Nausea & Vomiting, Start date: 10/21/16 15:54:00 CDT, Duration: 30 day, Stop date: 11/20/16 15:53:00 CDTNotes: (Same as: Zofran) MEDICATION WASTE Product Size: 4 mg Product Wasted: ___ mg No Longer Active 10/21/2016 [facility] Sodium Chloride 0.154 MEQ/ML Injectable Solution 1,000 mL, Rate: 75 ml/hr, Infuse over: 13.3 hr, Route: IV, Dosing Weight 81.818 kg, Total Volume: 1,000, Start date: 10/21/16 15:54:00 CDT, Duration: 30 day, Stop date: 11/20/16 15:53:00 CDT No Longer Active 10/21/2016 [facility] Saline Flush 0.9% 10 ml, Route: IVP, Drug Form: INJ, Dosing Weight 81.818, kg, PRN, PRN Line Flush, Start date: 10/21/16 15:54:00 CDT, Duration: 30 day, Stop date: 11/20/16 15:53:00 CDTNotes: (Same as: BD Posiflush) No Longer Active 10/21/2016 [facility] Acetaminophen With Codeine (Tylenol With Codeine #3 Tablet) 1 Each Tablet, 300 Mg Oral As Needed Active 06/23/2016 [facility] Meloxicam 7.5 Mg Tablet, 7.5 Mg Oral Daily Active 05/27/2016 [facility] Omeprazole 20 Mg Capsule.dr, 20 Mg Oral Daily Active 05/26/2016 [facility] Physical Therapy See Instructions, MISC, ONCALL, Evaluate and Treat 2-3 times per week for 4-6 weeks, # 1 ea, 0 Refill(s) Active 04/15/2016 [facility] Acetaminophen 300 MG / Codeine Phosphate 30 MG Oral Tablet 1 tab, PO, Q4H, PRN Pain Score 7-10, X 3 day, # 18 tab, 0 Refill(s) Active 04/15/2016 [facility] Acetaminophen 325 MG Oral Capsule [Tylenol] =2 tab, PO, QID, PRN Pain Score 1-5, Do not take more than 3000 mg of combined Acetaminophen per day (which includes the Tylenol #3), # 100 tab, 0 Refill(s), Pharmacy: [facility]/pharmacy #[id number] Active 04/15/2016 [facility] Ergocalciferol 22747 UNT Oral Capsule 50,000 IntlUnit=1 cap, PO, qWeek, # 5 cap, 0 Refill(s), Pharmacy: [facility]/pharmacy #[id number] Active 04/15/2016 [facility] Cefuroxime 500 MG Oral Tablet 500 mg, 2 tab, Route: PO, Drug form: TAB, [id number], Dosing Weight 81.818, kg, Start date: 04/08/16 21:00:00 CDT, Duration: 7 day, Stop date: 04/15/16 9:00:00 CDTNotes: (Do Not Crush) With food. (Same As: Ceftin) No Longer Active 04/09/2016 [facility] Dulcolax Laxative 10 mg, 2 tab, Route: PO, Drug form: ECTAB, Daily, Dosing Weight 81.818, kg, PRN Constipation, Start date: 04/08/16 15:43:00 CDT, Duration: 30 day, Stop date: 05/08/16 15:42:00 CDTNotes: (Same As: Dulcolax, Correctol) (Do Not Crush) "Do Not Crush" No Longer Active 04/08/2016 [facility] cefTRIAXone + sodium chloride 0.9% INJ 100 mL 1 gm, Route: IV, [id number], Start date: 04/08/16 6:00:00 CDT, Duration: 30 day, Stop date: 05/07/16 6:00:00 CDTNotes: (Same As: Rocephin). Use with 100 mL NS and infuse over 30 min MEDICATION WASTE Product Size: 1000 mg Product Wasted: ___ mg Inactive 04/08/2016 [facility] Vitamin D2 50,000 IntlUnit, 1 cap, Route: PO, Drug form: CAP, qWeek, Dosing Weight 81.818, kg, Start date: 04/07/16 17:00:00 CDT, Duration: 5 doses or times, Stop date: 05/05/16 9:00:00 CDTNotes: (Same as: Thea min D) "Do Not Crush" No Longer Active 04/07/2016 [facility] Aspirin 81 mg, 1 tab, Route: PO, Drug form: ECTAB, Daily, Dosing Weight 81.818, kg, Start date: 04/07/16 12:00:00 CDT, Duration: 30 day, Stop date: 05/07/16 9:00:00 CDTNotes: Do not crush or chew. (Same As: Ecotrin) No Longer Active 04/07/2016 [facility] Tums 500 mg, 1 tab, Route: CHEW, Drug form: CHEWTAB, QID, PRN Indigestion, Start date: 04/07/16 11:35:00 CDT, Duration: 30 day, Stop date: 05/07/16 11:34:00 CDTNotes: (Same As: Tums) Calcium Carbonate 500 yi=682 mg elemental calcium Dose= mg calcium carbonate ( mg elemental calcium) No Longer Active 04/07/2016 [facility] Rolaids Reformulated Feb 2006 1 tab, Route: PO, Drug Form: TAB, Dosing Weight 81.818, kg, QID, PRN Indigestion, Start date: 04/07/16 11:29:00 CDT, Duration: 30 day, Stop date: 05/07/16 11:28:00 CDT Inactive 04/07/2016 [facility] Ditropan XL 15 mg, 3 tab, Route: PO, Drug form: ERTAB, Daily, Dosing Weight 81.818, kg, Start date: 04/07/16 9:00:00 CDT, Duration: 30 day, Stop date: 05/06/16 9:00:00 CDTNotes: (Same as: Ditropan XL) "Do Not C wang" No Longer Active 04/07/2016 [facility] CeleXA 40 mg, 4 tab, Route: PO, Drug form: TAB, Daily, Dosing Weight 81.818, kg, Start date: 04/07/16 9:00:00 CDT, Duration: 30 day, Stop date: 05/06/16 9:00:00 CDT No Longer Active 04/07/2016 [facility] Rocephin + sodium chloride 0.9% INJ 100 mL 1 gm, Route: IVPB, [id number], Dosing Weight 81.818, kg, Start date: 04/07/16 8:00:00 CDT, Duration: 30 day, Stop date: 05/06/16 8:00:00 CDTNotes: (Same As: Rocephin). Use with 100 mL NS and infuse over 30 min MEDICATION WASTE Product Size: 1000 mg Product Wasted: ___ mg Inactive 04/07/2016 [facility] Protonix 40 mg, 1 tab, Route: PO, Drug form: ECTAB, Before Breakfast, Start date: 04/07/16 7:30:00 CDT, Duration: 30 day, Stop date: 05/06/16 7:30:00 CDTNotes: Tablet should not be chewed or crushed. (Same as: Protonix) No Longer Active 04/07/2016 [facility] Lovenox 40 mg, 0.4 mL, Route: SUB-Q, Drug form: INJ, [id number], Dosing Weight 81.818, kg, Start date: 04/07/16 6:00:00 CDT, Duration: 30 day, Stop date: 05/06/16 6:00:00 CDTNotes: (Same as: Lovenox) No Longer Active 04/07/2016 [facility] remove patch 1 patch, Route: TOP, Bedtime, Drug form: ERFILM, Start date: 04/06/16 21:00:00 CDT, Duration: 30 day, Stop date: 05/05/16 21:00:00 CDTNotes: Remove patch 12 hours after application each day. No Longer Active 04/07/2016 [facility] docusate sodium 100 mg oral capsule 100 mg, 1 cap, Route: PO, Drug form: CAP, BID, Dosing Weight 81.818, kg, Start date: 04/06/16 17:00:00 CDT, Duration: 30 day, Stop date: 05/06/16 9:00:00 CDTNotes: (Same as: Colace) (Do Not Crush) No Longer Active 04/06/2016 [facility] lidocaine topical patch (5% film) 1 [...] of new patch" No Longer Active 04/06/2016 [facility] acetaminophen-codeine 300 mg-60 mg oral tablet 1 tab, Route: PO, Drug Form: TAB, Dosing Weight 81.818, kg, Q4H, PRN Pain Score 6-10, Start date: 04/06/16 13:56:00 CDT, Duration: 30 day, Stop date: 05/06/16 13:55:00 CDTNotes: Do not exceed 4gm/day of acetaminophen. (Same as: Tylenol with Codeine # 4) No Longer Active 04/06/2016 [facility] acetaminophen-codeine 300 mg-30 mg oral tablet 1 tab, Route: PO, Drug Form: TAB, Dosing Weight 81.818, kg, Q4H, PRN Pain Score 4-6, Start date: 04/06/16 13:53:00 CDT, Duration: 30 day, Stop date: 05/06/16 13:52:00 CDTNotes: Do not exceed 4gm/day of acetaminophen. (Same as: Tylenol with Codeine # 3) No Longer Active 04/06/2016 [facility] Trazodone 50 mg, 1 tab, Route: PO, Drug form: TAB, Bedtime, Dosing Weight 81.818, kg, PRN Insomnia, Start date: 04/06/16 12:58:00 CDT, Duration: 30 day, Stop date: 05/06/16 12:57:00 CDTNotes: (Same As: Giuseppe) No Longer Active 04/06/2016 [facility] pantoprazole 40 mg oral enteric coated tablet 40 mg=1 tab, PO, Before Breakfast, 0 Refill(s) On Hold 04/06/2016 [facility] Enoxaparin 40 mg=0.4 mL, SUB-Q, Daily, 0 Refill(s) On Hold 04/06/2016 [facility] Docusate Sodium 100 MG Oral Capsule 100 mg=1 cap, PO, BID, 0 Refill(s) On Hold 04/06/2016 [facility] Acetaminophen 300 MG / Codeine Phosphate 30 MG Oral Tablet 1 tab, Route: PO, Drug Form: TAB, Dosing Weight 81.818, kg, Q4H, PRN Pain Score 4-6, Start date: 04/04/16 13:35:00 CDT, Duration: 30 day, Stop date: 05/04/16 13:34:00 CDTNotes: Do not exceed 4gm/day of acetaminophen. (Same as: Tylenol with Codeine # 3) No Longer Active 04/04/2016 [facility] Acetaminophen 300 MG / Codeine Phosphate 60 MG Oral Tablet [Tylenol with Codeine #4] 1 tab, Route: PO, Drug Form: TAB, Dosing Weight 81.818, kg, Q4H, PRN Pain Score 6-10, Start date: 04/04/16 13:35:00 CDT, Duration: 30 day, Stop date: 05/04/16 13:34:00 CDTNotes: Do not exceed 4gm/day of acetaminophen. (Same as: Tylenol with Codeine # 4) No Longer Active 04/04/2016 [facility] pneumococcal 13-valent vaccine 0.5 mL, Route: IM, Drug Form: INJ, Daily, Start date: 04/04/16 9:00:00 CDT, Duration: 1 doses or times, Stop date: 04/04/16 9:00:00 CDTNotes: Lightly roll vial (DO NOT SHAKE) before administration. (Same as: Prevnar 13) Inactive 04/04/2016 [facility] influenza virus vaccine, inactivated 0.5 mL, Route: IM, Drug Form: SUSP, Daily, Start date: 04/04/16 9:00:00 CDT, Duration: 1 doses or times, Stop date: 04/04/16 9:00:00 CDTNotes: (Same as: Fluzone Quadrivalent, Fluarix Quadrivalent) For 3 years of age and older (0.5 mL IM) Shake well before use Inactive 04/04/2016 [facility] Rocephin 1 gm, Route: IVPB, [id number], Dosing Weight 81.818, kg, Start date: 04/04/16 8:00:00 CDT, Duration: 30 day, Stop date: 05/03/16 8:00:00 CDTNotes: (Same As: Rocephin). Use with 100 mL NS and infuse over 30 min MEDICATION WASTE Product Size: 1000 mg Product Wasted: ___ mg No Longer Active 04/04/2016 [facility] Vancomycin 6.67 MG/ML Injectable Solution 1,000 [...] Wasted: ___ mg No Longer Active 04/04/2016 [facility] ceFAZolin (SCIP) 2 gm, 100 mL, Route: IVPB, Drug form: INJ, [id number], Dosing Weight 81.818, kg, Start date: 04/03/16 19:15:00 CDT, Duration: 3 doses or times, Stop date: 04/04/16 7:15:00 CDTNotes: Same as: Ancef No Longer Active 04/04/2016 [facility] Docusate 100 mg, 1 cap, Route: PO, Drug form: CAP, BID, Dosing Weight 81.818, kg, Start date: 04/03/16 17:00:00 CDT, Duration: 30 day, Stop date: 05/03/16 9:00:00 CDTNotes: (Same as: Colace) (Do Not Crush) No Longer Active 04/03/2016 [facility] Acetaminophen 325 MG / Hydrocodone Bitartrate 10 MG Oral Tablet [[place] 10/325] 2 tab, Route: PO, Drug Form: TAB, Dosing Weight 81.818, kg, QID, Start date: 04/03/16 17:00:00 CDT, Duration: 1 day, Stop date: 04/04/16 13:00:00 CDTNotes: Do not exceed 4gm/day of acetaminophen. (Same as: [place] 325/10) No Longer Active 04/03/2016 [facility] glycopyrrolate (ANES) Route: IV, Drug form: INJ, ONCE, Stop date: 04/03/16 16:00:00 CDT Inactive 04/03/2016 [facility] neostigmine (ANES) Route: IV, Drug form: INJ, ONCE, Stop date: 04/03/16 16:00:00 CDT Inactive 04/03/2016 [facility] Hydromorphone 0.3 mg, 0.3 mL, Route: IVP, Drug form: INJ, Q4H, Dosing Weight 81.818, kg, PRN Pain Score 7-10, Start date: 04/03/16 15:31:00 CDT, Duration: 30 day, Stop date: 05/03/16 15:30:00 CDT No Longer Active 04/03/2016 [facility] Acetaminophen 325 MG / Hydrocodone Bitartrate 10 MG Oral Tablet [[place] 10/325] 2 tab, Route: PO, Drug Form: TAB, Dosing Weight 81.818, kg, Q4H, PRN Pain Score 4-6, Start date: 04/03/16 15:31:00 CDT, Duration: 30 day, Stop date: 05/03/16 15:30:00 CDTNotes: Do not exceed 4gm/day of acetaminophen. (Same as: [place] 325/10) No Longer Active 04/03/2016 [facility] Ondansetron 4 mg, 2 mL, Route: IVP, Drug form: INJ, Q8H, Dosing Weight 81.818, kg, PRN Nausea & Vomiting, Start date: 04/03/16 15:31:00 CDT, Duration: 30 day, Stop date: 05/03/16 15:30:00 CDTNotes: (Same as: Mary) MEDICATION WASTE Product Size: 4 mg Product Wasted: ___ mg No Longer Active 04/03/2016 [facility] sodium chloride 0.45% 1000 ml INJ 1,000 mL 1,000 mL, Rate: 75 ml/hr, Infuse over: 13.3 hr, Route: IV, Dosing Weight 81.818 kg, Total Volume: 1,000, Start date: 04/03/16 15:31:00 CDT, Duration: 30 day, Stop date: 05/03/16 15:30:00 CDT No Longer Active 04/03/2016 [facility] acetaminophen (ANES) Route: IV, Drug form: INJ, ONCE, Stop date: 04/03/16 15:01:00 CDT Inactive 04/03/2016 [facility] dexamethasone (ANES) Route: IV, Drug form: INJ, ONCE, Stop date: 04/03/16 14:56:00 CDT Inactive 04/03/2016 [facility] ondansetron (ANES) Route: IV, Drug form: INJ, ONCE, Stop date: 04/03/16 14:56:00 CDT Inactive 04/03/2016 [facility] ketOROLAC (ANES) IV, ONCE Inactive 04/03/2016 [facility] Cleocin Phosphate (ANES) Route: IV, Drug form: INJ, ONCE, Stop date: 04/03/16 14:51:00 CDT Inactive 04/03/2016 [facility] ceFAZolin (ANES) Route: IV, Drug form: INJ, ONCE, Stop date: 04/03/16 14:51:00 CDT Inactive 04/03/2016 [facility] rocuronium (ANES) Route: IV, Drug form: INJ, ONCE, Stop date: 04/03/16 14:46:00 CDT Inactive 04/03/2016 [facility] fentaNYL (ANES) Route: IV, Drug form: INJ, ONCE, Stop date: 04/03/16 14:46:00 CDT Inactive 04/03/2016 [facility] propofol (ANES) Route: IV, Drug form: INJ, ONCE, Stop date: 04/03/16 14:46:00 CDT Inactive 04/03/2016 [facility] lidocaine (ANES) Route: IV, Drug form: INJ, ONCE, Stop date: 04/03/16 14:46:00 CDT Inactive 04/03/2016 [facility] midazolam (ANES) Route: IV, Drug form: SOLN, ONCE, Stop date: 04/03/16 14:36:00 CDT Inactive 04/03/2016 [facility] ePHEDrine (ANES) Route: IV, Drug form: INJ, ONCE, Stop date: 04/03/16 14:16:00 CDT Inactive 04/03/2016 [facility] LR 1000 mL INJ (ANES) Route: IV, Total Volume: 1,000, Start date: 04/03/16 13:26:00 CDT, Stop date: 04/03/16 14:26:00 CDT Inactive 04/03/2016 [facility] Streptococcus pneumoniae serotype 1 capsular antigen diphtheria [id number] protein conjugate vaccine / Streptococcus pneumoniae serotype 14 capsular antigen diphtheria [id number] protein conjugate vaccine / Streptococcus pneumoniae serotype 18C capsular antigen d 0.5 mL, Route: IM, Drug Form: INJ, Daily, Start date: 04/03/16 9:00:00 CDT, Stop date: 04/03/16 12:00:00 CDTNotes: Lightly roll vial (DO NOT SHAKE) before administration. (Same as: Prevnar 13) Inactive 04/03/2016 [facility] influenza virus vaccine, inactivated 0.5 mL, Route: IM, Drug Form: SUSP, Daily, Start date: 04/03/16 9:00:00 CDT, Stop date: 04/03/16 12:00:00 CDTNotes: (Same as: Fluzone Quadrivalent, Fluarix Quadrivalent) For 3 years of age and older (0.5 mL IM) Shake well before use Inactive 04/03/2016 [facility] Omeprazole 40 mg, Route: PO, Drug form: DRC, Daily, Dosing Weight 81.818, kg, Start date: 04/03/16 9:00:00 CDT, Duration: 30 day, Stop date: 05/02/16 9:00:00 CDT No Longer Active 04/03/2016 [facility] oxybutynin 15 mg, 3 tab, Route: PO, Drug form: ERTAB, Daily, Dosing Weight 81.818, kg, Start date: 04/03/16 9:00:00 CDT, Duration: 30 day, Stop date: 05/02/16 9:00:00 CDTNotes: (Same as: Ditropan XL) "Do Not Crush" No Longer Active 04/03/2016 [facility] Citalopram 40 mg, 4 tab, Route: PO, Drug form: TAB, Daily, Dosing Weight 81.818, kg, Start date: 04/03/16 9:00:00 CDT, Duration: 30 day, Stop date: 05/02/16 9:00:00 CDT No Longer Active 04/03/2016 [facility] Sulfamethoxazole 800 MG / Trimethoprim 160 MG Oral Tablet 1 tab, PO, Daily, 0 Refill(s) On Hold 04/03/2016 [facility] Protonix 40 mg, 1 tab, Route: PO, Drug form: ECTAB, Before Breakfast, Start date: 04/03/16 7:30:00 CDT, Duration: 30 day, Stop date: 05/02/16 7:30:00 CDTNotes: Tablet should not be chewed or crushed. (Same as: Protonix) No Longer Active 04/03/2016 [facility] Enoxaparin 40 mg, 0.4 mL, Route: SUB-Q, Drug form: INJ, Daily, Dosing Weight 81.818, kg, Start date: 04/03/16 7:07:00 CDT, Duration: 30 day, Stop date: 05/03/16 6:00:00 CDTNotes: (Same as: Lovenox) No Longer Active 04/03/2016 [facility] remove patch Route: MISC, Bedtime, Drug form: ERFILM, Start date: 04/02/16 21:00:00 CDT, Duration: 30 day, Stop date: 05/01/16 21:00:00 CDTNotes: Remove patch 12 hours after application each day. No Longer Active 04/03/2016 [facility] Aspirin 81 mg, 1 tab, Route: PO, Drug form: ECTAB, Daily, Dosing Weight 81.818, kg, Start date: 04/02/16 20:30:00 CDT, Duration: 30 day, Stop date: 05/02/16 9:00:00 CDTNotes: Do not crush or chew. (Same As: Ecotrin) No Longer Active 04/03/2016 [facility] celecoxib 400 mg, 2 cap, Route: PO, Drug form: CAP, ONCALL, Dosing Weight 81.818, kg, (for CrCl > 90 mL/min), Start date: 04/02/16 20:00:00 CDT, Duration: 30 day, Stop date: 05/02/16 19:59:00 CDTNotes: NSAID. Please check indication. Not for seizure. (Same As: CeleBREX) Inactive 04/03/2016 [facility] Cefazolin 2 gm, 100 mL, Route: IVPB, Drug form: INJ, ONCALL, Dosing Weight 81.818, kg, (Patients weighing Notes: Same as: Ancef Inactive 04/03/2016 [facility] Lidocaine Hydrochloride 0.05 MG/MG Transdermal Patch [...] of new patch" No Longer Active 04/03/2016 [facility] Acetaminophen 300 MG / Codeine Phosphate 60 MG Oral Tablet 1 tab, Route: PO, Drug Form: TAB, Dosing Weight 81.818, kg, Q4H, PRN Pain Score 7-10, Start date: 04/02/16 19:47:00 CDT, Duration: 30 day, Stop date: 05/02/16 19:46:00 CDTNotes: Do not exceed 4gm/day of acetaminophen. (Same as: Tylenol with Codeine # 4) No Longer Active 04/03/2016 [facility] Rocephin 1 gm, Route: IVPB, Drug form: PDR/INJ, [id number], Dosing Weight 81.818, kg, Priority: STAT, Start date: 04/02/16 19:42:00 CDT, Duration: 1 day, Stop date: 04/02/16 19:42:00 CDT Inactive 04/03/2016 [facility] MegaKrill 500 mg=, PO, Daily, "MegaRed", 0 Refill(s) On Hold 04/02/2016 [facility] Centrum Women's oral tablet 1 tab, PO, Daily, 0 Refill(s) On Hold 04/02/2016 [facility] Aspirin 81 mg, PO, Daily, 0 Refill(s) On Hold 04/02/2016 [facility] Sulfamethoxazole 40 MG/ML / Trimethoprim 8 MG/ML Oral Suspension PO, Daily, DOSE UNKNOWN, 0 Refill(s) No Longer Active 04/02/2016 [facility] Tylenol 650 mg, PO, 0 Refill(s) On Hold 04/02/2016 [facility] acetaminophen 325 mg oral tablet 650 mg, 2 tab, Route: PO, ONCE, Dosing Weight 81.818, kg, Start date: 04/02/16 15:57:00 CDT, Stop date: 04/02/16 15:57:00 CDT Inactive 04/02/2016 [facility] Sodium Chloride 0.154 MEQ/ML Injectable Solution 1,000 mL, Rate: 125 ml/hr, Infuse over: 8 hr, Route: IV, Dosing Weight 81.818 kg, Total Volume: 1,000, Start date: 04/02/16 15:28:00 CDT, Duration: 30 day, Stop date: 05/02/16 15:27:00 CDT No Longer Active 04/02/2016 [facility] Morphine 4 mg, 2 mL, Route: IVP, Drug form: INJ, Q4H, Dosing Weight 81.818, kg, PRN Pain Score 7-10, Start date: 04/02/16 15:28:00 CDT, Duration: 30 day, Stop date: 05/02/16 15:27:00 CDTNotes: (Same as:MORPhine Sulfate) No Longer Active 04/02/2016 [facility] Ondansetron 4 mg, 2 mL, Route: IVP, Drug form: INJ, Q6H, Dosing Weight 81.818, kg, PRN Nausea & Vomiting, Start date: 04/02/16 15:28:00 CDT, Duration: 30 day, Stop date: 05/02/16 15:27:00 CDTNotes: (Same as: Mary) MEDICATION WASTE Product Size: 4 mg Product Wasted: ___ mg No Longer Active 04/02/2016 [facility] Saline Flush 0.9% 10 ml, Route: IVP, Drug Form: INJ, Dosing Weight 81.818, kg, PRN, PRN Line Flush, Start date: 04/02/16 15:28:00 CDT, Duration: 30 day, Stop date: 05/02/16 15:27:00 CDTNotes: (Same as: BD Posiflush) No Longer Active 04/02/2016 [facility] Lidocaine Hydrochloride 0.05 MG/MG Transdermal Patch [Lidoderm] 1 patch, TOP, Daily, PRN Pain Score 1-5, 0 Refill(s) On Hold 04/02/2016 [facility] Acetaminophen 300 MG / Codeine Phosphate 60 MG Oral Tablet 1 tab, PO, Q4H, PRN Pain Score 7-10, TAKE 1 TABLET BY MOUTH EVERY 4-6 HOUIRS NEEDED FOR SEVERE PAIN On Hold 04/02/2016 [facility] citalopram 40 mg oral tablet 40 mg=1 tab, PO, Daily, 0 Refill(s) On Hold 04/02/2016 [facility] omeprazole 40 mg oral delayed release capsule 40 mg=1 cap, PO, Daily, 0 Refill(s) On Hold 04/02/2016 [facility] oxybutynin 15 mg oral tablet, extended release 15 mg=1 tab, PO, Daily, 0 Refill(s) On Hold 04/02/2016 [facility] Alendronic acid 70 MG Oral Tablet 70 mg=1 tab, PO, Q7D, 0 Refill(s) On Hold 04/02/2016 [facility] Ceftriaxone 1 gm, Route: IVPB, Drug form: PDR/INJ, ONCE, Dosing Weight 81.818, kg, Priority: STAT, Start date: 04/02/16 14:56:00 CDT, Stop date: 04/02/16 14:56:00 CDT Inactive 04/02/2016 [facility] Morphine 4 mg, 2 mL, Route: IVP, Drug form: INJ, ONCE, Dosing Weight 87.27, kg, Start date: 04/02/16 13:32:00 CDT, Stop date: 04/02/16 13:32:00 CDTNotes: (Same as:MORPhine Sulfate) Inactive 04/02/2016 [facility] Ketoprofen 50 Mg Capsule, 50 Mg Oral Twice A Day Active 04/28/2015 [facility] Omeprazole 20 Mg Capsule.dr, 20 Mg Oral Daily Active 04/28/2015 [facility] Oxybutynin Chloride (Oxybutynin Chloride Er) 15 Mg Tab.er.24, 15 Mg Oral Daily Active 04/28/2015 [facility] Pravastatin Sodium 40 Mg Tablet, 40 Mg Oral Daily Active 04/28/2015 [facility] OMEPRAZOLE 20 MG CPDR one capsule daily Active 01/16/2015 [facility] FOSAMAX 70 MG TABS 1 tablet weekly with 8 oz water Active 01/16/2015 [facility] CIPRODEX 0.3-0.1 % SUSP 4 drops into affected ear twice daily for 7 days Active 01/16/2015 [facility] OXYBUTYNIN CHLORIDE ER 15 MG [id number] One po daily Active 07/01/2014 [facility] NITROFURANTOIN MACROCRYSTAL 100 MG CAPS 1 capsule po daily No Longer Active 07/01/2014 [facility] ASPIRIN 81 MG TBEC 2 po daily [...] [facility] OXYBUTYNIN CHLORIDE ER 15 MG [id number] One po daily Active 07/01/2014 [facility] [...] [facility] OXYBUTYNIN CHLORIDE ER 15 MG [id number] ONE TAB DAILY No Longer Active 02/05/2014 [facility] PRAVASTATIN SODIUM 40 MG TABS [...] [facility] OXYBUTYNIN CHLORIDE ER 15 MG [id number] ONE TAB DAILY No Longer Active 02/05/2014 [facility] HYDROCODONE-ACETAMINOPHEN 7.5-325 MG TABS 1 tablet daily as needed for severe pain No Longer Active 02/05/2014 [facility] LISINOPRIL 5 MG TABS 1 tablet daily No Longer Active 02/05/2014 [facility] Lisinopril 40 Mg Tablet, 40 Mg Oral Daily Active 11/01/2013 [facility] Oxybutynin Chloride 5 Mg Tablet, 5 Mg Oral Daily Active 06/16/2012 [facility] Acetaminophen With Codeine (Tylenol With Codeine #4 Tablet) 1 Each Tablet Every 6 Hours as needed for Pain Active [facility] Alendronate Sodium 70 Mg Tablet Weekly [facility] Aspirin (Aspir 81) 81 Mg Tablet. Daily Active [facility] Citalopram Hydrobromide (Citalopram Hbr) 40 Mg Tablet Daily Active [facility] Cranberry Daily [facility] Dexlansoprazole (Dexilant) 60 Mg Cap. Daily Active THERAPEUTIC INTERCHANGE WITH PROTONIX PER [facility] Lidocaine 5% Patch As Needed [facility] Multivitamin (Multivitamins) 1 Each Capsule Daily [facility] [place] 3 Krill Oil Daily [facility] Oxybutynin Chloride (Oxybutynin Chloride Er) 15 Mg Tab.er.24 As Needed [facility] Allergies, Adverse Reactions, Alerts Substance Category Reaction Severity Reaction type Status Date Reported Comments Source No Known Drug Allergies Mild Allergy to Substance Active 05/26/2016 [facility] Immunizations Immunization Date Given Site Status Last Updated Comments Source pneumococcal 13-valent vaccine 10/22/2016 Not Given [facility] influenza virus vaccine, inactivated 04/04/2016 Left Deltoid completed [facility] Manjinder pneumococcal 13-valent vaccine 04/04/2016 Right Deltoid completed [facility] Results Order Name Results Value Reference Range Date Interpretation Comments Source ELECTROLYTES AGAP 12.3 meq/L 10.0 - 20.0 10/23/2016 [facility] ELECTROLYTES eGFR 96 mL/min/1.73m2 10/23/2016 Result [...] should be multiplied by the estimated BMI. [facility] ELECTROLYTES Sodium Lvl 141 meq/L 135 - 145 10/23/2016 [facility] ELECTROLYTES Potassium Lvl 3.3 meq/L 3.5 - 5.1 10/23/2016 [facility] ELECTROLYTES Creatinine Lvl 0.55 mg/dL 0.50 - 1.40 10/23/2016 [facility] ELECTROLYTES Glucose Lvl 91 mg/dL 70 - 99 10/23/2016 [facility] ELECTROLYTES BUN 8 mg/dL 7 - 22 10/23/2016 [facility] ELECTROLYTES Calcium Lvl 8.1 mg/dL 8.5 - 10.5 10/23/2016 [facility] ELECTROLYTES CO2 25 meq/L 24 - 32 10/23/2016 [facility] ELECTROLYTES Chloride Lvl 107 meq/L 95 - 109 10/23/2016 [facility] MPV 7.5 fL 7.4 - 10.4 10/23/2016 [facility] Platelet 130 K/CMM 133 - 450 10/23/2016 [facility] RDW 14.8 % 11.5 - 14.5 10/23/2016 [facility] MCH 29.2 pg 27.0 - 31.0 10/23/2016 [facility] Hct 35.3 % 36.0 - 48.0 10/23/2016 [facility] MCHC 33.5 g/dL 32.0 - 36.0 10/23/2016 [facility] WBC 5.8 K/CMM 3.7 - 10.4 10/23/2016 [facility] MCV 87.1 fL 80.0 - 98.0 10/23/2016 [facility] RBC 4.06 M/CMM 4.20 - 5.40 10/23/2016 [facility] Hgb 11.8 g/dL 12.0 - 16.0 10/23/2016 [facility] RBC 4.11 M/CMM 4.20 - 5.40 10/22/2016 [facility] WBC 9.3 K/CMM 3.7 - 10.4 10/22/2016 [facility] Hct 35.9 % 36.0 - 48.0 10/22/2016 [facility] Hgb 11.9 g/dL 12.0 - 16.0 10/22/2016 [facility] MCV 87.3 fL 80.0 - 98.0 10/22/2016 [facility] MCHC 33.3 g/dL 32.0 - 36.0 10/22/2016 [facility] MCH 29.0 pg 27.0 - 31.0 10/22/2016 [facility] MPV 7.4 fL 7.4 - 10.4 10/22/2016 [facility] RDW 14.6 % 11.5 - 14.5 10/22/2016 [facility] Platelet 170 K/CMM 133 - 450 10/22/2016 [facility] Retroperitoneal Complete US Retroperitoneal Complete US Patient Name: LUCRECIA QUEZADA : 1945; Age: 71 years y/o Female MR: [id number] Study: Retroperitoneal Complete US Clinical Indication: Urinary [...] Leobardo Brandon MD 10/22/16 17:44 FINAL REPORT [facility] Abdomen/Pelvis wo IV contrast CT Abdomen/Pelvis wo IV contrast CT Patient Name: LUCRECIA QUEZADA : 1945; Age: 71 years Female MR: [id number] Study: Abdomen/Pelvis wo IV contrast CT 10/21/2016 [...] kidney. Sigmoid and descending colon diverticulosis. SL: [id number] 10/22/2016 - - Read by: Rosemarie Estrada MD Dictated Date/time: 10/22/16 18:32 Electronically Signed by: Rosemarie Estrada MD 10/22/16 18:40 FINAL REPORT [facility] URINE AND STOOL UA Urobilinogen <=1.0 mg/dL 0.1 - 1.0 10/22/2016 [facility] URINE AND STOOL UA Color Ltyellow 10/22/2016 [facility] URINE AND STOOL UA Glucose Negative mg/dL Negative mg/dL 10/22/2016 [facility] URINE AND STOOL UA Nitrite Negative (10/22/16 5:15 AM) Negative 10/22/2016 [facility] URINE AND STOOL UA Blood Small *ABN* (10/22/16 5:15 AM) Negative 10/22/2016 [facility] URINE AND STOOL UA Leuk Est Large *ABN* (10/22/16 5:15 AM) Negative 10/22/2016 [facility] URINE AND STOOL UA WBC 12 /HPF 0 - 5 10/22/2016 [facility] URINE AND STOOL UA Bacteria Occasional /HPF None Seen /HPF 10/22/2016 [facility] URINE AND STOOL UA Bili Negative *NA* (10/22/16 5:15 AM) Negative 10/22/2016 [facility] URINE AND STOOL UA Ketones Negative mg/dL Negative mg/dL 10/22/2016 [facility] URINE AND STOOL UA Sq Epi None Seen 10/22/2016 [facility] URINE AND STOOL UA RBC 1 /HPF 0 - 2 10/22/2016 [facility] URINE AND STOOL UA pH 7.0 5.0 - 8.0 10/22/2016 [facility] URINE AND STOOL UA Protein Negative mg/dL Negative mg/dL 10/22/2016 [facility] URINE AND STOOL UA Turbidity Clear (10/22/16 5:15 AM) Clear 10/22/2016 [facility] URINE AND STOOL UA Spec Grav 1.006 <=1.030 10/22/2016 [facility] CHEM PANEL Lactic Acid Lvl 1.0 mMol/L 0.5 - 2.2 10/22/2016 [facility] CHEM PANEL Phosphorus 3.4 mg/dL 2.5 - 4.5 10/21/2016 [facility] CHEM PANEL Magnesium Lvl 2.0 mg/dL 1.8 - 2.4 10/21/2016 [facility] ELECTROLYTES AGAP 12.0 meq/L 10.0 - 20.0 10/21/2016 [facility] ELECTROLYTES Globulin 3.8 g/dL 2.7 - 4.2 10/21/2016 [facility] ELECTROLYTES B/C Ratio 16 6 - 25 10/21/2016 [facility] ELECTROLYTES A/G Ratio 0.8 0.7 - 1.6 10/21/2016 [facility] ELECTROLYTES eGFR 67 mL/min/1.73m2 10/21/2016 Result [...] should be multiplied by the estimated BMI. [facility] ELECTROLYTES Creatinine Lvl 0.88 mg/dL 0.50 - 1.40 10/21/2016 [facility] ELECTROLYTES Sodium Lvl 139 meq/L 135 - 145 10/21/2016 [facility] ELECTROLYTES Glucose Lvl 91 mg/dL 70 - 99 10/21/2016 [facility] ELECTROLYTES BUN 14 mg/dL 7 - 22 10/21/2016 [facility] ELECTROLYTES Potassium Lvl 4.0 meq/L 3.5 - 5.1 10/21/2016 [facility] ELECTROLYTES Chloride Lvl 103 meq/L 95 - 109 10/21/2016 [facility] ELECTROLYTES CO2 28 meq/L 24 - 32 10/21/2016 [facility] ELECTROLYTES Calcium Lvl 10.1 mg/dL 8.5 - 10.5 10/21/2016 [facility] ELECTROLYTES Total Protein 7.0 g/dL 6.4 - 8.4 10/21/2016 [facility] ELECTROLYTES Albumin Lvl 3.2 g/dL 3.5 - 5.0 10/21/2016 [facility] ELECTROLYTES ALT 12 unit/L 0 - 65 10/21/2016 [facility] ELECTROLYTES AST 13 unit/L 0 - 37 10/21/2016 [facility] ELECTROLYTES Alk Phos 64 unit/L 39 - 136 10/21/2016 [facility] ELECTROLYTES Bili Total 0.9 mg/dL 0.2 - 1.3 10/21/2016 [facility] HEMATOLOGY Monocytes # 1.0 K/CMM 0.0 - 0.8 10/21/2016 [facility] HEMATOLOGY Segs 84.2 % 45.0 - 75.0 10/21/2016 [facility] HEMATOLOGY Eosinophils 0.4 % 0.0 - 4.0 10/21/2016 [facility] Basophils 0.5 % 0.0 - 1.0 10/21/2016 [facility] Segs-Bands # 14.4 K/CMM 1.5 - 8.1 10/21/2016 [facility] Lymphocytes # 1.5 K/CMM 1.0 - 5.5 10/21/2016 [facility] Monocytes 6.1 % 2.0 - 12.0 10/21/2016 [facility] Basophils # 0.1 K/CMM 0.0 - 0.2 10/21/2016 [facility] Eosinophils # 0.1 K/CMM 0.0 - 0.5 10/21/2016 [facility] Lymphocytes 8.8 % 20.0 - 40.0 10/21/2016 [facility] MPV 7.3 fL 7.4 - 10.4 10/21/2016 [facility] RBC 4.39 M/CMM 4.20 - 5.40 10/21/2016 [facility] WBC 17.1 K/CMM 3.7 - 10.4 10/21/2016 [facility] MCHC 33.5 g/dL 32.0 - 36.0 10/21/2016 [facility] Hgb 12.9 g/dL 12.0 - 16.0 10/21/2016 [facility] MCV 87.6 fL 80.0 - 98.0 10/21/2016 [facility] MCH 29.3 pg 27.0 - 31.0 10/21/2016 [facility] Platelet 226 K/CMM 133 - 450 10/21/2016 [facility] RDW 14.7 % 11.5 - 14.5 10/21/2016 [facility] Hct 38.5 % 36.0 - 48.0 10/21/2016 [facility] CHEM PANEL Vitamin D, 25-OH, Total 16 ng/mL 30 - 100 04/07/2016 [facility] CHEM PANEL eGFR 97 mL/min/1.73m2 04/07/2016 [...] should be multiplied by the estimated BMI. [facility] CHEM PANEL Calcium Lvl 8.5 mg/dL 8.5 - 10.5 04/07/2016 [facility] CHEM PANEL Chloride Lvl 104 meq/L 95 - 109 04/07/2016 [facility] CHEM PANEL CO2 30 meq/L 24 - 32 04/07/2016 [facility] CHEM PANEL Sodium Lvl 139 meq/L 135 - 145 04/07/2016 [facility] CHEM PANEL Potassium Lvl 3.5 meq/L 3.5 - 5.1 04/07/2016 [facility] CHEM PANEL Creatinine Lvl 0.54 mg/dL 0.50 - 1.40 04/07/2016 [facility] CHEM PANEL BUN 5 mg/dL 7 - 22 04/07/2016 [facility] CHEM PANEL Glucose Lvl 101 mg/dL 70 - 99 04/07/2016 [facility] CHEM PANEL AGAP 8.5 meq/L 10.0 - 20.0 04/07/2016 [facility] CHEM PANEL Albumin Lvl 2.6 g/dL 3.5 - 5.0 04/07/2016 [facility] CHEM PANEL Phosphorus 4.1 mg/dL 2.5 - 4.5 04/07/2016 [facility] CHEM PANEL Magnesium Lvl 2.1 mg/dL 1.8 - 2.4 04/07/2016 [facility] HEMATOLOGY Monocytes # 0.7 K/CMM 0.0 - 0.8 04/07/2016 [facility] HEMATOLOGY Lymphocytes # 1.6 K/CMM 1.0 - 5.5 04/07/2016 [facility] HEMATOLOGY Segs-Bands # 4.0 K/CMM 1.5 - 8.1 04/07/2016 [facility] HEMATOLOGY Monocytes 10.0 % 2.0 - 12.0 04/07/2016 [facility] HEMATOLOGY Eosinophils 6.5 % 0.0 - 4.0 04/07/2016 [facility] HEMATOLOGY Basophils 0.6 % 0.0 - 1.0 04/07/2016 [facility] HEMATOLOGY Segs 58.5 % 45.0 - 75.0 04/07/2016 [facility] HEMATOLOGY Lymphocytes 24.4 % 20.0 - 40.0 04/07/2016 [facility] HEMATOLOGY Eosinophils # 0.4 K/CMM 0.0 - 0.5 04/07/2016 [facility] HEMATOLOGY PT 13.5 s 12.0 - 14.7 04/07/2016 [facility] HEMATOLOGY PTT 31.3 s 22.9 - 35.8 04/07/2016 [facility] HEMATOLOGY INR 1.01 0.85 - 1.17 04/07/2016 [facility] HEMATOLOGY MPV 7.1 fL 7.4 - 10.4 04/07/2016 [facility] HEMATOLOGY MCHC 33.9 g/dL 32.0 - 36.0 04/07/2016 [facility] HEMATOLOGY Platelet 244 K/CMM 133 - 450 04/07/2016 [facility] HEMATOLOGY RDW 13.8 % 11.5 - 14.5 04/07/2016 [facility] HEMATOLOGY Hct 30.1 % 36.0 - 48.0 04/07/2016 [facility] HEMATOLOGY Hgb 10.2 g/dL 12.0 - 16.0 04/07/2016 [facility] HEMATOLOGY MCH 30.3 pg 27.0 - 31.0 04/07/2016 [facility] HEMATOLOGY MCV 89.3 fL 80.0 - 98.0 04/07/2016 [facility] HEMATOLOGY RBC 3.37 M/CMM 4.20 - 5.40 04/07/2016 [facility] HEMATOLOGY WBC 6.7 K/CMM 3.7 - 10.4 04/07/2016 [facility] IMMUNOLOGY Prealbumin 11.1 mg/dL 18.0 - 45.0 04/07/2016 [facility] HEMATOLOGY Segs-Bands # 5.6 K/CMM 1.5 - 8.1 04/05/2016 [facility] HEMATOLOGY Basophils 0.6 % 0.0 - 1.0 04/05/2016 [facility] HEMATOLOGY Eosinophils 5.2 % 0.0 - 4.0 04/05/2016 [facility] HEMATOLOGY Eosinophils # 0.4 K/CMM 0.0 - 0.5 04/05/2016 [facility] HEMATOLOGY Lymphocytes # 1.3 K/CMM 1.0 - 5.5 04/05/2016 [facility] HEMATOLOGY Monocytes # 0.6 K/CMM 0.0 - 0.8 04/05/2016 [facility] HEMATOLOGY Segs 70.4 % 45.0 - 75.0 04/05/2016 [facility] HEMATOLOGY Monocytes 7.3 % 2.0 - 12.0 04/05/2016 [facility] HEMATOLOGY Lymphocytes 16.5 % 20.0 - 40.0 04/05/2016 [facility] HEMATOLOGY MCHC 33.5 g/dL 32.0 - 36.0 04/05/2016 [facility] HEMATOLOGY MCH 30.0 pg 27.0 - 31.0 04/05/2016 [facility] HEMATOLOGY RDW 13.6 % 11.5 - 14.5 04/05/2016 [facility] HEMATOLOGY MCV 89.5 fL 80.0 - 98.0 04/05/2016 [facility] HEMATOLOGY Hct 30.1 % 36.0 - 48.0 04/05/2016 [facility] HEMATOLOGY Hgb 10.1 g/dL 12.0 - 16.0 04/05/2016 [facility] HEMATOLOGY Platelet 172 K/CMM 133 - 450 04/05/2016 [facility] HEMATOLOGY MPV 7.6 fL 7.4 - 10.4 04/05/2016 [facility] HEMATOLOGY RBC 3.37 M/CMM 4.20 - 5.40 04/05/2016 [facility] HEMATOLOGY WBC 8.0 K/CMM 3.7 - 10.4 04/05/2016 [facility] CHEM PANEL BUN 6 mg/dL 7 - 22 04/04/2016 [facility] CHEM PANEL Glucose Lvl 116 mg/dL 70 - 99 04/04/2016 [facility] CHEM PANEL Sodium Lvl 136 meq/L 135 - 145 04/04/2016 [facility] CHEM PANEL Chloride Lvl 104 meq/L 95 - 109 04/04/2016 [facility] CHEM PANEL Creatinine Lvl 0.58 mg/dL 0.50 - 1.40 04/04/2016 [facility] CHEM PANEL Potassium Lvl 4.1 meq/L 3.5 - 5.1 04/04/2016 [facility] CHEM PANEL CO2 25 meq/L 24 - 32 04/04/2016 [facility] CHEM PANEL Calcium Lvl 7.9 mg/dL 8.5 - 10.5 04/04/2016 [facility] CHEM PANEL eGFR 94 mL/min/1.73m2 04/04/2016 [...] should be multiplied by the estimated BMI. [facility] CHEM PANEL AGAP 11.1 meq/L 10.0 - 20.0 04/04/2016 [facility] HEMATOLOGY MCHC 34.0 g/dL 32.0 - 36.0 04/04/2016 [facility] MPV 7.4 fL 7.4 - 10.4 04/04/2016 [facility] Platelet 159 K/CMM 133 - 450 04/04/2016 [facility] RDW 13.4 % 11.5 - 14.5 04/04/2016 [facility] MCH 30.4 pg 27.0 - 31.0 04/04/2016 [facility] MCV 89.2 fL 80.0 - 98.0 04/04/2016 [facility] Hct 30.0 % 36.0 - 48.0 04/04/2016 [facility] Hgb 10.2 g/dL 12.0 - 16.0 04/04/2016 [facility] RBC 3.36 M/CMM 4.20 - 5.40 04/04/2016 [facility] WBC 10.2 K/CMM 3.7 - 10.4 04/04/2016 [facility] Segs 87.8 % 45.0 - 75.0 04/04/2016 [facility] Monocytes # 0.5 K/CMM 0.0 - 0.8 04/04/2016 [facility] Lymphocytes # 0.7 K/CMM 1.0 - 5.5 04/04/2016 [facility] Monocytes 5.0 % 2.0 - 12.0 04/04/2016 [facility] Lymphocytes 6.8 % 20.0 - 40.0 04/04/2016 [facility] Eosinophils 0.2 % 0.0 - 4.0 04/04/2016 [facility] HEMATOLOGY Basophils 0.2 % 0.0 - 1.0 04/04/2016 [facility] HEMATOLOGY Segs-Bands # 8.9 K/CMM 1.5 - 8.1 04/04/2016 [facility] Pelvis AP DX Pelvis AP DX Pelvis AP DX CLINICAL HISTORY: Fracture FINDINGS/IMPRESSION: Single AP view of the pelvis is submitted for review. Postoperative changes related to left hip arthroplasty are evident. No gross evidence for zuni bone fractures. Solid state device with sacral lead is stable in position. SL: [id number] 04/03/2016 - - Read by: Kris Delgado MD Dictated Date/time: 04/03/16 16:18 Electronically Signed by: Kris Delgado MD 04/03/16 16:19 FINAL REPORT [facility] CHEM PANEL Calcium Lvl 8.4 mg/dL 8.5 - 10.5 04/03/2016 [facility] CHEM PANEL CO2 28 meq/L 24 - 32 04/03/2016 [facility] CHEM PANEL eGFR 89 mL/min/1.73m2 04/03/2016 [...] should be multiplied by the estimated BMI. [facility] CHEM PANEL AGAP 11.2 meq/L 10.0 - 20.0 04/03/2016 [facility] CHEM PANEL Chloride Lvl 107 meq/L 95 - 109 04/03/2016 [facility] CHEM PANEL Creatinine Lvl 0.70 mg/dL 0.50 - 1.40 04/03/2016 [facility] CHEM PANEL Glucose Lvl 96 mg/dL 70 - 99 04/03/2016 [facility] CHEM PANEL Sodium Lvl 142 meq/L 135 - 145 04/03/2016 [facility] CHEM PANEL BUN 10 mg/dL 7 - 22 04/03/2016 [facility] CHEM PANEL Potassium Lvl 4.2 meq/L 3.5 - 5.1 04/03/2016 [facility] CHEM PANEL eGFR 91 mL/min/1.73m2 04/03/2016 [...] should be multiplied by the estimated BMI. [facility] CHEM PANEL Creatinine Lvl 0.65 mg/dL 0.50 - 1.40 04/03/2016 [facility] MPV 7.1 fL 7.4 - 10.4 04/03/2016 [facility] Platelet 176 K/CMM 133 - 450 04/03/2016 [facility] RBC 3.89 M/CMM 4.20 - 5.40 04/03/2016 [facility] WBC 5.6 K/CMM 3.7 - 10.4 04/03/2016 [facility] RDW 13.6 % 11.5 - 14.5 04/03/2016 [facility] MCH 29.9 pg 27.0 - 31.0 04/03/2016 [facility] MCHC 33.4 g/dL 32.0 - 36.0 04/03/2016 [facility] MCV 89.8 fL 80.0 - 98.0 04/03/2016 [facility] Hct 34.9 % 36.0 - 48.0 04/03/2016 [facility] Hgb 11.6 g/dL 12.0 - 16.0 04/03/2016 [facility] Eosinophils # 0.3 K/CMM 0.0 - 0.5 04/03/2016 [facility] Segs 64.4 % 45.0 - 75.0 04/03/2016 [facility] HEMATOLOGY Monocytes # 0.4 K/CMM 0.0 - 0.8 04/03/2016 [facility] HEMATOLOGY Lymphocytes # 1.3 K/CMM 1.0 - 5.5 04/03/2016 [facility] HEMATOLOGY Segs-Bands # 3.6 K/CMM 1.5 - 8.1 04/03/2016 [facility] HEMATOLOGY Basophils 0.5 % 0.0 - 1.0 04/03/2016 [facility] HEMATOLOGY Eosinophils 4.8 % 0.0 - 4.0 04/03/2016 [facility] HEMATOLOGY Monocytes 7.1 % 2.0 - 12.0 04/03/2016 [facility] HEMATOLOGY Lymphocytes 23.2 % 20.0 - 40.0 04/03/2016 [facility] HEMATOLOGY Platelet 173 K/CMM 133 - 450 04/03/2016 [facility] HEMATOLOGY PTT 30.0 s 22.9 - 35.8 04/03/2016 [facility] HEMATOLOGY PT 13.9 s 12.0 - 14.7 04/03/2016 [facility] HEMATOLOGY INR 1.04 0.85 - 1.17 04/03/2016 [facility] URINE AND STOOL UA Sq Epi Occasional /LPF Few /LPF 04/02/2016 [facility] URINE AND STOOL UA WBC 100 /HPF 0 - 5 04/02/2016 [facility] URINE AND STOOL UA Bacteria Many /HPF None Seen /HPF 04/02/2016 [facility] URINE AND STOOL UA Bili Negative [...] Yellow *NA* (04/02/16 3:30 PM) Yellow 04/02/2016 [facility] URINE AND STOOL UA Turbidity Clear (04/02/16 3:30 PM) Clear 04/02/2016 [facility] URINE AND STOOL UA Spec Grav 1.013 <=1.030 04/02/2016 [facility] URINE AND STOOL UA pH 7.0 5.0 - 8.0 04/02/2016 [facility] CARDIAC ENZYMES Troponin-I null 0.00 - 0.40 04/02/2016 [facility] ELECTROLYTES AGAP 12.7 meq/L 10.0 - 20.0 04/02/2016 [facility] ELECTROLYTES Glucose Lvl 114 mg/dL 70 - 99 04/02/2016 [facility] ELECTROLYTES BUN 9 mg/dL 7 - 22 04/02/2016 [facility] ELECTROLYTES Chloride Lvl 105 meq/L 95 - 109 04/02/2016 [facility] ELECTROLYTES Calcium Lvl 8.9 mg/dL 8.5 - 10.5 04/02/2016 [facility] ELECTROLYTES Potassium Lvl 3.7 meq/L 3.5 - 5.1 04/02/2016 [facility] ELECTROLYTES CO2 26 meq/L 24 - 32 04/02/2016 [facility] ELECTROLYTES Sodium Lvl 140 meq/L 135 - 145 04/02/2016 [facility] HEMATOLOGY INR 0.98 0.85 - 1.17 04/02/2016 [facility] HEMATOLOGY PTT 28.6 s 22.9 - 35.8 04/02/2016 [facility] HEMATOLOGY PT 13.3 s 12.0 - 14.7 04/02/2016 [facility] HEMATOLOGY Basophils # 0.1 K/CMM 0.0 - 0.2 04/02/2016 [facility] HEMATOLOGY Eosinophils # 0.2 K/CMM 0.0 - 0.5 04/02/2016 [facility] Chest 1view DX Chest 1view DX [...] Rafael Melara MD 04/02/16 15:34 FINAL REPORT [facility] Hip 2/3 views uni DX Hip 2/3 views uni DX EXAM: Left Hip 2/3 views uni DX DATE: 04/02/2016 1:27 PM CDT INDICATION: Pain Post Trauma COMPARISON: None. IMPRESSION: Diffuse osteopenia. Acute impacted subcapital fracture of the left femoral neck. Left gluteal battery pack with sacral lead. SL: [id number] 04/02/2016 - - Read by: Arturo Rodriguez MD Dictated Date/time: 04/02/16 14:05 Electronically Signed by: Arturo Rodriguez MD 04/02/16 14:06 FINAL REPORT [facility] Pelvis AP DX Pelvis AP DX EXAM: Pelvis AP DX DATE: 04/02/2016 1:27 PM CDT INDICATION: Pain Post Trauma COMPARISON: None. IMPRESSION: Diffuse osteopenia. Acute impacted subcapital fracture of the left femoral neck. Pubic rami is grossly intact. New left gluteal battery pack with sacral lead. SL: [id number] 04/02/2016 - - Read by: Arturo Rodriguez MD Dictated Date/time: 04/02/16 14:04 Electronically Signed by: Arturo Rodriguez MD 04/02/16 14:05 FINAL REPORT [facility] Spine lumbar series DX Spine lumbar [...] Leobardo Brandon MD 02/02/15 15:36 FINAL REPORT [facility] Knee 3 Views Bilateral DX Knee [...] Zhang Jimenez MD 02/02/15 15:28 FINAL REPORT [facility] Chemistry HGBA1C 5.1 % - 5.6 01/20/2015 [facility] CHOLESTEROL 199 mg/dl - 199 01/20/2015 [facility] Chemistry TRIGLYCERIDE 138 mg/dl - 149 01/20/2015 [facility] Chemistry HDL 68 mg/dl >=61 01/20/2015 [facility] Chemistry LDL 103 mg/dl - 99 01/20/2015 [facility] Chemistry SODIUM 145 MEQ/L mmol/L 135 - 145 01/20/2015 [facility] Chemistry POTASSIUM 4.7 MEQ/L mmol/L 3.5 - 5.1 01/20/2015 [facility] Chemistry CREATININE 0.6 mg/dL 0.5 - 1.4 01/20/2015 [facility] Chemistry BUN 9 mg/dL 7 - 22 01/20/2015 [facility] Chemistry BUN/CREAT 15 6 - 25 01/20/2015 [facility] Chemistry ALBUMIN 3.5 g/dL 3.5 - 5.0 01/20/2015 [facility] Chemistry CALCIUM 9.2 mg/dL 8.5 - 10.5 01/20/2015 [facility] Chemistry SGPT (ALT) 17 U/L 0 - 65 01/20/2015 [facility] Chemistry SGOT (AST) 14 U/L 0 - 37 01/20/2015 [facility] Chemistry ALK PHOS 66 U/L 39 - 136 01/20/2015 [facility] Chemistry T4, FREE 0.89 ng/dl 0.76 - 1.46 01/20/2015 [facility] Chemistry TSH 2.540 uIU/mL 0.360 - 3.740 01/20/2015 [facility] Hematology HGB 12.3 g/dL 12.0 - 16.0 01/20/2015 [facility] Hematology HCT 38.3 % 36.0 - 48.0 01/20/2015 [facility] Hematology PLATELETS 249 K/CMM /mm3 133 - 450 01/20/2015 [facility] Bone Density-Dual Energy Absorptionmetry Bone Density-Dual Energy [...] risk for fracture. Dr. Raf Urbina M.D. [facility]:02/12/2014 11:03:39 Filer Repairer: Lianna Interiano [facility] 02/12/2014 - - Read by: Raf Urbina MD Dictated Date/time: 02/12/14 11:03 Electronically Signed by: Raf Urbina MD 02/12/14 11:03 FINAL REPORT [facility] Chemistry HGBA1C 4.9 % - 5.6 [...] ALBUMIN 4.2 g/dL 3.5 - 5.0 02/05/2014 [facility] Chemistry CALCIUM 9.6 mg/dL 8.5 - 10.5 02/05/2014 [facility] Chemistry SGPT (ALT) 18 U/L 0 - 65 02/05/2014 [facility] Chemistry SGOT (AST) 17 U/L 0 - 37 02/05/2014 [facility] Chemistry ALK PHOS 68 U/L 39 - 136 02/05/2014 [facility] Chemistry TSH 2.370 uIU/mL 0.360 - 3.740 02/05/2014 [facility] Hematology HGB 12.5 g/dL 12.0 - 16.0 02/05/2014 [facility] Hematology HCT 37.8 % 36.0 - 48.0 02/05/2014 [facility] Hematology PLATELETS 264 K/CMM /mm3 133 - 450 02/05/2014 [facility] Urinalysis UA COLOR Light Yellow 02/05/2014 [facility] Urinalysis UA COLOR Light Yellow 02/05/2014 [facility] Spine Lumbar Comp w/Bend views Spine Lumbar [...] Source Temperature Oral (F) 98.0 F 10/24/2016 [facility] Systolic (mm Hg) 129 10/24/2016 [facility] Diastolic (mm Hg) 64 10/24/2016 [facility] Heart Rate 61 10/24/2016 [facility] Respitory Rate 18 10/24/2016 [facility] Temperature Oral (F) 98.0 F 10/24/2016 [facility] Respitory Rate 18 10/24/2016 [facility] Heart Rate 65 10/24/2016 [facility] Systolic (mm Hg) 117 10/24/2016 [facility] Diastolic (mm Hg) 69 10/24/2016 [facility] Temperature Oral (F) 98.8 F 10/24/2016 [facility] Systolic (mm Hg) 145 10/24/2016 [facility] Diastolic (mm Hg) 80 10/24/2016 [facility] Heart Rate 65 10/24/2016 [facility] Respitory Rate 18 10/24/2016 [facility] Weight 88.003 10/22/2016 [facility] Height 167.64 cm 10/21/2016 [facility] Weight 88.636 10/21/2016 [facility] BMI Calculated 31.54 10/21/2016 [facility] Temperature Oral (F) 97.8 F 04/15/2016 [facility] Heart Rate 71 04/15/2016 [facility] Diastolic (mm Hg) 74 04/15/2016 [facility] Respitory Rate 18 04/15/2016 [facility] Systolic (mm Hg) 124 04/15/2016 [facility] Systolic (mm Hg) 113 04/15/2016 [facility] Diastolic (mm Hg) 73 04/15/2016 [facility] Temperature Oral (F) 98.6 F 04/15/2016 [facility] Heart Rate 75 04/15/2016 [facility] Respitory Rate 16 04/15/2016 [facility] Systolic (mm Hg) 135 04/14/2016 [facility] Diastolic (mm Hg) 68 04/14/2016 [facility] Respitory Rate 16 04/14/2016 [facility] Temperature Oral (F) 98.1 F 04/14/2016 [facility] Heart Rate 71 04/14/2016 [facility] Height 167.64 cm 04/07/2016 [facility] Weight 81.818 04/07/2016 [facility] BMI Calculated 29.11 04/07/2016 [facility] Height 167.6 cm 04/06/2016 [facility] Weight 81.8 04/06/2016 [facility] BMI Calculated 29.12 04/06/2016 [facility] Systolic (mm Hg) 116 04/06/2016 [facility] Diastolic (mm Hg) 68 04/06/2016 [facility] Heart Rate 69 04/06/2016 [facility] Respitory Rate 16 04/06/2016 [facility] Temperature Oral (F) 98.9 F 04/06/2016 [facility] Respitory Rate 16 04/06/2016 [facility] Heart Rate 72 04/06/2016 [facility] Temperature Oral (F) 98.6 F 04/06/2016 [facility] Systolic (mm Hg) 117 04/06/2016 [facility] Diastolic (mm Hg) 72 04/06/2016 [facility] Heart Rate 77 04/06/2016 [facility] Temperature Oral (F) 98.7 F 04/06/2016 [facility] Systolic (mm Hg) 123 04/06/2016 [facility] Diastolic (mm Hg) 74 04/06/2016 [facility] Respitory Rate 18 04/06/2016 [facility] Height 167.64 cm 04/02/2016 [facility] Weight 81.818 04/02/2016 [facility] BMI Calculated 29.11 04/02/2016 [facility] Weight 81.818 04/02/2016 [facility] BMI Calculated 29.11 04/02/2016 [facility] Height 167.64 cm 04/02/2016 [facility] Height 67 01/16/2015 [facility] Weight [...] ADM Date DC Date Status Source OD [id number] 338 - PAIN NEC ABBY ALEXANDRE 04/12/2013 04/12/2013 Active [facility] [place] [facility] Lab Report [id number] Mary Jones, ENERGY CONSERVATION DIRECTOR 02/11/2014 02/11/2014 [facility] [place] Out[facility] Diag Services [id number] MARY JONES 02/12/2014 02/13/2014 [facility] [place] [facility] [place] Office Visit [id number] Mary Jones, ENERGY CONSERVATION DIRECTOR 02/13/2014 02/13/2014 [facility] Office Visit [id number] Mary Jones, ENERGY CONSERVATION DIRECTOR 07/01/2014 07/01/2014 [facility] [place] Office Visit [id number] Vanessa Huston MD 01/16/2015 01/16/2015 [facility] [id number] Vanessa Huston MD 01/20/2015 01/20/2015 [facility] Outpatient [id number] Base Hamid 02/02/2015 02/03/2015 [facility] Inpatient [id number] Charity Lee 04/02/2016 04/06/2016 [facility]patient Rehab [id number] Raciel Green Jr 04/06/2016 04/15/2016 [facility] [place] OP Therapy Patients [id number] Raciel Green Jr 04/19/2016 05/19/2016 [facility] [place] [facility] [place] [facility] [id number] Akiko Parrish 05/19/2016 06/18/2016 [facility] [place] [facility] [place] [facility] [id number] Akiko Parrish 06/22/2016 07/09/2016 [facility] Inpatient [id number] 10/21/2016 10/24/2016 [facility] Departed Emergency Room [id number] ALVIN ALTMAN MD 06/15/2018 06/15/2018 [facility] Departed Emergency Room [id number] INGA LAND MD 06/18/2018 06/18/2018 [facility] Procedures Procedure Code Date Perfomer Comments Source Hip replacement [id number] 03/25/2016 [facility] smoking/tobacco cessation, patient education and counseling 14 01/16/2015 [facility] smoking/tobacco cessation, patient education and counseling 14 07/01/2014 no [facility] smoking/tobacco cessation, patient education and counseling 14 02/13/2014 no [facility] bone density 4002.65 02/12/2014 Completed at [facility] smoking/tobacco cessation, patient education and counseling 14 02/05/2014 no [facility] Appendectomy [id number] [facility] Gastric bypass [id number] [facility] Implantation of electronic stimulator into bladder [id number] [facility] Appendectomy [id number] [facility] Gastric bypass [id number] [facility] Implantation of electronic stimulator into bladder [id number] [facility]
[2018-06-19 22:47] VITALS: BP 114/56
[2018-06-19 22:50] LABS: BASOPHILS % 0.4 % (0.0-1.0); EOSINOPHILS # (AUTO) 0.3 (0.0-0.4); EOSINOPHILS % 3.4 % (0.0-6.0); HEMATOCRIT 37.1 % (34.2-44.1); HEMOGLOBIN 11.9 g/dL (12.0-16.0); LYMPHOCYTES # (AUTO) 2.5 (1.0-3.2); LYMPHOCYTES % 26.6 % (18.0-39.1); MEAN CORPUSCULAR HGB CONC 32.1 g/dL (31-35); MEAN CORPUSCULAR VOLUME 87.3 fL (81-99); MONOCYTES % 10.1 % (4.4-11.3); NEUTROPHILS # (AUTO) 5.6 (2.1-6.9); NEUTROPHILS % 58.9 % (38.7-80.0); PLATELET COUNT 343 x10e3/uL (140-360); RED BLOOD COUNT 4.25 x10e6/uL (3.6-5.1); RED CELL DISTRIBUTION WIDTH 14.6 % (11.7-14.4)
--- NOTE | 2018-06-19 22:50 | NUR ---
DIRECT ADMISSION FROM OFFICE OF WITH C/O SIVERE BACK PAIN.ADMISSION ASSESSMENT DONE.HAS H/O FALL A WEEK AGO.BRUISES NOTED @ L.HIP ASSESSMENT DONE.NO RESP.DISTRESS.VOIDED.CALLED RADIOLOGY DEPT.REGARDING MRI.BUMP GRADER OPERATOR IS NOT AVAILABLE RIGHT NOW.TO BE DONE TOMORROW .INFORMED TO [facility].PAIN MEDICINE GIVEN.ORIENTED TH PT TO THE UNIT.BAD ALARM ON.SCD APPLIED.IV IS IN LAC .BED LOCKED AND IN LOWEST POSITION.PHONE AND CALL LIGHT WITHIN REACH.INSTRUCTED TO CALL FOR ASSISTANCE NEEDED.FREQUENT ROUNDING.
[2018-06-19 23:00] VITALS: BP 114/56
--- NOTE | 2018-06-19 23:00 | NUR ---
PT NOT SEEN IN ER, CAME WITH ORDER FOR DIRECT ADMISSION, CONTACTED ISADORA JEFFERSON RN ENGINEER GAS PUMPING STATION, ASSIGNED ROOM 110, PT TRANSPORTED TO ROOM 110 VIA STRETCHER.
[2018-06-19 23:09] LABS: ANION GAP 15.1 mmol/L (8-16); BLOOD UREA NITROGEN 17 mg/dL (7-26); BUN/CREATININE RATIO 23 (6-25); CALCIUM 9.4 mg/dL (8.4-10.2); CARBON DIOXIDE 22 mmol/L (22-29); CHLORIDE 106 mmol/L (98-107); CREATININE, SERUM 0.75 mg/dL (0.57-1.11); EST GLOMERULAR FILTRATION RATE > 60 ML/MIN (60-); GLUCOSE 114 mg/dL (74-118); POTASSIUM 3.1 mmol/L (3.5-5.1); SODIUM 140 mmol/L (136-145)
[2018-06-19] MEDS ORDERED: ACETAMINOPHEN 325 MG TAB PO PRN (23:30)
[2018-06-19] MEDS ORDERED: ZOLPIDEM TARTRATE 5 MG TAB PO PRN (23:30)
[2018-06-19 23:35] VITALS: BP 132/74
[2018-06-20] VITALS (7 sets, daily range): BP systolic 105–133; BP diastolic 50–60
[2018-06-20] MEDS: ONDANSETRON HCL INJ 2 MG/ML VIAL IV PRN ×4 (00:34→22:11)
[2018-06-20] MEDS: HYDROMORPHONE 2MG/ML 2 MG/ML ML IV PRN ×4 (00:36→22:11)
--- NOTE | 2018-06-20 05:00 | NUR ---
TRIED TO CONTACT .BUT I COULD NOT REACH OUT.
--- NOTE | 2018-06-20 08:50 | NUR ---
paged dr galicia re: unable to do mri, awaiting callback
[2018-06-20] MEDS ORDERED: CITALOPRAM HYDROBROMIDE 20 MG TAB PO SCH (09:00)
[2018-06-20] MEDS: DICLOFENAC EPOLAMINE 1.3% PATCH TP SCH ×2 (10:50→17:51)
--- NOTE | 2018-06-20 10:50 | NUR ---
ASSESSMENT COMPLETE NO DISTRESS NOTED UPDATED ON POC VOICED UNDERSTANDING, DENIES PAIN AT THIS TIME, L AC 20G NO SS OF INFILTRATION NOTED, NO OTHER CO VOICED CALL LIGHT IN REACH WILL CONTINUE TO MONITOR
--- NOTE | 2018-06-20 14:13 | Consultation ---
DATE OF CONSULTATION: June 19, 2018 NEUROSURGICAL CONSULTATION REASON FOR CONSULTATION: Bilateral hip pain. HISTORY OF PRESENT ILLNESS: The patient is a 73-year-old woman with severe degenerative lumbar disease and degenerative scoliosis, who has previously undergone decompressive laminectomy by me in 2010 at L3-4. Since then she has had bilateral total hip replacements. For the past vjfp-onj-[id number]-half, she has been using a walker to walk because of bilateral hip pain. Recently she fell about a argc-lkx-i-half ago and since then has been complaining of increased sacral pain and bilateral hip pain which radiates only minimally to the thighs but not truly down the legs. She denies any true numbness or weakness in the legs. She has a bladder stimulator and therefore cannot have an MRI. A CT of the lumbar spine was performed. PHYSICAL EXAMINATION: The patient is alert and lucid. The lumbar spine is nontender to palpation. When I ask her to sit and stand, at first she has great difficulty moving in bed but eventually is able to completely sit up on her own and stand and walk with a walker all the way from her bed into the hallway. As she continues to walk, her pain appears to improve and she appears to walk more efficiently. Motor strength is symmetric in the legs. Sensory testing reveals mild symmetric sensory loss in the feet and ankles. Deep tendon reflexes are absent in the patellar and Achilles tendons. Plantar responses are flexor. CT of the lumbar spine was reviewed. There is evidence of a previous midline laminotomy at L3-4 and possibly at L4-5 with some regrowth of the bone and hypertrophic facet joints. There is some degree of recurrent spinal stenosis at L3-4 and L4-5. IMPRESSION: The patient's current pain appears to be related to her hips and not her lumbar spine. She appears to be walking fairly well with a walker. I recommend physical therapy and discharge. At some point in the future, she will need to have a CT myelogram of the lumbar spine. At that point, I will be happy to reevaluate her as an outpatient. Job#: [id number] EV
[2018-06-20] MEDS ORDERED: ALENDRONATE SODIUM 70 MG TAB PO SCH (16:15)
[2018-06-20] MEDS ORDERED: NON-FORMULARY MEDICATION (Acetaminophen With Codeine (Tylenol With Codeine #4 Tablet) 1 TA PO PRN (16:15)
[2018-06-20] MEDS ORDERED: POTASSIUM CHLORIDE 20 MEQ TAB CR PO ONE (16:30)
[2018-06-20] MEDS ORDERED: ACETAMINOPHEN/CODEINE 300MG - 30MG TAB PO PRN (16:30)
[2018-06-20] MEDS ORDERED: OXYBUTYNIN CHLORIDE XL 5 MG TAB PO PRN (16:30)
--- NOTE | 2018-06-20 16:42 | NUR ---
SPOKE WITH DR CRENSHAW RE: CONSULT WILL SEE PT THIS EVENING
[2018-06-20] MEDS ORDERED: MAGNESIUM/ALUMINUM/SIMETHICONE 30 ML UDC PO PRN (17:00)
--- NOTE | 2018-06-20 17:24 | History and Physical ---
She is a 73-year-old female who has a past medical history positive for hypertension and hypercholesterolemia. Patient came to the clinic complaining of severe pain of 10/10 back pain radiating to the leg and unable to walk. Not relieved by conservative medical treatment. She tried Tylenol No. 3 and Tylenol No. 4 and did not help at all. She went to the emergency room. She was sent home on Tylenol No. 4 and did not help at all. Patient was unable to walk and was in pretty severe pain. The patient was admitted to [facility] for admission for pain control and workup on the back pain. REVIEW OF SYSTEMS CARDIOVASCULAR: No chest pain or palpitations. RESPIRATORY: No shortness of breath. No cough. GASTROINTESTINAL: No nausea. No vomiting. No diarrhea. GENITOURINARY: No frequency or hematuria. ALLERGIES: NOT ALLERGIC TO ANY MEDICATIONS. SOCIAL HISTORY: She used to smoke. She does not smoke anymore. She drinks alcohol socially. PAST MEDICAL HISTORY: Hypertension and hypercholesterolemia. PHYSICAL EXAMINATION VITALS: Blood pressure 115/56, temperature 98.6, heart rate 67 per minute, respiratory rate 20 per minute, oxygen saturation 97%. HEART: Shows regular rhythm. Normal S1 and S2 sounds. LUNGS: Clear bilaterally. ABDOMEN: Soft and nondistended. No visceromegaly. EXTREMITIES: Show no evidence of cyanosis or trauma. NEUROLOGIC: Alert and oriented times 3. Cranial nerves II-XII within normal limits. Motor strength is 5/5 on the upper and lower extremities. Sensory is intact in the lower. LAB WORK: We have BMP with sodium 140, potassium 3.1, chloride 106, CO2 22, BUN 17, creatinine 0.75, glucose 114. On the CBC, white blood count 9.54, hemoglobin 11.9, hematocrit 37.1, and platelet count 343,000. FINAL IMPRESSION 1. Severe low back pain with sciatica. 2. Hypercholesterolemia. 3. Hypokalemia. 4. Hypertension. PLAN OF TREATMENT: Continue with Dilaudid 2 mg IV q.4 h. as needed for severe pain. Continue Zofran 4 mg IV q.4 h. as needed for vomiting. Fentanyl patch to the affected area twice a day. Lipitor 20 mg daily. Citalopram 20 mg daily. 650 mg q.4 h. as needed. Ambien 10 mg at night p.r.n. for sleep. Also, will consult Dr. Owens for neuro surgery for Dr. Owens's opinion. The patient does not want any surgery. We did a CT of the lumbar spine. We are going to wait for the report. In the meantime, continue physical and occupational therapy, pain control. Replace the potassium. Recheck potassium and magnesium level tomorrow. Job#: [id number] RI
--- NOTE | 2018-06-20 17:46 | Consultation ---
DATE OF CONSULTATION: June 20, 2018 I would like to thank Dr. Mcdonald for asking me to see Ms. Estrada in consultation. REASON FOR CONSULTATION 1. Low back pain. 2. Bilateral hip pain. HISTORY: A 73-year-old female who has multilevel lumbar degenerative disk disease, who has undergone decompressive laminectomy. Also, had bilateral total hip replacement in the past. She was using a walker and had a decline in function because of bilateral hip pain. She fell about 1-1/2 weeks ago, and has been complaining of sacral pain. She underwent workup, and she had a lumbar CT done. I do not have a report available to me at this time. The patient was seen by Dr. Owens, and there was evidence of a previous laminectomy at L3-L4 and L4-L5 with some regrowth of the bone, hypertrophy of facet joints, and some also recurrent spinal stenosis at L3-L4 and L4-L5. The patient also complained of pain to the hips. Physically, the patient is awake, alert and in no apparent distress at this time. Following commands for the most part. Just got some medication and a little bit confused, but not too badly. PAST MEDICAL HISTORY: Hyperlipidemia. PAST SURGICAL HISTORY: Include appendectomy, cholecystectomy, lumbar laminectomy, and gastric bypass. SOCIAL HISTORY: Lives in a trailer with her mentally impaired daughter. She has a ramp and uses a walker to mobilize. FAMILY HISTORY: Father had a stroke. ALLERGIES: NO KNOWN DRUG ALLERGIES. REVIEW OF SYSTEMS: Essentially negative except for the above findings. White cell count of 9.5, hemoglobin 10.9, hematocrit 37.1, and platelets of 343,000. Sodium is 140, potassium 3.1, BUN of 17, creatinine 0.5. PHYSICAL EXAMINATION GENERAL: The patient is awake, alert and in no apparent distress at this time. Follows commands. HEENT: Eyes: Gaze is conjugant. Oral: Tongue is midline. NECK: Supple. HEART: Regular. LUNGS: Diminished breath sounds. ABDOMEN: Obese. EXTREMITIES: Functional range of motion of upper extremities. Limited active range of motion of the lower extremities. Hip flexion on the right and left side did not cause too much pain, but hip external rotation causes significant pain. I turned the patient to check her back. She had no numbness, tingling, and has raised . Denies or bowel or bladder. IMPRESSION 1. Low back pain: Already evaluated by Dr. Owens. At this point, not needing surgery, but will eventually need to have a lumbar myelogram. 2. Bilateral hip pain: I think we should x-ray both hips. 3. Debilitated state. 4. Hyperlipidemia. PLAN: Therapy should be initiated to work on improving functional level and see how she does. Will follow along with you. Thank you once again for allowing me to participate in the care of this pleasant, but unfortunate patient. Job#: [id number] CLAUDETTE
[2018-06-20] MEDS: ATORVASTATIN 20 MG TAB PO SCH (20:47)
[2018-06-21] VITALS (9 sets, daily range): BP systolic 101–113; BP diastolic 49–55
[2018-06-21] MEDS: HYDROMORPHONE 2MG/ML 2 MG/ML ML IV PRN ×3 (05:17→20:22)
[2018-06-21] MEDS: ONDANSETRON HCL INJ 2 MG/ML VIAL IV PRN ×2 (05:17→11:25)
[2018-06-21 06:31] LABS: ANION GAP 11.9 mmol/L (8-16); BLOOD UREA NITROGEN 19 mg/dL (7-26); BUN/CREATININE RATIO 27 (6-25); CALCIUM 8.8 mg/dL (8.4-10.2); CARBON DIOXIDE 23 mmol/L (22-29); CHLORIDE 107 mmol/L (98-107); EST GLOMERULAR FILTRATION RATE > 60 ML/MIN (60-); GLUCOSE 92 mg/dL (74-118); POTASSIUM 3.9 mmol/L (3.5-5.1); SODIUM 138 mmol/L (136-145)
--- NOTE | 2018-06-21 07:34 | Diagnostic Imaging Report ---
CT LUMBAR SPINE WO HISTORY: Severe back pain COMPARISON: Lumbar spine radiographs 06/15/2018, CT of the abdomen and pelvis 06/12/2012 TECHNIQUE: Axial CT images of the lumbar spine were obtained without contrast. Coronal and sagittal reconstructions obtained from the axial data. One or more of the following dose reduction techniques were used: Automated exposure control, adjustment of the mA and/or kV according to patient size, and/or utilization of iterative reconstruction technique. DISCUSSION: Neural stimulator device lead enters the left S2-S3 neural foramen. Bone demineralization limits evaluation. There are 5 nonrib-bearing lumbar vertebral bodies. There are rudimentary ribs at T12 Lumbar lordosis is preserved. Mild lumbar dextroscoliosis is centered at L2-L3. Mildly displaced bilateral sacral ala fractures are present. The S2 vertebral body is involved. There is an associated mildly displaced fracture of the right L5 transverse process. No definite additional acute fracture or compression deformity is is seen. No gross spinal canal mass is seen. There is mild paraspinal muscle atrophy at the lumbosacral junction. Posterior incision changes are noted. The paravertebral and paraspinal soft tissues are otherwise unremarkable. Moderate multilevel spondylotic changes are present. L1-L2: There is minimal retrolisthesis of L1 and L2. Mild left foraminal stenosis due to disc bulge and facet arthrosis. No gross canal or right foraminal stenosis. L2-L3: There is minimal retrolisthesis of L2 on L3. At least mild canal stenosis due to disc bulge and ligamentum flavum thickening. Mild right and moderate left foraminal stenoses due to disc bulge and facet arthrosis. L3-L4: There is minimal retrolisthesis of L3 on L4. Suspected moderate canal stenosis due to disc bulge and ligamentum flavum thickening. Mild right and moderate to severe left foraminal stenoses due to disc bulge and facet arthrosis. L4-L5: Grade 1 anterolisthesis of L4 on L5 due to prominent facet arthrosis, right greater than left. At least mild to moderate canal stenosis due to uncovered disc bulge and ligamentum flavum thickening. Moderate to severe right and mild left foraminal stenoses due to uncovered disc bulge and facet arthrosis. L5-S1: Grade 1 anterolisthesis of L5 on S1 due to prominent facet arthrosis. Mild canal stenosis due to uncovered disc bulge and ligamentum flavum thickening. Mild bilateral foraminal stenoses due to uncovered disc bulge and facet arthrosis. A 1.9 cm fluid density lesion in the mid left kidney is likely a cyst. Additional 3.1 cm lobular exophytic lesion in the upper left kidney also may be a cyst. Mild aortoiliac calcifications atherosclerosis is present. IMPRESSION: 1. Mildly displaced bilateral sacral ala fractures. Associated mildly displaced fracture of the S2 vertebral body. 2. Mildly displaced right L5 transverse process fracture. 3. No other acute osseous abnormality. 4. Moderate multilevel spondylosis with mild lumbar dextroscoliosis centered at L2-L3. 5. Grade 1 anterolisthesis of L4 on L5 and L5 on S1 due to prominent facet arthrosis. 6. Multilevel degenerative canal stenoses - moderate at L3-L4 and mild to moderate at L4-L5. 7. Multilevel degenerative foraminal stenoses - moderate on the left at L2-L3; moderate to severe on the left at L3-L4 and on the right at L4-L5. Signed by: Dr. Homero Jaime M.D. on 06/21/2018 7:31 AM
--- NOTE | 2018-06-21 08:03 | Progress Note ---
DATE: June 21, 2018 Mrs. Estrada is seen on rounds today. She is sleeping peacefully right now. Does not appear to be in much distress. Reported to be no new issues overnight according to staff. The patient is resting upright now. X-rays of the hips are pending. IMPRESSION 1. Chronic back pain, as well as acute back pain limiting gait and mobility. 2. Arthritis of the hips. 3. History of falls. Awaiting x-ray report to see what we are dealing with, and will see how she responds with her therapy. Continue supportive care. Job#: [id number] CLAUDETTE
[2018-06-21] MEDS: CRANBERRY 4200 MG PO SCH (09:00)
[2018-06-21] MEDS ORDERED: NON-FORMULARY MEDICATION (Citalopram Hydrobromide (Citalopram Hbr) 40 MG) PO SCH (09:00)
[2018-06-21] MEDS: OMEGA KRILL OIL PO SCH (09:00)
[2018-06-21] MEDS: ASPIRIN 81 MG CHEW TAB PO SCH (09:01)
[2018-06-21] MEDS: OXYBUTYNIN CHLORIDE XL 5 MG TAB PO SCH (09:01)
[2018-06-21] MEDS: CITALOPRAM HYDROBROMIDE 20 MG TAB PO SCH (09:01)
[2018-06-21] MEDS: DICLOFENAC EPOLAMINE 1.3% PATCH TP SCH ×2 (09:02→17:35)
[2018-06-21] MEDS: PANTOPRAZOLE SOD 40 MG TABEC PO SCH (09:02)
[2018-06-21] MEDS: MULTIVITAMINS/MINERALS TAB PO SCH (09:02)
--- NOTE | 2018-06-21 12:28 | NUR ---
Orders from Dr. Mcdonald to cancel [facility]3] rehab and complete a SNF eval.
--- NOTE | 2018-06-21 12:29 | NUR ---
Orders per Dr. Mcdonald to cancel consult to Dr. Jimenez as patient has SNF eval at this point.
--- NOTE | 2018-06-21 16:50 | NUR ---
Rounds by attending and order in place to consult Dr. Lugo and spoke with him at this time and orders in place for [place] 10mg PRN
--- NOTE | 2018-06-21 17:03 | NUR ---
ORDERS THIS AM FOR [facility] EVAL SPOKE WITH DR CARCAMO REGARDING APPROPRIATE LEVEL OF CARE FOR THIS PT HE AGREES THAT SNF WOULD BE MORE APPROPRIATE CALLED DR CRENSHAW TO NOTIFY HIM THAT REHAB EVAL IS CANCELLED NOTIFIED PT AND SHE IS AGREEABLE TO [facility] FA[facility]ED FACESHEET TO [facility] AND [facility] BENEFITS AND STATES SNF WILL BE PAID 100% FOR [address] CARCAMO HERE AND SPOKE WITH PT HE STATES PT WANTS TO GO TO AN ACUTE REHAB ; NOT A RESIDENTIAL EXPLAINED TO DR CARCAMO THAT THERE IS A VERY HIGH LIKELIHOOD THAT PT'S INSURANCE ([facility]) WILL DENY ACUTE REHAB WILL F/U AND RECONSULT [facility] IN THE MORNING
--- NOTE | 2018-06-21 17:15 | NUR ---
Rounds by attending and orders in place to re-consult Dr. Jimenez for [facility] and community manager calling at this time
--- NOTE | 2018-06-21 17:24 | NUR ---
Call to Dr. Jimenez and was informed that he has been reconsulted for this patient for [facility] and informed of X-rays taken on 06/15 and will cancel current Xray orders to hip.
--- NOTE | 2018-06-21 17:51 | NUR ---
Report given to YENNIFER Melchor for transfer to room 288
--- NOTE | 2018-06-21 18:00 | NUR ---
Patient transferred to room 288 at this time
--- NOTE | 2018-06-21 18:12 | Progress Note ---
DATE: INTERNAL MEDICINE PROGRESS NOTE SUBJECTIVE: Patient was diagnosed with fractures on the pelvic bones and lumbar spine. She was in severe pain. She is on IV Dilaudid. Patient does not want to go to a [facility] unit. She prefers to go to an inpatient rehab, where they can get more physical therapy. PHYSICAL EXAM HEART: Regular rhythm. Normal S1, S2 sounds. LUNGS: Clear bilaterally. ABDOMEN: Soft. FINAL IMPRESSIONS 1. Lumbar spine fracture with pelvic sacral fractures. 2. Hypercholesterolemia. PLAN OF TREATMENT: Continue physical and occupational therapy and pain control. [place], which is her insurance, had only approved [facility] facility. We are going to see if they can approve inpatient rehab and if not, then plan B would be to go to a [facility] facility. Case discussed with the patient for only 45 minutes and the family members. She wants to go to inpatient rehab. Job#: [id number] CQ
--- NOTE | 2018-06-21 18:33 | NUR ---
Pt received from [facility] 1 via bed. Oriented to staff and surroundings. Tomas solano within reach. Will endorse to next shift
--- NOTE | 2018-06-21 19:10 | NUR ---
Patient visited in room during nursing rounds. Patient alert and oriented x3. Patient talking to friend on phone and appear comfortable at this time. Call solano within reach and instructed to call especially when getting up out of bed prn. Will monitor pt closely.
[2018-06-21] MEDS: ATORVASTATIN 20 MG TAB PO SCH (20:22)
[2018-06-22] VITALS (9 sets, daily range): BP systolic 98–132; BP diastolic 52–63
[2018-06-22] MEDS: HYDROMORPHONE 2MG/ML 2 MG/ML ML IV PRN ×4 (04:15→21:12)
--- NOTE | 2018-06-22 07:21 | NUR ---
PATIENT IN BED WITH HEAD OF BED ELEVATED TALKING ON THE PHONE, NO RESPIRATORY DISTRESS OBSERVED. REFUSED HER BACK TO BED ASSESSED. ALL PERSONAL ITEMS CLOSE TO PATIENT. CALL LIGHT AT REACH.
[2018-06-22] MEDS: OMEGA KRILL OIL PO SCH (09:00)
[2018-06-22] MEDS: CRANBERRY 4200 MG PO SCH (09:00)
[2018-06-22] MEDS: OXYBUTYNIN CHLORIDE XL 5 MG TAB PO SCH (09:51)
[2018-06-22] MEDS: CITALOPRAM HYDROBROMIDE 20 MG TAB PO SCH (09:51)
[2018-06-22] MEDS: PANTOPRAZOLE SOD 40 MG TABEC PO SCH (09:51)
[2018-06-22] MEDS: ASPIRIN 81 MG CHEW TAB PO SCH (09:51)
[2018-06-22] MEDS: MULTIVITAMINS/MINERALS TAB PO SCH (09:51)
[2018-06-22] MEDS: DICLOFENAC EPOLAMINE 1.3% PATCH TP SCH ×2 (11:29→17:30)
--- NOTE | 2018-06-22 11:31 | NUR ---
PATIENT AMBULATED IN ROOM WITH PHYSICAL THERAPY, BACK TO RECLINING CHAIR. PAIN PATCH APPLIED TO LOWER BACK. CALL LIGHT AT REACH.
--- NOTE | 2018-06-22 13:30 | NUR ---
PATIENT VOMITED SMALL AMOUNT OF UNDIGESTED FOOD. GORDON OFFERED, PATIENT REFUSED STATING. "I AM FINE I ATE TOO MUCH LUNCH". WILL CONTINUE TO MONITOR.
--- NOTE | 2018-06-22 16:03 | Progress Note ---
DATE: INTERNAL MEDICINE PROGRESS NOTE The patient is doing well, but still with pain secondary to fracture that she had in the pelvic bone and the thoracic spine. [employer] HMO as usual denied the patient to go to inpatient rehab. We are trying to see if she can be approved to go to inpatient rehab as recommended by Dr. Yonas Jimenez. PHYSICAL EXAMINATION HEART: Shows regular rhythm. Normal S1 and S2 sounds. LUNGS: Clear bilaterally. EXTREMITIES: Show no evidence of edema. VITALS: Blood pressure 132/60, temperature 98, heart rate 60 per minute, respiratory rate 18 per minute, oxygen saturation 98%. On the BMP, sodium 138, potassium 3.9, chloride 107, CO2 23, BUN 19, creatinine 0.7, glucose 92. On the CBC, white blood count 9.54, hemoglobin 8.9, hematocrit 37.1, and platelet count 343,000. FINAL IMPRESSION 1. Pelvis and sacral fractures. 2. Lumbar spine fracture. 3. Hypertension. 4. Hypercholesterolemia. 5. Gastroesophageal reflux disease. 6. Osteoporosis. PLAN OF TREATMENT: Continue Dilaudid 2 mg IV q.4 h. as needed. Zofran 4 mg IV q.4 h. as needed. Diclofenac patch twice a day. Lipitor 20 mg daily. Protonix 40 mg daily. [place] 1 tablet q.4 h. as needed for moderate to severe pain. Tylenol 350 mg q.4 h. for mild pain or fever. Multivitamin 1 tablet daily. Fosamax 70 mg once a week. Continue Ambien 10 mg at night p.r.n. for sleep. Citalopram 40 mg daily. Aspirin 81 mg daily. Oxybutynin 15 mg daily for overactive bladder. We are waiting for the appeal on the denial of inpatient rehab by Dr. Jimenez. Second choice would be long-term facility. The patient will be referred to inpatient rehab. Job#: [id number] CLAUDETTE
--- NOTE | 2018-06-22 16:11 | NUR ---
PATIENT C/O BACK PAIN PAIN MEDICATION ADMINISTERED ORDERED. ZOFRAN OFFERED AND PATIENT REFUSED STATING "I AM FINE". MD IN TO SEE PATIENT, NOTIFIED OF PATIENT VOMITING X1 AND REFUSING ZOFRAN, NO NEW ORDER RECEIVED. WILL CONTINUE TO MONITOR.
--- NOTE | 2018-06-22 17:00 | NUR ---
PATIENT ASSISTED TO BSC, REDNESS NOTED TO BUTTOCKS. SKIN PROTECTANT APPLIED. WOUND CARE CONSULT PLACED.
--- NOTE | 2018-06-22 19:40 | NUR ---
PT IS RESTING IN BED. NO RESPIRATORY DISTRESS NOTED. BED IN THE LOWEST POSITION, LOCKED, AND CALL LIGHT WITHIN REACH. WILL CONTINUE TO MONITOR.
[2018-06-22] MEDS: ATORVASTATIN 20 MG TAB PO SCH (21:12)
[2018-06-23] VITALS (8 sets, daily range): BP systolic 111–128; BP diastolic 56–75
[2018-06-23] MEDS: HYDROMORPHONE 2MG/ML 2 MG/ML ML IV PRN ×4 (03:59→21:29)
--- NOTE | 2018-06-23 06:19 | NUR ---
PT IS RESTING IN BED. NO ACUTE EVENT OCCURRED THROUGHOUT THE NIGHT. WILL CONTINUE TO MONITOR.
--- NOTE | 2018-06-23 07:00 | NUR ---
SHIFT REPORT RECEIVED FROM NIGHT RN. PT DENIES NEEDS AT THIS TIME.
[2018-06-23] MEDS: OMEGA KRILL OIL PO SCH (09:00)
[2018-06-23] MEDS: CRANBERRY 4200 MG PO SCH (09:00)
[2018-06-23] MEDS: MULTIVITAMINS/MINERALS TAB PO SCH (09:30)
[2018-06-23] MEDS: DICLOFENAC EPOLAMINE 1.3% PATCH TP SCH ×2 (09:30→16:39)
[2018-06-23] MEDS: CITALOPRAM HYDROBROMIDE 20 MG TAB PO SCH (09:30)
[2018-06-23] MEDS: OXYBUTYNIN CHLORIDE XL 5 MG TAB PO SCH (09:30)
[2018-06-23] MEDS: PANTOPRAZOLE SOD 40 MG TABEC PO SCH (09:30)
[2018-06-23] MEDS: ASPIRIN 81 MG CHEW TAB PO SCH (09:30)
[2018-06-23] MEDS: ONDANSETRON HCL INJ 2 MG/ML VIAL IV PRN (10:07)
--- NOTE | 2018-06-23 19:25 | NUR ---
PT IS RESTING IN BED. NO RESPIRATORY DISTRESS NOTED. BED IN THE LOWEST POSITION, LOCKED, AND CALL LIGHT WITHIN REACH. WILL CONTINUE TO MONITOR.
[2018-06-23] MEDS: ATORVASTATIN 20 MG TAB PO SCH (21:24)
[2018-06-24] VITALS (8 sets, daily range): BP systolic 112–134; BP diastolic 53–63
[2018-06-24] MEDS: HYDROMORPHONE 2MG/ML 2 MG/ML ML IV PRN ×4 (06:39→22:16)
[2018-06-24] MEDS: OMEGA KRILL OIL PO SCH (08:18)
[2018-06-24] MEDS: PANTOPRAZOLE SOD 40 MG TABEC PO SCH (08:18)
[2018-06-24] MEDS: MULTIVITAMINS/MINERALS TAB PO SCH (08:18)
[2018-06-24] MEDS: CITALOPRAM HYDROBROMIDE 20 MG TAB PO SCH (08:18)
[2018-06-24] MEDS: DICLOFENAC EPOLAMINE 1.3% PATCH TP SCH ×2 (08:18→17:04)
[2018-06-24] MEDS: OXYBUTYNIN CHLORIDE XL 5 MG TAB PO SCH (08:18)
[2018-06-24] MEDS: CRANBERRY 4200 MG PO SCH (08:18)
[2018-06-24] MEDS: ASPIRIN 81 MG CHEW TAB PO SCH (08:18)
[2018-06-24] MEDS: ONDANSETRON HCL INJ 2 MG/ML VIAL IV PRN (10:49)
--- NOTE | 2018-06-24 19:23 | NUR ---
PT IS RESTING IN BED. NO RESPIRATORY DISTRESS NOTED. BED IN THE LOWEST POSITION, LOCKED, AND CALL LIGHT WITHIN REACH. WILL CONTINUE TO MONITOR.
[2018-06-24] MEDS: ATORVASTATIN 20 MG TAB PO SCH (21:01)
[2018-06-25] VITALS (7 sets, daily range): BP systolic 99–145; BP diastolic 51–64
[2018-06-25] MEDS: CRANBERRY 4200 MG PO SCH (09:00)
[2018-06-25] MEDS: OMEGA KRILL OIL PO SCH (09:00)
[2018-06-25] MEDS: PANTOPRAZOLE SOD 40 MG TABEC PO SCH (10:06)
[2018-06-25] MEDS: CITALOPRAM HYDROBROMIDE 20 MG TAB PO SCH (10:06)
[2018-06-25] MEDS: HYDROMORPHONE 2MG/ML 2 MG/ML ML IV PRN ×3 (10:06→23:21)
[2018-06-25] MEDS: DICLOFENAC EPOLAMINE 1.3% PATCH TP SCH ×2 (10:06→17:03)
[2018-06-25] MEDS: ASPIRIN 81 MG CHEW TAB PO SCH (10:06)
[2018-06-25] MEDS: MULTIVITAMINS/MINERALS TAB PO SCH (10:06)
[2018-06-25] MEDS: OXYBUTYNIN CHLORIDE XL 5 MG TAB PO SCH (10:06)
[2018-06-25] MEDS ORDERED: MINERAL OIL 132 ML BTL PR NR (11:15)
[2018-06-25] MEDS ORDERED: CLONAZEPAM 0.5 MG TAB PO PRN (12:45)
--- NOTE | 2018-06-25 14:14 | NUR ---
WOUND CARE CONSULTATION. 73 YEAR OLD FEMALE ADMITTED TO [facility] WITH DX OF SEVERE BACK PAIN WITH SCIATICA. HEAD TO TOE SKIN ASSESSMENT PERFORMED TODAY, PT PRESENTS WITH AN AREA OF 10X6CM OF BLANCHABLE REDNESS TO HER SACRUM. STATES THAT SHE NORMALLY MOVES AROUND BUT LATELY SHE IS BEEN IN BED DUE TO PAIN. THERE ARE NO OPEN AREAS AT THIS TIME. PT EDUCATED ON PRESSURE ULCER PREVENTION, INSTRUCTED TO REPOSITION EVERY TWO HOURS AND PRN. LABS: 9.54 RECOMMENDATIONS: PLACE FOAM DRESSING OVER SACRUM DAILY. ENCOURAGE PT TO TURN EVERY TWO HOURS AND PRN. PROVIDE PT WITH BILATERAL HEEL PROTECTORS. CONTINUE WITH ALTERNATING LOW AIR LOSS MATTRESS. THANKS FOR THIS CONSULTATION. Addendum: 06/25/18 at 1430 by Kia Crow RN Amended: Links added.
--- NOTE | 2018-06-25 14:14 | Discharge Summary ---
HISTORY OF PRESENT ILLNESS: A 73-year-old female who had a past medical history positive for hypercholesterolemia, hyperlipidemia, overactive bladder, tremors. Patient apparently fell. She had a fracture on the pelvis and sacral area. She is in severe pain with difficulty walking. We requested [employer] H[employer] to see if she can get approved to go to an inpatient rehab. It has been denied, and the only approval was for a [facility] facility. We are going to talk with Dr. Jimenez, physical therapy physician. He thinks she will get more benefits from inpatient rehab, but since the insurance does not want to approve her to go there, then we are going to try at least [facility] facility and eventually transfer to inpatient rehab if the insurance is more reasonable. PHYSICAL EXAM: Blood pressure 145/64, temperature 98.9, heart rate 70 per minute, respiratory rate is 20 per minute, oxygen saturation 97%. The heart shows regular rhythm, normal S1 and S2 sounds. Lungs are clear bilaterally. Abdomen is soft. Extremities show no evidence of cyanosis, edema or trauma. LABORATORY STUDIES: On the blood work, we have a BMP: Sodium 138, potassium 3.9, chloride 107, CO2 23, BUN 19, creatinine 0.70, glucose 92. On the CBC: White blood count 9.54, hemoglobin 11.9, hematocrit 37.1, platelet count 346,000. FINAL IMPRESSION: 1. Pelvic fracture. 2. Sacral fracture. 3. Hyperlipidemia. 4. Gastroesophageal reflux disease. 5. Osteoporosis. 6. Depression. 7. Insomnia. 8. Tremors. PLAN OF TREATMENT: We are going to discontinue the Dilaudid. The patient is going to be on [place] 10 per 325 q.4 hours as needed for pain. Zofran 4 mg p.o. q.4 hours as needed for pain. Flexeril patch twice a day to affected area. Lipitor 20 mg daily. Protonix 40 mg daily. Continue with multivitamin tablet daily. Fosamax 70 mg once a week. Mineral oil 1 application one time. Ambien 10 mg at night p.r.n. for sleep. Celexa 40 mg daily. Magnesium aluminum silicate 30 mg twice a day as needed. Tylenol with Codeine is going to be discontinued. Continue aspirin 81 mg daily. Oxybutynin 15 mg daily. Patient is going to be transferred to [facility] nursing facility, which was originally approved by the insurance company. SENA CARCAMO MD Job#: [id number] EV
--- NOTE | 2018-06-25 19:32 | NUR ---
PT IN BED , FLEET ENEMA GIVEN A/O AND PT WAS ABLE TO MOVE BOWELS. CONTINUE ON PAIN MANAGEMENT.NO RESP DISTRESS NOTED
--- NOTE | 2018-06-25 20:33 | NUR ---
RECEIVED PT IN BED AOX3 .RESPIRATIONS ARE EVEN AND UNLABORED ..DENIES PAIN .HELPED THE PT TO TO THE BEDSIDE COMMODE .CALL LIGHT WITH IN REACH .CONTINUE TO MONITOR
--- NOTE | 2018-06-25 20:40 | NUR ---
RECEIVED PT SITTING AT THE SIDE OF THE BED AOX3 PT IS ON 2N/C .PT HAS TELE 2464 SR DENIES PAIN .CALL CASEY BOYD IN REACH CONTINUE TO MONITOR
[2018-06-25] MEDS: ATORVASTATIN 20 MG TAB PO SCH (21:03)
[2018-06-25] MEDS: ONDANSETRON HCL INJ 2 MG/ML VIAL IV PRN (23:22)
[2018-06-26] VITALS (9 sets, daily range): BP systolic 113–124; BP diastolic 56–76
--- NOTE | 2018-06-26 07:46 | NUR ---
PT C/O PAIN AND GIVEN ORDERED PAIN MEDICATION .CALL LIGHT WITH IN REACH .CONTINUE TO MONITOR
[2018-06-26] MEDS: DICLOFENAC EPOLAMINE 1.3% PATCH TP SCH ×2 (08:14→16:15)
[2018-06-26] MEDS: OXYBUTYNIN CHLORIDE XL 5 MG TAB PO SCH (08:14)
[2018-06-26] MEDS: ASPIRIN 81 MG CHEW TAB PO SCH (08:14)
[2018-06-26] MEDS: CITALOPRAM HYDROBROMIDE 20 MG TAB PO SCH (08:14)
[2018-06-26] MEDS: MULTIVITAMINS/MINERALS TAB PO SCH (08:14)
[2018-06-26] MEDS: CRANBERRY 4200 MG PO SCH ×2 (08:14→23:33)
[2018-06-26] MEDS: PANTOPRAZOLE SOD 40 MG TABEC PO SCH (08:14)
[2018-06-26] MEDS: OMEGA KRILL OIL PO SCH (08:14)
[2018-06-26] MEDS: ONDANSETRON HCL INJ 2 MG/ML VIAL IV PRN (08:34)
[2018-06-26] MEDS: HYDROCODONE/APAP 10MG-325MG TAB PO PRN (08:34)
[2018-06-26] MEDS ORDERED: CALCIUM CARBONATE 500 MG CHEWABLE TABS PO PRN (10:00)
[2018-06-26] MEDS: HYDROMORPHONE 2MG/ML 2 MG/ML ML IV PRN ×3 (12:07→23:20)
--- NOTE | 2018-06-26 17:51 | NUR ---
PT CONTINUE ON PAIN MANAGEMENT, WAS ABLE TO WALK WITH PT USING A WALKER. NO S/S OF DISTRESS NOTED.
--- NOTE | 2018-06-26 18:15 | Progress Note ---
DATE: June 26, 2018 INTERNAL MEDICINE PROGRESS NOTE SUBJECTIVE: The patient is doing well. . She is able to ambulate longer distances now. PHYSICAL EXAM: VITAL SIGNS: Blood pressure 120/58. Temperature 99.2, heart rate 66 per minute. Respiratory rate is 22 per minute, oxygen saturation 93%. HEART: Regular rhythm. No murmur. No extra sounds. LUNGS: Clear bilaterally. ABDOMEN: Soft. EXTREMITIES: Show no evidence of cyanosis, edema or trauma. On the BMP, sodium 138, potassium 3.9, chloride 107, CO2 23, BUN 19, creatinine 0.00, glucose 92 and on the and the CBC white blood count 9.54, hemoglobin 9.9, hematocrit 37.1, platelet count 343,000. FINAL IMPRESSION: 1. Pelvic fracture. 2. Lumbar fracture. 3. Hyperlipidemia. 4. Gastroesophageal reflux disease. 5. Osteoporosis. 6. Depression. 7. Overactive bladder. PLAN OF TREATMENT: Continue Dilaudid 2 mg IV q.4 hours as needed. Zofran 4 mg IV q.4 hours as needed. Diclofenac patch twice a day. Lipitor 20 mg daily. Protonix 40 mg daily. [place] 1 tablet q.4 hours as needed for pain. Tylenol 350 mg q.4 hours as needed for mild pain or fever. Multivitamin 1 tablet daily. Fosamax 70 mg once a week. Clonazepam 0.5 mg twice a day. Ambien 10 mg at night p.r.n. for sleep. Citalopram 40 mg daily. Magnesium ____ twice a day. Calcium carbonate 1000 mg twice a day. Aspirin 81 mg daily. Oxybutynin 15 mg daily. Still waiting for [employer] to either approve her to go to an inpatient rehab, which or alf facility. In the meantime, continue pain management and physical therapy. The patient is tolerating physical therapy. Job#: [id number]
--- NOTE | 2018-06-26 19:53 | NUR ---
RECEIVED PT IN BED SLEEPING AND NO ACUTE DISTRESS NOTED .CALL LIGHT WITH IN REACH .CONTINUE TO MONITOR
[2018-06-26] MEDS: ATORVASTATIN 20 MG TAB PO SCH (21:00)
[2018-06-27] VITALS (9 sets, daily range): BP systolic 109–134; BP diastolic 53–61
--- NOTE | 2018-06-27 06:41 | NUR ---
PT RESTING NO ACUTE DISTRESS NOTED C/O PAIN X1 GIVEN ORDERED PAIN MEDICATION
--- NOTE | 2018-06-27 07:40 | NUR ---
RECEIVED PATIENT RESTING IN BED. NO S/S OF DISTRESS NOTED. CALL LIGHT WITHIN REACH. BED IN THE LOWEST POSITION.
[2018-06-27] MEDS: HYDROCODONE/APAP 10MG-325MG TAB PO PRN ×2 (08:37→14:45)
[2018-06-27] MEDS: OMEGA KRILL OIL PO SCH (08:55)
[2018-06-27] MEDS: HYDROMORPHONE 2MG/ML 2 MG/ML ML IV PRN ×2 (09:31→20:01)
[2018-06-27] MEDS: FENTANYL 25 MCG/HR PATCH TOP SCH (09:37)
[2018-06-27] MEDS: OXYBUTYNIN CHLORIDE XL 5 MG TAB PO SCH (09:41)
[2018-06-27] MEDS: CITALOPRAM HYDROBROMIDE 20 MG TAB PO SCH (09:41)
[2018-06-27] MEDS: PANTOPRAZOLE SOD 40 MG TABEC PO SCH (09:41)
[2018-06-27] MEDS: MULTIVITAMINS/MINERALS TAB PO SCH (09:41)
[2018-06-27] MEDS: ASPIRIN 81 MG CHEW TAB PO SCH (09:41)
[2018-06-27] MEDS: DICLOFENAC EPOLAMINE 1.3% PATCH TP SCH ×2 (09:53→16:48)
--- NOTE | 2018-06-27 13:12 | Progress Note ---
DATE: June 27, 2018 INTERNAL MEDICINE PROGRESS NOTE SUBJECTIVE: The patient is doing well except for back pain and dark urine. PHYSICAL EXAMINATION HEART: Regular rhythm. Normal S1 and S2 sounds. LUNGS: Clear bilaterally. ABDOMEN: Soft. EXTREMITIES: No evidence cyanosis, edema or trauma. VITALS: Blood pressure 134/60. Temperature 99 degrees. Heart rate 81 per minute. Respiratory rate 20 per minute. Oxygen saturation 97%. LAS: On the BMP, sodium 138, potassium 3.9, chloride 107, CO2 23, BUN 19, creatinine 0.70, glucose 92. On the CBC, white blood count 9.54; hemoglobin 11.9; hematocrit 37.1; platelet count 343,000. ASSESSMENT 1. Pelvic fracture with sacral bone fracture. 2. Hypertension. 3. Depression. 4. Overactive bladder. 5. Gastroesophageal reflux disease. 6. Osteoporosis. 7. Anxiety. PLAN OF TREATMENT 1. Continue Zofran 4 mg IV q.4 h. as needed. 2. Diclofenac patch twice a day to the painful area. 3. Lipitor 20 mg daily. 4. Tylenol 350 mg q.4 h. as needed for pain or fever. 5. Citalopram 40 mg daily. 6. Magnesium aluminum 30 mg as needed twice a day for an injection. 7. Calcium carbonate 1,000 mg q.6 h. 8. Aspirin 81 mg daily. 9. Oxybutynin 15 mg daily. 10. Dilaudid 2 mg IV q.4 h. as needed. 11. Protonix 40 mg daily. 12. Fentanyl patch q.72 h. 13. [place] 1 tablet q.4 h. as needed. 14. Multivitamin 1 tablet daily. 15. Fosamax 70 mg once a week. 16. Clonazepam 0.5 mg twice a day as needed. 17. We are still waiting for the [employer] HMO to see if they are going to even approve the inpatient rehab at [place] or if they are going to send her to a [facility] unit. Job#: [id number]
--- NOTE | 2018-06-27 14:38 | NUR ---
RTF FILLED OUT AND PUT ON CHART, [facility] FILLED OUT FILED IN CHART WITH DISCHARGE PLACEMENT INSTRUCTIONS TO [facility], [address] [place] [address], [facility] [id number] . [facility] SEND VIA FAX TO [facility] WAITING ON AUTH.
--- NOTE | 2018-06-27 15:47 | Discharge Summary ---
HISTORY OF PRESENT ILLNESS: Patient is 73-year-old female with past medical history positive for hypertension, osteoporosis and overactive bladder. She fell and she had pelvic fractures in the sacral wings. Patient was seen by Dr. Owens. No surgical intervention was required. She is on pain management because of the pain and physical therapy. [employer] H[employer] denied her from going to an inpatient rehab, which would be a better choice, but they approved only [facility] facility. We are waiting for her to be transferred to a [facility] facility. PHYSICAL EXAMINATION HEART: Regular rhythm. No murmur. No extra sounds. LUNGS: Clear bilaterally. ABDOMEN: Soft. EXTREMITIES: Show no evidence of cyanosis, edema or trauma. FINAL IMPRESSIONS 1. Severe back pain secondary to pelvic fractures. 2. Overactive bladder. 3. Osteoporosis. 4. Gastroesophageal reflux disease. PLAN OF TREATMENT: Continue medication that I dictated in my prior internal medicine progress note today. Patient going to go to [facility] nursing [facility] today once accepted. SENA CARCAMO MD Job#: [id number]
[2018-06-27] MEDS: LUBIPROSTONE 24 MCG CAP PO SCH (16:48)
--- NOTE | 2018-06-27 17:16 | NUR ---
Nutrition Screen Note RD Recommendation for Physician: -Continue regular diet as ordered Plan of Care: RD following, monitoring for tolerance and adequacy Nutrition reason for involvement: LOS Primary Diagnose(s): 1. Pelvis and sacral fractures. 2. Lumbar spine fracture. PMH: hypertension and hypercholesterolemia Ht: 66in Wt: 203lb BMI: 32.8kg/m2 IBW: 130lb RD Assessment: (06/27) Chart reviewed. Labs and meds reviewed. 73yo F, who is admitted for severe back pain. Visited pt in the room. Pt reports good appetite with ~75% recorded meal intake. Pt complains of some constipation with LBM 06/25. RN is notified. No other GI complains noted. Pt left her denture at home; RD offered chopped diet but pt refused. No swallowing difficulty noted. No recent weight loss reported. Will continue to monitor and follow. Current Diet: regular diet Malnutrition Evaluation (06/27) The patient does not meet criteria for a specified degree of malnutrition at this time. Will re-evaluate at follow-up as appropriate. Diet Education Needs Assessment: Diet education not indicated. Nutrition Care Level: low Signed: Nichole Turner, MS, RD, LD
[2018-06-27] MEDS: ONDANSETRON HCL INJ 2 MG/ML VIAL IV PRN ×2 (18:19→20:01)
--- NOTE | 2018-06-27 19:12 | NUR ---
REPORT GIVEN TO ONCOMING NURSE. PATIENT IS RESTING IN BED WATCHING TV. NO S/S OF DISTRESS NOTED. CALL LIGHT WITHIN REACH. BED IN THE LOWEST POSITION.
--- NOTE | 2018-06-27 19:15 | NUR ---
Received pt in bed lying in supine position. C/O pain to lower back rating 10 pain scale. Has prn pain med due. No resp distress. V/S WNL. Assisted to bathroom with walker. Call light within reach and instructed to call for assistance. Bed alarm refused.
[2018-06-27] MEDS: ATORVASTATIN 20 MG TAB PO SCH (20:01)
[2018-06-28] VITALS (8 sets, daily range): BP systolic 104–134; BP diastolic 51–63
[2018-06-28] MEDS: HYDROMORPHONE 2MG/ML 2 MG/ML ML IV PRN ×4 (01:27→22:29)
[2018-06-28] MEDS: HYDROCODONE/APAP 10MG-325MG TAB PO PRN ×2 (03:45→15:43)
[2018-06-28] MEDS: ONDANSETRON HCL INJ 2 MG/ML VIAL IV PRN ×3 (05:43→20:14)
--- NOTE | 2018-06-28 07:20 | NUR ---
RECEIVED PATIENT RESTING IN BED. NO S/S OF DISTRESS NOTED. PAIN AT A TOLERABLE LEVEL AT THIS TIME. CALL LIGHT WITHIN REACH. BED IN THE LOWEST POSITION.
[2018-06-28] MEDS: CRANBERRY 4200 MG PO SCH (08:00)
[2018-06-28] MEDS: OMEGA KRILL OIL PO SCH (08:00)
[2018-06-28] MEDS: LUBIPROSTONE 24 MCG CAP PO SCH ×2 (08:40→17:01)
[2018-06-28] MEDS: OXYBUTYNIN CHLORIDE XL 5 MG TAB PO SCH (08:40)
[2018-06-28] MEDS: CITALOPRAM HYDROBROMIDE 20 MG TAB PO SCH (08:40)
[2018-06-28] MEDS: DICLOFENAC EPOLAMINE 1.3% PATCH TP SCH ×2 (08:40→17:04)
[2018-06-28] MEDS: ASPIRIN 81 MG CHEW TAB PO SCH (08:40)
[2018-06-28] MEDS: MULTIVITAMINS/MINERALS TAB PO SCH (08:40)
[2018-06-28] MEDS: PANTOPRAZOLE SOD 40 MG TABEC PO SCH (08:40)
--- NOTE | 2018-06-28 09:36 | Diagnostic Imaging Report ---
PROCEDURE:SACRUM X-RAY INDICATION:Interstitium evaluation COMPARISON:None. FINDINGS: Sacral stimulator device traverses the left sacral foramen and terminates in the presacral space. No acute osseous abnormalities. Sacroiliac joints are maintained. Degenerative disc changes of the lumbar spine. Bilateral hip arthroplasty partially visualized. CONCLUSION: Sacral stimulator device terminates in the presacral soft tissues at the level of the left third foramen. Position is similar when compared to 06/15/2018 when accounting for differences in patient positioning. Dictated by: Rafael Mireles M.D. on 06/28/2018 at 9:47 Electronically approved by: Rafael Mireles M.D. on 06/28/2018 at 9:47
--- NOTE | 2018-06-28 18:58 | Progress Note ---
DATE: INTERNAL MEDICINE PROGRESS NOTE Patient got UTI, so went ahead and started Cipro 250 mg twice a day for 5 days. Job#: [id number] CQ
--- NOTE | 2018-06-28 19:16 | Progress Note ---
DATE: INTERNAL MEDICINE PROGRESS NOTE SUBJECTIVE: Patient is 73-year-old, stable, waiting for [employer] to let us know whether or not she is going to be able to go to inpatient rehab or fci facility. PHYSICAL EXAMINATION: VITAL SIGNS: Blood pressure is 108/51, temperature 98 degrees, heart rate 76 per minute, respiratory rate 18 per minute, oxygen saturation 92%. HEART: Shows regular rhythm. Normal S1 and S2 sounds. LUNGS: Clear bilaterally. EXTREMITIES: Showed no evidence of cyanosis, edema, or trauma. On the BMP, sodium 138, potassium 3.9, chloride 107, CO2 23, BUN 19, creatinine 0.70, glucose 92. On the CBC, white blood count 9.54, hemoglobin 11.9, hematocrit 37.1, platelet count 343,000. FINAL IMPRESSION: 1. Sacral fracture with severe back pain. 2. History of osteoporosis. 3. Overactive bladder. PLAN OF TREATMENT: Continue physical and occupational therapy. Continue Zofran 4 mg IV q.4h. as needed, diclofenac patch twice a day, Lipitor 20 mg at bedtime, Tylenol 650 mg q.4h. as needed, citalopram 40 mg daily, magnesium aluminum silicate 30 mg twice a day as needed, calcium carbonate 1000 mg q.6h., aspirin 81 mg daily, Oxybutynin 15 mg daily, Dilaudid 2 mg IV q.4h. as needed, Protonix 40 mg daily, [place] 1 tablet q.4h., fentanyl every 72 hours, multivitamin 1 tablet daily, alendronate 70 mg once a week, clonazepam 0.5 mg twice a day, and Amitiza 24 mcg twice a day. We are going to also start the lactulose q.4h. as needed for constipation. We are still awaiting for insurance company to decide whether or not patient is going to go to inpatient rehab or fci facility. Dr. Charity Lee will be covering for me starting tomorrow at 7 a.m. until Monday at 4:30 p.m. After that, Dr. Phelps is going to cover for me from MondayJune 29 at 4:30 p.m. until Monday at 7 a.m. Job#: [id number]
--- NOTE | 2018-06-28 19:17 | NUR ---
REPORT GIVEN TO ONCOMING NURSE. PATIENT IS RESTING IN BED. NO ACUTE DISTRESS NOTED. NO S/S OF PAIN NOTED. CALL LIGHT WITHIN REACH. BED IN THE LOWEST POSITION.
--- NOTE | 2018-06-28 19:20 | NUR ---
Received pt in bed lying in supine position. Vomited after shift change. No green or bloody emesis. No resp distress. Last pain medication given prior to shift change. Assisted to bathroom with walker. Call light within reach and instructed to call for assistance. Bed alarm refused.
[2018-06-28] MEDS: ATORVASTATIN 20 MG TAB PO SCH (20:13)
[2018-06-28] MEDS: CIPROFLOXACIN 250 MG TAB PO SCH ×2 (20:13→21:12)
[2018-06-29] VITALS (8 sets, daily range): BP systolic 111–121; BP diastolic 53–57
[2018-06-29] MEDS: ONDANSETRON HCL INJ 2 MG/ML VIAL IV PRN (04:09)
[2018-06-29] MEDS: HYDROMORPHONE 2MG/ML 2 MG/ML ML IV PRN ×3 (04:09→23:40)
[2018-06-29 05:44] LABS: BASOPHILS # (AUTO) 0.1 (0.0-0.1); BASOPHILS % 0.4 % (0.0-1.0); EOSINOPHILS # (AUTO) 0.5 (0.0-0.4); EOSINOPHILS % 3.6 % (0.0-6.0); HEMATOCRIT 31.8 % (34.2-44.1); HEMOGLOBIN 9.9 g/dL (12.0-16.0); LYMPHOCYTES # (AUTO) 1.3 (1.0-3.2); LYMPHOCYTES % 10.5 % (18.0-39.1); MEAN CORPUSCULAR HGB CONC 31.1 g/dL (31-35); MEAN CORPUSCULAR VOLUME 89.8 fL (81-99); MONOCYTES % 7.8 % (4.4-11.3); NEUTROPHILS # (AUTO) 9.8 (2.1-6.9); NEUTROPHILS % 77.2 % (38.7-80.0); PLATELET COUNT 289 x10e3/uL (140-360); RED BLOOD COUNT 3.54 x10e6/uL (3.6-5.1); RED CELL DISTRIBUTION WIDTH 14.8 % (11.7-14.4)
[2018-06-29 06:09] LABS: ANION GAP 13.3 mmol/L (8-16); BLOOD UREA NITROGEN 10 mg/dL (7-26); BUN/CREATININE RATIO 14 (6-25); CALCIUM 8.5 mg/dL (8.4-10.2); CARBON DIOXIDE 25 mmol/L (22-29); CHLORIDE 102 mmol/L (98-107); EST GLOMERULAR FILTRATION RATE > 60 ML/MIN (60-); GLUCOSE 99 mg/dL (74-118); POTASSIUM 3.3 mmol/L (3.5-5.1); SODIUM 137 mmol/L (136-145)
--- NOTE | 2018-06-29 07:30 | NUR ---
RECEIVED PATIENT RESTING IN BED. NO S/S OF DISTRESS NOTED. NO PAIN OR DISCOMFORT AT THIS TIME. CALL LIGHT WITHIN REACH. BED IN THE LOWEST POSITION.
[2018-06-29] MEDS: CRANBERRY 4200 MG PO SCH (08:26)
[2018-06-29] MEDS: OMEGA KRILL OIL PO SCH (08:26)
[2018-06-29] MEDS: CITALOPRAM HYDROBROMIDE 20 MG TAB PO SCH (08:27)
[2018-06-29] MEDS: ASPIRIN 81 MG CHEW TAB PO SCH (08:27)
[2018-06-29] MEDS: OXYBUTYNIN CHLORIDE XL 5 MG TAB PO SCH (08:27)
[2018-06-29] MEDS: CIPROFLOXACIN 250 MG TAB PO SCH ×2 (08:27→20:40)
[2018-06-29] MEDS: DICLOFENAC EPOLAMINE 1.3% PATCH TP SCH ×2 (08:27→16:40)
[2018-06-29] MEDS: PANTOPRAZOLE SOD 40 MG TABEC PO SCH (08:27)
[2018-06-29] MEDS: LUBIPROSTONE 24 MCG CAP PO SCH ×2 (08:27→16:40)
[2018-06-29] MEDS: MULTIVITAMINS/MINERALS TAB PO SCH (08:27)
--- NOTE | 2018-06-29 09:14 | NUR ---
LAB CALLED WITH RESULTS FOR URINE CULTURE. PAGED DR. GEORGES TO NOTIFY OF URINE CULTURE RESULT OF ESBL IN URINE. PATIENT PLACED IN CONTACT PRECAUTION.
--- NOTE | 2018-06-29 09:24 | Progress Note ---
DATE: June 29, 2018 I am covering for Dr. Mcdonald. Ms. Estrada is a 73-year-old female with a history of hypertension, hyperlipidemia, came to the emergency room complaining of severe back pain. She was given pain medication and did not improve. She was admitted to [facility] to continue her workup and treatment. At the present time, we are awaiting for insurance to approve transfer the patient to rehab. PHYSICAL EXAMINATION GENERAL: Today, she is awake and alert. VITALS: Temperature is 97.9, blood pressure 121/57. HEART: Regular rate. LUNGS: Clear to auscultation. ABDOMEN: Soft. BLOOD WORK: Potassium is 3.3, creatinine is 0.7 and glucose is 99. White count is 12.7, hemoglobin 9.9, hematocrit is 31.8. FINAL DIAGNOSES 1. Sacral fracture with severe low back pain. 2. History of osteoporosis. 3. Overactive bladder. PLAN: At the present time, is to continue PT and OT. Continue pain medications. Continue Protonix daily. Patient needs lactulose p.r.n. for constipation. We are awaiting for the insurance company to approve rehab or senior living facility. manager of procurement working on this. All of this was discussed with the patient. All questions were answered to satisfaction. Job#: [id number] CLAUDETTE
--- NOTE | 2018-06-29 09:31 | NUR ---
DR. GEORGES RETURNED CALL. INFORMED HER THAT PATIENT HAS ESBL IN THE URINE AND THAT SHE IS CURRENTLY ON CIPRO BUT THE ORGANISM IS RESISTANT. NEW ORDER FOR MICRODANTIN 100MG PO BID X10 DAYS. ORDER PUT IN.
[2018-06-29] MEDS ORDERED: POTASSIUM CHLORIDE 20 MEQ TAB CR PO ONE (10:00)
[2018-06-29] MEDS: NITROFURANTOIN MACROCRYSTALS 100 MG CAP PO SCH ×2 (10:03→16:40)
--- NOTE | 2018-06-29 19:30 | NUR ---
Completed bedside rounds with morning nurse. Pt lying in 45 degrees. Alert to name. Pt c/o constipation, will f/u with assessment and medications. No acute distress noted. Call [facility] within reach.
--- NOTE | 2018-06-29 19:54 | NUR ---
REPORT GIVEN TO ONCOMING NURSE. WALKING ROUNDS DONE. PATIENT IS RESTING IN BED. NO S/S OF DISTRESS NOTED. FAMILY MEMBER AT BEDSIDE. CALL LIGHT WITHIN REACH. BED IN THE LOWEST POSITION.
[2018-06-29] MEDS: ATORVASTATIN 20 MG TAB PO SCH (20:40)
--- NOTE | 2018-06-29 20:43 | NUR ---
Spoke with Dr. Phelps regarding Pt c/o constipation and assessment of large hard stool in rectum. Dr. Phelps ordered mineral oil Fleet enema x1, labs BMP and CBC in am.
[2018-06-29] MEDS ORDERED: MINERAL OIL 132 ML BTL PR ONE (20:45)
[2018-06-30] VITALS (8 sets, daily range): BP systolic 100–134; BP diastolic 51–68
[2018-06-30] MEDS: HYDROCODONE/APAP 10MG-325MG TAB PO PRN (03:00)
[2018-06-30 07:34] LABS: BASOPHILS # (AUTO) 0.1 (0.0-0.1); BASOPHILS % 0.6 % (0.0-1.0); EOSINOPHILS # (AUTO) 0.4 (0.0-0.4); EOSINOPHILS % 5.2 % (0.0-6.0); HEMATOCRIT 31.1 % (34.2-44.1); HEMOGLOBIN 9.9 g/dL (12.0-16.0); LYMPHOCYTES # (AUTO) 2.1 (1.0-3.2); LYMPHOCYTES % 24.4 % (18.0-39.1); MEAN CORPUSCULAR HEMOGLOBIN 28.4 pg (28-32); MEAN CORPUSCULAR HGB CONC 31.8 g/dL (31-35); MEAN CORPUSCULAR VOLUME 89.1 fL (81-99); MONOCYTES # (AUTO) 0.9 (0.2-0.8); MONOCYTES % 10.4 % (4.4-11.3); NEUTROPHILS % 59.2 % (38.7-80.0); PLATELET COUNT 273 x10e3/uL (140-360); RED BLOOD COUNT 3.49 x10e6/uL (3.6-5.1); RED CELL DISTRIBUTION WIDTH 14.8 % (11.7-14.4)
[2018-06-30 07:50] LABS: ANION GAP 11.4 mmol/L (8-16); BLOOD UREA NITROGEN 8 mg/dL (7-26); BUN/CREATININE RATIO 12 (6-25); CALCIUM 8.5 mg/dL (8.4-10.2); CARBON DIOXIDE 26 mmol/L (22-29); CHLORIDE 106 mmol/L (98-107); CREATININE, SERUM 0.66 mg/dL (0.57-1.11); EST GLOMERULAR FILTRATION RATE > 60 ML/MIN (60-); GLUCOSE 93 mg/dL (74-118); POTASSIUM 3.4 mmol/L (3.5-5.1); SODIUM 140 mmol/L (136-145)
[2018-06-30] MEDS: CRANBERRY 4200 MG PO SCH (09:00)
[2018-06-30] MEDS: OMEGA KRILL OIL PO SCH (09:00)
[2018-06-30] MEDS: CITALOPRAM HYDROBROMIDE 20 MG TAB PO SCH (09:20)
[2018-06-30] MEDS: LUBIPROSTONE 24 MCG CAP PO SCH ×2 (09:20→16:58)
[2018-06-30] MEDS: OXYBUTYNIN CHLORIDE XL 5 MG TAB PO SCH (09:20)
[2018-06-30] MEDS: NITROFURANTOIN MACROCRYSTALS 100 MG CAP PO SCH (09:20)
[2018-06-30] MEDS: CIPROFLOXACIN 250 MG TAB PO SCH (09:20)
[2018-06-30] MEDS: PANTOPRAZOLE SOD 40 MG TABEC PO SCH (09:20)
[2018-06-30] MEDS: DICLOFENAC EPOLAMINE 1.3% PATCH TP SCH ×2 (09:20→16:58)
[2018-06-30] MEDS: ASPIRIN 81 MG CHEW TAB PO SCH (09:20)
[2018-06-30] MEDS: MULTIVITAMINS/MINERALS TAB PO SCH (09:20)
[2018-06-30] MEDS: FENTANYL 25 MCG/HR PATCH TOP SCH (09:21)
[2018-06-30] MEDS: HYDROMORPHONE 2MG/ML 2 MG/ML ML IV PRN ×3 (11:09→22:46)
[2018-06-30] MEDS ORDERED: POTASSIUM CHLORIDE 10MEQ EA PO ONE (15:00)
[2018-06-30] MEDS: ERTAPENEM 1GM/NS 100ML 100 ML IV SCH (16:54)
[2018-06-30] MEDS ORDERED: SODIUM CHLORIDE 0.9% 250ML 250 ML ONE (16:59)
--- NOTE | 2018-06-30 19:20 | NUR ---
Report received and walking rounds complete. Pt resting in bed and in no apparent distress. Pt on RA and no tele. Uses walker to ambulate. All safety measures ensured, bed alarm on, and pt call solano near. Pt encouraged to use call solano for assistance.
[2018-06-30] MEDS: ATORVASTATIN 20 MG TAB PO SCH (21:57)
[2018-06-30] MEDS: ONDANSETRON HCL INJ 2 MG/ML VIAL IV PRN (22:46)
[2018-07-01] VITALS (8 sets, daily range): BP systolic 111–131; BP diastolic 56–64
[2018-07-01 06:20] LABS: BASOPHILS # (AUTO) 0.1 (0.0-0.1); BASOPHILS % 0.9 % (0.0-1.0); EOSINOPHILS # (AUTO) 0.6 (0.0-0.4); EOSINOPHILS % 8.1 % (0.0-6.0); HEMATOCRIT 30.4 % (34.2-44.1); HEMOGLOBIN 9.5 g/dL (12.0-16.0); LYMPHOCYTES # (AUTO) 1.9 (1.0-3.2); LYMPHOCYTES % 26.6 % (18.0-39.1); MEAN CORPUSCULAR HEMOGLOBIN 28.2 pg (28-32); MEAN CORPUSCULAR HGB CONC 31.3 g/dL (31-35); MEAN CORPUSCULAR VOLUME 90.2 fL (81-99); MONOCYTES # (AUTO) 0.7 (0.2-0.8); NEUTROPHILS # (AUTO) 3.8 (2.1-6.9); PLATELET COUNT 277 x10e3/uL (140-360); RED BLOOD COUNT 3.37 x10e6/uL (3.6-5.1); RED CELL DISTRIBUTION WIDTH 14.7 % (11.7-14.4)
[2018-07-01 06:47] LABS: ALANINE AMINOTRANSFERASE 13 IU/L (0-55); ALBUMIN 2.5 g/dL (3.5-5.0); ALBUMIN/GLOBULIN RATIO 0.7 (0.8-2.0); ALKALINE PHOSPHATASE 112 IU/L (40-150); ANION GAP 13.8 mmol/L (8-16); BLOOD UREA NITROGEN 7 mg/dL (7-26); BUN/CREATININE RATIO 10 (6-25); CALCIUM 8.7 mg/dL (8.4-10.2); CARBON DIOXIDE 26 mmol/L (22-29); CHLORIDE 105 mmol/L (98-107); CREATININE, SERUM 0.68 mg/dL (0.57-1.11); EST GLOMERULAR FILTRATION RATE > 60 ML/MIN (60-); GLUCOSE 94 mg/dL (74-118); POTASSIUM 3.8 mmol/L (3.5-5.1); SODIUM 141 mmol/L (136-145)
--- NOTE | 2018-07-01 07:00 | NUR ---
Report given to oncoming nurse
[2018-07-01] MEDS: HYDROMORPHONE 2MG/ML 2 MG/ML ML IV PRN ×2 (07:44→20:38)
--- NOTE | 2018-07-01 07:52 | Progress Note ---
DATE: July 01, 2018 SUBJECTIVE: Ms. Estrada was seen on rounds today. She is complaining of spasm to the muscles on the right leg and both hips. She says it just shoots from the hip down to the foot. OBJECTIVE VITAL SIGNS: Temperature 98.0, respirations 18, heart rate 81, and blood pressure 129/59. HEENT: Head atraumatic, normocephalic. NECK: No JVD. HEART: Regular. LUNGS: Fair air entry. ABDOMEN: Nontender. EXTREMITIES: Patient had a little bit of spasm to the calf and thigh area. Able to relieve the pain with some stretching. LABS: White cell count 7, hemoglobin 9.5, hematocrit 30.4, platelets of 277. Potassium was on low side yesterday and today's labs are pending. IMAGING: She had a sacral x-ray from a few days ago, which showed sacral stimulator device terminates in the presacral soft tissues in the level of the 3rd foramen. IMPRESSION AND PLAN: Gait training. From the last time, she received therapy was 75 feet x2 with supervision. Transfers at supervision, modified independent. Overall, she is doing better from that standpoint, just has spasms or pain that affect her at times. Discussed with the patient at length. Continue supportive care. She has been denied to come to inpatient rehab at this point, but hopefully with increased activity, she should do okay at home. Job#: [id number] EARL
[2018-07-01] MEDS: CRANBERRY 4200 MG PO SCH (08:33)
[2018-07-01] MEDS: CITALOPRAM HYDROBROMIDE 20 MG TAB PO SCH (08:34)
[2018-07-01] MEDS: OMEGA KRILL OIL PO SCH (08:34)
[2018-07-01] MEDS: MULTIVITAMINS/MINERALS TAB PO SCH (08:34)
[2018-07-01] MEDS: PANTOPRAZOLE SOD 40 MG TABEC PO SCH (08:34)
[2018-07-01] MEDS: LUBIPROSTONE 24 MCG CAP PO SCH ×2 (08:34→17:03)
[2018-07-01] MEDS: OXYBUTYNIN CHLORIDE XL 5 MG TAB PO SCH (08:34)
[2018-07-01] MEDS: ASPIRIN 81 MG CHEW TAB PO SCH (08:34)
[2018-07-01] MEDS: DICLOFENAC EPOLAMINE 1.3% PATCH TP SCH ×2 (08:39→17:04)
[2018-07-01] MEDS: HYDROCODONE/APAP 10MG-325MG TAB PO PRN (10:53)
[2018-07-01] MEDS: ERTAPENEM 1GM/NS 100ML 100 ML IV SCH (15:54)
--- NOTE | 2018-07-01 20:11 | NUR ---
RECEIVED PT IN BED AOX3,NO ACUTE DISTRESS NOTED .DENIES PAIN CALL LIGHT WITH IN REACH .CONTINUE TO MONITOR
[2018-07-01] MEDS: ATORVASTATIN 20 MG TAB PO SCH (20:47)
[2018-07-02] VITALS (7 sets, daily range): BP systolic 112–128; BP diastolic 54–62
--- NOTE | 2018-07-02 05:58 | NUR ---
PT RESTED DURING THE NIGHT NO ACUTE DISTRESS NOTED .C/O PAIN ONETIME DURING THE SHIFT .GIVEN ORDERED PAIN MEDICATION .FAMILY AT THE BEDSIDE .CALL LIGHT WITH IN REACH .CONTINUE TO MONITOR
[2018-07-02] MEDS: HYDROCODONE/APAP 10MG-325MG TAB PO PRN ×3 (07:49→22:55)
[2018-07-02] MEDS: OMEGA KRILL OIL PO SCH (08:19)
[2018-07-02] MEDS: CRANBERRY 4200 MG PO SCH (08:19)
[2018-07-02] MEDS: LUBIPROSTONE 24 MCG CAP PO SCH ×2 (08:20→17:08)
[2018-07-02] MEDS: OXYBUTYNIN CHLORIDE XL 5 MG TAB PO SCH (08:20)
[2018-07-02] MEDS: ASPIRIN 81 MG CHEW TAB PO SCH (08:20)
[2018-07-02] MEDS: CITALOPRAM HYDROBROMIDE 20 MG TAB PO SCH (08:20)
[2018-07-02] MEDS: MULTIVITAMINS/MINERALS TAB PO SCH (08:21)
[2018-07-02] MEDS: PANTOPRAZOLE SOD 40 MG TABEC PO SCH (08:21)
[2018-07-02] MEDS: DICLOFENAC EPOLAMINE 1.3% PATCH TP SCH ×2 (09:00→17:09)
--- NOTE | 2018-07-02 10:02 | NUR ---
TEOFILO ATTEMPTED TO FAX UPDATED INFORMATION TO [facility] (P:[phone]; F: [phone]). SHE STATES NO RECEIPT. TEOFILO SCANNED THE UPDATED INFORMATION TO [email or web address]. GEOFFREY VERIFIED RECEIPT. SHE STATES PATIENT'S INSURANCE CALLED TO REQUEST UPDATE. GEOFFREY WILL CALL MS[facility] TO GIVE ROOM ASSIGNMENT. SCOOBY/MS 3 DONOR RECRUITMENT MANAGER AWARE, ALONG WITH NU,RN/BEDSIDE NURSE.
[2018-07-02] MEDS ORDERED: ONDANSETRON HCL 4 MG ORAL DISINTEGRATING TAB PO PRN (13:00)
[2018-07-02] MEDS: ERTAPENEM 1GM/NS 100ML 100 ML IV SCH (15:30)
--- NOTE | 2018-07-02 15:44 | Discharge Summary ---
HISTORY OF PRESENT ILLNESS: Patient is a 73-year-old female who has a past medical history positive for hypertension. She had a fall and she had a sacral wing fracture. Orthopedic surgeon, neurosurgeon has been seeing the patient and there is no need for surgical intervention. We have been waiting for [facility] to finally approve the patient to go either to inpatient rehab or to SNF. Then finally after a few days of being in the hospital, she been approved to go to a prison facility. Patient was found to have UTI with multidrug resistant E. Coli. She was started on ertapenem, which she is going to continue for 3 days. PHYSICAL EXAM: VITAL SIGNS: Blood pressure 121/56, temperature 97.7, heart rate 67 per minute, respiratory rate 18 per minute, oxygen saturation 94%. HEART: Regular rhythm. No murmur. No extra sounds. LUNGS: Clear bilaterally. ABDOMEN: Soft. EXTREMITIES: Show no evidence of cyanosis, edema or trauma. On the blood work, we have BMP with sodium 141, potassium 3.8, chloride 105, CO2 of 26, BUN 7, creatinine 0.66, glucose 94. On the CBC, white blood cell count 7.02, hemoglobin 9.5, hematocrit 30.4, platelet count 277,000, AST 13, ALT 13, total bilirubin 0.6, alkaline phosphatase 112. FINAL IMPRESSION: 1. Status post pelvic fracture. 2. Urinary tract infection with ESBL bacteria. 3. Hypertension. 4. Osteoporosis. PLAN OF TREATMENT: Continue ertapenem 500 mg IV once a day a total of 3 days. Zofran 4 mg p.o. q.4 hours as needed. Effexor patch twice a day to affected area. Lipitor 20 mg daily. Multivitamin 1 tablet daily. Fosamax 70 mg once a week. Calcium carbonate 1000 mg q.6 hours. [place] 1 tablet q.4 hours as needed. Citalopram 40 mg daily. Aluminum magnesium 30 mg twice a day. Dilaudid has been discontinued. Aspirin 81 mg daily. Continue oxybutynin 15 mg daily. Fentanyl patch q. 72 hours. Protonix 40 mg daily. Clonazepam 0.5 mg twice a day as needed. Amitiza 24 mcg p.o. twice a day for narcotic-induced constipation. She is going to be transferred to [place] prison facility for physical therapy. SENA CARCAMO MD Job#: [id number] GLEN
--- NOTE | 2018-07-02 16:00 | NUR ---
Waiting for pt approval to got to SNF. Attending okay with pt discharging to SNF when she has been accepted and has given orders to discharge. Urine collected for culture and sensitivity that was ordered per Dr. Esposito. Urine was obtained by straight cath.
[2018-07-02] MEDS: ATORVASTATIN 20 MG TAB PO SCH (20:16)
--- NOTE | 2018-07-02 23:08 | Progress Note ---
DATE: July 02, 2018 SUBJECTIVE: Mrs. Estrada was seen on rounds today. She is doing better. She is not as sleepy, not in distress at this time. OBJECTIVE: VITAL SIGNS: Temperature is 97.7, respirations 18, heart rate 67, blood pressure 121/56, O2 sats are 94%. GENERAL: She is feeling a little bit better. HEART: Regular. LUNGS: Clear. ABDOMEN: Nontender and nondistended. NECK: No JVD. EXTREMITIES: Hips are about the same. Overall, she is making good progress with therapy, optimize functional level. Most likely she will be going to skilled unit for continuation of care. Job#: [id number] KEVIN
[2018-07-03] VITALS (9 sets, daily range): BP systolic 132–155; BP diastolic 60–67
[2018-07-03] MEDS: HYDROCODONE/APAP 10MG-325MG TAB PO PRN ×4 (05:51→20:25)
[2018-07-03] MEDS: CITALOPRAM HYDROBROMIDE 20 MG TAB PO SCH (08:42)
[2018-07-03] MEDS: LUBIPROSTONE 24 MCG CAP PO SCH ×2 (08:42→16:50)
[2018-07-03] MEDS: OXYBUTYNIN CHLORIDE XL 5 MG TAB PO SCH (08:42)
[2018-07-03] MEDS: ASPIRIN 81 MG CHEW TAB PO SCH (08:42)
[2018-07-03] MEDS: MULTIVITAMINS/MINERALS TAB PO SCH (08:42)
[2018-07-03] MEDS: PANTOPRAZOLE SOD 40 MG TABEC PO SCH (08:43)
[2018-07-03] MEDS: FENTANYL 25 MCG/HR PATCH TOP SCH (08:45)
[2018-07-03] MEDS: OMEGA KRILL OIL PO SCH (09:00)
[2018-07-03] MEDS: CRANBERRY 4200 MG PO SCH (09:00)
[2018-07-03] MEDS: DICLOFENAC EPOLAMINE 1.3% PATCH TP SCH ×2 (10:20→17:05)
--- NOTE | 2018-07-03 11:05 | NUR ---
assisted patient to use rest room. c/o pain lower back , medicated with prn pain med. not in any distress
[2018-07-03] MEDS: ERTAPENEM 1GM/NS 100ML 100 ML IV SCH (16:15)
--- NOTE | 2018-07-03 16:31 | Diagnostic Imaging Report ---
SACRUM X-RAY - 2 views HISTORY: Pain COMPARISON: 06/28/[address] lumbar spine dated 06/20/2018 FINDINGS: Generalized demineralization severely limits evaluation. No definite evidence of acute displaced fracture of the sacrum. Nondisplaced fracture lines, seen on prior lumbar spine CT are less conspicuous and subtle on today's exam. Increased posterior S2 displacement compared to prior x-ray. Severe degenerative changes of lower lumbosacral spine. Partially seen bilateral hip arthroplasty. Unchanged left simulator device with distal lead overlying the left S3. IMPRESSION: Again seen bilateral sacral nondisplaced fractures. Increased posterior S2 displacement when compared to prior x-ray. Signed by: Dr. Spencer Blackman MD on 07/03/2018 4:27 PM
--- NOTE | 2018-07-03 20:18 | Progress Note ---
PLEASE VERIFY ADT, NOT DICTATED ADDENDUM DATE: INTERNAL MEDICINE PROGRESS NOTE PHYSICAL EXAM VITAL SIGNS: Blood pressure is 139/62, temperature 98.1, heart rate 65 per minute, respiratory 18 per minute, ox saturation 92%. EXTREMITIES: No evidence of cyanosis, edema, or trauma. LABORATORY DATA: On BMP; sodium 141, potassium 3.8, chloride 105, CO2 OF 26, BUN 7, creatinine 0.66, glucose 94. On CBC; white blood count 7.02, hemoglobin 9.5, hematocrit 30.4, platelet count 277, 000. AST 13, ALT 13, total bilirubin 0.6, alkaline phosphatase 112. FINAL IMPRESSION 1. Sacral fracture. 2. Hypertension. 3. Urinary tract infection. PLAN OF TREATMENT: Continue ertapenem q.24 hours, Effexor patch twice a day, Lipitor 20 mg daily, Tylenol 650 mg q.4 hours as needed, Celexa 40 mg daily, Amitiza 24 mcg p.o. twice a day, aspirin 81 mg daily, oxybutynin 15 mg daily, [place] 1 tablet q.4 hours as needed, Protonix 40 mg daily, calcium carbonate 1000 mg twice q.6 hours, Zofran 4 mg IV q.6 hours as needed, multivitamin 1 tablet daily, Fosamax 70 mg once a week, Fentanyl patch q.72 hours. Patient still waiting for insurance company to approve to go to correction facility. Job#: [id number] CHIVO
--- NOTE | 2018-07-03 20:20 | NUR ---
Assisted pt to the restroom with walker. Pt verbalizes pain to back. Will medicate accordingly. Breathing even, unlabored. Skin warm, dry to touch. Will continue to monitor.
[2018-07-03] MEDS: ATORVASTATIN 20 MG TAB PO SCH (20:35)
--- NOTE | 2018-07-03 21:15 | NUR ---
Pt vomited small amount of gastric content. Provided pt with anti-nausea medication.
[2018-07-04] VITALS (8 sets, daily range): BP systolic 100–135; BP diastolic 48–67
[2018-07-04] MEDS: MULTIVITAMINS/MINERALS TAB PO SCH (08:18)
[2018-07-04] MEDS: CITALOPRAM HYDROBROMIDE 20 MG TAB PO SCH (08:18)
[2018-07-04] MEDS: ASPIRIN 81 MG CHEW TAB PO SCH (08:18)
[2018-07-04] MEDS: DICLOFENAC EPOLAMINE 1.3% PATCH TP SCH ×2 (08:18→17:31)
[2018-07-04] MEDS: OMEGA KRILL OIL PO SCH (08:18)
[2018-07-04] MEDS: OXYBUTYNIN CHLORIDE XL 5 MG TAB PO SCH (08:18)
[2018-07-04] MEDS: CRANBERRY 4200 MG PO SCH (08:18)
[2018-07-04] MEDS: LUBIPROSTONE 24 MCG CAP PO SCH ×2 (08:18→17:31)
[2018-07-04] MEDS: PANTOPRAZOLE SOD 40 MG TABEC PO SCH (08:18)
--- NOTE | 2018-07-04 09:05 | NUR ---
Patient up in bed, pain 3/10 on lower back, no distress noted
--- NOTE | 2018-07-04 12:51 | NUR ---
SPOKE WITH GEOFFREY AND FAXED UPDATED CLINICALS TO [facility], SPOKE WITH DEMETRIUS AND SET UP DOC TO DOC THIS MORNING. GEOFFREY FROM [facility] CALLED BACK AND STATES DOC TO DOC WAS COMPLETED AND SHE NEEDS ANYTHING TO DO WITH UTI, RECENT UA, OR BLADDER WILL FAX TO [phone]
[2018-07-04] MEDS: HYDROCODONE/APAP 10MG-325MG TAB PO PRN ×2 (13:17→17:50)
--- NOTE | 2018-07-04 14:37 | Discharge Summary ---
TENTATIVE DISCHARGE SUMMARY HISTORY/HOSPITAL COURSE: A 73-year-old female with past medical history positive for hypertension, depression, gastroesophageal reflux disease, osteoporosis. The patient came because she fell. She has sacral fractures. The pain was practically 10 out of 10. Came to the clinic. We admitted her to [facility]. We tried to get her to an inpatient rehabilitation center. The insurance denied that. We are trying to get her to a half-way facility. [employer] medical parasitologist denied that also. They said that she walking 100 feet, that she needs to go home. She also had a multidrug-resistant E. coli UTI. She was started on IV ertapenem due to the fact that the bacteria is multidrug-resistant. So, the [employer] H[employer] medical parasitologist tried to discharge the patient home from here. We are going to order at least home health for physical therapy. Patient is extremely disappointed with the insurance company and she is thinking about changing the plans because the insurance denied the inpatient rehab. Dr. Yonas Jimenez saw the patient from the physical therapy point of view. He recommended inpatient rehab, but as I said the insurance denied that. They are trying to deny the half-way facility also. PHYSICAL EXAMINATION VITAL SIGNS: Blood pressure 108/55, temperature 98.9, heart rate 74 per minute, respiratory rate 21 per minute, oxygen saturation 93%. On the BMP: Sodium 141, potassium 3.8, chloride 105, CO2 26, BUN 7, creatinine 0.66, glucose 94. On the CBC: White blood count 7.02, hemoglobin 9.5, hematocrit 30.4, platelet count 277,000. AST 13, ALT 13, total bilirubin 0.6, alkaline phosphatase 112. FINAL IMPRESSION 1. Pelvis fracture. 2. Multidrug-resistant urinary tract infection. 3. Osteoporosis. 4. Depression. 5. Gastroesophageal reflux disease. 6. Overactive bladder. PLAN OF TREATMENT: Patient right now is getting ertapenem IV once a day, Flexeril patch twice a day, Lipitor 20 mg daily. She is on Tylenol 650 mg p.o. q.4 h. as needed, Celexa 40 mg daily. She is taking aspirin 81 mg daily, oxybutynin 15 mg daily, Zofran 4 mg IV q.4 h. as needed which she is going to be discontinuing only if she goes home. Continue Protonix 40 mg daily. Continue calcium carbonate 1000 mg q.6 h., multivitamin 1 tablet daily, Fosamax 70 mg once a week, and Amitiza 24 mcg p.o. twice a day. As I said, the [employer] H[employer] medical parasitologist will talk with the physical therapy people today to see if she is still walking, can walk more than 120 feet, and then if that is the case the patient will be discharged home as per the insurance recommendation because they do not want to cover a half-way facility or inpatient rehab, and I am going to at least try to see if they can cover at least home health for physical therapy. Patient has been seen by Dr. Lugo for pain management, Dr. Dodd for orthopedic surgery, Dr. Simone Owens for neurosurgery, Dr. Yonas Jimenez for PMR and Dr. Eduardo Esposito for urology. SENA CARCAMO MD Job#: [id number] EV
[2018-07-04] MEDS: ERTAPENEM 1GM/NS 100ML 100 ML IV SCH (14:52)
--- NOTE | 2018-07-04 15:45 | NUR ---
GEOFFREY FROM [facility] CALLED AND STATED PT WAS DENIED SHE GAVE AN APPEAL NUMBER TO CALL [phone]. ALERTED MAYITO TABLE AND DESK FINISHER WHO STATES WILL NOTIFY THE MD.
--- NOTE | 2018-07-04 16:19 | NUR ---
CALL RECEIVED FROM STATING [facility] NOTIFIED HER OF A DENIAL FROM INSURANCE. CALL PLACED TO DR. CARCAMO. APPEALWAS OFFERED. DONA WAS PROVIDED APPEALS # @ [phone]. STATES HE WILL CALL.
--- NOTE | 2018-07-04 18:23 | NUR ---
Nutrition Screen Note RD Recommendation for Physician: - Continue regular diet as ordered; downgraded diet texture to chopped Plan of Care: RD following, monitoring for tolerance and adequacy Nutrition reason for involvement: Follow up Primary Diagnose(s): 1. Pelvis and sacral fractures. 2. Lumbar spine fracture. PMH: hypertension and hypercholesterolemia Ht: 66in Wt: 203lb 06/27; 198.31lb 07/04 BMI: 32.8kg/m2 IBW: 130lb RD Assessment: (07/04) Chart reviewed. Pt was discussed during rounds. Placement pending. Visited pt in the room. Pt reports good appetite with ~75% recorded meal intake. Constipation has resolved with LBM 07/03. No other GI complains noted. RD offered chopped diet again as pt still complains of not being able to chew certain solids, pt is agreeable with texture modification. Will continue to monitor and follow. (06/27) Chart reviewed. Labs and meds reviewed. 73yo F, who is admitted for severe back pain. Visited pt in the room. Pt reports good appetite with ~75% recorded meal intake. Pt complains of some constipation with LBM 06/25. RN is notified. No other GI complains noted. Pt left her denture at home; RD offered chopped diet but pt refused. No swallowing difficulty noted. No recent weight loss reported. Will continue to monitor and follow. Current Diet: regular diet Malnutrition Evaluation (06/27) The patient does not meet criteria for a specified degree of malnutrition at this time. Will re-evaluate at follow-up as appropriate. Diet Education Needs Assessment: Diet education not indicated. Nutrition Care Level: low Signed: Nichole Turner, , RD, LD
--- NOTE | 2018-07-04 19:00 | NUR ---
patient recieved awake, alert, lying quietly in bed. vss. no c/o pain noted. pm assessment complete. patient instructed to call for assistance when needed.
[2018-07-04] MEDS: ATORVASTATIN 20 MG TAB PO SCH (20:28)
[2018-07-05 00:50] VITALS: BP 113/52
[2018-07-05 07:04] VITALS: BP 142/62
[2018-07-05 08:00] VITALS: BP 103/50
[2018-07-05] MEDS: PANTOPRAZOLE SOD 40 MG TABEC PO SCH (08:22)
[2018-07-05] MEDS: DICLOFENAC EPOLAMINE 1.3% PATCH TP SCH (08:22)
[2018-07-05] MEDS: ASPIRIN 81 MG CHEW TAB PO SCH (08:22)
[2018-07-05] MEDS: CITALOPRAM HYDROBROMIDE 20 MG TAB PO SCH (08:22)
[2018-07-05] MEDS: LUBIPROSTONE 24 MCG CAP PO SCH (08:22)
[2018-07-05] MEDS: MULTIVITAMINS/MINERALS TAB PO SCH (08:22)
[2018-07-05] MEDS: OXYBUTYNIN CHLORIDE XL 5 MG TAB PO SCH (08:22)
[2018-07-05] MEDS: CRANBERRY 4200 MG PO SCH (09:00)
[2018-07-05] MEDS: OMEGA KRILL OIL PO SCH (09:00)
[2018-07-05] MEDS ORDERED: LACTULOSE SYRUP 20 GM/30 ML UDC PO PRN (11:00)
[2018-07-05 11:08] VITALS: BP 103/50
[2018-07-05] MEDS: HYDROCODONE/APAP 10MG-325MG TAB PO PRN (11:43)
[2018-07-05 12:56] VITALS: BP 119/59
[2018-07-05] MEDS ORDERED: AMITIZA24 MCG PO (13:35)
--- NOTE | 2018-07-05 14:03 | NUR ---
MET W DR. CARCAMO THIS AM. STATES PT WILL HAVE TO PA HOME W HOME HEALTH. MET W THE PT AT THE BEDSIDE. STATES SHE WAS ON SERVICE W AN AGENCY AFTER SHE HAD SURGERY ON HER HIP, BUT WAS NOT SURE WHAT THE NAME WAS. POSSIBLY [facility]. PT WAS GIVEN CHOICE LETTER TO SIGN. STATES IF SHE WAS NOT ON SERVICE W [facility], THEN CHOOSE AN AGENCY IN NETWORK W HER INSURANCE. IMM LETTER WAS EXPLAINED TO THE PT; VERBALIZED UNDERSTANDING. COPY TO PT AND COPY TO CHART. CALLED TO [facility] HOME IN [place] AND [place], BUT SHE HAS NOT BEEN ON SERVICE W EITHER AGENCY. REFERRAL WAS FAXED TO [facility] @ OFF: [phone] / FAX: [phone].
--- NOTE | 2018-07-05 14:05 | NUR ---
Patient discharged home, as per CM Home health has been set up, IV Canula removed with tip intact, no ss of infiltration noted, prescription given, explained about medications, she verbalized understanding, pain 3/10 on lowerback with ambulation, not in any distress, her son at bed side, all personnel belongings with patient, transported via wc to [facility]
--- NOTE | 2018-07-05 14:43 | Discharge Summary ---
HISTORY OF PRESENT ILLNESS: A 73-year-old female with past medical history positive for hypertension, gastroesophageal reflux disease, depression and overactive bladder. She fell at home. She had a pelvis and sacral fractures. We still awaiting [employer] HMO, denied inpatient rehab and they also denied a detention facility. They wanted to send the patient home. Dr. Jimenez is on the case. We have been arguing with [employer] chief medical technologist about the fact that she needs either inpatient rehab or in a worse situation detention facility. The only option we have from [employer] HMO is sending her home with home health. Patient lives in a trailer, and it is going to be a very difficult situation. PHYSICAL EXAM: VITAL SIGNS: The blood pressure was 103/50, temperature 98.4, heart rate 79 per minute, respiratory 16 per minute, oxygen saturation 94%. HEART: Regular rhythm. No murmur. No extra sounds. LUNGS: Clear bilaterally. FINAL IMPRESSION: 1. Sacral fracture. 2. Difficulty walking due to the sacral fracture. 3. Narcotic-induced constipation. 4. Osteoporosis. 5. Gastroesophageal reflux disease. 6. Overactive bladder. 7. Depression. 8. Urinary tract infection with multidrug resistant bacteria. PLAN OF TREATMENT: On the medications, she is on ertapenem IV once a day, which is going to be done today. Flexeril patch twice a day. Lipitor 20 mg daily. Tylenol 350 mg p.o. q.4 hours as needed for pain or fever. Celexa 40 mg daily. Continue Tylenol No. 3 one tablet q.4 hours as needed for pain. Aspirin 81 mg daily. Oxybutynin 15 mg daily. Zofran 4 mg p.o. q.6 hours as needed for nausea and vomiting. Protonix 40 mg daily. She is taking calcium carbonate 1000 mg q.6 hours. Multivitamin one tablet daily. Fosamax 70 mg once a week. Amitiza 24 mcg p.o. twice a day for narcotic-induced constipation. As I said, [employer] H[employer] has been very difficult to deal with. The patient is extremely upset with that. They denied inpatient rehab. They also denied a detention facility, so we are trying to see if they can at least approve the detention facility. Dr. Jimenez is on the case. He will be working with us to try to see if we can at least get that approved, and if not the only option that the insurance gives us is home with home health SENA CARCAMO MD Job#: [id number] GH
--- NOTE | 2018-07-05 16:51 | NUR ---
HOME HEALTH DISCHARGE NOTE PATIENT ADDRESS WHERE SERVICE WILL BE RECEIVED: [facility] [place] [address] PATIENT CONTACT NUMBER: [phone] NAME OF HOME HEALTH COMPANY: [facility] TELEPHONE/FAX NUMBER OF COMPANY: OFF: [phone] / FAX: [phone] ADDRESS OF COMPANY: [address] [place] [address], [address] [place] [address] SERVICES TO RECEIVE: SN AND PT EVAL AND TREAT ANTICIPATED DATE SERVICES WILL BEGIN: 07/06/2018 Please call the company above if you have not received a call to schedule a home visit within 24 hours of discharge.
--- NOTE | 2018-07-05 16:54 | NUR ---
CALLED AND CONFIRMED Laurie WU AT [facility] THAT PT WAS ACCEPTED.
== END 2018-07-05 14:00 | disposition home health service (06) | DRG 552 ==
LOC: ER 16:39 → ERHOLD 22:31 → MED/SURG 23:10 → MED/SURG3 06-21 18:36
PROVIDERS: ADMIT Internal Medicine; ATTEND Internal Medicine
DX: S32.19XA Other fracture of sacrum, initial encounter for closed fracture (principal); S32.058A Other fracture of fifth lumbar vertebra, initial encounter for closed fracture; N39.0 Urinary tract infection, site not specified; M54.42 Lumbago with sciatica, left side; M54.41 Lumbago with sciatica, right side; K59.03 Drug induced constipation; T40.605A Adverse effect of unspecified narcotics, initial encounter; I10 Essential (primary) hypertension; E78.00 Pure hypercholesterolemia, unspecified; E87.6 Hypokalemia; Z96.643 Presence of artificial hip joint, bilateral; M41.86 Other forms of scoliosis, lumbar region; E78.5 Hyperlipidemia, unspecified; R53.81 Other malaise; Z91.81 History of falling; K21.9 Gastro-esophageal reflux disease without esophagitis; M81.0 Age-related osteoporosis without current pathological fracture; F32.9 Major depressive disorder, single episode, unspecified; G47.00 Insomnia, unspecified; R25.1 Tremor, unspecified; N32.81 Overactive bladder; B96.20 Unspecified Escherichia coli [E. coli] as the cause of diseases classified elsewhere; Z16.35 Resistance to multiple antimicrobial drugs; D64.9 Anemia, unspecified; Z87.442 Personal history of urinary calculi; E66.9 Obesity, unspecified; Z68.32 Body mass index [BMI] 32.0-32.9, adult
CPT/HCPCS: 36415; 72131; 72220; 80048; 80053; 83735; 84443; 85025; 87086; 87186; 96360; 97139; J2405; J7050

== ENCOUNTER → 2019-06-21 | Day surgery (SDC) | payer MEDICARE ==
[2019-06-18 17:53] LABS: BASOPHILS # (AUTO) 0.1 (0.0-0.1); BASOPHILS % 0.6 % (0.0-1.0); EOSINOPHILS # (AUTO) 0.3 (0.0-0.4); EOSINOPHILS % 3.4 % (0.0-6.0); HEMATOCRIT 37.8 % (34.2-44.1); HEMOGLOBIN 11.8 g/dL (12.0-16.0); LYMPHOCYTES # (AUTO) 2.9 (1.0-3.2); LYMPHOCYTES % 35.8 % (18.0-39.1); MEAN CORPUSCULAR HEMOGLOBIN 28.4 pg (28-32); MEAN CORPUSCULAR HGB CONC 31.2 g/dL (31-35); MEAN CORPUSCULAR VOLUME 91.1 fL (81-99); MONOCYTES # (AUTO) 0.7 (0.2-0.8); MONOCYTES % 8.1 % (4.4-11.3); NEUTROPHILS # (AUTO) 4.2 (2.1-6.9); NEUTROPHILS % 51.5 % (38.7-80.0); PLATELET COUNT 179 x10e3/uL (140-360); RED BLOOD COUNT 4.15 x10e6/uL (3.6-5.1); RED CELL DISTRIBUTION WIDTH 15.5 % (11.7-14.4)
[~2019-06-21] MED LIST changes: +AMITIZA24 MCG PO; +ARICEPT5 MG PO; +ARTHRITIS PAIN650 M2 PO; +ATORVASTATIN CA20 MG PO; +FENTANYL CITRATE/PF 100MCG/2 ML INJ ONE; +MELATONIN10 M1 PO; +MYSOLINE50 MG PO; +NEXIUM40 MG PO; +NITROFURANTOIN100 MG PO; +PROPOFOL IV EMULSION 10 MG/ML 50 ML VIAL ONE; +ZOFRAN4 MG PO
[2019-06-21 14:30] VITALS: BP 139/72
--- NOTE | 2019-06-21 21:18 | Operative Report ---
DATE OF PROCEDURE: 06/21/2019 SURGEON: Felipe Gupta MD PROCEDURE: Esophagogastroduodenoscopy with biopsies and esophageal dilatation. INDICATIONS FOR PROCEDURE: Dysphagia, heartburn, indigestion. MEDICATIONS: The patient was done under MAC, please see anesthesiologist's note. PROCEDURE IN DETAIL: With the patient in left lateral decubitus position, a flexible fiberoptic Olympus gastroscope was introduced into the esophagus under direct visualization without any difficulty. There were some erosions noted in the distal esophagus. The scope was then advanced into the stomach traversing a small hiatal hernia after dilating the esophagus to size 54-Lao Gonzalez. There was a gastric stapling site noted 10 cm distal to the GE junction, it was patent and was traversed with ease and the scope was advanced into the distal stomach. Some hyperplastic-appearing polyps were noted in the body of the stomach and some were partially excised with the cold biopsy forceps. The mucosa overlying the antrum and the body revealed some patchy intense erythema and eddd-di-laefafmo edema and biopsies were obtained and sent to stain for H pylori. The pylorus was of normal contour and shape, it was intubated with ease and the scope was advanced all the way to the second portion of the duodenum. The scope was then withdrawn slowly and mucosa overlying the proximal second portion and the duodenal bulb appeared to be within normal limits. The scope was then withdrawn above the stapling site and retroflexed and there were some postoperative changes noted. The cardia appeared to be within normal limits. The scope was then straightened out, it was subsequently withdrawn. The patient tolerated the procedure well. IMPRESSION: 1. Erosive esophagitis. 2. Esophagus dilated to size 54-Lao Gonzalez. 3. Small hiatal hernia. 4. Status post gastric stapling. Gastric stapling site intact approximately 10 cm distal to gastroesophageal junction. 5. Gastritis, biopsied, biopsies sent to stain for Helicobacter pylori. 6. Gastric polyps, hyperplastic appearing, body, some partially resected with the cold biopsy forceps. PLAN: Follow up histology. Increase Nexium to 40 mg one p.o. a.c. b.i.d. Felipe Gupta MD [facility] [place]/MODL /[id number] cc: Jonathon Mcdonald MD
== END | disposition home or self-care (01) ==
LOC: OR 08:55
PROVIDERS: ATTEND Internal Medicine Gastroenterology
DX: K22.10 Ulcer of esophagus without bleeding (principal); K31.7 Polyp of stomach and duodenum; K29.70 Gastritis, unspecified, without bleeding; K44.9 Diaphragmatic hernia without obstruction or gangrene; K21.9 Gastro-esophageal reflux disease without esophagitis; Z98.84 Bariatric surgery status; M81.0 Age-related osteoporosis without current pathological fracture; R03.0 Elevated blood-pressure reading, without diagnosis of hypertension; R00.1 Bradycardia, unspecified; F03.90 Unspecified dementia, unspecified severity, without behavioral disturbance, psychotic disturbance, mood disturbance, and anxiety; Z01.810 Encounter for preprocedural cardiovascular examination; Z01.812 Encounter for preprocedural laboratory examination; Z79.82 Long term (current) use of aspirin; Z68.28 Body mass index [BMI] 28.0-28.9, adult; Z87.891 Personal history of nicotine dependence
CPT/HCPCS: 36415; 43239; 43450; 85025; 88305; 88312; 93005; J3010

== ENCOUNTER 2020-06-16 05:44 | Observation (INO) | payer MEDICARE ==
[2020-06-12 14:52] LABS: BASOPHILS % 0.6 % (0.0-1.0); EOSINOPHILS # (AUTO) 0.3 (0.0-0.4); EOSINOPHILS % 4.5 % (0.0-6.0); HEMATOCRIT 39.1 % (34.2-44.1); HEMOGLOBIN 12.5 g/dL (12.0-16.0); LYMPHOCYTES # (AUTO) 1.9 (1.0-3.2); LYMPHOCYTES % 27.7 % (18.0-39.1); MEAN CORPUSCULAR HEMOGLOBIN 29.5 pg (28-32); MEAN CORPUSCULAR VOLUME 92.2 fL (81-99); MONOCYTES # (AUTO) 0.6 (0.2-0.8); MONOCYTES % 8.3 % (4.4-11.3); NEUTROPHILS % 58.6 % (38.7-80.0); PLATELET COUNT 150 x10e3/uL (140-360); RED BLOOD COUNT 4.24 x10e6/uL (3.6-5.1); RED CELL DISTRIBUTION WIDTH 13.3 % (11.7-14.4)
[~2020-06-16] VITALS: Ht 167.6 cm; Wt 88.0 kg
[~2020-06-16 05:44] MED LIST changes: +CLOPIDOGREL75 MG PO; +FAMOTIDINE20 MG PO; -FENTANYL CITRATE/PF 100MCG/2 ML INJ ONE; +MYRBETRIQ50 MG PO; -PROPOFOL IV EMULSION 10 MG/ML 50 ML VIAL ONE
[2020-06-16] MEDS ORDERED: CELECOXIB 200 MG CAP ONE (06:24)
[2020-06-16] MEDS ORDERED: DEXAMETHASONE SOD PHOS 10 MG/1 ML VIAL ONE (06:25)
[2020-06-16] MEDS ORDERED: CEFAZOLIN SOD 1 GM/NS 50ML 100 ML IV ONE (06:25)
[2020-06-16] MEDS ORDERED: GABAPENTIN 300 MG CAP ONE (06:25)
[2020-06-16] MEDS ORDERED: ROPIVACAINE 246.25 MG, EPINEPHRINE HCL 1:1000 1ML 0.5 MG, CLONIDINE HCL 0.08 MG, KETORO... INJ ONE ×5 (06:30)
[2020-06-16] MEDS ORDERED: TRANEXAMIC ACID 1,000 MG/10 ML ML ONE (06:41)
[2020-06-16] MEDS ORDERED: VANCOMYCIN HCL 1,000 MG ONE (06:41)
[2020-06-16] MEDS ORDERED: SODIUM CHLORIDE 0.9% 500ML 500 ML ONE ×2 (06:41→06:50)
[2020-06-16] MEDS ORDERED: HYDROCODONE/APAP 5MG-325MG TAB PO PRN (09:00)
[2020-06-16] MEDS ORDERED: DIPHENHYDRAMINE HCL INJ 50 MG/ML VIAL IV PRN (09:00)
[2020-06-16] MEDS ORDERED: ZOLPIDEM TARTRATE 5 MG TAB PO PRN (09:00)
[2020-06-16] MEDS ORDERED: SODIUM CHLORIDE 0.9% 1000ML 1,000 ML IV SCH (09:00)
[2020-06-16] MEDS ORDERED: KETOROLAC TROMETHAMINE 30 MG/ML VIAL IV PRN (09:00)
[2020-06-16] MEDS: ASPIRIN 325 MG TAB PO SCH ×2 (09:00→18:20)
[2020-06-16] MEDS ORDERED: DOCUSATE SODIUM 100 MG CAP PO PRN (09:00)
[2020-06-16] MEDS ORDERED: HYDROCODONE/APAP 7.5MG-325MG 1 EA TAB PO PRN (09:00)
[2020-06-16] MEDS ORDERED: ONDANSETRON HCL INJ 2MG/ML 2ML 2 MG/ML VIAL IV PRN (09:00)
[2020-06-16] MEDS ORDERED: CELECOXIB 100 MG CAP PO SCH (09:00)
[2020-06-16] MEDS ORDERED: ACETAMINOPHEN 650 MG SUPP PR PRN (09:00)
[2020-06-16] MEDS ORDERED: MEPERIDINE HCL INJ 25 MG/ML VIAL ONE (09:18)
[2020-06-16] MEDS ORDERED: HYDROMORPHONE 1MG/1ML INJ ONE (09:59)
[2020-06-16 11:10] VITALS: BP 108/86
[2020-06-16 11:46] VITALS: BP 108/86
[2020-06-16] MEDS ORDERED: SEVOFLURANE INHAL SOLN 250 ML PEN BTL ONE (12:26)
[2020-06-16] MEDS ORDERED: PROPOFOL IV EMULSION 10 MG/ML 20 ML VIAL ONE (12:26)
[2020-06-16] MEDS ORDERED: ONDANSETRON HCL INJ 2MG/ML 2ML 2 MG/ML VIAL ONE (12:26)
[2020-06-16] MEDS ORDERED: DEXAMETHASONE SOD PHOS INJ 4 MG/ML VIAL ONE (12:26)
[2020-06-16] MEDS ORDERED: LIDOCAINE HCL 2% LOCAL INJ 5 ML SDV VIAL INJ ONE (12:26)
[2020-06-16] MEDS ORDERED: GLYCOPYRROLATE INJ 0.2 MG/ML VIAL ONE (12:26)
[2020-06-16] MEDS ORDERED: ROPIVACAINE 0.5% 5 MG/ML 30 ML SDV ONE (12:32)
[2020-06-16] MEDS ORDERED: MIDAZOLAM HCL 2 MG/2 ML VIAL ONE (12:38)
[2020-06-16] MEDS ORDERED: FENTANYL CITRATE/PF 100MCG/2 ML INJ ONE (12:38)
[2020-06-16] MEDS ORDERED: NON-FORMULARY MEDICATION (Ondansetron Hcl* (Zofran*) 4 MG) PO SCH (14:00)
[2020-06-16] MEDS ORDERED: ONDANSETRON HCL 4 MG ORAL DISINTEGRATING TAB PO PRN (14:15)
[2020-06-16] MEDS: CEFAZOLIN SOD 1 GM/NS 50ML 50 ML IV SCH ×2 (15:25→21:17)
[2020-06-16 15:28] LABS: ALANINE AMINOTRANSFERASE 22 IU/L (0-55); ALBUMIN 3.3 g/dL (3.5-5.0); ALKALINE PHOSPHATASE 61 IU/L (40-150); ANION GAP 15.2 mmol/L (8-16); BLOOD UREA NITROGEN 9 mg/dL (7-26); BUN/CREATININE RATIO 12 (6-25); CALCIUM 8.7 mg/dL (8.4-10.2); CARBON DIOXIDE 23 mmol/L (22-29); CHLORIDE 104 mmol/L (98-107); CREATININE, SERUM 0.74 mg/dL (0.57-1.11); EST GLOMERULAR FILTRATION RATE > 60 ML/MIN (60-); GLUCOSE 155 mg/dL (74-118); POTASSIUM 4.2 mmol/L (3.5-5.1); SODIUM 138 mmol/L (136-145)
[2020-06-16 15:40] VITALS: BP 113/53
[2020-06-16] MEDS ORDERED: ENOXAPARIN SOD INJ 40 MG/0.4 ML SYR SC SCH (17:00)
[2020-06-16] MEDS: CELECOXIB 200 MG CAP PO SCH (18:20)
[2020-06-16] MEDS: PANTOPRAZOLE SOD 40 MG TABEC PO SCH (18:20)
[2020-06-16 20:00] VITALS: BP 112/46
[2020-06-16 21:00] VITALS: BP 112/46
[2020-06-16] MEDS ORDERED: PRIMIDONE 50 MG TAB PO SCH (21:00)
[2020-06-16] MEDS ORDERED: NON-FORMULARY MEDICATION (Melatonin 10 MG) PO SCH (21:00)
[2020-06-16] MEDS ORDERED: FAMOTIDINE 20 MG TAB PO SCH (21:00)
[2020-06-16] MEDS ORDERED: ATORVASTATIN 20 MG TAB PO SCH (21:00)
[2020-06-16] MEDS ORDERED: MELATONIN 5 MG TABLET PO SCH (21:00)
[2020-06-16] MEDS ORDERED: DONEPEZIL HCL 5 MG TAB PO SCH (21:00)
[2020-06-17] VITALS: BP 132/59
[2020-06-17 04:00] VITALS: BP 124/56
[2020-06-17] MEDS: CEFAZOLIN SOD 1 GM/NS 50ML 50 ML IV SCH (05:40)
[2020-06-17 06:03] LABS: HEMATOCRIT 32.3 % (34.2-44.1); HEMOGLOBIN 10.4 g/dL (12.0-16.0)
[2020-06-17 08:00] VITALS: BP 121/57
[2020-06-17] MEDS: CELECOXIB 200 MG CAP PO SCH (08:20)
[2020-06-17] MEDS: ASPIRIN 325 MG TAB PO SCH (08:20)
[2020-06-17] MEDS: PANTOPRAZOLE SOD 40 MG TABEC PO SCH (08:21)
[2020-06-17 08:26] VITALS: BP 121/57
[2020-06-17] MEDS ORDERED: ASPIRIN 81 MG CHEW TAB PO SCH (09:00)
[2020-06-17] MEDS ORDERED: MULTIVITAMINS/MINERALS TAB PO SCH (09:00)
[2020-06-17] MEDS ORDERED: NITROFURANTOIN MACROCRYSTALS 100 MG CAP PO SCH (09:00)
[2020-06-17] MEDS ORDERED: ACETAMINOPHEN 1000 MG/100 ML IV PRN (09:00)
[2020-06-17] MEDS ORDERED: NON-FORMULARY MEDICATION (Mirabegron (Myrbetriq) 50 MG) PO SCH (09:00)
[2020-06-17] MEDS ORDERED: CITALOPRAM HYDROBROMIDE 20 MG TAB PO SCH (09:00)
[2020-06-17] MEDS ORDERED: CLOPIDOGREL BISULFATE 75 MG TAB PO SCH (09:00)
[2020-06-17 12:16] VITALS: BP 148/53
[2020-06-17] MEDS ORDERED: ONDANSETRON HCL 4 MG ORAL DISINTEGRATING TAB PO PRN (12:45)
== END 2020-06-17 16:35 | disposition home or self-care (01) ==
LOC: OR 05:44 → PACU V 08:47 → MED/SURG 11:15
PROVIDERS: ADMIT Specialist; ATTEND Specialist
DX: M17.0 Bilateral primary osteoarthritis of knee (principal); Z96.649 Presence of unspecified artificial hip joint; R91.1 Solitary pulmonary nodule; E66.9 Obesity, unspecified; Z68.31 Body mass index [BMI] 31.0-31.9, adult; Z20.828 Contact with and (suspected) exposure to other viral communicable diseases; E78.00 Pure hypercholesterolemia, unspecified; K21.9 Gastro-esophageal reflux disease without esophagitis; I10 Essential (primary) hypertension; Z01.818 Encounter for other preprocedural examination
CPT/HCPCS: 27447; 36415 ×3; 64450; 71046; 73560; 80053; 85014; 85018; 85025; 86850; 86900; 86920; 97116; 97139; 97161; 97530 ×2; C1713; G0378 ×2; J0171; J0690 ×2; J1100 ×2; J1170; J1650; J1885; J2001; J2175; J2250; J2405; J2704; J2795; J3010; J3370; J7040; S0164 ×2; U0002

== ENCOUNTER → 2020-07-02 | Day surgery (SDC) | payer MEDICARE ==
[2020-06-29 10:15] LABS: BASOPHILS # (AUTO) 0.1 (0.0-0.1); BASOPHILS % 0.7 % (0.0-1.0); EOSINOPHILS # (AUTO) 0.2 (0.0-0.4); EOSINOPHILS % 3.3 % (0.0-6.0); HEMATOCRIT 34.8 % (34.2-44.1); HEMOGLOBIN 11.2 g/dL (12.0-16.0); LYMPHOCYTES # (AUTO) 1.3 (1.0-3.2); LYMPHOCYTES % 18.1 % (18.0-39.1); MEAN CORPUSCULAR HGB CONC 32.2 g/dL (31-35); MEAN CORPUSCULAR VOLUME 93.3 fL (81-99); MONOCYTES # (AUTO) 0.6 (0.2-0.8); MONOCYTES % 7.8 % (4.4-11.3); NEUTROPHILS # (AUTO) 5.1 (2.1-6.9); NEUTROPHILS % 69.7 % (38.7-80.0); PLATELET COUNT 336 x10e3/uL (140-360); RED BLOOD COUNT 3.73 x10e6/uL (3.6-5.1); RED CELL DISTRIBUTION WIDTH 13.7 % (11.7-14.4)
[2020-06-29 10:33] LABS: ANION GAP 12.7 mmol/L (8-16); BLOOD UREA NITROGEN 8 mg/dL (7-26); BUN/CREATININE RATIO 11 (6-25); CALCIUM 8.9 mg/dL (8.4-10.2); CARBON DIOXIDE 29 mmol/L (22-29); CHLORIDE 102 mmol/L (98-107); EST GLOMERULAR FILTRATION RATE > 60 ML/MIN (60-); GLUCOSE 108 mg/dL (74-118); POTASSIUM 3.7 mmol/L (3.5-5.1); SODIUM 140 mmol/L (136-145)
[~2020-07-02] MED LIST changes: +B&O 60MG R/S 60 MG SUPP PR ONE; +BOTULINUM TOXIN TYPE A 100 UNIT VIAL IM ONE; +DEXAMETHASONE SOD PHOS INJ 4 MG/ML VIAL ONE; +FENTANYL CITRATE/PF 100MCG/2 ML INJ ONE; +IOPAMIDOL 300MG/ML 50ML INFUS..BTL IV ONE; +LIDOCAINE HCL 2% LOCAL INJ 5 ML SDV VIAL INJ ONE; +MIDAZOLAM HCL 2 MG/2 ML VIAL ONE; +ONDANSETRON HCL INJ 2MG/ML 2ML 2 MG/ML VIAL ONE; +PROPOFOL IV EMULSION 10 MG/ML 20 ML VIAL ONE; +SEVOFLURANE INHAL SOLN 250 ML PEN BTL ONE; +VANCOMYCIN 1GM/NS 250 ML 250 ML ONE
[2020-07-02 14:00] VITALS: BP 134/55
== END | disposition home or self-care (01) ==
LOC: OR 10:10
PROVIDERS: ATTEND Urology
DX: N39.41 Urge incontinence (principal); N39.0 Urinary tract infection, site not specified; N81.6 Rectocele; N95.2 Postmenopausal atrophic vaginitis; Z96.82 Presence of neurostimulator; N32.89 Other specified disorders of bladder; N20.0 Calculus of kidney; R25.1 Tremor, unspecified; E78.5 Hyperlipidemia, unspecified; J45.909 Unspecified asthma, uncomplicated; K21.9 Gastro-esophageal reflux disease without esophagitis; Z01.812 Encounter for preprocedural laboratory examination; Z01.818 Encounter for other preprocedural examination; Z20.828 Contact with and (suspected) exposure to other viral communicable diseases
CPT/HCPCS: 36415; 52005; 52287; 74018; 74420; 80048; 84550; 85025; C1758; J0587; J1100; J2001; J2250; J2405; J2704; J3010; J3370; Q9967; U0002

== ENCOUNTER → 2020-11-19 | Day surgery (SDC) | payer MEDICARE ==
[2020-11-16 12:35] LABS: BASOPHILS # (AUTO) 0.1 (0.0-0.1); BASOPHILS % 0.8 % (0.0-1.0); EOSINOPHILS # (AUTO) 0.4 (0.0-0.4); EOSINOPHILS % 6.1 % (0.0-6.0); HEMATOCRIT 39.4 % (34.2-44.1); HEMOGLOBIN 12.7 g/dL (12.0-16.0); LYMPHOCYTES # (AUTO) 1.9 (1.0-3.2); LYMPHOCYTES % 30.9 % (18.0-39.1); MEAN CORPUSCULAR HEMOGLOBIN 29.6 pg (28-32); MEAN CORPUSCULAR HGB CONC 32.2 g/dL (31-35); MEAN CORPUSCULAR VOLUME 91.8 fL (81-99); MONOCYTES # (AUTO) 0.6 (0.2-0.8); NEUTROPHILS # (AUTO) 3.3 (2.1-6.9); NEUTROPHILS % 51.9 % (38.7-80.0); PLATELET COUNT 193 x10e3/uL (140-360); RED BLOOD COUNT 4.29 x10e6/uL (3.6-5.1); RED CELL DISTRIBUTION WIDTH 15.4 % (11.7-14.4)
[~2020-11-19] MED LIST changes: -B&O 60MG R/S 60 MG SUPP PR ONE; -BOTULINUM TOXIN TYPE A 100 UNIT VIAL IM ONE; -DEXAMETHASONE SOD PHOS INJ 4 MG/ML VIAL ONE; -IOPAMIDOL 300MG/ML 50ML INFUS..BTL IV ONE; +OMEPRAZOLE40 MG PO; -ONDANSETRON HCL INJ 2MG/ML 2ML 2 MG/ML VIAL ONE; -SEVOFLURANE INHAL SOLN 250 ML PEN BTL ONE; -VANCOMYCIN 1GM/NS 250 ML 250 ML ONE
[2020-11-19 14:55] VITALS: BP 156/73
== END | disposition home or self-care (01) ==
LOC: OR 11:47
PROVIDERS: ATTEND Internal Medicine Gastroenterology
DX: K64.5 Perianal venous thrombosis (principal); D12.3 Benign neoplasm of transverse colon; D12.0 Benign neoplasm of cecum; K57.30 Diverticulosis of large intestine without perforation or abscess without bleeding; K29.60 Other gastritis without bleeding; K21.9 Gastro-esophageal reflux disease without esophagitis; K44.9 Diaphragmatic hernia without obstruction or gangrene; K20.90 Esophagitis, unspecified without bleeding; G47.33 Obstructive sleep apnea (adult) (pediatric); R03.0 Elevated blood-pressure reading, without diagnosis of hypertension; E78.5 Hyperlipidemia, unspecified; R01.1 Cardiac murmur, unspecified; M81.0 Age-related osteoporosis without current pathological fracture; N20.0 Calculus of kidney; R00.1 Bradycardia, unspecified; Z01.810 Encounter for preprocedural cardiovascular examination; F32.9 Major depressive disorder, single episode, unspecified; Z01.812 Encounter for preprocedural laboratory examination; Z20.822 Contact with and (suspected) exposure to COVID-19; Z68.30 Body mass index [BMI] 30.0-30.9, adult; Z87.891 Personal history of nicotine dependence
CPT/HCPCS: 36415; 45380; 45385; 85025; 93005; J2001; J2250; J2704; J3010; U0002; 45378; 45384

== ENCOUNTER → 2020-12-16 | Day surgery (SDC) | payer MEDICARE ==
[2020-12-11 11:34] LABS: BASOPHILS # (AUTO) 0.1 (0.0-0.1); BASOPHILS % 0.8 % (0.0-1.0); EOSINOPHILS # (AUTO) 0.3 (0.0-0.4); EOSINOPHILS % 4.5 % (0.0-6.0); HEMATOCRIT 41.1 % (34.2-44.1); HEMOGLOBIN 13.1 g/dL (12.0-16.0); LYMPHOCYTES # (AUTO) 2.2 (1.0-3.2); LYMPHOCYTES % 30.5 % (18.0-39.1); MEAN CORPUSCULAR HEMOGLOBIN 29.6 pg (28-32); MEAN CORPUSCULAR HGB CONC 31.9 g/dL (31-35); MEAN CORPUSCULAR VOLUME 92.8 fL (81-99); MONOCYTES # (AUTO) 0.6 (0.2-0.8); MONOCYTES % 8.4 % (4.4-11.3); NEUTROPHILS # (AUTO) 4.1 (2.1-6.9); NEUTROPHILS % 55.7 % (38.7-80.0); PLATELET COUNT 183 x10e3/uL (140-360); RED BLOOD COUNT 4.43 x10e6/uL (3.6-5.1); RED CELL DISTRIBUTION WIDTH 14.4 % (11.7-14.4)
[2020-12-11 12:31] LABS: ANION GAP 16.8 mmol/L (8-16); BLOOD UREA NITROGEN 7 mg/dL (7-26); BUN/CREATININE RATIO 10 (6-25); CALCIUM 8.8 mg/dL (8.4-10.2); CARBON DIOXIDE 25 mmol/L (22-29); CHLORIDE 105 mmol/L (98-107); EST GLOMERULAR FILTRATION RATE > 60 ML/MIN (60-); GLUCOSE 96 mg/dL (74-118); POTASSIUM 3.8 mmol/L (3.5-5.1); SODIUM 143 mmol/L (136-145)
[~2020-12-16] MED LIST changes: +B&O 60MG R/S 60 MG SUPP PR ONE; +BOTULINUM TOXIN TYPE A 100 UNIT VIAL IM ONE; +CEFTRIAXONE 1 GM VIAL ONE; -FENTANYL CITRATE/PF 100MCG/2 ML INJ ONE; +GLYCOPYRROLATE INJ 0.2 MG/ML VIAL ONE; +IOPAMIDOL 300MG/ML 50ML INFUS..BTL IV ONE; -LIDOCAINE HCL 2% LOCAL INJ 5 ML SDV VIAL INJ ONE; -MIDAZOLAM HCL 2 MG/2 ML VIAL ONE; +POVIDONE IODINE 0.05% 0.05 % ML PO ONE; +SEVOFLURANE INHAL SOLN 250 ML PEN BTL ONE; +SODIUM CHLORIDE 0.9% 50ML 100 ML ONE
[2020-12-16 13:10] VITALS: BP 163/82
== END | disposition home or self-care (01) ==
LOC: OR 10:11
PROVIDERS: ATTEND Urology
DX: N39.41 Urge incontinence (principal); N39.0 Urinary tract infection, site not specified; N32.89 Other specified disorders of bladder; N32.81 Overactive bladder; N81.6 Rectocele; N81.10 Cystocele, unspecified; N95.2 Postmenopausal atrophic vaginitis; M19.90 Unspecified osteoarthritis, unspecified site; K21.9 Gastro-esophageal reflux disease without esophagitis; I10 Essential (primary) hypertension; I49.8 Other specified cardiac arrhythmias; R01.1 Cardiac murmur, unspecified; E78.5 Hyperlipidemia, unspecified; N20.0 Calculus of kidney; Z01.812 Encounter for preprocedural laboratory examination; Z96.82 Presence of neurostimulator; Z87.891 Personal history of nicotine dependence
CPT/HCPCS: 36415; 52005; 52287; 74420; 80048; 85025; C1758; J0587; J0696; J2704; Q9967

== ENCOUNTER → 2021-04-30 | Day surgery (SDC) | payer MEDICARE ==
[2021-04-29 11:17] LABS: BASOPHILS # (AUTO) 0.1 (0.0-0.1); BASOPHILS % 0.9 % (0.0-1.0); EOSINOPHILS # (AUTO) 0.4 (0.0-0.4); EOSINOPHILS % 6.1 % (0.0-6.0); HEMATOCRIT 43.1 % (34.2-44.1); HEMOGLOBIN 14.1 g/dL (12.0-16.0); LYMPHOCYTES # (AUTO) 2.2 (1.0-3.2); LYMPHOCYTES % 32.8 % (18.0-39.1); MEAN CORPUSCULAR HEMOGLOBIN 30.7 pg (28-32); MEAN CORPUSCULAR HGB CONC 32.7 g/dL (31-35); MEAN CORPUSCULAR VOLUME 93.7 fL (81-99); MONOCYTES # (AUTO) 0.6 (0.2-0.8); MONOCYTES % 8.7 % (4.4-11.3); NEUTROPHILS # (AUTO) 3.4 (2.1-6.9); NEUTROPHILS % 51.4 % (38.7-80.0); PLATELET COUNT 176 x10e3/uL (140-360); RED CELL DISTRIBUTION WIDTH 13.2 % (11.7-14.4)
[2021-04-29 11:37] LABS: ANION GAP 13.7 mmol/L (8-16); CALCIUM 9.2 mg/dL (8.4-10.2); CREATININE, SERUM 0.71 mg/dL (0.57-1.11); POTASSIUM 3.7 mmol/L (3.5-5.1)
[~2021-04-30] MED LIST changes: -B&O 60MG R/S 60 MG SUPP PR ONE; +BELLADONNA/OPIUM 30 MG SUPP RC ONE; +BIOTIN1 MG; +CALCIUM PO; -CEFTRIAXONE 1 GM VIAL ONE; +CRANBERRY200 MG PO; -GLYCOPYRROLATE INJ 0.2 MG/ML VIAL ONE; +LEVOFLOXACIN 500MG/D5W 100ML 100 ML IV ONE; -POVIDONE IODINE 0.05% 0.05 % ML PO ONE; -PROPOFOL IV EMULSION 10 MG/ML 20 ML VIAL ONE; -SEVOFLURANE INHAL SOLN 250 ML PEN BTL ONE; -SODIUM CHLORIDE 0.9% 50ML 100 ML ONE; +VITAMIN C500 MG PO
[2021-04-30 13:00] VITALS: BP 140/80
== END | disposition home or self-care (01) ==
LOC: OR 08:32
PROVIDERS: ATTEND Urology
DX: N39.41 Urge incontinence (principal); N39.0 Urinary tract infection, site not specified; N95.2 Postmenopausal atrophic vaginitis; N32.89 Other specified disorders of bladder; N18.9 Chronic kidney disease, unspecified; K21.9 Gastro-esophageal reflux disease without esophagitis; Z96.82 Presence of neurostimulator; Z01.810 Encounter for preprocedural cardiovascular examination; Z01.812 Encounter for preprocedural laboratory examination; Z20.822 Contact with and (suspected) exposure to COVID-19; Z87.891 Personal history of nicotine dependence
CPT/HCPCS: 36415; 52005; 52287; 74420; 80048; 85025; 87086; 93005; C1758; J0587; J1956; Q9967; U0002

== ENCOUNTER → 2021-10-08 | Day surgery (SDC) | payer MEDICARE ==
[2021-10-07 10:14] LABS: BASOPHILS # (AUTO) 0.1 (0.0-0.1); EOSINOPHILS # (AUTO) 0.3 (0.0-0.4); EOSINOPHILS % 5.6 % (0.0-6.0); HEMATOCRIT 42.9 % (34.2-44.1); HEMOGLOBIN 13.9 g/dL (12.0-16.0); LYMPHOCYTES # (AUTO) 2.3 (1.0-3.2); LYMPHOCYTES % 38.8 % (18.0-39.1); MEAN CORPUSCULAR HEMOGLOBIN 32.3 pg (28-32); MEAN CORPUSCULAR HGB CONC 32.4 g/dL (31-35); MEAN CORPUSCULAR VOLUME 99.8 fL (81-99); MONOCYTES # (AUTO) 0.6 (0.2-0.8); NEUTROPHILS # (AUTO) 2.7 (2.1-6.9); NEUTROPHILS % 44.4 % (38.7-80.0); PLATELET COUNT 171 x10e3/uL (140-360); RED CELL DISTRIBUTION WIDTH 12.7 % (11.7-14.4)
[2021-10-07 10:24] LABS: ANION GAP 15.3 mmol/L (8-16); CALCIUM 10.7 mg/dL (8.4-10.2); CREATININE, SERUM 0.78 mg/dL (0.57-1.11); POTASSIUM 4.3 mmol/L (3.5-5.1)
[~2021-10-08] MED LIST changes: +ASPIRIN81 MG PO; +B&O 60MG R/S 60 MG SUPP PR ONE; -BELLADONNA/OPIUM 30 MG SUPP RC ONE; +GENTAMICIN 80MG/NS 100 ML 200 ML IV ONE; -LEVOFLOXACIN 500MG/D5W 100ML 100 ML IV ONE; +LIDOCAINE HCL 2% LOCAL INJ 5 ML SDV VIAL INJ ONE; +MEGA REDS PO; +MELATONIN3 MG PO; +MULTI-VITAMIN1 EACH PO; +ONDANSETRON HCL INJ 2MG/ML 2ML 2 MG/ML VIAL ONE; +POVIDONE IODINE 0.05% 0.05 % ML PO ONE; +PRESERVISION T1 EACH PO; +PROPOFOL IV EMULSION 10 MG/ML 20 ML VIAL ONE; +SEVOFLURANE INHAL SOLN 250 ML PEN BTL ONE; +TURMERIC538 MG PO; +TYLENOL ARTHRITIS PO
[2021-10-08 13:00] VITALS: BP 140/80
== END | disposition home or self-care (01) ==
LOC: OR 09:48
PROVIDERS: ATTEND Urology
DX: N39.41 Urge incontinence (principal); N32.81 Overactive bladder; N39.0 Urinary tract infection, site not specified; N32.89 Other specified disorders of bladder; N81.10 Cystocele, unspecified; N81.6 Rectocele; N95.2 Postmenopausal atrophic vaginitis; Z96.82 Presence of neurostimulator; G47.33 Obstructive sleep apnea (adult) (pediatric); R00.1 Bradycardia, unspecified; F03.90 Unspecified dementia, unspecified severity, without behavioral disturbance, psychotic disturbance, mood disturbance, and anxiety; Z01.810 Encounter for preprocedural cardiovascular examination; Z01.812 Encounter for preprocedural laboratory examination; Z01.818 Encounter for other preprocedural examination; Z20.822 Contact with and (suspected) exposure to COVID-19; Z79.82 Long term (current) use of aspirin; Z79.899 Other long term (current) drug therapy
CPT/HCPCS: 36415; 52005; 52287; 71046; 74420; 80048; 85025; 87086; 87186; 93005; C1758; J0587; J1580; J2001; J2405; J2704; Q9967; U0002